=== PATIENT | female | born 1950 | race Caucasian/White ===

== ENCOUNTER 2016-10-30 12:01 | Emergency (ER) | payer MEDICARE ==
[2016-10-30 12:18] VITALS: O2SAT 96
[2016-10-30 12:52] LABS: Collection Type CLEAN CATCH; Ph 6.5 (5-6)
--- NOTE | 2016-10-30 12:52 | ERPHSYRPT ---
- History of Present Illness Time Seen by Provider: 10/30/16 12:30 Source: patient Exam Limitations: clinical condition Patient Subjective Stated Complaint: pt states she is having trouble urinating due to vaginal swelling. pt states her advised her to take diclofenac for a yeast infection. pt states she has dysuria. Triage Nursing Assessment: pt pink, warm, dry. abdomen soft non tender. pt afebrile. Physician History: PATIENT COMPLAINS OF VAGINAL SWELLING ASSOCIATED WITH FREQUENCY, URGENCY AND DYSURIA FOR 3 WEEKS. HAS A FULLNESS SENSATION UPON VOIDING . DENIES ABDOMINAL PAIN, VAGINAL DISCHARGE, HEMATURIA, FEVER, CHILLS OR FLANK PAIN. Timing/Duration: week(s) Activites at Onset: none Quality: burning Onset Location: vaginal Pain Radiation: none Severity of Pain-Max: moderate Severity of Pain-Current: moderate Prior abdominal problems: none Modifying Factors: Improves With: nothing, urinating Associated Symptoms: denies symptoms Allergies/Adverse Reactions: codeine Allergy (Verified 10/30/16 12:18) corn Allergy (Verified 10/30/16 12:18) Penicillins Allergy (Verified 10/30/16 12:18) Sulfa (Sulfonamide Antibiotics) Allergy (Verified 10/30/16 12:18) NOVAFED Adverse Reaction (Uncoded 10/30/16 12:18) Rapid Heart Beat Home Medications: No Reportable Medications [No Reported Medications] 10/30/16 [History] Hx Tetanus, Diphtheria Vaccination/Date Given: Yes (unknown) Hx Influenza Vaccination/Date Given: No Hx Pneumococcal Vaccination/Date Given: No - Review of Systems Constitutional: No Fever, No Chills Eyes: No Symptoms Ears, Nose, & Throat: No Symptoms Respiratory: No Cough, No Dyspnea Cardiac: No Chest Pain, No Edema, No Syncope Abdominal/Gastrointestinal: No Abdominal Pain, No Nausea, No Vomiting, No Diarrhea Genitourinary Symptoms: Dysuria, Frequency, Hesitancy, Urgency Musculoskeletal: No Symptoms, No Back Pain, No Neck Pain Skin: No Symptoms, No Rash Neurological: No Symptoms, No Dizziness, No Focal Weakness, No Sensory Changes Psychological: No Symptoms Endocrine: No Symptoms All Other Systems: Reviewed and Negative - Past Medical History Pertinent Past Medical History: Yes Neurological History: No Pertinent History ENT History: No Pertinent History Cardiac History: Other Respiratory History: No Pertinent History Endocrine Medical History: No Pertinent History Musculoskeletal History: No Pertinent History GI Medical History: No Pertinent History History: No Pertinent History Psycho-Social History: No Pertinent History Female Reproductive Disorders: No Pertinent History Other Medical History: PT HX OF BREAST CANCER HAD A HEART MONITOR A 1 TIME DUE TO ALLERGY TO CODEINE CURRENTLY TAKING CEPHALEXIN FOR SWOLLEN NECK LYMPHNODES FROM DENTAL CARIES - Past Surgical History Past Surgical History: Yes Neuro Surgical History: No Pertinent History Cardiac: No Pertinent History Respiratory: No Pertinent History Gastrointestinal: Cholecystectomy Musculoskeletal: No Pertinent History Female Surgical History: Hysterectomy, Mastectomy - Social History Smoking Status: Former smoker Exposure to second hand smoke: No Drug Use: none Patient Lives Alone: No - Nursing Vital Signs Nursing Vital Signs: Initial Vital Signs Temperature 98.7 F Temperature Source Oral Pulse Rate 68 Respiratory Rate 18 Blood Pressure [Left Arm] 176/79 Pain Intensity 0 - Physical Exam General Appearance: no apparent distress, alert Eye Exam: PERRL/EOMI, eyes nml inspection Ears, Nose, Throat Exam: normal ENT inspection, TMs normal, pharynx normal, moist mucous membranes Neck Exam: normal inspection, non-tender, supple, full range of motion Respiratory Exam: normal breath sounds, lungs clear, No respiratory distress Cardiovascular Exam: regular rate/rhythm, normal heart sounds, normal peripheral pulses Gastrointestinal/Abdomen Exam: soft, normal bowel sounds, other (NONTENDER), No tenderness, No mass Pelvic Exam: normal external exam, cervical motion tenderness, other (BLADDER PROLAPSE STAGE 2 TO THE OPENING OF THE VAGINAL ORIFICE) Back Exam: normal inspection, normal range of motion, No CVA tenderness, No vertebral tenderness Extremity Exam: normal inspection, normal range of motion, pelvis stable Neurologic Exam: alert, oriented x 3, cooperative, projection printer II-XII nml as tested, normal mood/affect, sensation nml, No motor deficits Skin Exam: normal color, warm, dry Lymphatic Exam: No adenopathy SpO2: 96 Oxygen Delivery: Room Air Ordered Tests: Active Orders 24 hr Category Date Time Status Pelvic Exam Assist STAT Care 10/30/16 12:46 Active UA W/ MICROSCOPIC Stat Lab 10/30/16 12:35 Completed UA W/RFX UR CULTURE Stat Lab 10/30/16 12:35 Completed Wet Prep Stat Lab 10/30/16 12:30 Completed Lab/Rad Data: Laboratory Results 10/30/16 10/30/16 Range/Units 12:35 12:30 Ur Collection Type CLEAN CATCH Urine Color YELLOW (YELLOW) Urine Appearance CLEAR (CLEAR) Urine pH 6.5 (5-6) Ur Specific [place] 1.010 (1.005-1.025) Urine Protein NEGATIVE (Negative) Urine Glucose (UA) NEGATIVE (NEGATIVE) mg/dL Urine Ketones NEGATIVE (NEGATIVE) Urine Nitrite NEGATIVE (NEGATIVE) Urine Bilirubin NEGATIVE (NEGATIVE) Urine Urobilinogen 0.2 (0-1) mg/dL Urine WBC (Auto) TRACE (NEGATIVE) Urine RBC (Auto) NEGATIVE (0-5) Lazaro/ul Urine Microscopic WBC 0-2 (0-5) /HPF Ur Epithelial Cells FEW (FEW) /HPF Urine Bacteria RARE (NEGATIVE) /HPF WBC (Wet Prep) Few RBC (Wet Prep) Rare Epi Cells (Wet Prep) Few Bacteria (Wet Prep) Few Clue Cells (Wet Prep) None Seen Trichomonas (Wet Prep) None Seen Budding Yeast (Wet Prp) None Seen Specimen Received 10/30/16 1243 - Progress Progress Note: 10/30/16 13:33 THE URINALYSIS AND WET PREP : NEGATIVE Counseled pt/family regarding: lab results, diagnosis - Departure Time of Disposition: 13:47 Departure Disposition: Home Clinical Impression: CYSTOCOELE Condition: Stable Critical Care Time: No Additional Instructions: CONSULT YOUR HOME SUPPORT WORKER FOR APPOINTMENT AT Nov AT 10:[address] NINA.
[2016-10-30 12:53] LABS: COMPLETE URINE MICROSCOPIC? YES
[2016-10-30 12:56] LABS: ADD URINE CULTURE? NO (NO); Bacteria RARE /HPF (NEGATIVE); Epithelial Cells FEW /HPF (FEW); WBC 0-2 /HPF (0-5)
[2016-10-30 13:03] LABS: Bacteria Few; Clue Cells None Seen; Trichomonas None Seen; Yeast None Seen
[2016-10-30 13:50] VITALS: BP 166/78; PULSE 72
[2016-10-30 15:06] LABS: CHLAMYDIA DNA NEGATIVE
== END 2016-10-30 13:51 | disposition home or self-care (01) ==
LOC: ED 12:01
DX: N81.10 Cystocele, unspecified (principal)
CPT/HCPCS: 81000; 87490; 87590; 99283

== ENCOUNTER 2017-03-08 14:45 | Emergency (ER) | payer MEDICARE ==
--- NOTE | 2017-03-08 15:34 | ERPHSYRPT ---
- History of Present Illness Time Seen by Provider: 03/08/17 15:00 Historian: patient Exam Limitations: no limitations Patient Subjective Stated Complaint: pt went to eat and now states she now has something stuck in throat, she states when she drinks something he vomits in back up Triage Nursing Assessment: pt alert, resp easy,skin w/d, no difficulty breathing , able to talk well Physician History: States ate [place] food and swallowed big chunk of rise, when she noticed she had epigastric pain and unable to swallow. Tried drinking some liquids but had difficulty keeping down liquids. States no SOB, dizziness, weakness. States have had similar episodes X 3 but usually food passes through after drinking water. No recent illness, fatigue, HUFF, syncope or any other systemic symptoms. Timing/Duration: today Activities at Onset: other (eating) Quality: cramping Abdominal Pain Onset Location: epigastric Pain Radiation: no radiation Severity of Pain-Max: moderate Severity of Pain-Current: none Modifying Factors: Improves With: eating (worsens) Associated Symptoms: nausea, vomiting, No chest pain, No diaphoresis Previous symptoms: same symptoms as today Allergies/Adverse Reactions: codeine Allergy (Verified 03/08/17 14:59) corn Allergy (Verified 03/08/17 14:59) Penicillins Allergy (Verified 03/08/17 14:59) Sulfa (Sulfonamide Antibiotics) Allergy (Verified 03/08/17 14:59) NOVAFED Adverse Reaction (Uncoded 03/08/17 14:59) Rapid Heart Beat Home Medications: No Reportable Medications [No Reported Medications] 10/30/16 [History] Hx Tetanus, Diphtheria Vaccination/Date Given: Yes (unknown) Hx Influenza Vaccination/Date Given: Yes Hx Pneumococcal Vaccination/Date Given: Yes - Review of Systems Constitutional: No Fever, No Chills Eyes: No Symptoms Ears, Nose, & Throat: No Symptoms Respiratory: No Cough, No Dyspnea Cardiac: No Chest Pain, No Edema, No Syncope Abdominal/Gastrointestinal: Abdominal Pain, Nausea, Vomiting, No Diarrhea, No Constipation Genitourinary Symptoms: No Dysuria Musculoskeletal: No Back Pain, No Neck Pain Skin: No Rash Neurological: No Dizziness, No Focal Weakness, No Sensory Changes Psychological: No Symptoms Endocrine: No Symptoms All Other Systems: Reviewed and Negative - Past Medical History Pertinent Past Medical History: Yes Neurological History: No Pertinent History ENT History: No Pertinent History Cardiac History: Other Respiratory History: No Pertinent History Endocrine Medical History: No Pertinent History Musculoskeletal History: No Pertinent History GI Medical History: No Pertinent History History: No Pertinent History Psycho-Social History: No Pertinent History Female Reproductive Disorders: No Pertinent History Other Medical History: PT HX OF BREAST CANCER HAD A HEART MONITOR A 1 TIME DUE TO ALLERGY TO CODEINE CURRENTLY TAKING CEPHALEXIN FOR SWOLLEN NECK LYMPHNODES FROM DENTAL CARIES - Past Surgical History Past Surgical History: Yes Neuro Surgical History: No Pertinent History Cardiac: No Pertinent History Respiratory: No Pertinent History Gastrointestinal: Cholecystectomy Musculoskeletal: No Pertinent History Female Surgical History: Hysterectomy, Mastectomy Other Surgical History: Tonsillectomy; Ganglion cyst removed from left wrist. - Social History Smoking Status: Former smoker Exposure to second hand smoke: Yes Drug Use: none Patient Lives Alone: No - Female History Hx Last Menstrual Period: post - Nursing Vital Signs Nursing Vital Signs: Initial Vital Signs Temperature 98.2 F Temperature Source Oral Pulse Rate 64 Respiratory Rate 16 Blood Pressure [Right Arm] 137/74 Pain Intensity 0 - Physical Exam General Appearance: no apparent distress, alert Eye Exam: PERRL/EOMI, eyes nml inspection Ears, Nose, Throat Exam: normal ENT inspection, pharynx normal, moist mucous membranes Neck Exam: normal inspection, non-tender, supple, full range of motion Respiratory Exam: normal breath sounds, lungs clear, No respiratory distress Cardiovascular Exam: regular rate/rhythm, normal heart sounds Gastrointestinal/Abdomen Exam: soft, No tenderness, No mass Back Exam: normal inspection, normal range of motion, No CVA tenderness, No vertebral tenderness Extremity Exam: normal inspection, normal range of motion, pelvis stable Neurologic Exam: alert, oriented x 3, cooperative, normal mood/affect, nml cerebellar function, sensation nml, No motor deficits Skin Exam: normal color, warm, dry SpO2: 98 Oxygen Delivery: Room Air - Course Nursing assessment & vital signs reviewed: Yes EKG Interpreted by Me: RATE (58), Sinus Rhythm, NORMAL AXIS, NORMAL INTERVALS, NORMAL QRS, NORMAL ST-T Ordered Tests: Active Orders 24 hr Category Date Time Status EKG-ER Only STAT Care 03/08/17 15:34 Active - Progress Progress: improved Progress Note: 03/08/17 15:31 Pt. able to swallow liquids without any difficulties. Pt in NAD Counseled pt/family regarding: diagnosis - Departure Time of Disposition: 16:49 Departure Disposition: Home Clinical Impression: Esophageal obstruction due to food impaction Condition: Stable Critical Care Time: No Referrals: FRANCES TOTH [Primary Care Provider] - Instructions: Abdominal Pain-Adult Additional Instructions: Drink liquids for next 1-2 days Return for worse abdominal pain, difficulty swallowing, short of breath or any problems.
[2017-03-08 16:56] VITALS: BP 137/67; PULSE 70; O2SAT 97
== END 2017-03-08 16:55 | disposition home or self-care (01) ==
LOC: ED 14:45
DX: T18.128A Food in esophagus causing other injury, initial encounter (principal); K22.2 Esophageal obstruction; R11.2 Nausea with vomiting, unspecified; R10.13 Epigastric pain
CPT/HCPCS: 93005; 99281

== ENCOUNTER 2021-03-31 14:12 | Observation (INO) | payer MEDICARE ==
--- NOTE | 2021-03-31 14:40 | XRAY ---
Indication: Stroke symptoms. Multiple contiguous images obtained through the head without contrast. Comparison: None Age-appropriate global atrophy and mild/moderate periventricular degenerative micro-ischemia bilateral. Small focus remote lacunar infarct left basal ganglia. No acute intracranial hemorrhage, abnormal extra axial fluid collection, or mass effect. Anatomic variant for cavum septum pellucidum vergae. Fourth ventricle is midline without hydrocephalus. Bony calvarium intact. Visualized paranasal sinuses and mastoid air cells are clear. Impression: 1. Atrophy and degenerative micro-ischemia within normal limits for patient's age. Left basal ganglia remote lacunar infarct. 2. No acute intracranial abnormalities. 3. Follow-up CT or MRI may yield further information if there remains clinical concern.
--- NOTE | 2021-03-31 14:50 | ERPHSYRPT ---
- History of Present Illness Time Seen by Provider: 03/31/21 14:13 Source: patient Exam Limitations: no limitations Patient Subjective Stated Complaint: Patient states she bent over to pick something up and when she got up "she couldnt think". Started to feel dizzy and couldnt get up. States she sat down and could not get up or talk and had R side weakness. States she could not feel her index finger or thumb. Triage Nursing Assessment: Patient arrived to ED via ems with R side weakness and confusion. Patient is alert and oriented at this time. VS WNL. Neuro checks WNL at this time. EKG sinus tachycardia. Color pink warm dry. Physician History: 70 years old female with history of paroxysmal atrial fibrillation, h ypertension, anxiety/depression presented in the ER via EMS with strokelike symptoms. 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 On EMS arrival her speech was slurry noncomprehendible, out of tremor/flickering sensation in the right index and thumb/forearm along with right-sided facial droop. On the way to the ER her symptoms are markedly improved and currently does not have any weakness, tingling, facial droop or difficulty speech and is back to her baseline. Denies any chest pain palpitations or shortness of breath before or after the episode. Blood sugar was 102. Time of Onset/Last Time Seen Normal: 1300 Timing/Duration: hour(s) (2), sudden, improved Severity: moderate Character of Deficits: new weakness, altered sensation, impaired speech, Right Facial Deficits: decrease ability to stand Baseline/Normal Cognition: alert oriented x 3 Current Cognition: alert oriented x 3 Baseline Gait: walks w/o assistance Associated Symptoms: nausea, slurred speech, No loss of consciousness, No vomiting, No weakness, No numbness/tingling in legs/feet Allergies/Adverse Reactions: codeine Allergy (Verified 03/08/17 14:59) corn Allergy (Verified 03/08/17 14:59) Penicillins Allergy (Verified 03/08/17 14:59) Sulfa (Sulfonamide Antibiotics) Allergy (Verified 03/08/17 14:59) NOVAFED Adverse Reaction (Uncoded 03/08/17 14:59) Rapid Heart Beat Home Medications: No Reportable Medications [No Reported Medications] 10/30/16 [History] Hx Tetanus, Diphtheria Vaccination/Date Given: Yes (unknown) Hx Influenza Vaccination/Date Given: Yes Hx Pneumococcal Vaccination/Date Given: Yes Travel Risk - International Travel Have you traveled outside of the country in past 3 weeks: No - Coronavirus Screening Are you exhibiting any of the following symptoms?: No Close contact with a COVID-19 positive Pt in past 14-21 Days: No - Vaccine Status Have you recieved a Covid-19 vaccination: No - Review of Systems Constitutional: Weakness Eyes: Vision Changes Ears, Nose, & Throat: No Symptoms Respiratory: No Symptoms Cardiac: No Symptoms Abdominal/Gastrointestinal: Nausea Genitourinary Symptoms: No Symptoms Musculoskeletal: No Symptoms Skin: No Symptoms Neurological: Dizziness, Focal Weakness, Sensory Changes, Speech Changes Psychological: No Symptoms Endocrine: No Symptoms Hematologic/Lymphatic: No Symptoms Immunological/Allergic: No Symptoms - Past Medical History Pertinent Past Medical History: Yes Neurological History: No Pertinent History ENT History: No Pertinent History Cardiac History: Other Respiratory History: No Pertinent History Endocrine Medical History: No Pertinent History Musculoskeletal History: No Pertinent History GI Medical History: No Pertinent History History: No Pertinent History Psycho-Social History: No Pertinent History Female Reproductive Disorders: No Pertinent History Other Medical History: PT HX OF BREAST CANCER HAD A HEART MONITOR A 1 TIME DUE TO ALLERGY TO CODEINE, Covid july 2020 , 4 in hiatal hernia - Past Surgical History Past Surgical History: Yes Neuro Surgical History: No Pertinent History Cardiac: No Pertinent History Respiratory: No Pertinent History Gastrointestinal: Cholecystectomy Musculoskeletal: No Pertinent History Female Surgical History: Hysterectomy, Mastectomy Other Surgical History: Tonsillectomy; Ganglion cyst removed from left wrist. Catarct surgery march - Social History Smoking Status: Former smoker Exposure to second hand smoke: Yes Drug Use: none Patient Lives Alone: No - Nursing Vital Signs Nursing Vital Signs: Initial Vital Signs O2 Sat by Pulse Oximetry 95 03/31/21 15:25 Pain Scale Pain Intensity 0 - Johnnie Coma Scale Best Eye Response ([place]): (4) open spontaneously Best Verbal Response ([place]): (5) oriented Best Motor Response ([place]): (6) obeys commands [place] Total: 15 - Physical Exam General Appearance: no apparent distress, alert Eye Exam: right eye: PERRL, left eye: abnormal pupil (chronic sluggish), bilateral eye: normal inspection Ears, Nose, Throat Exam: normal ENT inspection, TMs normal, pharynx normal, moist mucous membranes Neck Exam: normal inspection, non-tender, supple, full range of motion Respiratory: normal breath sounds, lungs clear Cardiovascular: regular rate/rhythm, normal heart sounds Gastrointestinal: soft, normal bowel sounds, No tenderness Back Exam: normal inspection, normal range of motion, No CVA tenderness, No vertebral tenderness Extremity Exam: normal inspection, normal range of motion, pelvis stable Mental Status: alert, oriented x 3, 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 Exam: normal hearing, normal speech, PERRL, No facial asymmetry, No facial droop, No facial paresthesias, No facial weakness Coordination/Gait: normal finger to nose, normal cerebellar function, negative Romberg's sign DTR: bicep (R): 2+, bicep (L): 2+, knee (R): 2+, knee (L): 2+, ankle (R): 2+, ankle (L): 2+ Skin Exam: normal color SpO2 Interpretation: normal SpO2: 95 O2 Delivery: Room Air - Course EKG Interpreted by Me: RATE, Sinus Rhythm, NORMAL AXIS, NORMAL INTERVALS, NORMAL QRS Ordered Tests: Active Orders 24 hr Category Date Time Status Cuffer STAT Care 03/31/21 14:43 Active EKG-ER Only STAT Care 03/31/21 14:43 Active IV Insertion STAT Care 03/31/21 14:43 Active IV Insertion-2nd Peripheral STAT Care 03/31/21 14:43 Active NPO (ED) STAT Care 03/31/21 14:43 Active NPO (ED) STAT Care 03/31/21 15:04 Active POCT Glucose Check STAT Care 03/31/21 14:43 Active CHEST 1 VIEW (PORTABLE) Stat Exams 03/31/21 15:04 Completed HEAD WITHOUT CONTRAST [CT] Stat Exams 03/31/21 14:25 Completed CBC W DIFF Stat Lab 03/31/21 14:30 Completed CMP Stat Lab 03/31/21 14:30 Completed Lactic Acid Stat Lab 03/31/21 15:04 Completed POCT GLUCOSE Stat Lab 03/31/21 14:44 Completed PROTIME WITH INR Stat Lab 03/31/21 14:30 Completed PTT Stat Lab 03/31/21 14:30 Completed UA W/RFX UR CULTURE Stat Lab 03/31/21 14:43 Ordered Transfer Order Routine Transfer 03/31/21 Ordered Medication Summary Discontinued Medications Generic Name Dose Route Start Last Admin Trade Name Vicky PRN Reason Stop Dose Admin Aspirin 324 mg 03/31/21 15:26 Baby Aspirin 81 Mg Chew PO 03/31/21 15:27 STAT ONE Lab/Rad Data: Laboratory Result Diagrams 03/31/21 14:30 03/31/21 14:30 Laboratory Results 03/31/21 03/31/21 03/31/21 Range/Units 15:04 14:44 14:30 WBC (4.0-10.5) K/mm3 RBC (4.1-5.4) M/mm3 Hgb (12.0-16.0) gm/dl Hct (35-47) % MCV (78-100) fl MCH (26-32) pg MCHC (32-36) g/dl RDW (11.5-14.0) % Plt Count (150-450) K/mm3 MPV (7.5-11.0) fl Gran % (36.0-66.0) % Eos # (Auto) (0-0.5) Absolute Lymphs (auto) (1.0-4.6) Absolute Monos (auto) (0.0-1.3) Lymphocytes % (24.0-44.0) % Monocytes % (0.0-12.0) % Eosinophils % (0.00-5.0) % Basophils % (0.0-0.4) % Absolute Granulocytes (1.4-6.9) Basophils # (0-0.4) PT 12.4 (9.4-12.5) SECONDS INR 1.05 (0.8-3.0) APTT 33.8 (25.1-36.5) SECONDS Sodium (137-145) mmol/L Potassium (3.5-5.1) mmol/L Chloride (98-107) mmol/L Carbon Dioxide (22-30) mmol/L Anion Gap (5-15) MEQ/L BUN (7-17) mg/dL Creatinine (0.52-1.04) mg/dL Estimated GFR ML/MIN Glucose (74-106) mg/dL POC Glucometer 96 (74 to 106) mg/dL Lactic Acid 0.9 (0.4-2.0) Calcium (8.4-10.2) mg/dL Total Bilirubin (0.2-1.3) mg/dL AST (14-36) U/L ALT (0-35) U/L Alkaline Phosphatase (38-126) U/L Serum Total Protein (6.3-8.2) g/dL Albumin (3.5-5.0) g/dL 03/31/21 03/31/21 Range/Units 14:30 14:30 WBC 8.4 (4.0-10.5) K/mm3 RBC 4.82 (4.1-5.4) M/mm3 Hgb 14.1 (12.0-16.0) gm/dl Hct 43.0 (35-47) % MCV 89.2 (78-100) fl MCH 29.3 (26-32) pg MCHC 32.8 (32-36) g/dl RDW 13.3 (11.5-14.0) % Plt Count 254 (150-450) K/mm3 MPV 11.2 H (7.5-11.0) fl Gran % 57.1 (36.0-66.0) % Eos # (Auto) 0.28 (0-0.5) Absolute Lymphs (auto) 2.82 (1.0-4.6) Absolute Monos (auto) 0.46 (0.0-1.3) Lymphocytes % 33.7 (24.0-44.0) % Monocytes % 5.5 (0.0-12.0) % Eosinophils % 3.3 (0.00-5.0) % Basophils % 0.4 (0.0-0.4) % Absolute Granulocytes 4.78 (1.4-6.9) Basophils # 0.03 (0-0.4) PT (9.4-12.5) SECONDS INR (0.8-3.0) APTT (25.1-36.5) SECONDS Sodium 139 (137-145) mmol/L Potassium 4.0 (3.5-5.1) mmol/L Chloride 103 (98-107) mmol/L Carbon Dioxide 26 (22-30) mmol/L Anion Gap 13.8 (5-15) MEQ/L BUN 15 (7-17) mg/dL Creatinine 0.68 (0.52-1.04) mg/dL Estimated GFR > 60.0 ML/MIN Glucose 104 (74-106) mg/dL POC Glucometer (74 to 106) mg/dL Lactic Acid (0.4-2.0) Calcium 9.3 (8.4-10.2) mg/dL Total Bilirubin 0.20 (0.2-1.3) mg/dL AST 26 (14-36) U/L ALT 17 (0-35) U/L Alkaline Phosphatase 75 (38-126) U/L Serum Total Protein 7.8 (6.3-8.2) g/dL Albumin 4.3 (3.5-5.0) g/dL - Progress Progress: improved, re-examined Progress Note: 03/31/21 15:20 She is made stroke activate, prompt CT head is obtained which is negative for intracranial bleed, midline shift or mass-effect. EKG normal sinus rhythm with no acute ischemic changes. [facility] neurology consult is obtained who thinks patient probably have TIA versus focal partial seizures and recommended telemetry ADMISSION with stroke work-up. Does not have any focal neuro symptoms currently, not a candidate for TPA. Discussed with , Reviewed history, work-up and current neurology recommendations and patient is accepted for admission. Discussed with : Other ([facility] neurology) Will see patient in: hospital (observation) Counseled pt/family regarding: lab results, diagnosis, rad results - Departure Departure Disposition: Observation Clinical Impression: TIA (transient ischemic attack) Condition: Stable Critical Care Time: Yes Critical Care Time(excluding separately billable procedures): Critical 30-74 mins Referrals: FRANCES TOTH [Primary Care Provider] -
[2021-03-31 14:53] LABS: Absolute Neutrophil Ct (ANC) 4.78 (1.4-6.9); BASOPHIL % 0.4 % (0.0-0.4); Basophil (Absolute #) 0.03 (0-0.4); Eosinophil % 3.3 % (0.00-5.0); Eosinophil (Absolute #) 0.28 (0-0.5); Hemoglobin 14.1 gm/dl (12.0-16.0); Lymphocyte (Absolute #) 2.82 (1.0-4.6); Lymphocytes % 33.7 % (24.0-44.0); Mean Cell Volume 89.2 fl (78-100); Mean Corpuscular Hemoglobin 29.3 pg (26-32); Mean Corpuscular Hgb Concent. 32.8 g/dl (32-36); Mean Platelet Volume 11.2 fl (7.5-11.0); Monocyte (Absolute #) 0.46 (0.0-1.3); Monocytes % 5.5 % (0.0-12.0); Neutrophil % 57.1 % (36.0-66.0); Platelet Count 254 K/mm3 (150-450); Red Blood Count 4.82 M/mm3 (4.1-5.4); Red Cell Distribution Width 13.3 % (11.5-14.0); White Blood Count 8.4 K/mm3 (4.0-10.5)
[2021-03-31 14:54] LABS: INR 1.05 (0.8-3.0); PROTIME 12.4 SECONDS (9.4-12.5)
[2021-03-31 14:56] LABS: PTT 33.8 SECONDS (25.1-36.5)
[2021-03-31 14:58] LABS: ALBUMIN 4.3 g/dL (3.5-5.0); ALKALINE PHOSPHATASE 75 U/L (38-126); ANION GAP 13.8 MEQ/L (5-15); BLOOD UREA NITROGEN 15 mg/dL (7-17); CHLORIDE 103 mmol/L (98-107); Calcium 9.3 mg/dL (8.4-10.2); Carbon Dioxide 26 mmol/L (22-30); Creatinine 1 0.68 mg/dL (0.52-1.04); EST GLOMERULAR FILTRATION RATE > 60.0 ML/MIN; Glucose 104 mg/dL (74-106); SGOT/AST 26 U/L (14-36); SGPT/ALT 17 U/L (0-35); SODIUM 139 mmol/L (137-145); Total Protein 7.8 g/dL (6.3-8.2)
[2021-03-31] MEDS ORDERED: BABY ASPIRIN 81 MG CHEW PO ONE (15:26)
--- NOTE | 2021-03-31 15:31 | XRAY ---
Indication: Stroke symptoms. Comparison: September 02, 2014. Portable chest again demonstrates normal heart and lungs with incidental right base calcified granuloma. Bony thorax intact again with mild osteopenia and minimal degenerative changes. Impression: Continued nonacute chest with chronic features.
[2021-03-31 16:50] LABS: Appearance CLEAR (CLEAR); Bilirubin NEGATIVE (NEGATIVE); Blood NEGATIVE Ery/ul (0-5); Glucose NEGATIVE (NEGATIVE); Ketones NEGATIVE (NEGATIVE); Leukocyte Esterase NEGATIVE (NEGATIVE); Nitrite NEGATIVE (NEGATIVE); Protein,Urine Dip NEGATIVE (Negative); Specific Gravity 1.006 (1.005-1.025); Urobilinogen NEGATIVE mg/dL (0-1); WBC 0-2 /HPF (0-5)
[2021-03-31] MEDS ORDERED: DUONEB 0.5-3 MG/3 ml Neb IH PRN (18:20)
--- NOTE | 2021-03-31 19:14 | PCM.HP ---
History of Present Illness - Chief Complaint Chief Complaint: weakness in right arm and hand for 4-6 hours History of Present Illness: is a 70 year old female.with history of paroxysmal atrial fibrillation, hypertension, anxiety/depression presented in the ER via EMS with strokelike symptoms. 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 On EMS arrival her speech was slurry noncomprehendible, out of tremor/flickering sensation in the right index and thumb/forearm along with right-sided facial droop. On the way to the ER her symptoms are markedly improved and currently does not have any weakness, tingling, facial droop or difficulty speech and is back to her baseline. Denies any chest pain palpitations or shortness of breath before or after the episode. Blood sugar was 102. Time of Onset/Last Time Seen Normal: 1300 Timing/Duration: hour(s) (2), sudden, improved Severity: moderate Character of Deficits: new weakness, altered sensation, impaired speech, Right Facial Deficits: decrease ability to stand Baseline/Normal Cognition: alert oriented x 3 Current Cognition: alert oriented x 3 Baseline Gait: walks w/o assistance Associated Symptoms: nausea, slurred speech, No loss of consciousness, No vomiting, No weakness, No numbness/tingling in legs/feet - Review of Systems Constitutional: No Fever, No Chills Eyes: No Symptoms Ears, Nose, & Throat: No Symptoms Respiratory: No Cough, No Short Of Breath Cardiac: No Chest Pain, No Edema, No Syncope Abdominal/Gastrointestinal: No Abdominal Pain, No Nausea, No Vomiting, No Diarrhea Genitourinary Symptoms: No Dysuria Musculoskeletal: No Back Pain, No Neck Pain Skin: No Rash Neurological: Focal Weakness, No Dizziness, No Sensory Changes Psychological: No Symptoms Endocrine: No Symptoms Hematologic/Lymphatic: No Symptoms Immunological/Allergic: No Symptoms Medications & Allergies Home Medications: Home Medication List Bimatoprost [Lumigan] 7.5 drops OP TID 03/31/21 [History Confirmed 03/31/21] Ketorolac Tromethamine 1 drop OP TID 03/31/21 [History Confirmed 03/31/21] Metoprolol Succinate 25 mg Xl* [Toprol-Xl 25MG Tablets] 25 mg PO DAILY 03/31/21 [History Confirmed 03/31/21] Ofloxacin Ophth 5 ml [Ocuflox OPHTHALMIC 5 ML] 1 drop OP TID 03/31/21 [History Confirmed 03/31/21] Omeprazole 40 mg PO DAILY 03/31/21 [History Confirmed 03/31/21] PARoxetine HCL [Paroxetine HCl] 10 mg PO DAILY 03/31/21 [History Confirmed 03/31/21] Prednisolone Acetate 1 drop OP QID 03/31/21 [History Confirmed 03/31/21] Allergies/Adverse Reactions: Allergies Allergy/AdvReac Type Severity Reaction Status Date / Time codeine Allergy Verified 03/08/17 14:59 corn Allergy Verified 03/08/17 14:59 Penicillins Allergy Verified 03/08/17 14:59 Sulfa (Sulfonamide Allergy Verified 03/08/17 14:59 Antibiotics) NOVAFED AdvReac Rapid Uncoded 03/08/17 14:59 Heart Beat - Past Medical History Past Medical History: Yes Neurological History: No Pertinent History ENT History: No Pertinent History Cardiac History: Arrhythmia, Other Respiratory History: No Pertinent History Endocrine Medical History: No Pertinent History Musculoskelatal History: No Pertinent History GI Medical History: Hernia History: No Pertinent History Pyscho-Social History: Anxiety, Panic Disorder Reproductive Disorders: Breast Cancer, Cervical Cancer, Fibroids Comment: PT HX OF BREAST CANCER, 4 in hiatal hernia - Female History Are you now?: No - Past Surgical History Past Surgical History: Yes Neuro Surgical History: No Pertinent History Cardiac History: No Pertinent History Respiratory Surgery: No Pertinent History GI Surgical History: Cholecystectomy, Other Genitourinary Surgical Hx: No Pertinent History Musculskeletal Surgical Hx: No Pertinent History Female Surgical History: Hysterectomy, Mastectomy Other Surgical History: Tonsillectomy; Ganglion cyst removed from left wrist. Catarct surgery march, COLONOSCOPY - Social History Smoking Status: Never smoker Exposure to second hand smoke: No Alcohol: None Drug Use: none - Physical Exam Vital Signs: Vital Signs - 24 hr Temp Pulse Resp BP Pulse Ox 03/31/21 18:31 97.7 F 57 L 17 150/68 96 03/31/21 17:30 62 18 153/72 95 03/31/21 16:22 57 L 20 178/75 96 03/31/21 15:51 95 General Appearance: no apparent distress, alert Neurologic Exam: alert, oriented x 3, cooperative, normal mood/affect, nml cerebellar function, nml station & gait, sensation nml, No motor deficits Eye Exam: PERRL/EOMI, eyes nml inspection Ears, Nose, Throat Exam: normal ENT inspection, TMs normal, pharynx normal, moist mucous membranes Neck Exam: normal inspection, non-tender, supple, full range of motion Respiratory Exam: normal breath sounds, lungs clear, No respiratory distress Cardiovascular Exam: regular rate/rhythm, normal heart sounds, normal peripheral pulses Gastrointestinal/Abdomen Exam: soft, normal bowel sounds, No tenderness, No mass Back Exam: normal inspection, normal range of motion, No CVA tenderness, No vertebral tenderness Extremity Exam: normal inspection, normal range of motion, pelvis stable Skin Exam: normal color, warm, dry, No rash Lymphatic Exam: No adenopathy Results - Labs Lab/Micro Results: Lab Results-Last 24 Hours 03/31/21 03/31/21 03/31/21 Range/Units 14:30 14:30 14:30 WBC 8.4 (4.0-10.5) K/mm3 RBC 4.82 (4.1-5.4) M/mm3 Hgb 14.1 (12.0-16.0) gm/dl Hct 43.0 (35-47) % MCV 89.2 (78-100) fl MCH 29.3 (26-32) pg MCHC 32.8 (32-36) g/dl RDW 13.3 (11.5-14.0) % Plt Count 254 (150-450) K/mm3 MPV 11.2 H (7.5-11.0) fl Gran % 57.1 (36.0-66.0) % Eos # (Auto) 0.28 (0-0.5) Absolute Lymphs (auto) 2.82 (1.0-4.6) Absolute Monos (auto) 0.46 (0.0-1.3) Lymphocytes % 33.7 (24.0-44.0) % Monocytes % 5.5 (0.0-12.0) % Eosinophils % 3.3 (0.00-5.0) % Basophils % 0.4 (0.0-0.4) % Absolute Granulocytes 4.78 (1.4-6.9) Basophils # 0.03 (0-0.4) PT 12.4 (9.4-12.5) SECONDS INR 1.05 (0.8-3.0) APTT 33.8 (25.1-36.5) SECONDS Sodium 139 (137-145) mmol/L Potassium 4.0 (3.5-5.1) mmol/L Chloride 103 (98-107) mmol/L Carbon Dioxide 26 (22-30) mmol/L Anion Gap 13.8 (5-15) MEQ/L BUN 15 (7-17) mg/dL Creatinine 0.68 (0.52-1.04) mg/dL Estimated GFR > 60.0 ML/MIN Glucose 104 (74-106) mg/dL POC Glucometer (74 to 106) mg/dL Lactic Acid (0.4-2.0) Calcium 9.3 (8.4-10.2) mg/dL Total Bilirubin 0.20 (0.2-1.3) mg/dL AST 26 (14-36) U/L ALT 17 (0-35) U/L Alkaline Phosphatase 75 (38-126) U/L Serum Total Protein 7.8 (6.3-8.2) g/dL Albumin 4.3 (3.5-5.0) g/dL Urine Color (YELLOW) Urine Appearance (CLEAR) Urine pH (5-6) Ur Specific [place] (1.005-1.025) Urine Protein (Negative) Urine Ketones (NEGATIVE) Urine Blood (0-5) Lazaro/ul Urine Nitrite (NEGATIVE) Urine Bilirubin (NEGATIVE) Urine Urobilinogen (0-1) mg/dL Ur Leukocyte Esterase (NEGATIVE) Urine WBC (Auto) (0-5) /HPF Urine Culture Reflexed (NO) Urine Glucose (NEGATIVE) mg/dL SARS-CoV-2 (PCR) (NEGATIVE) 03/31/21 03/31/21 03/31/21 Range/Units 14:44 15:04 16:00 WBC (4.0-10.5) K/mm3 RBC (4.1-5.4) M/mm3 Hgb (12.0-16.0) gm/dl Hct (35-47) % MCV (78-100) fl MCH (26-32) pg MCHC (32-36) g/dl RDW (11.5-14.0) % Plt Count (150-450) K/mm3 MPV (7.5-11.0) fl Gran % (36.0-66.0) % Eos # (Auto) (0-0.5) Absolute Lymphs (auto) (1.0-4.6) Absolute Monos (auto) (0.0-1.3) Lymphocytes % (24.0-44.0) % Monocytes % (0.0-12.0) % Eosinophils % (0.00-5.0) % Basophils % (0.0-0.4) % Absolute Granulocytes (1.4-6.9) Basophils # (0-0.4) PT (9.4-12.5) SECONDS INR (0.8-3.0) APTT (25.1-36.5) SECONDS Sodium (137-145) mmol/L Potassium (3.5-5.1) mmol/L Chloride (98-107) mmol/L Carbon Dioxide (22-30) mmol/L Anion Gap (5-15) MEQ/L BUN (7-17) mg/dL Creatinine (0.52-1.04) mg/dL Estimated GFR ML/MIN Glucose (74-106) mg/dL POC Glucometer 96 (74 to 106) mg/dL Lactic Acid 0.9 (0.4-2.0) Calcium (8.4-10.2) mg/dL Total Bilirubin (0.2-1.3) mg/dL AST (14-36) U/L ALT (0-35) U/L Alkaline Phosphatase (38-126) U/L Serum Total Protein (6.3-8.2) g/dL Albumin (3.5-5.0) g/dL Urine Color STRAW (YELLOW) Urine Appearance CLEAR (CLEAR) Urine pH 8.0 (5-6) Ur Specific [place] 1.006 (1.005-1.025) Urine Protein NEGATIVE (Negative) Urine Ketones NEGATIVE (NEGATIVE) Urine Blood NEGATIVE (0-5) Lazaro/ul Urine Nitrite NEGATIVE (NEGATIVE) Urine Bilirubin NEGATIVE (NEGATIVE) Urine Urobilinogen NEGATIVE (0-1) mg/dL Ur Leukocyte Esterase NEGATIVE (NEGATIVE) Urine WBC (Auto) 0-2 (0-5) /HPF Urine Culture Reflexed NO (NO) Urine Glucose NEGATIVE (NEGATIVE) mg/dL SARS-CoV-2 (PCR) (NEGATIVE) 03/31/21 Range/Units 16:19 WBC (4.0-10.5) K/mm3 RBC (4.1-5.4) M/mm3 Hgb (12.0-16.0) gm/dl Hct (35-47) % MCV (78-100) fl MCH (26-32) pg MCHC (32-36) g/dl RDW (11.5-14.0) % Plt Count (150-450) K/mm3 MPV (7.5-11.0) fl Gran % (36.0-66.0) % Eos # (Auto) (0-0.5) Absolute Lymphs (auto) (1.0-4.6) Absolute Monos (auto) (0.0-1.3) Lymphocytes % (24.0-44.0) % Monocytes % (0.0-12.0) % Eosinophils % (0.00-5.0) % Basophils % (0.0-0.4) % Absolute Granulocytes (1.4-6.9) Basophils # (0-0.4) PT (9.4-12.5) SECONDS INR (0.8-3.0) APTT (25.1-36.5) SECONDS Sodium (137-145) mmol/L Potassium (3.5-5.1) mmol/L Chloride (98-107) mmol/L Carbon Dioxide (22-30) mmol/L Anion Gap (5-15) MEQ/L BUN (7-17) mg/dL Creatinine (0.52-1.04) mg/dL Estimated GFR ML/MIN Glucose (74-106) mg/dL POC Glucometer (74 to 106) mg/dL Lactic Acid (0.4-2.0) Calcium (8.4-10.2) mg/dL Total Bilirubin (0.2-1.3) mg/dL AST (14-36) U/L ALT (0-35) U/L Alkaline Phosphatase (38-126) U/L Serum Total Protein (6.3-8.2) g/dL Albumin (3.5-5.0) g/dL Urine Color (YELLOW) Urine Appearance (CLEAR) Urine pH (5-6) Ur Specific [place] (1.005-1.025) Urine Protein (Negative) Urine Ketones (NEGATIVE) Urine Blood (0-5) Lazaro/ul Urine Nitrite (NEGATIVE) Urine Bilirubin (NEGATIVE) Urine Urobilinogen (0-1) mg/dL Ur Leukocyte Esterase (NEGATIVE) Urine WBC (Auto) (0-5) /HPF Urine Culture Reflexed (NO) Urine Glucose (NEGATIVE) mg/dL SARS-CoV-2 (PCR) NEGATIVE (NEGATIVE) Accuchecks Date 03/31/21 Time 14:45 - Radiology Impressions Radiology Exams & Impressions: Radiology Procedures Category Date Time Status CHEST 1 VIEW (PORTABLE) Stat Exams 03/31/21 15:04 Completed HEAD WITHOUT CONTRAST [CT] Stat Exams 03/31/21 14:25 Completed Assessment/Plan (1) TIA (transient ischemic attack) Current Visit: Yes Status: Acute Assessment & Plan: Chief Complaint Diagnosis TIA Allergies Allergy/AdvReac Type Severity Reaction Status Date / Time codeine Allergy Verified 03/08/17 14:59 corn Allergy Verified 03/08/17 14:59 Penicillins Allergy Verified 03/08/17 14:59 Sulfa (Sulfonamide Allergy Verified 03/08/17 14:59 Antibiotics) NOVAFED AdvReac Rapid Uncoded 03/08/17 14:59 Heart Beat Vital Signs (Last 24 hours) Temp Pulse Resp BP Pulse Ox 03/31/21 18:31 97.7 F 57 L 17 150/68 96 03/31/21 17:30 62 18 153/72 95 03/31/21 16:22 57 L 20 178/75 96 03/31/21 15:51 95 Home Medications Medication Instructions Recorded Confirmed Last Taken Type Bimatoprost [Lumigan] 7.5 drops OP TID 03/31/21 03/31/21 03/31/21 History Ketorolac Tromethamine 1 drop OP TID 03/31/21 03/31/21 03/31/21 History Metoprolol Succinate 25 mg Xl* 25 mg PO DAILY 03/31/21 03/31/21 03/31/21 History [Toprol-Xl 25MG Tablets] Ofloxacin Ophth 5 ml [Ocuflox 1 drop OP TID 03/31/21 03/31/21 03/31/21 History OPHTHALMIC 5 ML] Omeprazole 40 mg PO DAILY 03/31/21 03/31/21 03/31/21 History PARoxetine HCL [Paroxetine HCl] 10 mg PO DAILY 03/31/21 03/31/21 03/29/21 History Prednisolone Acetate 1 drop OP QID 03/31/21 03/31/21 03/31/21 History Current Medications Generic Name Dose Route Start Last Admin Trade Name Vicky PRN Reason Stop Dose Admin Acetaminophen 650 mg 03/31/21 18:20 Tylenol 325 Mg PO 04/30/21 18:19 Q4H PRN PRN PAIN AND/OR FEVER Albuterol/Ipratropium 3 ml 03/31/21 18:20 Duoneb 0.5-3 Mg/3 Ml Neb IH 04/30/21 18:19 Q4HPRN PRN SHORTNESS OF BREATH/WHEEZING Ondansetron HCl 4 mg 03/31/21 18:20 Zofran 4 Mg/2 Ml Vial IV 04/30/21 18:19 Q6H PRN PRN NAUSEA/VOMITING Pantoprazole Sodium 40 mg 04/01/21 10:00 Protonix 40 Mg Iv IV 05/01/21 09:59 Q24H10 NOHELIA Discontinued Medications Generic Name Dose Route Start Last Admin Trade Name Vicky PRN Reason Stop Dose Admin Aspirin 324 mg 03/31/21 15:26 03/31/21 15:55 Baby Aspirin 81 Mg Chew PO 03/31/21 15:27 324 mg STAT ONE Administration Intake & Output (Last 24 hours) 03/29/21 03/30/21 03/31/21 04/01/21 11:59 11:59 11:59 11:59 Weight 84.1 kg Laboratory Results (Last 24 hours) 03/31/21 03/31/21 03/31/21 16:19 16:00 15:04 WBC RBC Hgb Hct MCV MCH MCHC RDW Plt Count MPV Gran % Eos # (Auto) Absolute Lymphs (auto) Absolute Monos (auto) Lymphocytes % Monocytes % Eosinophils % Basophils % Absolute Granulocytes Basophils # PT INR APTT Sodium Potassium Chloride Carbon Dioxide Anion Gap BUN Creatinine Estimated GFR Glucose POC Glucometer Lactic Acid 0.9 Calcium Total Bilirubin AST ALT Alkaline Phosphatase Serum Total Protein Albumin Urine Color STRAW Urine Appearance CLEAR Urine pH 8.0 Ur Specific [place] 1.006 Urine Protein NEGATIVE Urine Ketones NEGATIVE Urine Blood NEGATIVE Urine Nitrite NEGATIVE Urine Bilirubin NEGATIVE Urine Urobilinogen NEGATIVE Ur Leukocyte Esterase NEGATIVE Urine WBC (Auto) 0-2 Urine Culture Reflexed NO Urine Glucose NEGATIVE SARS-CoV-2 (PCR) NEGATIVE 03/31/21 03/31/21 03/31/21 14:44 14:30 14:30 WBC RBC Hgb Hct MCV MCH MCHC RDW Plt Count MPV Gran % Eos # (Auto) Absolute Lymphs (auto) Absolute Monos (auto) Lymphocytes % Monocytes % Eosinophils % Basophils % Absolute Granulocytes Basophils # PT 12.4 INR 1.05 APTT 33.8 Sodium 139 Potassium 4.0 Chloride 103 Carbon Dioxide 26 Anion Gap 13.8 BUN 15 Creatinine 0.68 Estimated GFR > 60.0 Glucose 104 POC Glucometer 96 Lactic Acid Calcium 9.3 Total Bilirubin 0.20 AST 26 ALT 17 Alkaline Phosphatase 75 Serum Total Protein 7.8 Albumin 4.3 Urine Color Urine Appearance Urine pH Ur Specific [place] Urine Protein Urine Ketones Urine Blood Urine Nitrite Urine Bilirubin Urine Urobilinogen Ur Leukocyte Esterase Urine WBC (Auto) Urine Culture Reflexed Urine Glucose SARS-CoV-2 (PCR) 03/31/21 14:30 WBC 8.4 RBC 4.82 Hgb 14.1 Hct 43.0 MCV 89.2 MCH 29.3 MCHC 32.8 RDW 13.3 Plt Count 254 MPV 11.2 H Gran % 57.1 Eos # (Auto) 0.28 Absolute Lymphs (auto) 2.82 Absolute Monos (auto) 0.46 Lymphocytes % 33.7 Monocytes % 5.5 Eosinophils % 3.3 Basophils % 0.4 Absolute Granulocytes 4.78 Basophils # 0.03 PT INR APTT Sodium Potassium Chloride Carbon Dioxide Anion Gap BUN Creatinine Estimated GFR Glucose POC Glucometer Lactic Acid Calcium Total Bilirubin AST ALT Alkaline Phosphatase Serum Total Protein Albumin Urine Color Urine Appearance Urine pH Ur Specific [place] Urine Protein Urine Ketones Urine Blood Urine Nitrite Urine Bilirubin Urine Urobilinogen Ur Leukocyte Esterase Urine WBC (Auto) Urine Culture Reflexed Urine Glucose SARS-CoV-2 (PCR) Orders (Last 24 hours) Category Date Time Status Bedrest ROUTINE Activity 03/31/21 18:20 Active Up With Assistance ROUTINE Activity 03/31/21 18:20 Active Color Dipper STAT Care 03/31/21 14:43 Completed Code Status Order ROUTINE Care 03/31/21 18:20 Active EKG-ER Only STAT Care 03/31/21 14:43 Completed Fall Protocol Q1H Care 03/31/21 18:20 Active IV Care Q6H Care 03/31/21 18:20 Active IV Insertion STAT Care 03/31/21 14:43 Completed IV Insertion-2nd Peripheral STAT Care 03/31/21 14:43 Completed NPO (ED) STAT Care 03/31/21 14:43 Completed NPO (ED) STAT Care 03/31/21 15:04 Completed Neuro Checks Q1 Care 03/31/21 18:20 Active POCT Glucose Check STAT Care 03/31/21 14:[address] in Observation ROUTINE Care 03/31/21 18:20 Active Telemetry q6h Care 03/31/21 18:19 Active [employer]/Discharge Plan ROUTINE Cons 03/31/21 19:03 Active Heart-Healthy Diet Diet 03/31/21 Dinner Active CHEST 1 VIEW (PORTABLE) Stat Exams 03/31/21 15:04 Completed HEAD WITHOUT CONTRAST [CT] Stat Exams 03/31/21 14:25 Completed CBC W DIFF AM.LAB Lab 04/01/21 04:00 Ordered CBC W DIFF Stat Lab 03/31/21 14:30 Completed CMP AM.LAB Lab 04/01/21 04:00 Ordered CMP Stat Lab 03/31/21 14:30 Completed Lactic Acid Stat Lab 03/31/21 15:04 Completed POCT GLUCOSE Stat Lab 03/31/21 14:44 Completed PROTIME WITH INR Stat Lab 03/31/21 14:30 Completed PTT Stat Lab 03/31/21 14:30 Completed SARS-CoV-2 Xpert Express Routine Lab 03/31/21 16:19 Completed UA W/RFX UR CULTURE Stat Lab 03/31/21 16:00 Completed Acetaminophen 325 mg [Tylenol 325 mg] Med 03/31/21 18:20 Ordered 650 mg PO Q4H PRN PRN Albuterol/Ipratropium 3ml Neb* [DUONEB 0.5-3 MG/3 ml Med 03/31/21 18:20 Ordered Neb] 3 ml IH Q4HPRN PRN Aspirin 81 gm Chew [Baby Aspirin 81 mg Chew] Med 03/31/21 15:26 Discontinued 324 mg PO STAT ONE Ondansetron HCl 4 mg/2 ml [Zofran 4 MG/2 ML VIAL] Med 03/31/21 18:20 Ordered 4 mg IV Q6H PRN PRN Pantoprazole 40 mg [Protonix 40 mg IV] Med 04/01/21 10:00 Ordered 40 mg IV Q24H10 Transfer Order Routine Transfer 03/31/21 Completed Code(s): G45.9 - TRANSIENT CEREBRAL ISCHEMIC ATTACK, UNSPECIFIED
[2021-03-31] MEDS: TYLENOL 325 MG PO PRN (19:52)
[2021-03-31] MEDS: Zofran 4 MG/2 ML VIAL IV PRN (19:53)
[2021-03-31] MEDS: Ocuflox OPHTHALMIC 5 ML OP SCH (21:01)
[2021-03-31] MEDS: Acular OPTH SOL OP SCH (21:01)
[2021-03-31] MEDS: PRED-FORTE 1% OPHTHALMIC OP SCH (21:01)
[2021-03-31] MEDS: LUMIGAN 0.01% 2.5 ML OP SCH (21:01)
[2021-03-31] MEDS: Ativan 2 MG/1 ML VIAL IV PRN (21:02)
[2021-04-01 05:09] LABS: Absolute Neutrophil Ct (ANC) 6.75 (1.4-6.9); BASOPHIL % 0.3 % (0.0-0.4); Basophil (Absolute #) 0.03 (0-0.4); Eosinophil % 1.6 % (0.00-5.0); Eosinophil (Absolute #) 0.17 (0-0.5); Hematocrit 40.7 % (35-47); Lymphocyte (Absolute #) 3.03 (1.0-4.6); Lymphocytes % 28.4 % (24.0-44.0); Mean Cell Volume 90.4 fl (78-100); Mean Corpuscular Hemoglobin 28.9 pg (26-32); Mean Corpuscular Hgb Concent. 31.9 g/dl (32-36); Mean Platelet Volume 11.1 fl (7.5-11.0); Monocyte (Absolute #) 0.68 (0.0-1.3); Monocytes % 6.4 % (0.0-12.0); Neutrophil % 63.3 % (36.0-66.0); Platelet Count 243 K/mm3 (150-450); Red Cell Distribution Width 13.3 % (11.5-14.0); White Blood Count 10.7 K/mm3 (4.0-10.5)
[2021-04-01 05:21] LABS: ALBUMIN 3.9 g/dL (3.5-5.0); ALKALINE PHOSPHATASE 66 U/L (38-126); ANION GAP 12.5 MEQ/L (5-15); BLOOD UREA NITROGEN 18 mg/dL (7-17); CHLORIDE 103 mmol/L (98-107); Calcium 8.9 mg/dL (8.4-10.2); Carbon Dioxide 27 mmol/L (22-30); Creatinine 1 0.64 mg/dL (0.52-1.04); EST GLOMERULAR FILTRATION RATE > 60.0 ML/MIN; Glucose 103 mg/dL (74-106); Potassium 3.8 mmol/L (3.5-5.1); SGOT/AST 30 U/L (14-36); SGPT/ALT 15 U/L (0-35); SODIUM 138 mmol/L (137-145); Total Protein 7.1 g/dL (6.3-8.2)
[2021-04-01] MEDS: TYLENOL 325 MG PO PRN ×2 (09:35→15:33)
[2021-04-01] MEDS ORDERED: Toprol-Xl 25MG Tablets PO SCH ×2 (10:00→12:10)
[2021-04-01] MEDS ORDERED: NON-FORMULARY ITEM (Paroxetine Hcl [Paroxetine Hcl] 10 MG) PO SCH (10:00)
[2021-04-01] MEDS ORDERED: NON-FORMULARY ITEM (Omeprazole [Omeprazole] 40 MG) PO SCH (10:00)
[2021-04-01] MEDS ORDERED: PROTONIX 40 MG IV IV SCH (10:00)
[2021-04-01] MEDS: Zofran 4 MG/2 ML VIAL IV PRN (10:36)
--- NOTE | 2021-04-01 10:59 | XRAY ---
Indication: Stroke. Sagittal, coronal, and axial MRI brain performed using pre-and post T1, T2, FLAIR, diffusion, and ADC sequences. 15 cc Dotarem contrast used. Comparison: None There is age-appropriate global atrophy and moderate periventricular degenerative micro-ischemia signal bilaterally. Cassy demonstrates lesser minimal degenerative signal. Posterior left temporal lobe demonstrates minimal peripheral stranded restricted signal favoring ischemia measuring at least 2.7 x 2.7 cm in greatest axial dimension. Smaller 8 mm focus of restricted signal seen of the left anterior parietal lobe adjacent to the sylvian fissure. No acute intracranial hemorrhage, abnormal extra-axial fluid collection, or mass effect. Following gadolinium, there is no abnormal enhancing intra or extra-axial mass. Anatomic variant 4 cavum septum pellucidum vergae. Fourth ventricle is midline without hydrocephalus. 7/8 cranial nerve complex bilaterally symmetric. Normal flow-void signal within the major intracerebral circulation. Normal appearing craniocervical junction and sella turcica. Paranasal sinuses are clear. Impression: 1. Small focus acute ischemia posterior left temporal lobe and smaller focus left frontal lobe as detailed. No acute hemorrhage or mass effect. 2. Global atrophy and degenerative micro-ischemia within normal limits for patient's age. 3. Negative contrast exam.
[2021-04-01] MEDS: Paxil 20 MG PO SCH (11:20)
[2021-04-01] MEDS: Protonix 40MG Tablet PO SCH (11:20)
[2021-04-01] MEDS: Ocuflox OPHTHALMIC 5 ML OP SCH ×3 (11:21→20:26)
[2021-04-01] MEDS: Acular OPTH SOL OP SCH ×2 (11:42→20:06)
[2021-04-01] MEDS: ELIQUIS 2.5 MG TABLET PO SCH ×2 (12:41→19:54)
[2021-04-01] MEDS: PRED-FORTE 1% OPHTHALMIC OP SCH ×4 (12:42→20:51)
--- NOTE | 2021-04-01 15:00 | PCM.NOTE ---
Date and Time: 04/01/21 1455 Subjective Assessment: feeling weak, some weakness in right upper extremity - Review of Systems Constitutional: No Fever, No Chills Eyes: No Symptoms Ears, Nose, & Throat: No Symptoms Respiratory: No Cough, No Short Of Breath Cardiac: No Chest Pain, No Edema, No Syncope Abdominal/Gastrointestinal: No Abdominal Pain, No Nausea, No Vomiting, No Diarrhea Genitourinary Symptoms: No Dysuria Musculoskeletal: No Back Pain, No Neck Pain Skin: No Rash Neurological: Focal Weakness, No Dizziness, No Sensory Changes Psychological: No Symptoms Endocrine: No Symptoms Hematologic/Lymphatic: No Symptoms Immunological/Allergic: No Symptoms Objective Exam General Appearance: no apparent distress, alert Neurologic Exam: alert, oriented x 3, cooperative, normal mood/affect, nml cerebellar function, sensation nml, motor weakness (right upper extremity), No motor deficits Skin Exam: normal color, warm, dry Eye Exam: PERRL, EOMI, eyes nml inspection Ears, Nose, Throat Exam: normal ENT inspection, pharynx normal, moist mucous membranes Neck Exam: normal inspection, non-tender, supple, full range of motion Respiratory Exam: normal breath sounds, lungs clear, No respiratory distress Cardiovascular Exam: regular rate/rhythm, normal heart sounds Gastrointestinal/Abdomen Exam: soft, No tenderness, No mass Extremity Exam: normal inspection, normal range of motion Back Exam: normal inspection, normal range of motion, No CVA tenderness, No vertebral tenderness Pelvic Exam: deferred Rectal Exam: deferred OBJECTIVE DATA Vital Signs: Vital Signs - 24 hr Temp Pulse Resp BP Pulse Ox 04/01/21 11:42 97.6 F 54 L 19 113/54 96 04/01/21 07:29 97.6 F 52 L 20 119/56 98 04/01/21 07:27 98 04/01/21 04:00 97.9 F 53 L 18 119/56 95 03/31/21 23:42 97.9 F 61 18 114/57 95 03/31/21 19:42 97.7 F 57 L 17 150/68 96 03/31/21 19:10 59 L 16 96 03/31/21 18:31 97.7 F 57 L 17 150/68 96 03/31/21 17:30 62 18 153/72 95 03/31/21 16:22 57 L 20 178/75 96 03/31/21 15:51 95 Pain Assessment - Last Documented Pain Intensity 0 Pain Scale Used 0-10 Pain Scale Intake and Output: Intake & Output 03/30/21 03/31/21 04/01/21 04/02/21 11:59 11:59 11:59 11:59 Intake Total 240 240 Output Total 600 250 Balance -360 -10 Weight 84.1 kg Lab Results: Lab Results-Last 24 Hours 03/31/21 03/31/21 03/31/21 Range/Units 14:30 14:30 14:30 WBC 8.4 (4.0-10.5) K/mm3 RBC 4.82 (4.1-5.4) M/mm3 Hgb 14.1 (12.0-16.0) gm/dl Hct 43.0 (35-47) % MCV 89.2 (78-100) fl MCH 29.3 (26-32) pg MCHC 32.8 (32-36) g/dl RDW 13.3 (11.5-14.0) % Plt Count 254 (150-450) K/mm3 MPV 11.2 H (7.5-11.0) fl Gran % 57.1 (36.0-66.0) % Eos # (Auto) 0.28 (0-0.5) Absolute Lymphs (auto) 2.82 (1.0-4.6) Absolute Monos (auto) 0.46 (0.0-1.3) Lymphocytes % 33.7 (24.0-44.0) % Monocytes % 5.5 (0.0-12.0) % Eosinophils % 3.3 (0.00-5.0) % Basophils % 0.4 (0.0-0.4) % Absolute Granulocytes 4.78 (1.4-6.9) Basophils # 0.03 (0-0.4) PT 12.4 (9.4-12.5) SECONDS INR 1.05 (0.8-3.0) APTT 33.8 (25.1-36.5) SECONDS Sodium 139 (137-145) mmol/L Potassium 4.0 (3.5-5.1) mmol/L Chloride 103 (98-107) mmol/L Carbon Dioxide 26 (22-30) mmol/L Anion Gap 13.8 (5-15) MEQ/L BUN 15 (7-17) mg/dL Creatinine 0.68 (0.52-1.04) mg/dL Estimated GFR > 60.0 ML/MIN Glucose 104 (74-106) mg/dL Lactic Acid (0.4-2.0) Calcium 9.3 (8.4-10.2) mg/dL Total Bilirubin 0.20 (0.2-1.3) mg/dL AST 26 (14-36) U/L ALT 17 (0-35) U/L Alkaline Phosphatase 75 (38-126) U/L Serum Total Protein 7.8 (6.3-8.2) g/dL Albumin 4.3 (3.5-5.0) g/dL Urine Color (YELLOW) Urine Appearance (CLEAR) Urine pH (5-6) Ur Specific [place] (1.005-1.025) Urine Protein (Negative) Urine Ketones (NEGATIVE) Urine Blood (0-5) Lazaro/ul Urine Nitrite (NEGATIVE) Urine Bilirubin (NEGATIVE) Urine Urobilinogen (0-1) mg/dL Ur Leukocyte Esterase (NEGATIVE) Urine WBC (Auto) (0-5) /HPF Urine Culture Reflexed (NO) Urine Glucose (NEGATIVE) mg/dL SARS-CoV-2 (PCR) (NEGATIVE) 03/31/21 03/31/21 03/31/21 Range/Units 15:04 16:00 16:19 WBC (4.0-10.5) K/mm3 RBC (4.1-5.4) M/mm3 Hgb (12.0-16.0) gm/dl Hct (35-47) % MCV (78-100) fl MCH (26-32) pg MCHC (32-36) g/dl RDW (11.5-14.0) % Plt Count (150-450) K/mm3 MPV (7.5-11.0) fl Gran % (36.0-66.0) % Eos # (Auto) (0-0.5) Absolute Lymphs (auto) (1.0-4.6) Absolute Monos (auto) (0.0-1.3) Lymphocytes % (24.0-44.0) % Monocytes % (0.0-12.0) % Eosinophils % (0.00-5.0) % Basophils % (0.0-0.4) % Absolute Granulocytes (1.4-6.9) Basophils # (0-0.4) PT (9.4-12.5) SECONDS INR (0.8-3.0) APTT (25.1-36.5) SECONDS Sodium (137-145) mmol/L Potassium (3.5-5.1) mmol/L Chloride (98-107) mmol/L Carbon Dioxide (22-30) mmol/L Anion Gap (5-15) MEQ/L BUN (7-17) mg/dL Creatinine (0.52-1.04) mg/dL Estimated GFR ML/MIN Glucose (74-106) mg/dL Lactic Acid 0.9 (0.4-2.0) Calcium (8.4-10.2) mg/dL Total Bilirubin (0.2-1.3) mg/dL AST (14-36) U/L ALT (0-35) U/L Alkaline Phosphatase (38-126) U/L Serum Total Protein (6.3-8.2) g/dL Albumin (3.5-5.0) g/dL Urine Color STRAW (YELLOW) Urine Appearance CLEAR (CLEAR) Urine pH 8.0 (5-6) Ur Specific [place] 1.006 (1.005-1.025) Urine Protein NEGATIVE (Negative) Urine Ketones NEGATIVE (NEGATIVE) Urine Blood NEGATIVE (0-5) Lazaro/ul Urine Nitrite NEGATIVE (NEGATIVE) Urine Bilirubin NEGATIVE (NEGATIVE) Urine Urobilinogen NEGATIVE (0-1) mg/dL Ur Leukocyte Esterase NEGATIVE (NEGATIVE) Urine WBC (Auto) 0-2 (0-5) /HPF Urine Culture Reflexed NO (NO) Urine Glucose NEGATIVE (NEGATIVE) mg/dL SARS-CoV-2 (PCR) NEGATIVE (NEGATIVE) 04/01/21 04/01/21 Range/Units 04:20 04:20 WBC 10.7 H (4.0-10.5) K/mm3 RBC 4.50 (4.1-5.4) M/mm3 Hgb 13.0 (12.0-16.0) gm/dl Hct 40.7 (35-47) % MCV 90.4 (78-100) fl MCH 28.9 (26-32) pg MCHC 31.9 L (32-36) g/dl RDW 13.3 (11.5-14.0) % Plt Count 243 (150-450) K/mm3 MPV 11.1 H (7.5-11.0) fl Gran % 63.3 (36.0-66.0) % Eos # (Auto) 0.17 (0-0.5) Absolute Lymphs (auto) 3.03 (1.0-4.6) Absolute Monos (auto) 0.68 (0.0-1.3) Lymphocytes % 28.4 (24.0-44.0) % Monocytes % 6.4 (0.0-12.0) % Eosinophils % 1.6 (0.00-5.0) % Basophils % 0.3 (0.0-0.4) % Absolute Granulocytes 6.75 (1.4-6.9) Basophils # 0.03 (0-0.4) PT (9.4-12.5) SECONDS INR (0.8-3.0) APTT (25.1-36.5) SECONDS Sodium 138 (137-145) mmol/L Potassium 3.8 (3.5-5.1) mmol/L Chloride 103 (98-107) mmol/L Carbon Dioxide 27 (22-30) mmol/L Anion Gap 12.5 (5-15) MEQ/L BUN 18 H (7-17) mg/dL Creatinine 0.64 (0.52-1.04) mg/dL Estimated GFR > 60.0 ML/MIN Glucose 103 (74-106) mg/dL Lactic Acid (0.4-2.0) Calcium 8.9 (8.4-10.2) mg/dL Total Bilirubin 0.30 (0.2-1.3) mg/dL AST 30 (14-36) U/L ALT 15 (0-35) U/L Alkaline Phosphatase 66 (38-126) U/L Serum Total Protein 7.1 (6.3-8.2) g/dL Albumin 3.9 (3.5-5.0) g/dL Urine Color (YELLOW) Urine Appearance (CLEAR) Urine pH (5-6) Ur Specific [place] (1.005-1.025) Urine Protein (Negative) Urine Ketones (NEGATIVE) Urine Blood (0-5) Lazaro/ul Urine Nitrite (NEGATIVE) Urine Bilirubin (NEGATIVE) Urine Urobilinogen (0-1) mg/dL Ur Leukocyte Esterase (NEGATIVE) Urine WBC (Auto) (0-5) /HPF Urine Culture Reflexed (NO) Urine Glucose (NEGATIVE) mg/dL SARS-CoV-2 (PCR) (NEGATIVE) Radiology Exams: Radiology Procedures Category Date Time Status CHEST 1 VIEW (PORTABLE) Stat Exams 03/31/21 15:04 Completed HEAD WITHOUT CONTRAST [CT] Stat Exams 03/31/21 14:25 Completed MRI BRAIN W & W/O CONTRAST [MRI] Routine Exams 04/01/21 09:20 Completed MRI/MRI BRAIN W & W/O CONTRAST Indication: Stroke. Sagittal, coronal, and axial MRI brain performed using pre-and post T1, T2, FLAIR, diffusion, and ADC sequences. 15 cc Dotarem contrast used. Comparison: None There is age-appropriate global atrophy and moderate periventricular degenerative micro-ischemia signal bilaterally. Cassy demonstrates lesser minimal degenerative signal. Posterior left temporal lobe demonstrates minimal peripheral stranded restricted signal favoring ischemia measuring at least 2.7 x 2.7 cm in greatest axial dimension. Smaller 8 mm focus of restricted signal seen of the left anterior parietal lobe adjacent to the sylvian fissure. No acute intracranial hemorrhage, abnormal extra-axial fluid collection, or mass effect. Following gadolinium, there is no abnormal enhancing intra or extra-axial mass. Anatomic variant 4 cavum septum pellucidum vergae. Fourth ventricle is midline without hydrocephalus. 7/8 cranial nerve complex bilaterally symmetric. Normal flow-void signal within the major intracerebral circulation. Normal appearing craniocervical junction and sella turcica. Paranasal sinuses are clear. Impression: 1. Small focus acute ischemia posterior left temporal lobe and smaller focus left frontal lobe as detailed. No acute hemorrhage or mass effect. 2. Global atrophy and degenerative micro-ischemia within normal limits for patient's age. 3. Negative contrast exam. Multi-Disciplinary Progress Notes: Multi-Disciplinary Progress Notes 04/01/21 09:29 Case Management Note by Gloria Bal NOTE LEFT ON CHART FOR DR. CAT WITH THE OXYGEN SATURATION DROP NOTED WHILE PATIENT SLEEPING Initialized on 04/01/21 09:29 - END OF NOTE Assessment/Plan (1) Left temporal lobe infarction Current Visit: Yes Status: Acute Assessment & Plan: Chief Complaint Diagnosis weakness in right arm and hand for 4-6 hours Allergies Allergy/AdvReac Type Severity Reaction Status Date / Time codeine Allergy Verified 03/08/17 14:59 corn Allergy Verified 03/08/17 14:59 Penicillins Allergy Verified 03/08/17 14:59 Sulfa (Sulfonamide Allergy Verified 03/08/17 14:59 Antibiotics) NOVAFED AdvReac Rapid Uncoded 03/08/17 14:59 Heart Beat Vital Signs (Last 24 hours) Temp Pulse Resp BP Pulse Ox 04/01/21 11:42 97.6 F 54 L 19 113/54 96 04/01/21 07:29 97.6 F 52 L 20 119/56 98 04/01/21 07:27 98 04/01/21 04:00 97.9 F 53 L 18 119/56 95 03/31/21 23:42 97.9 F 61 18 114/57 95 03/31/21 19:42 97.7 F 57 L 17 150/68 96 03/31/21 19:10 59 L 16 96 03/31/21 18:31 97.7 F 57 L 17 150/68 96 03/31/21 17:30 62 18 153/72 95 03/31/21 16:22 57 L 20 178/75 96 03/31/21 15:51 95 Home Medications Medication Instructions Recorded Confirmed Last Taken Type Bimatoprost 0.01% [Lumigan 1 drop OP HS 03/31/21 03/31/21 03/31/21 History 0.01% 2.5 ml] Ketorolac Tromethamine 0.5% 1 drop OP BID 03/31/21 03/31/21 03/31/21 History [Acular OPTH TIERA] Metoprolol Succinate 25 mg Xl* 12.5 mg PO DAILY 03/31/21 04/01/21 03/31/21 History [Toprol-Xl 25MG Tablets] Ofloxacin Ophth 5 ml [Ocuflox 1 drop OP TID 03/31/21 03/31/21 03/31/21 History OPHTHALMIC 5 ML] Omeprazole 40 mg PO DAILY 03/31/21 03/31/21 03/31/21 History PARoxetine HCL [Paroxetine HCl] 10 mg PO DAILY 03/31/21 03/31/21 03/31/21 History Prednisolone Acetate 1 drop OP QID 03/31/21 03/31/21 03/31/21 History Current Medications Generic Name Dose Route Start Last Admin Trade Name Freq PRN Reason Stop Dose Admin Acetaminophen 650 mg 03/31/21 18:20 04/01/21 09:35 Tylenol 325 Mg PO 04/30/21 18:19 650 mg Q4H PRN PRN Administration PAIN AND/OR FEVER Apixaban 5 mg 04/01/21 12:07 04/01/21 12:41 Eliquis 2.5 Mg Tablet PO 05/01/21 12:06 5 mg BID NOHELIA Administration Bimatoprost 0.1 ml 03/31/21 22:00 03/31/21 21:01 Lumigan 0.01% 2.5 Ml OP 04/30/21 21:59 0.1 ml HS NOHELIA Administration Ketorolac Tromethamine 0.1 ml 03/31/21 22:00 04/01/21 11:42 Acular Opth Tiera OP 04/30/21 21:59 0.1 ml BID NOHELIA Administration Lorazepam 1 mg 03/31/21 20:49 03/31/21 21:02 Ativan 2 Mg/1 Ml Vial IV 04/30/21 20:48 1 mg Q6H PRN PRN Administration ANXIETY Metoprolol Succinate 12.5 mg 04/01/21 12:10 Toprol-Xl 25mg Tablets PO 05/01/21 09:59 DAILY NOHELIA Ofloxacin 0.1 ml 03/31/21 22:00 04/01/21 11:21 Ocuflox Ophthalmic 5 Ml OP 04/30/21 21:59 0.1 ml TID NOHELIA Administration Ondansetron HCl 4 mg 03/31/21 18:20 04/01/21 10:36 Zofran 4 Mg/2 Ml Vial IV 04/30/21 18:19 4 mg Q6H PRN PRN Administration NAUSEA/VOMITING Pantoprazole Sodium 40 mg 04/01/21 10:00 04/01/21 11:20 Protonix 40mg Tablet PO 05/01/21 09:59 40 mg DAILY NOHELIA Administration Paroxetine HCl 10 mg 04/01/21 10:00 04/01/21 11:20 Paxil 20 Mg PO 05/01/21 09:59 10 mg DAILY NOHELIA Administration Prednisolone Acetate 0.1 ml 03/31/21 22:00 04/01/21 13:30 Pred-Forte 1% Ophthalmic OP 04/30/21 21:59 Not Given QID NOHELIA Discontinued Medications Generic Name Dose Route Start Last Admin Trade Name Vicky PRN Reason Stop Dose Admin Albuterol/Ipratropium 3 ml 03/31/21 18:20 Duoneb 0.5-3 Mg/3 Ml Neb IH 04/30/21 18:19 Q4HPRN PRN SHORTNESS OF BREATH/WHEEZING Aspirin 324 mg 03/31/21 15:26 03/31/21 15:55 Baby Aspirin 81 Mg Chew PO 03/31/21 15:27 324 mg STAT ONE Administration Metoprolol Succinate 25 mg 04/01/21 10:00 04/01/21 12:51 Toprol-Xl 25mg Tablets PO 05/01/21 09:59 Not Given DAILY NOHELIA Pantoprazole Sodium 40 mg 04/01/21 10:00 Protonix 40 Mg Iv IV 05/01/21 09:59 Q24H10 NOHELIA Intake & Output (Last 24 hours) 03/30/21 03/31/21 04/01/21 04/02/21 11:59 11:59 11:59 11:59 Intake Total 240 240 Output Total 600 250 Balance -360 -10 Weight 84.1 kg Laboratory Results (Last 24 hours) 04/01/21 04/01/21 03/31/21 04:20 04:20 16:19 WBC 10.7 H RBC 4.50 Hgb 13.0 Hct 40.7 MCV 90.4 MCH 28.9 MCHC 31.9 L RDW 13.3 Plt Count 243 MPV 11.1 H Gran % 63.3 Eos # (Auto) 0.17 Absolute Lymphs (auto) 3.03 Absolute Monos (auto) 0.68 Lymphocytes % 28.4 Monocytes % 6.4 Eosinophils % 1.6 Basophils % 0.3 Absolute Granulocytes 6.75 Basophils # 0.03 Sodium 138 Potassium 3.8 Chloride 103 Carbon Dioxide 27 Anion Gap 12.5 BUN 18 H Creatinine 0.64 Estimated GFR > 60.0 Glucose 103 Lactic Acid Calcium 8.9 Total Bilirubin 0.30 AST 30 ALT 15 Alkaline Phosphatase 66 Serum Total Protein 7.1 Albumin 3.9 Urine Color Urine Appearance Urine pH Ur Specific [place] Urine Protein Urine Ketones Urine Blood Urine Nitrite Urine Bilirubin Urine Urobilinogen Ur Leukocyte Esterase Urine WBC (Auto) Urine Culture Reflexed Urine Glucose SARS-CoV-2 (PCR) NEGATIVE 03/31/21 03/31/21 03/31/21 16:00 15:04 14:30 WBC RBC Hgb Hct MCV MCH MCHC RDW Plt Count MPV Gran % Eos # (Auto) Absolute Lymphs (auto) Absolute Monos (auto) Lymphocytes % Monocytes % Eosinophils % Basophils % Absolute Granulocytes Basophils # Sodium 139 Potassium 4.0 Chloride 103 Carbon Dioxide 26 Anion Gap 13.8 BUN 15 Creatinine 0.68 Estimated GFR > 60.0 Glucose 104 Lactic Acid 0.9 Calcium 9.3 Total Bilirubin 0.20 AST 26 ALT 17 Alkaline Phosphatase 75 Serum Total Protein 7.8 Albumin 4.3 Urine Color STRAW Urine Appearance CLEAR Urine pH 8.0 Ur Specific [place] 1.006 Urine Protein NEGATIVE Urine Ketones NEGATIVE Urine Blood NEGATIVE Urine Nitrite NEGATIVE Urine Bilirubin NEGATIVE Urine Urobilinogen NEGATIVE Ur Leukocyte Esterase NEGATIVE Urine WBC (Auto) 0-2 Urine Culture Reflexed NO Urine Glucose NEGATIVE SARS-CoV-2 (PCR) Orders (Last 24 hours) Category Date Time Status Bedrest ROUTINE Activity 03/31/21 18:20 Active Up With Assistance ROUTINE Activity 03/31/21 18:20 Active Br[employer] Tube Bender STAT Care 03/31/21 14:43 Completed Code Status Order ROUTINE Care 03/31/21 18:20 Active EKG-ER Only STAT Care 03/31/21 14:43 Completed Fall Protocol Q1H Care 03/31/21 18:20 Active IV Care Q6H Care 03/31/21 18:20 Active IV Insertion STAT Care 03/31/21 14:43 Completed IV Insertion-2nd Peripheral STAT Care 03/31/21 14:43 Completed NPO (ED) STAT Care 03/31/21 14:43 Completed NPO (ED) STAT Care 03/31/21 15:04 Completed Neuro Checks Q4H Care 03/31/21 18:20 Completed POCT Glucose Check STAT Care 03/31/21 14:[address] in Observation ROUTINE Care 03/31/21 18:20 Active Telemetry q6h Care 03/31/21 18:19 Active Branch Associate Teller/Discharge Plan ROUTINE Cons 03/31/21 19:03 Active Heart-Healthy Diet Diet 03/31/21 Dinner Active CHEST 1 VIEW (PORTABLE) Stat Exams 03/31/21 15:04 Completed HEAD WITHOUT CONTRAST [CT] Stat Exams 03/31/21 14:25 Completed MRI BRAIN W & W/O CONTRAST [MRI] Routine Exams 04/01/21 09:20 Completed CBC W DIFF AM.LAB Lab 04/01/21 04:20 Completed CBC W DIFF Stat Lab 03/31/21 14:30 Completed CMP AM.LAB Lab 04/01/21 04:20 Completed CMP Stat Lab 03/31/21 14:30 Completed Lactic Acid Stat Lab 03/31/21 15:04 Completed POCT GLUCOSE Stat Lab 03/31/21 14:44 Completed PROTIME WITH INR Stat Lab 03/31/21 14:30 Completed PTT Stat Lab 03/31/21 14:30 Completed SARS-CoV-2 Xpert Express Routine Lab 03/31/21 16:19 Completed UA W/RFX UR CULTURE Stat Lab 03/31/21 16:00 Completed Acetaminophen 325 mg [Tylenol 325 mg] Med 03/31/21 18:20 Active 650 mg PO Q4H PRN PRN Albuterol/Ipratropium 3ml Neb* [DUONEB 0.5-3 MG/3 ml Med 03/31/21 18:20 Discontinued Neb] 3 ml IH Q4HPRN PRN Apixaban [Eliquis 2.5 mg Tablet] Med 04/01/21 12:07 Active 5 mg PO BID Aspirin 81 gm Chew [Baby Aspirin 81 mg Chew] Med 03/31/21 15:26 Discontinued 324 mg PO STAT ONE Bimatoprost 0.01% [Lumigan 0.01% 2.5 ml] Med 03/31/21 22:00 Active 0.1 ml OP HS Ketorolac Tromethamine 0.5% [Acular OPTH TIERA] Med 03/31/21 22:00 Active 0.1 ml OP BID Lorazepam 2 mg/1 ml [Ativan 2 MG/1 ML VIAL] Med 03/31/21 20:49 Active 1 mg IV Q6H PRN PRN Metoprolol Succinate 25 mg Xl* [Toprol-Xl 25MG Tablets* Med 04/01/21 12:10 Active ] 12.5 mg PO DAILY Metoprolol Succinate 25 mg Xl* [Toprol-Xl 25MG Tablets* Med 04/01/21 10:00 Discontinued ] 25 mg PO DAILY Ofloxacin Ophth 5 ml [Ocuflox OPHTHALMIC 5 ML] Med 03/31/21 22:00 Active 0.1 ml OP TID Ondansetron HCl 4 mg/2 ml [Zofran 4 MG/2 ML VIAL] Med 03/31/21 18:20 Active 4 mg IV Q6H PRN PRN PANTOPRAZOLE 40 mg Tablet [Protonix 40MG Tablet] Med 04/01/21 10:00 Active 40 mg PO DAILY Pantoprazole 40 mg [Protonix 40 mg IV] Med 04/01/21 10:00 Discontinued 40 mg IV Q24H10 Paroxetine HCl 20 mg [Paxil 20 MG] Med 04/01/21 10:00 Active 10 mg PO DAILY Prednisolone Acetate OPHTH [Pred-Forte 1% Ophthalmic Med 03/31/21 22:00 Active ] 0.1 ml OP QID PT Eval & Treat (MD Order) ONCE PT 04/01/21 09:01 Active Oxygen Nasal Cannula 2 lpm RT 04/01/21 03:40 Active Pulse Oximetry .continuos RT 04/01/21 03:40 Active Pulse Oximetry .spot check RT 03/31/21 21:06 Completed Respiratory Therapy Assessment DAILY RT 03/31/21 21:01 Completed Patient Care Notes (Last 24 hours) 04/01/21 12:46 Nursing Note by Vanda Vazquez Patient ambulated 200 ft. Patient felt nausea and dizzy. Brought patient back to bed. Patient resting now. Vitals WNL. will continue to monitor Initialized on 04/01/21 12:46 - END OF NOTE 04/01/21 12:11 Nursing Note by Vanda Vazquez Rounded with Dr. Cat. Gave orders to start Eliquis 5mg BID, first dose now, and lower dose of Metoprolol to 12.5mg BID Initialized on 04/01/21 12:11 - END OF NOTE 04/01/21 11:24 Nursing Note by Vanda Vazquez 1000 medications given late due to patient being in an MRI and feeling nausea. Eye drops given 10 mins apart between each drop Initialized on 04/01/21 11:24 - END OF NOTE 04/01/21 09:29 Case Management Note by Gloria Bal NOTE LEFT ON CHART FOR DR. CAT WITH THE OXYGEN SATURATION DROP NOTED WHILE PATIENT SLEEPING Initialized on 04/01/21 09:29 - END OF NOTE 04/01/21 09:22 Nursing Note by Vanda Vazquez Spoke with Wiliam from [facility], who stated Dr. Arzola had called and asked about patient's MRI but did not see an order. This nurse also did not see an order. Called Dr. Cat and asked if he wanted a MRI done and stated yes. MRI order put in. Initialized on 04/01/21 09:22 - END OF NOTE 04/01/21 04:40 Nursing Note by Tanya Carbone o2 sat decreased to 86% during sleep pt placed on 2L o2 sat increased above 90 quickly Initialized on 04/01/21 04:40 - END OF NOTE 03/31/21 20:59 Nursing Note by Tanya Carbone eye drops given 10 min apart as directed by pt. Initialized on 03/31/21 20:59 - END OF NOTE 03/31/21 20:39 Nursing Note by Tanya Carbone Home medication list filled out to the best of nurses [facility] and called to . pt states she had an eye surgery march 22 2021. Pt states eye drops were started at that time. Pt reports she thinks it is the eye drops that caused her to go into [facility] this week and go to the ER. Pt states the ER told her to increase her metoprolol from 1/2 tab of 25mg metoprolol to a whole. Dr. Cat notifed of all of this and said to continue all eye drops and the 25mg dose. Pt reports a high anxiety level and being given ativan in the past. PRN order given. Tylenol order and given dose reported for left eye pressure headache nothing other then already ordered Tylenol at this time. Initialized on 03/31/21 20:39 - END OF NOTE Code(s): I63.89 - OTHER CEREBRAL INFARCTION (2) TIA (transient ischemic attack) Current Visit: Yes Status: Acute Code(s): G45.9 - TRANSIENT CEREBRAL ISCHEMIC ATTACK, UNSPECIFIED (3) Punctate hemorrhage of left frontal lobe Current Visit: Yes Status: Acute Code(s): I61.1 - NONTRAUMATIC INTCRBL HEMORRHAGE IN HEMISPHERE, CORTICAL
[2021-04-01] MEDS: Alphagan P 0.15% OP SCH (19:24)
[2021-04-01] MEDS ORDERED: Colace 100 MG PO PRN (19:26)
[2021-04-01] MEDS: Ativan 2 MG/1 ML VIAL IV PRN (19:51)
[2021-04-01] MEDS: LUMIGAN 0.01% 2.5 ML OP SCH (20:38)
[2021-04-01] MEDS ORDERED: NON-FORMULARY ITEM PO SCH (22:00)
[2021-04-02] MEDS: Ativan 2 MG/1 ML VIAL IV PRN (03:41)
[2021-04-02 07:37] VITALS: BP 120/59; PULSE 60
[2021-04-02] MEDS: Protonix 40MG Tablet PO SCH (09:57)
[2021-04-02] MEDS: Paxil 20 MG PO SCH (09:58)
[2021-04-02] MEDS: ELIQUIS 2.5 MG TABLET PO SCH (09:59)
[2021-04-02 10:00] VITALS: O2SAT 98
[2021-04-02] MEDS: Acular OPTH SOL OP SCH (10:00)
[2021-04-02] MEDS ORDERED: PATIENT OWN MEDICATION OP SCH (10:00)
[2021-04-02] MEDS: Ocuflox OPHTHALMIC 5 ML OP SCH (10:01)
[2021-04-02] MEDS: PRED-FORTE 1% OPHTHALMIC OP SCH (10:03)
[2021-04-02] MEDS: Alphagan P 0.15% OP SCH (10:03)
[2021-04-02] MEDS ORDERED: Ativan 1 MG ONE (10:18)
--- NOTE | 2021-04-02 16:24 | PCM.DS ---
Discharge Summary Date of Admission: 03/31/21 18:19 Date of Discharge: 04/02/21 Admitting Physician: ALLISON CAT Consults: SOC tele neuro Primary Care Provider: FRANCES TOTH Allergies Allergies codeine Allergy (Verified 03/08/17 14:59) corn Allergy (Verified 03/08/17 14:59) Penicillins Allergy (Verified 03/08/17 14:59) Sulfa (Sulfonamide Antibiotics) Allergy (Verified 03/08/17 14:59) NOVAFED Adverse Reaction (Uncoded 03/08/17 14:59) [facility] Summary - Hospital Course Hospital Course: is a 70 year old female.with history of paroxysmal atrial fibrillation, hypertension, anxiety/depression that presented to ER with stroke like symptoms. She has a hx of paroxysmal afib and had recently been treated for an acute episode of what sounded like afib with RVR which resolved with IV cardizem and 4 aspirin as reported by daughter. 1-2 days after tx the patient had TIA symptoms. Patient was brought in by EMS and noted R sided weakness and slurred speech. In the ER, stroke protocol was initiated. STAT CT head was obtained which was negative for intracranial bleed, midline shift or mass- effect. EKG was noted as normal sinus rhythm with no acute ischemic changes. SOC neurology consult was obtained. It was determined that patient was probably having TIA versus focal partial seizures and recommended telemetry, admission and stroke work-up. Patient did not have any focal neuro symptoms and was not a candidate for TPA. , Reviewed history, work-up and current neurology recommendations and patient is accepted for admission. Patient had MRI that noted. Small focus acute ischemia posterior left temporal lobe and smaller focus left frontal lobe as detailed. Patient was started on eliquis BID. Patient had complete resolution of symptoms. She is supposed to have optho surgery and patient was contacted by opthomalogist to discuss this procedure. She will need to be cleared by cardiology and PCP prior to procedure. She will need to stay on eliquis at this time. - Vitals & Intake/Output Vital Signs: Vital Signs Temperature 97.7 F 04/02/21 07:36 Pulse Rate 60 04/02/21 07:36 Respiratory Rate 16 04/02/21 07:36 Blood Pressure 120/59 04/02/21 07:36 O2 Sat by Pulse Oximetry 98 04/02/21 08:30 Intake & Output: Intake & Output 03/31/21 04/01/21 04/02/21 04/03/21 11:59 11:59 11:59 11:59 Intake Total 240 2200 Output Total 600 1650 Balance -360 550 Weight 84.1 kg - Lab Result Diagrams: 04/01/21 04:20 04/01/21 04:20 - Radiology Exams Ordered Rad Exams-Entire Visit: Radiology Procedures Category Date Time Status MRI BRAIN W & W/O CONTRAST [MRI] Routine Exams 04/01/21 09:20 Completed - Procedures and Test Procedures and Tests throughout Hospitalization: Therapy Orders & Screens 03/31/21 21:01 Respiratory Therapy Assessment DAILY Comment: Diagnosis: weakness in right arm and hand for 4-6 hours 04/01/21 03:40 Oxygen Nasal Cannula 2 lpm Comment: Diagnosis: weakness in right arm and hand for 4-6 hours 04/01/21 09:01 PT Eval & Treat (MD Order) ONCE Reason for Eval:: WEAKNESS, TIA SYMPTOMS Diagnosis: weakness in right arm and hand for 4-6 hours Discharge Exam General Appearance: no apparent distress, obese, No anxiety Neurologic Exam: alert, oriented x 3, cooperative, normal mood/affect, No motor deficits, No confusion, No agitation, No motor weakness, No slurred speech Eye Exam: other (Exisiting L eye lens defect), No scleral icterus Ears, Nose, Throat Exam: moist mucous membranes Neck Exam: normal inspection, No carotid bruit, No JVD Respiratory Exam: normal breath sounds, lungs clear, No respiratory distress, No diminished breath sounds, No crackles/rales, No rhonchi, No wheezing Cardiovascular Exam: regular rate/rhythm, normal heart sounds, murmur, No friction rub, No gallop Gastrointestinal/Abdomen Exam: soft, normal bowel sounds, distention, No tenderness, No mass Pelvic Exam: deferred Rectal Exam: deferred Back Exam: normal inspection Extremity Exam: normal inspection, No pedal edema, No swelling Skin Exam: normal color, warm, dry Final Diagnosis/Problem List - Final Discharge Diagnosis/Problem (1) Left temporal lobe infarction Status: Acute Assessment & Plan: Patient did have left temporal lobe infarction that was noted on MRI. No focal deficits noted. She is on eliquis BID. She is on medication for paroxysmal afib as well. Code(s): I63.89 - OTHER CEREBRAL INFARCTION (2) Punctate hemorrhage of left frontal lobe Status: Acute Assessment & Plan: Noted on MRI. No focal deficits detected. Patient was started on Eliquis BID. She is on medication for afib as well. Code(s): I61.1 - NONTRAUMATIC INTCRBL HEMORRHAGE IN HEMISPHERE, CORTICAL (3) TIA (transient ischemic attack) Status: Acute Assessment & Plan: Patient's imaging shows two areas of infarct. Patient's symptoms have of slurred speech and R side deficit, which she was brought in to the ER for resolved in ER. Due to resolution, she was not considered candidate for TPA. She was started on eliquis and will be discharged on this medication. She will continue on her medication for afib as well. Code(s): G45.9 - TRANSIENT CEREBRAL ISCHEMIC ATTACK, UNSPECIFIED (4) Constipation Status: Acute Assessment & Plan: Patient is reporting constipation. She has issues with this chronically. She takes stool softeners. She feels that she needs to go but is afraid to strain due to issues she is dealing with in regards to her L eye. She is not supposed to do anything that will increase IOP. She will go home on glycerin suppositories and mag citrate as needed. She will contact the hospital if she continues to have issues. If symptoms persists, will call in enema. Code(s): K59.00 - CONSTIPATION, UNSPECIFIED (5) Anxiety Status: Acute Assessment & Plan: Patient will continue routine meds Paxil for anxiety Code(s): F41.9 - ANXIETY DISORDER, UNSPECIFIED (6) Epigastric abdominal pain Status: Acute Assessment & Plan: Patient is taking PRN zofran for this. Code(s): R10.13 - EPIGASTRIC PAIN (7) Paroxysmal A-fib Status: Acute Assessment & Plan: Will continue routine meds and patient has been started on eliquis Code(s): I48.0 - PAROXYSMAL ATRIAL FIBRILLATION (8) HTN (hypertension) Status: Acute Assessment & Plan: Will continue on routine meds Code(s): I10 - ESSENTIAL (PRIMARY) HYPERTENSION (9) Lens dislocation Status: Acute Assessment & Plan: As reported by patient, she has an issue with the eye lens of left eye. She is supposed to follow up with optho as outpatient. Code(s): H27.10 - UNSPECIFIED DISLOCATION OF LENS - Discharge Disposition: Home, Self-Care Condition: Stable Prescriptions: New Apixaban [Eliquis 2.5 mg Tablet] 5 mg PO BID #60 tablet Magnesium Citrate 296 ml [Citroma 296 ml] 296 ml PO DAILY PRN PRN #1 solution PRN Reason: Constipation Glycerin Supp. [Glycerin Adult Suppository] 1 supp.rect RC DAILY PRN PRN #1 supp.rect PRN Reason: Constipation Ondansetron ODT 4 MG [Zofran Odt 4 mg] 4 mg PO Q6H PRN PRN 3 Days #12 tab.rapdis PRN Reason: Nausea Continue Prednisolone Acetate 1 drop OP QID Ofloxacin Ophth 5 ml [Ocuflox OPHTHALMIC 5 ML] 1 drop OP TID Metoprolol Succinate 25 mg Xl* [Toprol-Xl 25MG Tablets] 12.5 mg PO DAILY Omeprazole 40 mg PO DAILY PARoxetine HCL [Paroxetine HCl] 10 mg PO DAILY Bimatoprost 0.01% [Lumigan 0.01% 2.5 ml] 1 drop OP HS Ketorolac Tromethamine 0.5% [Acular OPTH TIERA] 1 drop OP BID Dorzolamide HCl/Timolol Maleat [Dorzolamide-Timolol Eye Drops] 10 ml OP TID Brimonidine Tartrate [Alphagan P] 1 drop OP TID Docusate Sodium 100 mg [Colace 100 MG] 100 mg PO BID PRN PRN Reason: Constipation Instructions: Transient Ischemic Attack (DC) Follow up with: FRANCES TOTH [Primary Care Provider] - Forms: Discharge Instructions
[2021-04-02] MEDS ORDERED: Ativan 1 MG PO SCH (22:00)
== END 2021-04-02 11:28 | disposition home health service (06) ==
LOC: ED 14:12 → MED SURG 18:19
PROVIDERS: ADMIT General Practice; ATTEND General Practice
DX: I67.82 Cerebral ischemia (principal); G45.9 Transient cerebral ischemic attack, unspecified; R53.1 Weakness; I10 Essential (primary) hypertension; R47.81 Slurred speech; K59.00 Constipation, unspecified; F41.9 Anxiety disorder, unspecified; R10.13 Epigastric pain; I48.0 Paroxysmal atrial fibrillation; H27.10 Unspecified dislocation of lens; Z79.899 Other long term (current) drug therapy; Z20.828 Contact with and (suspected) exposure to other viral communicable diseases
CPT/HCPCS: 36000; 36415; 70450; 70553; 71045; 80053; 81001; 82947; 83605; 85025; 85610; 85730; 93005; 93041; 94760; 94762; 97161; 99284; 99291; U0003; 93268; J2060; J2405; Q3014; A9270-GY; G0378

== ENCOUNTER 2021-09-11 08:39 | Emergency (ER) | payer MEDICARE ==
[2021-09-11 08:55] VITALS: O2SAT 96
[2021-09-11] MEDS ORDERED: Sodium Chloride 0.9% 1000 ML 1,000 ML IV STA (08:59)
[2021-09-11] MEDS ORDERED: Sodium Chloride 0.9% 1000 ML 1,000 ML ONE (09:05)
--- NOTE | 2021-09-11 09:16 | ERPHSYRPT ---
- History of Present Illness Time Seen by Provider: 09/11/21 09:13 Historian: patient Exam Limitations: no limitations Patient Subjective Stated Complaint: pt her for abd and back pain for 4 days , was dx with UTI and is on cipro, Triage Nursing Assessment: pt alert, walked in, resp easy, skin w/d/p, face mask in place, moves all ext well, abd soft Physician History: Patient is 70-year-old female with significant past medical history of atrial fibrillation hypertension coronary artery disease started having some urinary trouble to 3 days ago was seen in the primary care office and was started on Cipro. At that time she was diagnosed with urinary tract infection according to the office urine analysis. Patient started taking antibiotic but her abdominal pain got worse. She denies any fever chills nausea or vomiting. As her pain got worse she came to the emergency room. c/o rash on lower back Timing/Duration: day(s) (3-4 days) Activities at Onset: none Quality: dullness Abdominal Pain Onset Location: generalized abdomen Pain Radiation: no radiation Severity of Pain-Max: mild Severity of Pain-Current: mild Modifying Factors: Improves With: nothing Associated Symptoms: denies symptoms Previous symptoms: no prior history Allergies/Adverse Reactions: codeine Allergy (Verified 09/11/21 08:46) corn Allergy (Verified 09/11/21 08:46) Penicillins Allergy (Verified 09/11/21 08:46) Sulfa (Sulfonamide Antibiotics) Allergy (Verified 09/11/21 08:46) NOVAFED Adverse Reaction (Uncoded 09/11/21 08:46) [facility] Medications: Bimatoprost 0.01% [Lumigan 0.01% 2.5 ml] 1 drop OP HS 03/31/21 [History] Metoprolol Succinate 25 mg Xl* [Toprol-Xl 25MG Tablets] 12.5 mg PO DAILY 10/21 [History] Omeprazole 40 mg PO DAILY 03/31/21 [History] PARoxetine HCL [Paroxetine HCl] 10 mg PO DAILY 03/31/21 [History] Brimonidine Tartrate [Alphagan P] 1 drop OP TID 04/01/21 [History] Docusate Sodium 100 mg [Colace 100 MG] 100 mg PO BID PRN 04/01/21 [History] Dorzolamide HCl/Timolol Maleat [Dorzolamide-Timolol Eye Drops] 10 ml OP TID 04/01/21 [History] Ciprofloxacin [Cipro 500 MG] 1 ea BID 09/11/21 [History] Zolpidem Tartrate 1 ea DAILY 09/11/21 [History] Hx Tetanus, Diphtheria Vaccination/Date Given: Yes (unknown) Hx Influenza Vaccination/Date Given: Yes Hx Pneumococcal Vaccination/Date Given: Yes Immunizations Up to Date: Yes Travel Risk - International Travel Have you traveled outside of the country in past 3 weeks: No - Coronavirus Screening Are you exhibiting any of the following symptoms?: No Close contact with a COVID-19 positive Pt in past 14-21 Days: No - Vaccine Status Have you recieved a Covid-19 vaccination: Yes Natural Developer: Moderna - Vaccination Dates Date of 2cond Vaccination (if applicable): march 2021 - Review of Systems Constitutional: No Fever, No Chills Eyes: No Symptoms Ears, Nose, & Throat: No Symptoms Respiratory: No Cough, No Dyspnea Cardiac: No Chest Pain, No Edema, No Syncope Abdominal/Gastrointestinal: Abdominal Pain, No Nausea, No Vomiting, No Diarrhea Genitourinary Symptoms: No Dysuria Musculoskeletal: No Back Pain, No Neck Pain Skin: No Rash Neurological: No Dizziness, No Focal Weakness, No Sensory Changes Psychological: No Symptoms Endocrine: No Symptoms All Other Systems: Reviewed and Negative - Past Medical History Pertinent Past Medical History: Yes Neurological History: Stroke, TIA ENT History: No Pertinent History Cardiac History: Arrhythmia, Hypertension Respiratory History: Asthma Endocrine Medical History: No Pertinent History Musculoskeletal History: Osteoarthritis GI Medical History: Hernia History: No Pertinent History Psycho-Social History: Anxiety, Panic Disorder Female Reproductive Disorders: Breast Cancer, Cervical Cancer, Fibroids Other Medical History: 03/29/21 WAS IN THE HOSPITAL FOR A-FIB, PREVIOUS CVA, PREVIOUS AFIB WAS IN Jul, ANXIETY, PTSD. - Past Surgical History Past Surgical History: Yes Neuro Surgical History: No Pertinent History Cardiac: No Pertinent History Respiratory: No Pertinent History Gastrointestinal: Cholecystectomy, Other Genitourinary: No Pertinent History Musculoskeletal: No Pertinent History Female Surgical History: Hysterectomy, Mastectomy Other Surgical History: Tonsillectomy; Ganglion cyst removed from left wrist. Catarct surgery march, COLONOSCOPY - Social History Smoking Status: Never smoker Exposure to second hand smoke: No Drug Use: none Patient Lives Alone: Yes - Female History Hx Last Menstrual Period: post Hx Now: No - Nursing Vital Signs Nursing Vital Signs: Initial Vital Signs Temperature 97.1 F 09/11/21 08:53 Pulse Rate 69 09/11/21 08:53 Respiratory Rate 16 09/11/21 08:53 Blood Pressure 143/77 09/11/21 08:53 O2 Sat by Pulse Oximetry 96 09/11/21 08:53 Pain Scale Pain Intensity 5 - Physical Exam General Appearance: no apparent distress, alert Eye Exam: PERRL/EOMI, eyes nml inspection Ears, Nose, Throat Exam: normal ENT inspection, pharynx normal, moist mucous membranes Neck Exam: normal inspection, non-tender, supple, full range of motion Respiratory Exam: normal breath sounds, lungs clear, No respiratory distress Cardiovascular Exam: regular rate/rhythm, normal heart sounds Gastrointestinal/Abdomen Exam: soft, No tenderness, No mass Back Exam: normal inspection, normal range of motion, No CVA tenderness, No vertebral tenderness Extremity Exam: normal inspection, normal range of motion, pelvis stable Neurologic Exam: alert, oriented x 3, cooperative, normal mood/affect, nml cerebellar function, sensation nml, No motor deficits Skin Exam: normal color, warm, dry, rash (right lower back dermatome) SpO2: 96 - Course Nursing assessment & vital signs reviewed: Yes Ordered Tests: Active Orders 24 hr Category Date Time Status AMYLASE Stat Lab 09/11/21 09:01 Completed CBC W DIFF Stat Lab 09/11/21 08:59 Completed CMP Stat Lab 09/11/21 09:01 Completed CULTURE,URINE Stat Lab 09/11/21 09:01 Received LIPASE Stat Lab 09/11/21 09:01 Completed UA W/RFX UR CULTURE Stat Lab 09/11/21 09:01 Completed Medication Summary Discontinued Medications Generic Name Dose Route Start Last Admin Trade Name Freq PRN Reason Stop Dose Admin Sodium Chloride 1,000 mls @ 999 mls/hr 09/11/21 08:59 09/11/21 09:07 Sodium Chloride 0.9% 1000 Ml IV 09/11/21 09:59 999 mls/hr .Q1H1M STA Administration Sodium Chloride Confirm 09/11/21 09:05 Sodium Chloride 0.9% 1000 Ml Administered 09/11/21 09:06 Dose 1,000 mls @ ud .ROUTE .STK-MED ONE Ceftriaxone Sodium/Dextrose 1 g in 50 mls @ 100 mls/hr 09/11/21 09:34 09/11/21 09:41 Rocephin 1 Gm-D5w 50 Ml Bag IV 09/11/21 10:03 100 ml/hr STAT STA 100 mls/hr Administration Ceftriaxone Sodium/Dextrose Confirm 09/11/21 09:39 Rocephin 1 Gm-D5w 50 Ml Bag Administered 09/11/21 09:40 Dose 1 g in 50 mls @ ud IV .STK-MED ONE Lab/Rad Data: Laboratory Result Diagrams 09/11/21 08:59 09/11/21 09:01 Laboratory Results 09/11/21 09/11/21 09/11/21 Range/Units 09:01 09:01 08:59 WBC 7.8 (4.0-10.5) K/mm3 RBC 4.80 (4.1-5.4) M/mm3 Hgb 14.2 (12.0-16.0) gm/dl Hct 43.1 (35-47) % MCV 89.8 (78-100) fl MCH 29.6 (26-32) pg MCHC 32.9 (32-36) g/dl RDW 13.0 (11.5-14.0) % Plt Count 265 (150-450) K/mm3 MPV 10.6 (7.5-11.0) fl Gran % 62.4 (36.0-66.0) % Eos # (Auto) 0.15 (0-0.5) Absolute Lymphs (auto) 2.12 (1.0-4.6) Absolute Monos (auto) 0.63 (0.0-1.3) Lymphocytes % 27.2 (24.0-44.0) % Monocytes % 8.1 (0.0-12.0) % Eosinophils % 1.9 (0.00-5.0) % Basophils % 0.4 (0.0-0.4) % Absolute Granulocytes 4.85 (1.4-6.9) Basophils # 0.03 (0-0.4) Sodium 135 L (137-145) mmol/L Potassium 3.5 (3.5-5.1) mmol/L Chloride 104 (98-107) mmol/L Carbon Dioxide 23 (22-30) mmol/L Anion Gap 11.5 (5-15) MEQ/L BUN 8 (7-17) mg/dL Creatinine 0.69 (0.52-1.04) mg/dL Estimated GFR > 60.0 ML/MIN Glucose 126 H (74-106) mg/dL Calcium 8.9 (8.4-10.2) mg/dL Total Bilirubin 0.70 (0.2-1.3) mg/dL AST 24 (14-36) U/L ALT 15 (0-35) U/L Alkaline Phosphatase 84 (38-126) U/L Serum Total Protein 8.0 (6.3-8.2) g/dL Albumin 4.3 (3.5-5.0) g/dL Amylase 62 (30-110) U/L Lipase 36 (23-300) U/L Urine Color PARUL (YELLOW) Urine Appearance SLIGHTLY CLOUDY (CLEAR) Urine pH 7.0 (5-6) Ur Specific [place] 1.018 (1.005-1.025) Urine Protein 100 (Negative) Urine Ketones TRACE (NEGATIVE) Urine Blood NEGATIVE (0-5) Lazaro/ul Urine Nitrite NEGATIVE (NEGATIVE) Urine Bilirubin NEGATIVE (NEGATIVE) Urine Urobilinogen NEGATIVE (0-1) mg/dL Ur Leukocyte Esterase TRACE (NEGATIVE) Urine WBC (Auto) 16-25 (0-5) /HPF Urine RBC (Auto) 3-5 (0-2) /HPF U Hyaline Cast (Auto) 11-25 (0-2) /LPF U Epithel Cells (Auto) FEW (FEW) /HPF Urine Bacteria (Auto) FEW (NEGATIVE) /HPF Urine Mucus (Auto) MANY (NEGATIVE) /HPF Urine Culture Reflexed YES (NO) Urine Glucose NEGATIVE (NEGATIVE) mg/dL - Progress Progress: improved, pain not gone completely Counseled pt/family regarding: lab results, diagnosis, need for follow-up - Departure Departure Disposition: Home Clinical Impression: UTI (urinary tract infection) due to Enterococcus, Abdominal pain in female, Shingles (herpes zoster) polyneuropathy Condition: Stable Critical Care Time: Yes Critical Care Time(excluding separately billable procedures): Critical 30-74 mins Referrals: ALLISON CAT MD [Primary Care Provider] - Follow up/PCP as directed Instructions: Acute Abdomen (Belly Pain), Adult (DC), Shingles (DC), Urinary Tract Infection, Adult (DC) Additional Instructions: Discharge/Care Plan MICHAEL STRICKLAND was seen on 09/11/21 in the Emergency Room. The patient was counseled regarding Diagnosis,Lab results, Imaging studies, need for follow up and when to return to the Emergency Room. Prescriptions given: Discharge Note I have spoken with the patient and/or caregivers. I have explained the patient's condition, diagnosis and treatment plan based on the information available to me at this time. I have answered the patient's and/or caregiver's questions and addressed any concerns. The patient and/or caregivers have as good understanding of the patient's diagnosis, condition and treatment plan as can be expected at this point. The vital signs have been stable. The patient's condition is stable and appropriate for discharge from the emergency department. The patient will pursue further outpatient evaluation with the primary care physician or other designated or consulting physician as outlined in the discharge instructions. The patient and/or caregivers are agreeable to this plan of care and follow-up instructions have been explained in detail. The patient and/or caregivers have received these instruction. The patient/and or caregivers are aware that any significant change in condition or worsening of symptoms should prompt an immediate return to this or the closest emergency department or call 911. MICHAEL STRICKLAND was seen on 09/11/21 n the Emergency Room. At that time you were treated for an emergent condition, during your visit Laboratory, Radiology and/or other procedures may have been ordered. It is very important that you follow-up with your Primary Care Physician ALLISON CAT within the next 24-48 hours to review your Emergency Room visit and the final results of testing that was ordered. Some test results such as Urine Cultures, Blood Cultures, and other cultures if ordered will not be finalized for 24-48 hours. If you do not have a Primary Care Provider please call the medical records department at [phone] ext [phone] to obtain a copy of your results or you may sign into our patient portal to obtain these results by visiting us @ [email or web address] and completing the following steps: 1. Click on the Patient Portal link 2. Click the Patient Self Enrollment Link to complete the enrollment form and entering your 3. Once the enrollment form is completed you will receive an email with a temporary ID and password at the email address you provided. 4. Next choose a user name and password. Your user name must be at least 4 characters long and your password must be at least 4 characters long. 5. Choose a security question from the list and provide your answer to the question. If you already have signed into the Health Portal you may access your Health Care Information 23/04 by the following steps: 1. Login to our website @ [email or web address] 2. Enter your original user name and password. FAQS The [facility] Health Portal is an online tool that contains your Lab Results, Radiology Reports, Visit History, Discharge Instructions and Health Summary Lab and Radiology Results will not be available for 72 hours on the portal. The Portal is a secure site, passwords are encryted and URLs are re-written so they cannot be copied and pasted. You and authorized family members are the only ones who can access your Portal. Also there is a timeout feature that protects your information if you leave the Portal page open. If you have technical difficulty please use the Contact Us link on the page this will allow you to submit any questions you have regarding the Portal or you may contact the Medical Record Department at [phone]. Continue all other home medications including ciprofloxacin Prescriptions: predniSONE [Prednisone] 5 mg PO BID #30 tablet Acyclovir 800 mg [Zovirax 800 mg] 800 mg PO TID #30 tablet
[2021-09-11 09:21] LABS: Absolute Neutrophil Ct (ANC) 4.85 (1.4-6.9); BASOPHIL % 0.4 % (0.0-0.4); Basophil (Absolute #) 0.03 (0-0.4); Eosinophil % 1.9 % (0.00-5.0); Eosinophil (Absolute #) 0.15 (0-0.5); Hematocrit 43.1 % (35-47); Hemoglobin 14.2 gm/dl (12.0-16.0); Lymphocyte (Absolute #) 2.12 (1.0-4.6); Lymphocytes % 27.2 % (24.0-44.0); Mean Cell Volume 89.8 fl (78-100); Mean Corpuscular Hemoglobin 29.6 pg (26-32); Mean Corpuscular Hgb Concent. 32.9 g/dl (32-36); Mean Platelet Volume 10.6 fl (7.5-11.0); Monocyte (Absolute #) 0.63 (0.0-1.3); Monocytes % 8.1 % (0.0-12.0); Neutrophil % 62.4 % (36.0-66.0); Platelet Count 265 K/mm3 (150-450); White Blood Count 7.8 K/mm3 (4.0-10.5)
[2021-09-11 09:31] LABS: Appearance SLIGHTLY CLOUDY (CLEAR); Bacteria FEW /HPF (NEGATIVE); Bilirubin NEGATIVE (NEGATIVE); Blood NEGATIVE Ery/ul (0-5); Epithelial Cells FEW /HPF (FEW); Glucose NEGATIVE (NEGATIVE); Ketones TRACE (NEGATIVE); Leukocyte Esterase TRACE (NEGATIVE); Mucus MANY /HPF (NEGATIVE); Nitrite NEGATIVE (NEGATIVE); Protein,Urine Dip 100 (Negative); Specific Gravity 1.018 (1.005-1.025); Urobilinogen NEGATIVE mg/dL (0-1)
[2021-09-11 09:33] LABS: ALBUMIN 4.3 g/dL (3.5-5.0); ALKALINE PHOSPHATASE 84 U/L (38-126); AMYLASE 62 U/L (30-110); ANION GAP 11.5 MEQ/L (5-15); BLOOD UREA NITROGEN 8 mg/dL (7-17); CHLORIDE 104 mmol/L (98-107); Calcium 8.9 mg/dL (8.4-10.2); Carbon Dioxide 23 mmol/L (22-30); Creatinine 1 0.69 mg/dL (0.52-1.04); EST GLOMERULAR FILTRATION RATE > 60.0 ML/MIN; Glucose 126 mg/dL (74-106); LIPASE 36 U/L (23-300); Potassium 3.5 mmol/L (3.5-5.1); SGOT/AST 24 U/L (14-36); SGPT/ALT 15 U/L (0-35); SODIUM 135 mmol/L (137-145)
[2021-09-11] MEDS ORDERED: ROCEPHIN 1 Gm-D5w 50 ml Bag** 1 G/50 ML IVPB IV STA (09:34)
[2021-09-11] MEDS ORDERED: ROCEPHIN 1 Gm-D5w 50 ml Bag** 1 G/50 ML IVPB IV ONE (09:39)
[2021-09-11 10:37] VITALS: BP 191/84; PULSE 68
== END 2021-09-11 10:36 | disposition home or self-care (01) ==
LOC: ED 08:39
DX: N39.0 Urinary tract infection, site not specified (principal); B95.2 Enterococcus as the cause of diseases classified elsewhere; R10.84 Generalized abdominal pain; B02.23 Postherpetic polyneuropathy; I10 Essential (primary) hypertension
CPT/HCPCS: 36415; 80053; 81001; 82150; 83690; 85025; 87086; 96365; 99284; 99291; J0696

== ENCOUNTER 2022-03-23 13:18 | Emergency (ER) | payer MEDICARE ==
[2022-03-23] MEDS ORDERED: XYLOCAINE 1% HCL 20 ML MDV IJ ONE (13:19)
[2022-03-23 14:53] LABS: Absolute Neutrophil Ct (ANC) 7.53 x10^3/uL (1.4-6.9); Basophil (Absolute #) 0.07 x10^3/uL (0-0.4); Eosinophil % 2.3 % (0.00-5.0); Eosinophil (Absolute #) 0.26 x10^3/uL (0-0.5); Hematocrit 41.9 % (35-47); Hemoglobin 13.7 g/dL (12.0-16.0); Lymphocyte (Absolute #) 2.43 x10^3/uL (1.0-4.6); Lymphocytes % 21.7 % (24.0-44.0); Mean Cell Volume 89.3 fL (78-100); Mean Corpuscular Hemoglobin 29.2 pg (26-32); Mean Corpuscular Hgb Concent. 32.7 g/dL (32-36); Mean Platelet Volume 10.4 fL (7.5-11.0); Monocyte (Absolute #) 0.87 x10^3/uL (0.0-1.3); Monocytes % 7.8 % (0.0-12.0); Neutrophil % 67.2 % (36.0-66.0); Platelet Count 261 x10^3/uL (150-450); Red Blood Count 4.69 x10^6/uL (4.1-5.4); White Blood Count 11.2 x10^3/uL (4.0-10.5)
--- NOTE | 2022-03-23 14:57 | XRAY ---
Indication: Bilateral flank pain and hematuria 3 days. Multiple contiguous axial images obtained through the abdomen and pelvis without contrast. Comparison: September 02, 2014. Lung bases again demonstrates minimal dependent atelectasis and small posterior right base calcified granuloma. Heart not enlarged. Stable small hiatal hernia. Noncontrasted stomach and bowel loops nonobstructed with normal appendix. Again mild sigmoid diverticulosis without diverticulitis and cholecystectomy. No free fluid/air. Remaining liver, pancreas, spleen, adrenal glands, kidneys, ureters, and bladder are unremarkable for noncontrast exam. Increasing moderate scattered aortoiliac calcifications without AAA. Osseous structures intact with again mild levoscoliosis. No ventral or inguinal hernias. Impression: 1. Again small hiatal hernia, sigmoid diverticulosis, arteriosclerotic disease, levoscoliosis, and old granulomatous disease. 2. Remaining CT abdomen/pelvis without contrast exam is again negative.
[2022-03-23 15:11] LABS: ALBUMIN 4.2 g/dL (3.5-5.0); ALKALINE PHOSPHATASE 84 U/L (38-126); ANION GAP 11.9 MEQ/L (5-15); BLOOD UREA NITROGEN 17 mg/dL (7-17); CHLORIDE 101 mmol/L (98-107); Calcium 9.4 mg/dL (8.4-10.2); Carbon Dioxide 31 mmol/L (22-30); Creatinine 1 0.71 mg/dL (0.52-1.04); EST GLOMERULAR FILTRATION RATE > 60.0 ML/MIN; Glucose 107 mg/dL (74-106); Potassium 4.3 mmol/L (3.5-5.1); SGOT/AST 35 U/L (14-36); SGPT/ALT 20 U/L (0-35); SODIUM 140 mmol/L (137-145); Total Protein 8.1 g/dL (6.3-8.2)
[2022-03-23 15:32] LABS: Bacteria RARE /HPF (NEGATIVE); Mucus SLIGHT /HPF (NEGATIVE); WBC 0-2 /HPF (0-5)
[2022-03-23 15:34] LABS: Appearance CLEAR (CLEAR); Bilirubin SMALL (NEGATIVE); Glucose NEGATIVE (NEGATIVE); Ketones NEGATIVE (NEGATIVE); Protein,Urine Dip TRACE (Negative); RBC NEGATIVE Ery/ul (0-5); Urobilinogen 1 mg/dL (0-1)
[2022-03-23 15:35] LABS: Nitrite POSITIVE (NEGATIVE)
[2022-03-23 15:36] LABS: Dipstick done @ ? MAIN LAB; Urine Cultured Indicated? YES
[2022-03-23] MEDS ORDERED: ROCEPHIN 2 Gm-D5w 50ML BAG** 2 G/50 ML IVPB IV STA (16:01)
[2022-03-23] MEDS ORDERED: Rocephin 1000 MG INJ IM ONE (16:22)
[2022-03-23] MEDS ORDERED: Rocephin 1000 MG INJ ONE (16:27)
--- NOTE | 2022-03-23 16:31 | ERPHSYRPT ---
- History of Present Illness Time Seen by Provider: 03/23/22 13:33 Historian: patient Exam Limitations: no limitations Patient Subjective Stated Complaint: PT HERE FOR BLOOD FROM RECTUM AND URINE TODAY, SHE STATES SHE HAS HAD LOOSE STOOLS 3 DAYS AGO, HAD BRIGHT RED BLOOD TOLIET TODAY, Triage Nursing Assessment: PT ALERT, ARRIVED PER AMBULANCE, ABLE TO WALKED TO BATHROOM AND UNDRESS SELF, SKIN W/D/P. RESP EASY, CO ABD CRAMPING AND BACK PAIN Physician History: 71-year-old female presented in the ER with chief complaint of lower abdominal discomfort and earlier she had a loose stool and noticed some bright red blood. Patient reports having history of hemorrhoids and occasional bleeding and it seems to be similar to back. No nausea or vomiting reported. Denies any dark stool. Does take Eliquis. Patient also noticed blood in urine earlier. Has some suprapubic discomfort. No fever or chills reported. Timing/Duration: today, intermittent, improved Quality: dullness Abdominal Pain Onset Location: RLQ, LLQ, suprapubic Pain Radiation: back Severity of Pain-Max: moderate Severity of Pain-Current: mild Modifying Factors: Improves With: nothing Associated Symptoms: denies symptoms Previous symptoms: no prior history Allergies/Adverse Reactions: codeine Allergy (Verified 03/23/22 13:31) corn Allergy (Verified 03/23/22 13:31) Penicillins Allergy (Verified 03/23/22 13:31) Sulfa (Sulfonamide Antibiotics) Allergy (Verified 03/23/22 13:31) NOVAFED Adverse Reaction (Uncoded 03/23/22 13:31) Rapid Heart Beat Home Medications: Bimatoprost 0.01% [Lumigan 0.01% 2.5 ml] 1 drop OP HS 03/31/21 [History] Metoprolol Succinate 25 mg Xl* [Toprol-Xl 25MG Tablets] 12.5 mg PO DAILY 03/31/21 [History] Omeprazole 40 mg PO DAILY 03/31/21 [History] PARoxetine HCL [Paroxetine HCl] 10 mg PO DAILY 03/31/21 [History] Brimonidine Tartrate [Alphagan P] 1 drop OP TID 04/01/21 [History] Docusate Sodium 100 mg [Docusate Sodium 100 MG] 100 mg PO BID PRN 04/01/21 [History] Dorzolamide HCl/Timolol Maleat [Dorzolamide-Timolol Eye Drops] 10 ml OP TID 04/01/21 [History] Zolpidem Tartrate 1 ea DAILY 09/11/21 [History] Hx Tetanus, Diphtheria Vaccination/Date Given: Yes (unknown) Hx Influenza Vaccination/Date Given: Yes Hx Pneumococcal Vaccination/Date Given: Yes Immunizations Up to Date: Yes Travel Risk - International Travel Have you traveled outside of the country in past 3 weeks: No - Coronavirus Screening Are you exhibiting any of the following symptoms?: No - Vaccine Status Have you recieved a Covid-19 vaccination: Yes Saw Feeder: Moderna - Vaccination Dates Date of 2cond Vaccination (if applicable): 2020 - Review of Systems Constitutional: No Symptoms Ears, Nose, & Throat: No Symptoms Respiratory: No Symptoms Cardiac: No Symptoms Abdominal/Gastrointestinal: Abdominal Pain, Constipation Genitourinary Symptoms: Hematuria Musculoskeletal: No Symptoms Skin: No Symptoms Neurological: No Symptoms Psychological: Anxiety Endocrine: No Symptoms Hematologic/Lymphatic: No Symptoms Immunological/Allergic: No Symptoms - Past Medical History Pertinent Past Medical History: Yes Neurological History: Stroke, TIA ENT History: No Pertinent History Cardiac History: Arrhythmia, Hypertension Respiratory History: Asthma Endocrine Medical History: No Pertinent History Musculoskeletal History: Osteoarthritis GI Medical History: Hernia History: No Pertinent History Psycho-Social History: Anxiety, Panic Disorder Female Reproductive Disorders: Breast Cancer, Cervical Cancer, Fibroids Other Medical History: 03/29/21 WAS IN THE HOSPITAL FOR A-FIB, PREVIOUS CVA, PREVIOUS AFIB WAS IN Jul, ANXIETY, PTSD. - Past Surgical History Past Surgical History: Yes Neuro Surgical History: No Pertinent History Cardiac: No Pertinent History Respiratory: No Pertinent History Gastrointestinal: Cholecystectomy, Other Genitourinary: No Pertinent History Musculoskeletal: No Pertinent History Female Surgical History: Hysterectomy, Mastectomy Other Surgical History: Tonsillectomy; Ganglion cyst removed from left wrist. Catarct surgery march, COLONOSCOPY - Social History Smoking Status: Former smoker Exposure to second hand smoke: No Drug Use: none Patient Lives Alone: Yes - Nursing Vital Signs Nursing Vital Signs: Initial Vital Signs Temperature 96.9 F 03/23/22 13:20 Pulse Rate 52 L 03/23/22 13:20 Respiratory Rate 18 03/23/22 13:20 Blood Pressure 170/77 03/23/22 13:20 O2 Sat by Pulse Oximetry 96 03/23/22 13:20 Pain Scale Pain Intensity 4 - Physical Exam General Appearance: no apparent distress, alert, anxiety Eye Exam: PERRL/EOMI Ears, Nose, Throat Exam: normal ENT inspection Neck Exam: normal inspection, full range of motion Respiratory Exam: normal breath sounds, lungs clear Cardiovascular Exam: regular rate/rhythm, normal heart sounds Gastrointestinal/Abdomen Exam: soft, normal bowel sounds, tenderness (Mild lower abdominal tenderness ) Back Exam: normal inspection, normal range of motion, No CVA tenderness Extremity Exam: normal inspection, normal range of motion Neurologic Exam: alert, oriented x 3, cooperative Skin Exam: normal color SpO2 Interpretation: normal SpO2: 94 O2 Delivery: Room Air Ordered Tests: Active Orders 24 hr Category Date Time Status ABDOMEN AND PELVIS W/0 CONTRAS [CT] Stat Exams 03/23/22 14:12 Completed CBC W DIFF Stat Lab 03/23/22 14:50 Completed CMP Stat Lab 03/23/22 14:50 Completed CULTURE,URINE Stat Lab 03/23/22 14:51 Received UA W/RFX CULTURE Stat Lab 03/23/22 14:51 Completed Medication Summary Generic Name Dose Route Start Last Admin Trade Name Freq PRN Reason Stop Dose Admin Ceftriaxone Sodium/Dextrose 2 g in 50 mls @ 100 mls/hr 03/23/22 16:01 Rocephin 2 Gm-D5w 50ml Bag IV 03/23/22 16:30 STAT STA Lab/Rad Data: Laboratory Result Diagrams 03/23/22 14:50 03/23/22 14:50 Laboratory Results 03/23/22 03/23/22 03/23/22 Range/Units 14:51 14:50 14:50 WBC 11.2 H (4.0-10.5) x10^3/uL RBC 4.69 (4.1-5.4) x10^6/uL Hgb 13.7 (12.0-16.0) g/dL Hct 41.9 (35-47) % MCV 89.3 (78-100) fL MCH 29.2 (26-32) pg MCHC 32.7 (32-36) g/dL RDW 13.0 (11.5-14.0) % Plt Count 261 (150-450) x10^3/uL MPV 10.4 (7.5-11.0) fL Gran % 67.2 H (36.0-66.0) % Immature Gran % (Auto) 0.4 (0.00-0.4) % Nucleat RBC Rel Count 0.3 H (0.00-0.1) % Eos # (Auto) 0.26 (0-0.5) x10^3/uL Immature Gran # (Auto) 0.05 H (0.00-0.03) x10^3u/L Absolute Lymphs (auto) 2.43 (1.0-4.6) x10^3/uL Absolute Monos (auto) 0.87 (0.0-1.3) x10^3/uL Absolute Nucleated RBC 0.03 H (0.00-0.01) x10^3u/L Lymphocytes % 21.7 L (24.0-44.0) % Monocytes % 7.8 (0.0-12.0) % Eosinophils % 2.3 (0.00-5.0) % Basophils % 0.6 (0.0-0.4) % Absolute Granulocytes 7.53 H (1.4-6.9) x10^3/uL Basophils # 0.07 (0-0.4) x10^3/uL Sodium 140 (137-145) mmol/L Potassium 4.3 (3.5-5.1) mmol/L Chloride 101 (98-107) mmol/L Carbon Dioxide 31 H (22-30) mmol/L Anion Gap 11.9 (5-15) MEQ/L BUN 17 (7-17) mg/dL Creatinine 0.71 (0.52-1.04) mg/dL Estimated GFR > 60.0 ML/MIN Glucose 107 H (74-106) mg/dL Calcium 9.4 (8.4-10.2) mg/dL Total Bilirubin 0.70 (0.2-1.3) mg/dL AST 35 (14-36) U/L ALT 20 (0-35) U/L Alkaline Phosphatase 84 (38-126) U/L Serum Total Protein 8.1 (6.3-8.2) g/dL Albumin 4.2 (3.5-5.0) g/dL Urinalys Dipstick Clnc MAIN LAB Urine Color YELLOW (YELLOW) Urine Appearance CLEAR (CLEAR) Urine pH 6.0 (5-6) Ur Specific [place] 1.020 (1.005-1.025) POC Urine Protein Conf TRACE (Negative) Urine Ketones NEGATIVE (NEGATIVE) Urine Nitrite POSITIVE (NEGATIVE) Urine Bilirubin SMALL (NEGATIVE) Urine Urobilinogen 1 (0-1) mg/dL Urine Leukocytes NEGATIVE (NEGATIVE) Urine WBC (Auto) 0-2 (0-5) /HPF Urine RBC (Auto) NONE (0-2) /HPF U Epithel Cells (Auto) NONE (FEW) /HPF Urine Bacteria (Auto) RARE (NEGATIVE) /HPF Urine RBC NEGATIVE (0-5) Lazaro/ul Urine Mucus (Auto) SLIGHT (NEGATIVE) /HPF Ur Culture Indicated? YES Urine Glucose NEGATIVE (NEGATIVE) mg/dL - Progress Progress: improved Progress Note: 03/23/22 16:31 She is offered pain medication which she refused. Has normal white count, stable H&H. No acute electrolyte abnormality, does have UTI and given Rocephin. CT abdomen pelvis negative for any acute finding . Her urine does not have any blood. I believe she was having some bleeding from hemorrhoids which she took as if having hematuria. We will continue with cefpodoxime to go home and outpatient follow-up recommended. 03/23/22 16:33 Counseled pt/family regarding: lab results, diagnosis, need for follow-up, rad results - Departure Departure Disposition: Home Clinical Impression: Lower abdominal pain, Acute UTI, Bright red rectal bleeding Condition: Stable Critical Care Time: No Referrals: ALLISON CAT MD [Primary Care Provider] - Follow up/PCP as directed (1-2 days for reevaluation) Instructions: Gastrointestinal Bleeding (DC), Urinary Tract Infection, Adult (DC) Additional Instructions: Drink plenty of fluids. Take Tylenol as needed. Follow-up with primary care for reevaluation. Return to ER for worsening abdominal pain, bleeding per rectum etc. Prescriptions: Cefpodoxime Proxetil 200 mg PO BID #14 tablet
[2022-03-23 17:06] VITALS: BP 158/79; PULSE 67; O2SAT 97
== END 2022-03-23 17:06 | disposition home or self-care (01) ==
LOC: ED 13:18
DX: N39.0 Urinary tract infection, site not specified (principal); K62.5 Hemorrhage of anus and rectum; R10.31 Right lower quadrant pain; R10.32 Left lower quadrant pain; R10.2 Pelvic and perineal pain; I10 Essential (primary) hypertension; Z79.01 Long term (current) use of anticoagulants; Z79.899 Other long term (current) drug therapy
CPT/HCPCS: 36415; 74176; 80053; 81015; 85025; 87086; 96372; 99284; J0696

== ENCOUNTER 2022-06-03 09:25 | Emergency (ER) | payer MEDICARE ==
[2022-06-03 09:38] VITALS: PULSE 58
--- NOTE | 2022-06-03 09:43 | ERPHSYRPT ---
- History of Present Illness Time Seen by Provider: 06/03/22 09:35 Source: patient Exam Limitations: physical impairment Patient Subjective Stated Complaint: Pt woke to her heart racing and she could feel her A-fib Triage Nursing Assessment: Pt brought to the ER by EMS, hypertensive, denies pain, is not in A-Fib at this time, had a lump in her throat but states it is going away, has a hiatal hernia, no difficulty breathing, skin n/w/d, pulses n ormal, doesn't appear to be in any distress Physician History: This is a 71-year-old white female patient of Dr. Cat and provider network mgr Dr. Rivera who woke up today feeling as though her heart was racing and pounding. She has a history of atrial fibrillation on metoprolol and Eliquis. She did not and does not have chest pain per se but she had intermittent episodes x2 of some chest pressure that has now resolved completely upon her arrival to the emergency department. Patient was brought in by ambulance service. Patient is not short of breath. Patient does have a history of anxiety and she felt that may be what has happened where she felt the palpitations and was concerned she was in atrial fibrillation again. However, the patient is in normal sinus rhyth m without hypotension upon entrance into the emergency department. She wanted to be evaluated. Timing/Duration: today Activities at Onset: none Quality: pressure Location: substernal, central Chest Pain Radiation: no radiation Severity of Pain-Max: none Severity of Pain-Current: none Nitro Today/Relief: no nitro taken today Aspirin Treatment Today: no aspirin today (Patient on Eliquis daily.) Allergies/Adverse Reactions: codeine Allergy (Verified 06/03/22 09:39) corn Allergy (Verified 06/03/22 09:39) Penicillins Allergy (Verified 06/03/22 09:39) Sulfa (Sulfonamide Antibiotics) Allergy (Verified 06/03/22 09:39) NOVAFED Adverse Reaction (Uncoded 06/03/22 09:39) Rapid Heart Beat Home Medications: Omeprazole 40 mg PO DAILY 03/31/21 [History] PARoxetine HCL [Paroxetine HCl] 10 mg PO DAILY 03/31/21 [History] Brimonidine Tartrate [Alphagan P] 1 drop OP TID 04/01/21 [History] Docusate Sodium 100 mg [Docusate Sodium 100 MG] 100 mg PO BID PRN 04/01/21 [History] Dorzolamide HCl/Timolol Maleat [Dorzolamide-Timolol Eye Drops] 10 ml OP TID 04/01/21 [History] Fluorometholone 1 drop OP UD 06/03/22 [History] Sotalol HCl 80 mg [Betapace 80 MG] 40 mg PO BID 06/03/22 [History] Hx Tetanus, Diphtheria Vaccination/Date Given: Yes (unknown) Hx Influenza Vaccination/Date Given: Yes Hx Pneumococcal Vaccination/Date Given: Yes Travel Risk - International Travel Have you traveled outside of the country in past 3 weeks: No - Coronavirus Screening Are you exhibiting any of the following symptoms?: No Close contact with a COVID-19 positive Pt in past 14-21 Days: No - Vaccine Status Have you recieved a Covid-19 vaccination: Yes Tax Accountant: Moderna - Vaccination Dates Date of 2cond Vaccination (if applicable): 2020 - Review of Systems Constitutional: No Symptoms Eyes: No Symptoms Ears, Nose, & Throat: No Symptoms Respiratory: No Symptoms Cardiac: Palpitations, Other (Intermittent, now resolved chest pressure) Abdominal/Gastrointestinal: No Symptoms Genitourinary Symptoms: No Symptoms Musculoskeletal: No Symptoms Skin: No Symptoms Neurological: No Symptoms Psychological: No Symptoms Endocrine: No Symptoms Hematologic/Lymphatic: No Symptoms Immunological/Allergic: No Symptoms All Other Systems: Reviewed and Negative - Past Medical History Pertinent Past Medical History: Yes Neurological History: Stroke, TIA ENT History: No Pertinent History Cardiac History: Arrhythmia, Hypertension Respiratory History: Asthma Endocrine Medical History: No Pertinent History Musculoskeletal History: Osteoarthritis GI Medical History: Hernia History: No Pertinent History Psycho-Social History: Anxiety, Panic Disorder Female Reproductive Disorders: Breast Cancer, Cervical Cancer, Fibroids Other Medical History: 03/29/21 WAS IN THE HOSPITAL FOR A-FIB, PREVIOUS CVA, PREVIOUS AFIB WAS IN Jul, ANXIETY, PTSD. - Past Surgical History Past Surgical History: Yes Neuro Surgical History: No Pertinent History Cardiac: No Pertinent History Respiratory: No Pertinent History Gastrointestinal: Cholecystectomy, Other Genitourinary: No Pertinent History Musculoskeletal: No Pertinent History Female Surgical History: Hysterectomy, Mastectomy Other Surgical History: Tonsillectomy; Ganglion cyst removed from left wrist. Catarct surgery march, COLONOSCOPY - Social History Smoking Status: Former smoker Exposure to second hand smoke: No Drug Use: none Patient Lives Alone: Yes - Nursing Vital Signs Nursing Vital Signs: Initial Vital Signs Pulse Rate 58 L 06/03/22 09:30 Respiratory Rate 19 06/03/22 09:30 Blood Pressure 153/77 06/03/22 09:30 O2 Sat by Pulse Oximetry 98 06/03/22 09:30 Pain Scale Pain Intensity 0 - Physical Exam General Appearance: no apparent distress, alert, anxiety Eye Exam: PERRL/EOMI, eyes nml inspection Ears, Nose, Throat Exam: normal ENT inspection, moist mucous membranes Neck Exam: normal inspection, non-tender, supple, full range of motion Respiratory Exam: normal breath sounds, lungs clear, airway intact, No chest tenderness, No respiratory distress Cardiovascular Exam: regular rate/rhythm, normal heart sounds, normal peripheral pulses Gastrointestinal/Abdomen Exam: soft, normal bowel sounds, No tenderness Pelvic Exam: not done Rectal Exam: not done Back Exam: normal inspection, normal range of motion, No CVA tenderness, No vertebral tenderness Extremity Exam: normal inspection, normal range of motion, pelvis stable Neurologic Exam: alert, oriented x 3, cooperative, wire spinner II-XII nml as tested, normal mood/affect, nml cerebellar function, nml station & gait, sensation nml Skin Exam: normal color, warm, dry Lymphatic Exam: No adenopathy SpO2 Interpretation: normal SpO2: 98 O2 Delivery: Room Air - Course Nursing assessment & vital signs reviewed: Yes EKG Interpreted by Me: RATE (60), Sinus Rhythm, NORMAL AXIS, NORMAL INTERVALS, NORMAL QRS, NORMAL ST-T, Other (No acute ischemic changes.) Ordered Tests: Active Orders 24 hr Category Date Time Status Vending Technician STAT Care 06/03/22 09:47 Active EKG-ER Only STAT Care 06/03/22 09:47 Active IV Insertion STAT Care 06/03/22 09:47 Active Pulse Oximetry (ED) STAT Care 06/03/22 09:47 Active CBC W DIFF Stat Lab 06/03/22 09:55 Completed CMP Stat Lab 06/03/22 09:55 Completed NT PRO BNP Stat Lab 06/03/22 09:55 Completed TROPONIN Q4H Lab 06/03/22 09:55 Completed TROPONIN Q4H Lab 06/03/22 14:00 Ordered TROPONIN Q4H Lab 06/03/22 18:00 Ordered Lab/Rad Data: Laboratory Result Diagrams 06/03/22 09:55 06/03/22 09:55 Laboratory Results 06/03/22 06/03/22 06/03/22 Range/Units 09:55 09:55 09:55 WBC 7.4 (4.0-10.5) x10^3/uL RBC 4.80 (4.1-5.4) x10^6/uL Hgb 14.1 (12.0-16.0) g/dL Hct 42.5 (35-47) % MCV 88.5 (78-100) fL MCH 29.4 (26-32) pg MCHC 33.2 (32-36) g/dL RDW 13.0 (11.5-14.0) % Plt Count 250 (150-450) x10^3/uL MPV 10.7 (7.5-11.0) fL Gran % 51.5 (36.0-66.0) % Immature Gran % (Auto) 0.1 (0.00-0.4) % Nucleat RBC Rel Count 0.0 (0.00-0.1) % Eos # (Auto) 0.27 (0-0.5) x10^3/uL Immature Gran # (Auto) 0.01 (0.00-0.03) x10^3u/L Absolute Lymphs (auto) 2.66 (1.0-4.6) x10^3/uL Absolute Monos (auto) 0.57 (0.0-1.3) x10^3/uL Absolute Nucleated RBC 0.00 (0.00-0.01) x10^3u/L Lymphocytes % 36.2 (24.0-44.0) % Monocytes % 7.8 (0.0-12.0) % Eosinophils % 3.7 (0.00-5.0) % Basophils % 0.7 (0.0-0.4) % Absolute Granulocytes 3.79 (1.4-6.9) x10^3/uL Basophils # 0.05 (0-0.4) x10^3/uL Sodium 141 (137-145) mmol/L Potassium 3.6 (3.5-5.1) mmol/L Chloride 106 (98-107) mmol/L Carbon Dioxide 26 (22-30) mmol/L Anion Gap 11.7 (5-15) MEQ/L BUN 16 (7-17) mg/dL Creatinine 0.59 (0.52-1.04) mg/dL Estimated GFR > 60.0 ML/MIN Glucose 125 H (74-106) mg/dL Calcium 9.1 (8.4-10.2) mg/dL Total Bilirubin 0.70 (0.2-1.3) mg/dL AST 26 (14-36) U/L ALT 19 (0-35) U/L Alkaline Phosphatase 79 (38-126) U/L Troponin I < 0.012 (0.000-0.034) ng/mL NT-Pro-B Natriuret Pep 175 (0-900) pg/mL Serum Total Protein 8.2 (6.3-8.2) g/dL Albumin 4.4 (3.5-5.0) g/dL - Progress Progress: improved Air Movement: good Blood Culture(s) Obtained: No Antibiotics given: No - Departure Departure Disposition: Home Clinical Impression: Palpitations Condition: Stable Critical Care Time: No Referrals: ALLISON CAT MD [Primary Care Provider] - Follow up/PCP as directed Additional Instructions: Take your medication as prescribed. Follow-up with your primary care physician and provider network mgr next week for further evaluation management.
[2022-06-03 10:26] LABS: Absolute Neutrophil Ct (ANC) 3.79 x10^3/uL (1.4-6.9); Basophil (Absolute #) 0.05 x10^3/uL (0-0.4); Eosinophil % 3.7 % (0.00-5.0); Eosinophil (Absolute #) 0.27 x10^3/uL (0-0.5); Hematocrit 42.5 % (35-47); Hemoglobin 14.1 g/dL (12.0-16.0); Lymphocyte (Absolute #) 2.66 x10^3/uL (1.0-4.6); Lymphocytes % 36.2 % (24.0-44.0); Mean Cell Volume 88.5 fL (78-100); Mean Corpuscular Hemoglobin 29.4 pg (26-32); Mean Corpuscular Hgb Concent. 33.2 g/dL (32-36); Mean Platelet Volume 10.7 fL (7.5-11.0); Monocyte (Absolute #) 0.57 x10^3/uL (0.0-1.3); Monocytes % 7.8 % (0.0-12.0); Neutrophil % 51.5 % (36.0-66.0); Platelet Count 250 x10^3/uL (150-450); White Blood Count 7.4 x10^3/uL (4.0-10.5)
[2022-06-03 10:38] LABS: ALBUMIN 4.4 g/dL (3.5-5.0); ALKALINE PHOSPHATASE 79 U/L (38-126); ANION GAP 11.7 MEQ/L (5-15); BLOOD UREA NITROGEN 16 mg/dL (7-17); CHLORIDE 106 mmol/L (98-107); Calcium 9.1 mg/dL (8.4-10.2); Carbon Dioxide 26 mmol/L (22-30); Creatinine 1 0.59 mg/dL (0.52-1.04); EST GLOMERULAR FILTRATION RATE > 60.0 ML/MIN; Glucose 125 mg/dL (74-106); NT PRO BNP 175 pg/mL (0-900); Potassium 3.6 mmol/L (3.5-5.1); SGOT/AST 26 U/L (14-36); SGPT/ALT 19 U/L (0-35); SODIUM 141 mmol/L (137-145); Total Protein 8.2 g/dL (6.3-8.2)
[2022-06-03 10:54] VITALS: BP 138/80; O2SAT 97
== END 2022-06-03 11:08 | disposition home or self-care (01) ==
LOC: ED 09:25
DX: R00.2 Palpitations (principal); I10 Essential (primary) hypertension; Z79.01 Long term (current) use of anticoagulants; Z79.899 Other long term (current) drug therapy
CPT/HCPCS: 36000; 36415; 80053; 83880; 84484; 85025; 93005; 93041; 94760; 99284

== ENCOUNTER 2023-11-22 18:32 | Emergency (ER) | payer MEDICARE ==
--- NOTE | 2023-11-22 18:43 | ERPHSYRPT ---
- History of Present Illness Time Seen by Provider: 11/22/23 18:42 Source: patient, EMS Exam Limitations: no limitations Physician History: This is an obese 72-year-old white female patient of Dr. Cat who presents to the emergency department via [facility] for back pain that began this morning. Patient woke up with significant low back pain. She thought that as the day went on she might be improving but she was not. Patient has a history of chronic low back pain and osteoarthritis. Patient called the research phlebotomist service who provided her with 100 mcg of fentanyl and 4 mg of intravenous Zofran on her way to the emergency department. Her pain level is a 2 out of 10 on arrival. Patient states she does not ordinarily use narcotics. She only uses Tylenol and ibuprofen. She prefers to avoid narcotics if possible. Patient denies chest pain. She denies shortness of breath. Patient has multiple medical problems including gastroesophageal reflux disease, hyperlipidemia, atrial fibrillation, anxiety and panic disorder as well as TIAs. Patient did not suffer any acute fall or traumatic injury to her back Timing/Duration: today Method of Injury: unknown Quality: sharp, stabbing Back Pain Location: lumbar spine Severity of Pain-Max: moderate (Prior to arrival.) Severity of Pain-Current: mild Modifying Factors: Improves With: movement Associated Symptoms: lower back pain, muscle spasms, No urinary incontinence, No loss of bowel control, No constipation, No numbness in legs/feet Previous symptoms: same symptoms as today, no recent treatment Allergies/Adverse Reactions: codeine Allergy (Verified 11/22/23 18:37) corn Allergy (Verified 11/22/23 18:37) Penicillins Allergy (Verified 11/22/23 18:37) Sulfa (Sulfonamide Antibiotics) Allergy (Verified 11/22/23 18:37) NOVAFED Adverse Reaction (Uncoded 11/22/23 18:37) Rapid Heart Beat Home Medications: Omeprazole 40 mg PO DAILY 03/31/21 [History] PARoxetine HCL [Paroxetine HCl] 10 mg PO DAILY 03/31/21 [History] Dorzolamide HCl/Timolol Maleat [Dorzolamide-Timolol Eye Drops] 10 ml OP TID 04/01/21 [History] Sotalol HCl 80 mg [Betapace 80 MG] 40 mg PO BID 06/03/22 [History] Atorvastatin Calcium 10 mg PO DAILY 11/22/23 [History] Latanoprost 1 drop OP HS 11/22/23 [History] Hx Tetanus, Diphtheria Vaccination/Date Given: Yes (unknown) Hx Influenza Vaccination/Date Given: Yes Hx Pneumococcal Vaccination/Date Given: Yes Travel Risk - International Travel Have you traveled outside of the country in past 3 weeks: No - Coronavirus Screening Are you exhibiting any of the following symptoms?: No Close contact with a COVID-19 positive Pt in past 14-21 Days: No - Vaccine Status Have you recieved a Covid-19 vaccination: Yes Battery Builder: Moderna - Vaccination Dates Date of 2cond Vaccination (if applicable): 2020 - Review of Systems Constitutional: No Symptoms Eyes: No Symptoms Ears, Nose, & Throat: No Symptoms Respiratory: No Symptoms Cardiac: No Symptoms Abdominal/Gastrointestinal: No Symptoms Genitourinary Symptoms: No Symptoms Musculoskeletal: Back Pain, No Fall, No Injury Skin: No Symptoms Neurological: No Symptoms Psychological: No Symptoms Endocrine: No Symptoms Hematologic/Lymphatic: No Symptoms Immunological/Allergic: No Symptoms All Other Systems: Reviewed and Negative - Past Medical History Pertinent Past Medical History: Yes Neurological History: Stroke, TIA ENT History: No Pertinent History Cardiac History: Arrhythmia, Hypertension Respiratory History: Asthma Endocrine Medical History: No Pertinent History Musculoskeletal History: Osteoarthritis GI Medical History: Hernia History: No Pertinent History Psycho-Social History: Anxiety, Panic Disorder Female Reproductive Disorders: Breast Cancer, Cervical Cancer, Fibroids Other Medical History: 03/29/21 WAS IN THE HOSPITAL FOR A-FIB, PREVIOUS CVA, PREVIOUS AFIB WAS IN Jul, ANXIETY, PTSD. - Past Surgical History Past Surgical History: Yes Neuro Surgical History: No Pertinent History Cardiac: No Pertinent History Respiratory: No Pertinent History Gastrointestinal: Cholecystectomy, Other Genitourinary: No Pertinent History Musculoskeletal: No Pertinent History Female Surgical History: Hysterectomy, Mastectomy Other Surgical History: Tonsillectomy; Ganglion cyst removed from left wrist. Catarct surgery march, COLONOSCOPY - Social History Smoking Status: Former smoker Exposure to second hand smoke: No Drug Use: none Patient Lives Alone: Yes - Nursing Vital Signs Nursing Vital Signs: Initial Vital Signs Temperature 98.7 F 11/22/23 18:33 Pulse Rate 56 L 11/22/23 18:33 Respiratory Rate 18 11/22/23 18:33 Blood Pressure 147/67 11/22/23 18:33 O2 Sat by Pulse Oximetry 95 11/22/23 18:33 Pain Scale Pain Intensity [Lower Back] 2 Pain Intensity 2 - Physical Exam General Appearance: no apparent distress, alert, anxiety, obese Eye Exam: PERRL/EOMI, eyes nml inspection Ears, Nose, Throat Exam: normal ENT inspection, moist mucous membranes Neck Exam: normal inspection, non-tender, supple, full range of motion Respiratory Exam: normal breath sounds, lungs clear, airway intact, No chest tenderness, No respiratory distress Cardiovascular Exam: regular rate/rhythm, normal heart sounds, normal peripheral pulses Gastrointestinal Exam: soft, normal bowel sounds, No tenderness Pelvic Exam: not done Rectal Exam: not done Back Exam: normal inspection, vertebral tenderness, decreased range of motion (Mild), No CVA tenderness Extremity Exam: normal inspection, normal range of motion, pelvis stable Neurologic Exam: alert, oriented x 3, cooperative, 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 as tested, normal mood/affect, sensation nml Skin Exam: normal color, warm, dry Lymphatic Exam: No adenopathy SpO2 Interpretation: normal O2 Delivery: Room Air - Course Nursing assessment & vital signs reviewed: Yes Ordered Tests: Active Orders 24 hr Category Date Time Status ABDOMEN AND PELVIS W/0 CONTRAS [CT] Stat Exams 11/22/23 19:37 Completed RECONSTRUCTION [CT] Stat Exams 11/22/23 19:38 Completed UA W/RFX UR CULTURE Stat Lab 11/22/23 21:11 Completed Lab/Rad Data: Laboratory Results 11/22/23 Range/Units 21:11 Urine Color Yellow (Yellow) Urine Appearance Clear (Clear) Urine pH 6.5 (4.6-8.0) Ur Specific [place] 1.010 (1.005-1.030) Urine Protein Negative (Negative) Urine Glucose (UA) Negative (Negative) mg/dL Urine Ketones Negative (Negative) Urine Blood Negative (Negative) Urine Nitrite Negative (Negative) Urine Bilirubin Negative (Negative) Urine Urobilinogen 0.2 (0.2) mg/dL Ur Leukocyte Esterase Trace A (Negative) U Hyaline Cast (Auto) NONE SEEN (0-2) /LPF Urine Microscopic RBC 0-2 (0-5) /HPF Urine Microscopic WBC 3-5 (0-5) /HPF Ur Epithelial Cells None Seen (None Seen) /HPF Urine Bacteria None Seen (None Seen) /HPF Urine Culture Reflexed NO (NO) - Progress Progress: improved, pain not gone completely, re-examined Progress Note: 11/22/23 19:47 This patient's medical issue is 1 of moderate complexity. Level complexity in the workup performed is based on review of the patient's past medical history, review of the patient's medication list, review the patient drug allergy list, history present illness and physical findings on examination. This patient's workup includes CT scan of the abdomen pelvis to evaluate the aorta. In addition, we will order lumbar reconstruction views in order to evaluate the lumbar spine. 11/22/23 21:20 The radiologist interpreted the CT scans and I reviewed the impression: CT scan lumbar reconstruction of lumbar spine shows early spondylodegenerative changes in the lumbar spine. Diffuse disc bulge L5-S1 level causing moderate n arrowing of bilateral recesses and neural foramina. CT scan of the abdomen pelvis shows uncomplicated sigmoid diverticulosis. Cecal, ascending colon and transverse colon shows fat attenuation in submucosa possibly chronic colitis. There is also age-indeterminate fracture of the right iliac bone. The abdominal aorta has atherosclerotic changes present with heavy calcified plaques without mention of aneurysm. 11/22/23 21:27 The urinalysis does not show any acute urinary tract infection at this time. I will treat this patient's back pain with both steroids and a muscle relaxant. We will add Flagyl orally to treat possible chronic colitis. Counseled pt/family regarding: diagnosis, need for follow-up, rad results Medical Desision Making - Independent Historian Additional History obtained from: Family - Diagnostic Testing Diagnostic test were ordered, analyzed, and reviewed by me: Yes Radiological Interpretation: Reviewed by me, Teleradiologist Report - Risk of complications The pt has a mod risk of morbidity or mortality based on: Need for prescription drug management - Departure Departure Disposition: Home Clinical Impression: Back pain, Colitis Condition: Stable Critical Care Time: No Referrals: ALLISON CAT MD [Primary Care Provider] - Follow up/PCP as directed Additional Instructions: Take your medication as prescribed. Call your primary care provider tomorrow, 11/23/2023 to make arrangements for follow-up appointment the next 3 to 5 days. Prescriptions: Prednisone 10 mg [Deltasone 10 mg] 10 mg PO TID #12 tablet Metronidazole 500 mg [Flagyl 500 MG] 500 mg PO TID #21 tablet Orphenadrine Citrate 100 mg [Norflex 100 MG Tablet] 100 mg PO BID #10 tab
[2023-11-22 18:53] VITALS: RESP 18; TEMP 98.7
--- NOTE | 2023-11-22 21:03 | XRAY ---
CLINICAL HISTORY: Back pain TECHNIQUE: CT scan of the abdomen and pelvis was performed without IV contrast.Coronal and sagittal reconstructive images were also obtained. COMPARISON: None. FINDINGS: Sections of lower thorax show a 7 mm calcified nodule in posterior basal segment of right lower lobe with subtle subpleural nodularity and overlying pleural thickening in posterior aspect of left lower lobe. Abdomen: The liver is of average size. No focal or diffuse parenchymal abnormality. The portal vein, intrahepatic biliary radicals and the bile ducts are normal. The gallbladder is surgically removed. The spleen, pancreas, adrenal glands are unremarkable. The kidneys are normal in size and shape. No calculi or hydronephrosis. The cecum, ascending colon, the transverse colon show fat attenuation in submucosa, possibly representing chronic colitis. The visualized small bowel loops are unremarkable. There is no evidence of significant enlargement of the mesenteric or retroperitoneal lymph nodes. The abdominal aorta shows atherosclerotic changes with heavily calcified plaques. Pelvis: The urinary bladder is partially distended. Uncomplicated sigmoid diverticulosis noted. The uterus is not visualized, operated. No evidence of pelvic lymphadenopathy. The lumbar spine shows early degenerative changes. Age indeterminate fracture of right iliac bone noted. IMPRESSION: 1. Uncomplicated sigmoid diverticulosis 2. The cecum, ascending colon, the transverse colon show fat attenuation in submucosa, possibly representing chronic colitis. 3. Age indeterminate fracture of right iliac bone 4. No other significant abnormality detected in CT abdomen and pelvis, within the limitations of plain study Electronically Signed by: Anju Francis MD. (11/22/2023 20:58:27 EST)
--- NOTE | 2023-11-22 21:05 | XRAY ---
CLINICAL HISTORY: Severe back pain TECHNIQUE: Reconstructed CT scan of lumbar spine done without contrast. Axial images obtained with reformatted coronal and sagittal images and submitted for interpretation. COMPARISON: None FINDINGS: Levoscoliosis of lumbar spine noted (Keane's angle 22.8 ) with preserved lumbar lordosis. Reduction in intervertebral disc spaces at L2-L3 and L3-L4 levels on right side, owing to levoscoliosis. Multilevel marginal osteophytes noted. Moderate bilateral facetal arthropathy seen at L5-S1 level. Normal vertebral bodies height and alignment. No definite fractures could be detected. Diffuse disc bulge at L5-S1 level causing mild spinal canal stenosis with moderate narrowing of bilateral lateral recesses and neural foramina, possibly impinging bilateral exiting nerve roots. No retro paraspinal soft tissue masses. No developmental canal stenosis. Age indeterminate fracture of right iliac bone noted. IMPRESSION: 1. Levoscoliosis of lumbar spine noted (Keane's angle 22.8 ) 2. Reduction in intervertebral disc spaces at L2-L3 and L3-L4 levels on right side, owing to levoscoliosis. 3. 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 Diffuse disc bulge at L5-S1 level causing moderate narrowing of bilateral lateral recesses and neural foramina. Recommended MRI evaluation if clinically warranted Electronically Signed by: Anju Francis MD. (11/22/2023 21:01:36 EST)
[2023-11-22 21:20] LABS: Appearance Clear (Clear); Bacteria None Seen /HPF (None Seen); Bilirubin Negative (Negative); Blood Negative (Negative); Epithelial Cells None Seen /HPF (None Seen); Glucose, Urine Negative (Negative); Hyaline Casts NONE SEEN /LPF (0-2); Ketones Negative (Negative); Leukocyte Esterase Trace (Negative); Nitrite Negative (Negative); Ph 6.5 (4.6-8.0); Protein,Urine Dip Negative (Negative); RBC 0-2 /HPF (0-5); Urobilinogen 0.2 mg/dL (0.2)
[2023-11-22 21:24] LABS: ADD URINE CULTURE? NO (NO)
[2023-11-22] MEDS ORDERED: Sterile H2O 10 ml IJ ONE (21:43)
[2023-11-22] MEDS ORDERED: Levofloxacin 500 MG Tablet ONE (21:43)
[2023-11-22] MEDS ORDERED: solu-MEDROL ONE (21:43)
[2023-11-22] MEDS ORDERED: Norflex 60 MG/2 ML ONE (21:43)
[2023-11-22] MEDS: Norflex 60 MG/2 ML IV ONE (21:45)
[2023-11-22] MEDS: Levofloxacin 500 MG Tablet PO ONE (21:45)
[2023-11-22] MEDS: solu-MEDROL 125 MG, Sterile H2O 10 ml 2 ML IV ONE (21:45)
[2023-11-22 22:35] VITALS: BP 122/71; PULSE 62; O2SAT 94
== END 2023-11-22 22:46 | disposition home or self-care (01) ==
LOC: ED 18:32
DX: M54.50 Low back pain, unspecified (principal); K52.9 Noninfective gastroenteritis and colitis, unspecified; E78.5 Hyperlipidemia, unspecified; Z79.52 Long term (current) use of systemic steroids; Z79.899 Other long term (current) drug therapy
CPT/HCPCS: 74176; 76376; 81001; 96374; 99284; J2360; J2930; A9270-GY

== ENCOUNTER 2024-11-18 15:24 | Observation (INO) | payer MEDICARE ==
--- NOTE | 2024-11-18 16:12 | ERPHSYRPT ---
- History of Present Illness Time Seen by Provider: 11/18/24 15:50 Source: patient Exam Limitations: no limitations Patient Subjective Stated Complaint: C/O intermittent black stools for the past few weeks to nurses, states to Dr. Hyde for the past 3 months. Denies pain or vomiting. Triage Nursing Assessment: Patient ambulated back to ER. She is alert and oriented. SOB noted with exertion. No cough. Pale. No pitting edema. ROSARIO WNElise. Physician History: 73-year-old female presents to emergency department for evaluation of intermittent dark stools for the past 3 months. Patient states she has been experiencing progressive fatigue. 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 Hemoglobin today 7.9. Hemoglobin a few weeks ago was 8.7. Hemoglobin in June 2022 was 14.1. Patient's last colonoscopy was in 2018. Patient states all was well at that time. No associated chest pain. No nausea vomiting or diaphoresis. Patient otherwise feels well. She voices no other complaints or concerns at this time. Portions of this note were created with voice recognition technology. There may be grammatical, spelling, punctuation or sound alike errors Timing/Duration: today Severity: moderate Allergies/Adverse Reactions: codeine Allergy (Verified 11/18/24 15:35) corn Allergy (Verified 11/18/24 15:35) Penicillins Allergy (Verified 11/18/24 15:35) Sulfa (Sulfonamide Antibiotics) Allergy (Verified 11/18/24 15:35) NOVAFED Adverse Reaction (Uncoded 11/18/24 15:35) Rapid Heart Beat Home Medications: Omeprazole 40 mg PO DAILY 03/31/21 [History] PARoxetine HCL [Paroxetine HCl] 10 mg PO DAILY 03/31/21 [History] Dorzolamide HCl/Timolol Maleat [Dorzolamide-Timolol Eye Drops] 10 ml DROPS BID 04/01/21 [History] Sotalol HCl 80 mg [Betapace 80 MG] 40 mg PO BID 06/03/22 [History] Atorvastatin Calcium 10 mg PO DAILY 11/22/23 [History] Latanoprost 1 drop OP HS 11/22/23 [History] Hx Tetanus, Diphtheria Vaccination/Date Given: Yes Hx Influenza Vaccination/Date Given: Yes Hx Pneumococcal Vaccination/Date Given: Yes Immunizations Up to Date: Yes Travel Risk - International Travel Have you traveled outside of the country in past 3 weeks: No - Emerging Infectious Disease Are you exhibiting symptoms associated with any current EIDs: No - Review of Systems Constitutional: No Symptoms, No Fever, No Chills Eyes: No Symptoms Ears, Nose, & Throat: No Symptoms Respiratory: No Symptoms, No Cough, No Dyspnea Cardiac: No Symptoms, No Chest Pain, No Edema, No Syncope Abdominal/Gastrointestinal: No Symptoms, No Abdominal Pain, No Nausea, No Vomiting, No Diarrhea Genitourinary Symptoms: No Symptoms, No Dysuria Musculoskeletal: No Symptoms, No Back Pain, No Neck Pain Skin: No Symptoms, No Rash Neurological: No Symptoms, No Dizziness, No Focal Weakness, No Sensory Changes Psychological: No Symptoms Endocrine: No Symptoms Hematologic/Lymphatic: No Symptoms Immunological/Allergic: No Symptoms All Other Systems: Reviewed and Negative - Past Medical History Pertinent Past Medical History: Yes Neurological History: TIA ENT History: No Pertinent History Cardiac History: Coronary Artery Disease, Hypertension Respiratory History: Asthma Endocrine Medical History: No Pertinent History Musculoskeletal History: Osteoarthritis GI Medical History: Hernia History: No Pertinent History Psycho-Social History: Anxiety, Panic Disorder Female Reproductive Disorders: Breast Cancer, Cervical Cancer, Fibroids Other Medical History: TIA IN 2019, Records Management Engineer: Dr. Rivera - Past Surgical History Past Surgical History: Yes Neuro Surgical History: No Pertinent History Cardiac: No Pertinent History Respiratory: No Pertinent History Gastrointestinal: Cholecystectomy, Other Genitourinary: No Pertinent History Musculoskeletal: No Pertinent History Female Surgical History: Hysterectomy, Mastectomy Other Surgical History: Ganglion cyst removed from left wrist. Catarct surgery march, COLONOSCOPY - Social History Smoking Status: Former smoker Exposure to second hand smoke: No Drug Use: none - Social Determinants of Health Will the patient participate in the screening: Yes Do you worry about a steady place to live?: No Do you have any problems with any of the following?: No known problems In the past 12 months,have you had to go without utilities?: No Transportation Issues: No Has anyone in your support network made you feel unsafe?: No Have you or anyone in your house had to go w/o enough food: No - Nursing Vital Signs Nursing Vital Signs: Initial Vital Signs Temperature 97.6 F 11/18/24 15:35 Pulse Rate 71 11/18/24 15:35 Respiratory Rate 24 11/18/24 15:35 Blood Pressure 119/86 11/18/24 15:35 O2 Sat by Pulse Oximetry 95 11/18/24 15:35 Pain Scale Pain Intensity 0 - Physical Exam General Appearance: no apparent distress, alert, other (Pale appearing) Eye Exam: PERRL/EOMI, eyes nml inspection Ears, Nose, Throat Exam: normal ENT inspection, TMs normal, pharynx normal, moist mucous membranes Neck Exam: normal inspection, non-tender, supple, full range of motion Respiratory Exam: normal breath sounds, lungs clear, airway intact, No respiratory distress Cardiovascular Exam: regular rate/rhythm, normal heart sounds, normal peripheral pulses Gastrointestinal/Abdomen Exam: soft, normal bowel sounds, No tenderness, No mass Back Exam: normal inspection, normal range of motion, No CVA tenderness, No vertebral tenderness Extremity Exam: normal inspection, normal range of motion, pelvis stable Neurologic Exam: alert, oriented x 3, cooperative, normal mood/affect, sensation nml, No motor deficits Skin Exam: normal color, warm, dry, No rash Lymphatic Exam: No adenopathy SpO2 Interpretation: normal SpO2: 96 O2 Delivery: Room Air - Course Nursing assessment & vital signs reviewed: Yes EKG Interpreted by Me: RATE ([id number]), Sinus Rhythm, NORMAL AXIS, NORMAL INTERVALS, NORMAL QRS Ordered Tests: Active Orders 24 hr Category Date Time Status IV Insertion STAT Care 11/18/24 15:57 Active CBC W DIFF Stat Lab 11/18/24 15:50 Completed CMP Stat Lab 11/18/24 15:50 Completed CULTURE,URINE Stat Lab 11/18/24 16:00 Received Lactic Acid Stat Lab 11/18/24 15:57 Completed TROPONIN Q4H Lab 11/18/24 15:50 Completed TROPONIN Q4H Lab 11/18/24 19:50 Completed TROPONIN Q4H Lab 11/19/24 00:00 Ordered UA W/RFX UR CULTURE Stat Lab 11/18/24 16:00 Completed Transfer Order Routine Transfer 11/18/24 Ordered Medication Summary Generic Name Dose Route Start Last Admin Trade Name Freq PRN Reason Stop Dose Admin Sodium Chloride 1,000 mls @ 100 mls/hr 11/18/24 16:00 11/18/24 16:37 Sodium Chloride 0.9% 1000 Ml IV 12/18/24 15:59 100 mls/hr .Q10H NOHELIA Administration Pantoprazole Sodium 80 mg/ 500 mls @ 50 mls/hr 11/18/24 16:00 11/18/24 16:41 Sodium Chloride IV 11/19/24 01:59 50 ml/hr .Q10H NOHELIA 50 mls/hr Administration Discontinued Medications Generic Name Dose Route Start Last Admin Trade Name Vicky PRN Reason Stop Dose Admin Sodium Chloride Confirm 11/18/24 16:25 Sodium Chloride 0.9% 1000 Ml Administered 11/18/24 16:26 Dose 1,000 mls @ ud .ROUTE .K-MED ONE Lab/Rad Data: Laboratory Result Diagrams 11/18/24 15:50 11/18/24 15:50 Laboratory Results 11/18/24 11/18/24 11/18/24 Range/Units 19:50 16:25 16:00 WBC (3.98-10.04) x10^3/uL RBC (3.93-5.22) x10^6/uL Hgb (11.2-15.7) g/dL Hct (34.1-44.9) % MCV (79.4-94.8) fL MCH (25.6-32.2) pg MCHC (32.2-35.5) g/dL RDW (11.7-14.4) % Plt Count (182-369) x10^3/uL MPV (9.4-12.3) fL Gran % (34.0-71.1) % Immature Gran % (Auto) (0.001-0.429) % Nucleat RBC Rel Count (0.00-0.2) % Eos # (Auto) (0.04-0.36) x10^3/uL Immature Gran # (Auto) (0.001-0.031) x10^3u/L Absolute Lymphs (auto) (1.18-3.74) x10^3/uL Absolute Monos (auto) (0.24-0.86) x10^3/uL Absolute Nucleated RBC (0.00-0.012) x10^3u/L Lymphocytes % (19.3-51.7) % Monocytes % (4.7-12.5) % Eosinophils % (0.7-5.8) % Basophils % (0.1-1.2) % Absolute Granulocytes (1.56-6.13) x10^3/uL Basophils # (0.01-0.08) x10^3/uL Sodium (135-145) mmol/L Potassium (3.5-5.1) mmol/L Chloride (98-107) mmol/L Carbon Dioxide (22-30) mmol/L Anion Gap (5-15) MEQ/L BUN (7-17) mg/dL Creatinine (0.52-1.04) mg/dL Estimated GFR ML/MIN Glucose (74-106) mg/dL Lactic Acid (0.4-2.0) Calcium (8.4-10.2) mg/dL Total Bilirubin (0.2-1.3) mg/dL AST (14-36) U/L ALT (0-35) U/L Alkaline Phosphatase (38-126) U/L Troponin I < 0.012 (0.000-0.033) ng/mL Serum Total Protein (6.3-8.2) g/dL Albumin (3.5-5.0) g/dL Urine Color Yellow (Yellow) Urine Appearance Clear (Clear) Urine pH 5.5 (4.6-8.0) Ur Specific Waterman 1.015 (1.005-1.030) Urine Protein Trace A (Negative) Urine Glucose (UA) Negative (Negative) mg/dL Urine Ketones Trace A (Negative) Urine Blood Negative (Negative) Urine Nitrite Negative (Negative) Urine Bilirubin Negative (Negative) Urine Urobilinogen 0.2 (0.2) mg/dL Ur Leukocyte Esterase Moderate A (Negative) Urine Microscopic RBC NONE SEEN (0-5) /HPF Urine Microscopic WBC 6-10 A (0-5) /HPF Ur Epithelial Cells Few (None Seen) /HPF Urine Bacteria Few A (None Seen) /HPF Urine Mucus Few A (NEGATIVE) /HPF Urine Culture Reflexed YES (NO) ABO Group A Rh Factor NEGATIVE Antibody Screen NEGATIVE (NEGATIVE) 11/18/24 11/18/24 11/18/24 Range/Units 15:57 15:50 15:50 WBC (3.98-10.04) x10^3/uL RBC (3.93-5.22) x10^6/uL Hgb (11.2-15.7) g/dL Hct (34.1-44.9) % MCV (79.4-94.8) fL MCH (25.6-32.2) pg MCHC (32.2-35.5) g/dL RDW (11.7-14.4) % Plt Count (182-369) x10^3/uL MPV (9.4-12.3) fL Gran % (34.0-71.1) % Immature Gran % (Auto) (0.001-0.429) % Nucleat RBC Rel Count (0.00-0.2) % Eos # (Auto) (0.04-0.36) x10^3/uL Immature Gran # (Auto) (0.001-0.031) x10^3u/L Absolute Lymphs (auto) (1.18-3.74) x10^3/uL Absolute Monos (auto) (0.24-0.86) x10^3/uL Absolute Nucleated RBC (0.00-0.012) x10^3u/L Lymphocytes % (19.3-51.7) % Monocytes % (4.7-12.5) % Eosinophils % (0.7-5.8) % Basophils % (0.1-1.2) % Absolute Granulocytes (1.56-6.13) x10^3/uL Basophils # (0.01-0.08) x10^3/uL Sodium 138 (135-145) mmol/L Potassium 4.5 (3.5-5.1) mmol/L Chloride 103 (98-107) mmol/L Carbon Dioxide 24 (22-30) mmol/L Anion Gap 15.8 H (5-15) MEQ/L BUN 18 H (7-17) mg/dL Creatinine 0.80 (0.52-1.04) mg/dL Estimated GFR 77.8 ML/MIN Glucose 126 H (74-106) mg/dL Lactic Acid 1.0 (0.4-2.0) Calcium 9.3 (8.4-10.2) mg/dL Total Bilirubin 0.50 (0.2-1.3) mg/dL AST 27 (14-36) U/L ALT 17 (0-35) U/L Alkaline Phosphatase 89 (38-126) U/L Troponin I < 0.012 (0.000-0.033) ng/mL Serum Total Protein 7.6 (6.3-8.2) g/dL Albumin 4.3 (3.5-5.0) g/dL Urine Color (Yellow) Urine Appearance (Clear) Urine pH (4.6-8.0) Ur Specific Waterman (1.005-1.030) Urine Protein (Negative) Urine Glucose (UA) (Negative) mg/dL Urine Ketones (Negative) Urine Blood (Negative) Urine Nitrite (Negative) Urine Bilirubin (Negative) Urine Urobilinogen (0.2) mg/dL Ur Leukocyte Esterase (Negative) Urine Microscopic RBC (0-5) /HPF Urine Microscopic WBC (0-5) /HPF Ur Epithelial Cells (None Seen) /HPF Urine Bacteria (None Seen) /HPF Urine Mucus (NEGATIVE) /HPF Urine Culture Reflexed (NO) ABO Group Rh Factor Antibody Screen (NEGATIVE) 11/18/24 Range/Units 15:50 WBC 9.3 (3.98-10.04) x10^3/uL RBC 3.72 L (3.93-5.22) x10^6/uL Hgb 8.0 L (11.2-15.7) g/dL Hct 26.9 L (34.1-44.9) % MCV 72.3 L (79.4-94.8) fL MCH 21.5 L (25.6-32.2) pg MCHC 29.7 L (32.2-35.5) g/dL RDW 16.4 H (11.7-14.4) % Plt Count 414 H (182-369) x10^3/uL MPV 10.2 (9.4-12.3) fL Gran % 62.3 (34.0-71.1) % Immature Gran % (Auto) 0.4 (0.001-0.429) % Nucleat RBC Rel Count 0.0 (0.00-0.2) % Eos # (Auto) 0.31 (0.04-0.36) x10^3/uL Immature Gran # (Auto) 0.04 H (0.001-0.031) x10^3u/L Absolute Lymphs (auto) 2.46 (1.18-3.74) x10^3/uL Absolute Monos (auto) 0.65 (0.24-0.86) x10^3/uL Absolute Nucleated RBC 0.00 (0.00-0.012) x10^3u/L Lymphocytes % 26.5 (19.3-51.7) % Monocytes % 7.0 (4.7-12.5) % Eosinophils % 3.3 (0.7-5.8) % Basophils % 0.5 (0.1-1.2) % Absolute Granulocytes 5.79 (1.56-6.13) x10^3/uL Basophils # 0.05 (0.01-0.08) x10^3/uL Sodium (135-145) mmol/L Potassium (3.5-5.1) mmol/L Chloride (98-107) mmol/L Carbon Dioxide (22-30) mmol/L Anion Gap (5-15) MEQ/L BUN (7-17) mg/dL Creatinine (0.52-1.04) mg/dL Estimated GFR ML/MIN Glucose (74-106) mg/dL Lactic Acid (0.4-2.0) Calcium (8.4-10.2) mg/dL Total Bilirubin (0.2-1.3) mg/dL AST (14-36) U/L ALT (0-35) U/L Alkaline Phosphatase (38-126) U/L Troponin I (0.000-0.033) ng/mL Serum Total Protein (6.3-8.2) g/dL Albumin (3.5-5.0) g/dL Urine Color (Yellow) Urine Appearance (Clear) Urine pH (4.6-8.0) Ur Specific Waterman (1.005-1.030) Urine Protein (Negative) Urine Glucose (UA) (Negative) mg/dL Urine Ketones (Negative) Urine Blood (Negative) Urine Nitrite (Negative) Urine Bilirubin (Negative) Urine Urobilinogen (0.2) mg/dL Ur Leukocyte Esterase (Negative) Urine Microscopic RBC (0-5) /HPF Urine Microscopic WBC (0-5) /HPF Ur Epithelial Cells (None Seen) /HPF Urine Bacteria (None Seen) /HPF Urine Mucus (NEGATIVE) /HPF Urine Culture Reflexed (NO) ABO Group Rh Factor Antibody Screen (NEGATIVE) - Progress Progress: improved Progress Note: Spoke to Dr. Jimenez roofing subcontractor from [facility] at 7:11 PM. He declined to transfer because he does not feel the patient has active bleeding. I explained that patient is very symptomatic with activity. He advised having her follow- up with her primary care doctor. 11/18/24 19:11 73-year-old female presents to our ED for evaluation of progressive fatigue. Patient's hemoglobin was last normal in 2021. Hemoglobin on October 29, 2024 was 8.7. Today it is 8.0. Patient will require hospitalization to address the symptomatic anemia and possibly to diagnose the source of the suspected GI bleed. Pantoprazole initiated. IV fluids running. Case discussed with hospitalist Dr. Fuentes who accepts admission to observation. I spoke to Dr. Herrera at 7:38 PM. We will consult with general surgery. Plan of care discussed with patient. She agrees to admission at [facility] for further evaluation and treatment. Portions of this note were created with voice recognition technology. There may be grammatical, spelling, punctuation or sound alike errors Complexity of problem addressed is moderate acute complicated. No critical care time. Complex of data reviewed and analyzed is extensive. Test ordered test reviewed results analyzed and correlated clinically with history and physical exam. Risk of complication and or risk of morbidity/mortality of patient management is high. Patient requires hospitalization for further evaluation and treatment. Vital stable. Time spent to admit patient is approximately 15 minutes. Plan of care established via shared decision making. No social determinants of health present to impede follow-up. Portions of this note were created with voice recognition technology. There may be grammatical, spelling, punctuation or sound alike errors 11/18/24 19:[address] Oconnor who accepts consultation. I spoke to Dr. Oconnor at proximately 8:50 PM 11/18/24 20:54 Counseled pt/family regarding: lab results, diagnosis - Departure Departure Disposition: Observation Clinical Impression: GI bleed Condition: Stable Critical Care Time: No Referrals: ALLISON CAT MD [Primary Care Provider] - Follow up/PCP as directed
[2024-11-18 16:15] LABS: Absolute Neutrophil Ct (ANC) 5.79 x10^3/uL (1.56-6.13); BASOPHIL % 0.5 % (0.1-1.2); Basophil (Absolute #) 0.05 x10^3/uL (0.01-0.08); Eosinophil % 3.3 % (0.7-5.8); Eosinophil (Absolute #) 0.31 x10^3/uL (0.04-0.36); Hematocrit 26.9 % (34.1-44.9); IMMATURE GRAN # 0.04 x10^3u/L (0.001-0.031); IMMATURE GRAN % 0.4 % (0.001-0.429); Lymphocyte (Absolute #) 2.46 x10^3/uL (1.18-3.74); Lymphocytes % 26.5 % (19.3-51.7); Mean Cell Volume 72.3 fL (79.4-94.8); Mean Corpuscular Hemoglobin 21.5 pg (25.6-32.2); Mean Corpuscular Hgb Concent. 29.7 g/dL (32.2-35.5); Mean Platelet Volume 10.2 fL (9.4-12.3); Monocyte (Absolute #) 0.65 x10^3/uL (0.24-0.86); Neutrophil % 62.3 % (34.0-71.1); Platelet Count 414 x10^3/uL (182-369); Red Blood Count 3.72 x10^6/uL (3.93-5.22); Red Cell Distribution Width 16.4 % (11.7-14.4); White Blood Count 9.3 x10^3/uL (3.98-10.04)
[2024-11-18 16:20] LABS: Appearance Clear (Clear); Bilirubin Negative (Negative); Blood Negative (Negative); Glucose, Urine Negative (Negative); Ketones Trace (Negative); Leukocyte Esterase Moderate (Negative); Nitrite Negative (Negative); Ph 5.5 (4.6-8.0); Protein,Urine Dip Trace (Negative); Specific Gravity 1.015 (1.005-1.030); Urobilinogen 0.2 mg/dL (0.2)
[2024-11-18] MEDS ORDERED: Sodium Chloride 0.9% 1000 ML 1,000 ML ONE (16:25)
[2024-11-18 16:27] LABS: ALBUMIN 4.3 g/dL (3.5-5.0); ANION GAP 15.8 MEQ/L (5-15); BILIRUBIN,TOTAL 0.5 mg/dL (0.2-1.3); Calcium 9.3 mg/dL (8.4-10.2); Creatinine 1 0.8 mg/dL (0.52-1.04); EST GLOMERULAR FILTRATION RATE 77.8 ML/MIN; Potassium 4.5 mmol/L (3.5-5.1); Total Protein 7.6 g/dL (6.3-8.2)
[2024-11-18 16:28] LABS: Bacteria Few /HPF (None Seen); Epithelial Cells Few /HPF (None Seen); Mucus Few /HPF (NEGATIVE); RBC NONE SEEN /HPF (0-5)
[2024-11-18] MEDS: Sodium Chloride 0.9% 1000 ML 1,000 ML IV SCH (16:37)
[2024-11-18] MEDS: PROTONIX 40 MG IV*** 80 MG in Sodium Chloride 0.9% 500 ML 500 ML IV SCH (16:41)
[2024-11-18 17:23] LABS: ABO TYPING A; Antibody Screen NEGATIVE (NEGATIVE); RH TYPING NEGATIVE
[2024-11-18] MEDS ORDERED: TYLENOL 325 MG PO PRN (22:18)
--- NOTE | 2024-11-18 22:27 | PCM.HP ---
History of Present Illness - Chief Complaint Chief Complaint: shortness of breath, fatigue, dark stools Date: 11/18/24 History of Present Illness: 73-year-old woman with history of A-fib on Eliquis, GERD, hiatal hernia, prior duodenal ulcer, TIA, and anxiety disorder, who presents with progressive dyspnea and melena. Patient notes that she has been having intermittent dark and tarry stools for a few months. She had initially thought it was due to her hemorrhoids, but as it always resolved spontaneously, she did not worry about it further. She did have 1 episode of constipation a few weeks ago, that was followed by bright red blood per rectum, but had not recurred. However, she still been having intermittent dark stools, although states his only had 2 true black and tarry stools. 3 weeks ago, she had lab work done at her PCP that noted a hemoglobin of 8.7. She had not yet been for follow-up, but she saw her area mechanic this week who noted the decreased labs and ordered a repeat CBC. That was done earlier today, and noted a hemoglobin of 8. Such, she came to the ED for evaluation. She notes that for the last week, she been having progressive dyspnea and weakness, initially not able to walk as far without having to stop. Today, she had difficulty finishing her shower, having to sit down because she was so short of breath. She denies any chest pain, dizziness, abdominal pain, or nausea, but she does note some dry mouth. She had a melanotic stool this morning, but none since then, and been having brown stools yesterday. She has a remote history of a duodenal ulcer in the 1980s, but no intervention required at that time. She was diagnosed with hiatal hernia in 2018 after her only prior upper endoscopy, that was done because of severe GERD. She has been on omeprazole daily since then, with complete resolution of her GERD symptoms. On arrival, her vital signs have remained stable. Initially attempted to get patient transferred for GI evaluation. However, ED physician discussed with GI at [facility]. The GI doctor noted that the patient's hemoglobin has been stable with less than 1 point drop in 3 weeks, and that her vital signs were stable. As such, recommended patient be discharged to home with an outpatient follow-up for upper endoscopy. However, patient's symptomatic anemia is currently limiting, so she is being admitted for transfusion, before being discharged for outpatient GI follow-up. - Review of Systems All Other Systems: Reviewed and Negative Medications & Allergies Home Medications: Home Medication List Omeprazole 40 mg PO DAILY 03/31/21 [History Confirmed 11/18/24] PARoxetine HCL [Paroxetine HCl] 10 mg PO DAILY 03/31/21 [History Confirmed 11/18/24] Dorzolamide HCl/Timolol Maleat [Dorzolamide-Timolol Eye Drops] 10 ml DROPS BID 04/01/21 [History Confirmed 11/18/24] Apixaban [Eliquis 2.5 mg Tablet] 5 mg PO BID #60 tablet 04/02/21 [Rx Confirmed 11/18/24] Sotalol HCl 80 mg [Betapace 80 MG] 40 mg PO BID 06/03/22 [History Confirmed 11/18/24] Latanoprost 1 drop OP HS 11/22/23 [History Confirmed 11/18/24] Allergies/Adverse Reactions: Allergies Allergy/AdvReac Type Severity Reaction Status Date / Time codeine Allergy Verified 11/18/24 15:35 corn Allergy Verified 11/18/24 15:35 erythromycin base Allergy Verified 11/18/24 21:16 Penicillins Allergy Verified 11/18/24 15:35 Sulfa (Sulfonamide Allergy Verified 11/18/24 15:35 Antibiotics) NOVAFED AdvReac Rapid Uncoded 11/18/24 15:35 Heart Beat - Past Medical History Past Medical History: Yes Neurological History: TIA ENT History: No Pertinent History Cardiac History: Arrhythmia, Coronary Artery Disease, High Cholesterol, Hypertension Respiratory History: Asthma Endocrine Medical History: No Pertinent History Musculoskelatal History: Osteoarthritis GI Medical History: Hernia (hiatal), Ulcer (duodenal ulcer in 1980s) History: No Pertinent History Pyscho-Social History: Anxiety, Panic Disorder Reproductive Disorders: Breast Cancer, Cervical Cancer, Fibroids Comment: TIA IN 2019, Slat Basket Top Maker: Dr. Rivera. afib - Past Surgical History Past Surgical History: Yes Neuro Surgical History: No Pertinent History Cardiac History: No Pertinent History Respiratory Surgery: No Pertinent History GI Surgical History: Cholecystectomy, Other Genitourinary Surgical Hx: No Pertinent History Musculskeletal Surgical Hx: No Pertinent History Female Surgical History: Hysterectomy, Mastectomy Other Surgical History: Ganglion cyst removed from left wrist. Catarct surgery march, COLONOSCOPY Significant Family History: no pertinent family hx - Social History Smoking Status: Former smoker Exposure to second hand smoke: No Alcohol: None Drug Use: none - Social Determinants of Health Will the patient participate in the screening: Yes Do you worry about a steady place to live?: No Do you have any problems with any of the following?: No known problems In the past 12 months,have you had to go without utilities?: No Have you or anyone in your house had to go without enough: No Transportation Issues: No Has anyone in your support network made you feel unsafe?: No Does the patient want assistance with any of the above?: No - Physical Exam Vital Signs: Vital Signs - 24 hr Temp Pulse Resp BP BP Pulse Ox 11/18/24 21:19 97.3 F 62 16 170/81 96 11/18/24 20:56 96 11/18/24 20:00 142/67 11/18/24 19:30 157/77 11/18/24 19:00 152/73 97 11/18/24 18:30 144/81 11/18/24 18:00 59 L 12 165/78 97 11/18/24 17:48 60 23 169/80 97 11/18/24 17:40 60 15 97 11/18/24 17:38 61 15 97 11/18/24 17:20 17 96 11/18/24 17:10 21 97 11/18/24 17:00 20 11/18/24 16:50 16 94 L 11/18/24 16:40 17 97 11/18/24 16:30 62 16 97 11/18/24 16:20 61 11 L 95 11/18/24 16:10 63 16 95 11/18/24 16:01 62 15 97 11/18/24 15:40 65 15 119/86 96 11/18/24 15:35 97.6 F 71 24 119/86 95 Physical Exam GEN: Sitting up in bed in no acute distress. HENT: Normocephalic, atraumatic. Moist mucous membranes. EYES: Normal inspection, anicteric sclera, extraocular movements intact. NECK: Supple, full range of motion CV: Regular rate and rhythm, no murmurs, no gallops. No JVD or edema. PULM: Clear to auscultation bilaterally, no work of breathing. On room air. ABD: Nondistended, nontender. MSK: No joint effusions, full range of motion SKIN: No rashes, somewhat pale. NEURO: Face symmetric, no focal motor or sensory deficits. PSYCH: Alert, oriented x 3 Results - Labs Lab/Micro Results: Lab Results-Last 24 Hours 11/18/24 11/18/24 11/18/24 Range/Units 15:50 15:50 15:50 WBC 9.3 (3.98-10.04) x10^3/uL RBC 3.72 L (3.93-5.22) x10^6/uL Hgb 8.0 L (11.2-15.7) g/dL Hct 26.9 L (34.1-44.9) % MCV 72.3 L (79.4-94.8) fL MCH 21.5 L (25.6-32.2) pg MCHC 29.7 L (32.2-35.5) g/dL RDW 16.4 H (11.7-14.4) % Plt Count 414 H (182-369) x10^3/uL MPV 10.2 (9.4-12.3) fL Gran % 62.3 (34.0-71.1) % Immature Gran % (Auto) 0.4 (0.001-0.429) % Nucleat RBC Rel Count 0.0 (0.00-0.2) % Eos # (Auto) 0.31 (0.04-0.36) x10^3/uL Immature Gran # (Auto) 0.04 H (0.001-0.031) x10^3u/L Absolute Lymphs (auto) 2.46 (1.18-3.74) x10^3/uL Absolute Monos (auto) 0.65 (0.24-0.86) x10^3/uL Absolute Nucleated RBC 0.00 (0.00-0.012) x10^3u/L Lymphocytes % 26.5 (19.3-51.7) % Monocytes % 7.0 (4.7-12.5) % Eosinophils % 3.3 (0.7-5.8) % Basophils % 0.5 (0.1-1.2) % Absolute Granulocytes 5.79 (1.56-6.13) x10^3/uL Basophils # 0.05 (0.01-0.08) x10^3/uL Sodium 138 (135-145) mmol/L Potassium 4.5 (3.5-5.1) mmol/L Chloride 103 (98-107) mmol/L Carbon Dioxide 24 (22-30) mmol/L Anion Gap 15.8 H (5-15) MEQ/L BUN 18 H (7-17) mg/dL Creatinine 0.80 (0.52-1.04) mg/dL Estimated GFR 77.8 ML/MIN Glucose 126 H (74-106) mg/dL Lactic Acid (0.4-2.0) Calcium 9.3 (8.4-10.2) mg/dL Total Bilirubin 0.50 (0.2-1.3) mg/dL AST 27 (14-36) U/L ALT 17 (0-35) U/L Alkaline Phosphatase 89 (38-126) U/L Troponin I < 0.012 (0.000-0.033) ng/mL Serum Total Protein 7.6 (6.3-8.2) g/dL Albumin 4.3 (3.5-5.0) g/dL Urine Color (Yellow) Urine Appearance (Clear) Urine pH (4.6-8.0) Ur Specific [place] (1.005-1.030) Urine Protein (Negative) Urine Glucose (UA) (Negative) mg/dL Urine Ketones (Negative) Urine Blood (Negative) Urine Nitrite (Negative) Urine Bilirubin (Negative) Urine Urobilinogen (0.2) mg/dL Ur Leukocyte Esterase (Negative) Urine Microscopic RBC (0-5) /HPF Urine Microscopic WBC (0-5) /HPF Ur Epithelial Cells (None Seen) /HPF Urine Bacteria (None Seen) /HPF Urine Mucus (NEGATIVE) /HPF Urine Culture Reflexed (NO) ABO Group Rh Factor Antibody Screen (NEGATIVE) 11/18/24 11/18/24 11/18/24 Range/Units 15:57 16:00 16:25 WBC (3.98-10.04) x10^3/uL RBC (3.93-5.22) x10^6/uL Hgb (11.2-15.7) g/dL Hct (34.1-44.9) % MCV (79.4-94.8) fL MCH (25.6-32.2) pg MCHC (32.2-35.5) g/dL RDW (11.7-14.4) % Plt Count (182-369) x10^3/uL MPV (9.4-12.3) fL Gran % (34.0-71.1) % Immature Gran % (Auto) (0.001-0.429) % Nucleat RBC Rel Count (0.00-0.2) % Eos # (Auto) (0.04-0.36) x10^3/uL Immature Gran # (Auto) (0.001-0.031) x10^3u/L Absolute Lymphs (auto) (1.18-3.74) x10^3/uL Absolute Monos (auto) (0.24-0.86) x10^3/uL Absolute Nucleated RBC (0.00-0.012) x10^3u/L Lymphocytes % (19.3-51.7) % Monocytes % (4.7-12.5) % Eosinophils % (0.7-5.8) % Basophils % (0.1-1.2) % Absolute Granulocytes (1.56-6.13) x10^3/uL Basophils # (0.01-0.08) x10^3/uL Sodium (135-145) mmol/L Potassium (3.5-5.1) mmol/L Chloride (98-107) mmol/L Carbon Dioxide (22-30) mmol/L Anion Gap (5-15) MEQ/L BUN (7-17) mg/dL Creatinine (0.52-1.04) mg/dL Estimated GFR ML/MIN Glucose (74-106) mg/dL Lactic Acid 1.0 (0.4-2.0) Calcium (8.4-10.2) mg/dL Total Bilirubin (0.2-1.3) mg/dL AST (14-36) U/L ALT (0-35) U/L Alkaline Phosphatase (38-126) U/L Troponin I (0.000-0.033) ng/mL Serum Total Protein (6.3-8.2) g/dL Albumin (3.5-5.0) g/dL Urine Color Yellow (Yellow) Urine Appearance Clear (Clear) Urine pH 5.5 (4.6-8.0) Ur Specific [place] 1.015 (1.005-1.030) Urine Protein Trace A (Negative) Urine Glucose (UA) Negative (Negative) mg/dL Urine Ketones Trace A (Negative) Urine Blood Negative (Negative) Urine Nitrite Negative (Negative) Urine Bilirubin Negative (Negative) Urine Urobilinogen 0.2 (0.2) mg/dL Ur Leukocyte Esterase Moderate A (Negative) Urine Microscopic RBC NONE SEEN (0-5) /HPF Urine Microscopic WBC 6-10 A (0-5) /HPF Ur Epithelial Cells Few (None Seen) /HPF Urine Bacteria Few A (None Seen) /HPF Urine Mucus Few A (NEGATIVE) /HPF Urine Culture Reflexed YES (NO) ABO Group A Rh Factor NEGATIVE Antibody Screen NEGATIVE (NEGATIVE) 11/18/24 Range/Units 19:50 WBC (3.98-10.04) x10^3/uL RBC (3.93-5.22) x10^6/uL Hgb (11.2-15.7) g/dL Hct (34.1-44.9) % MCV (79.4-94.8) fL MCH (25.6-32.2) pg MCHC (32.2-35.5) g/dL RDW (11.7-14.4) % Plt Count (182-369) x10^3/uL MPV (9.4-12.3) fL Gran % (34.0-71.1) % Immature Gran % (Auto) (0.001-0.429) % Nucleat RBC Rel Count (0.00-0.2) % Eos # (Auto) (0.04-0.36) x10^3/uL Immature Gran # (Auto) (0.001-0.031) x10^3u/L Absolute Lymphs (auto) (1.18-3.74) x10^3/uL Absolute Monos (auto) (0.24-0.86) x10^3/uL Absolute Nucleated RBC (0.00-0.012) x10^3u/L Lymphocytes % (19.3-51.7) % Monocytes % (4.7-12.5) % Eosinophils % (0.7-5.8) % Basophils % (0.1-1.2) % Absolute Granulocytes (1.56-6.13) x10^3/uL Basophils # (0.01-0.08) x10^3/uL Sodium (135-145) mmol/L Potassium (3.5-5.1) mmol/L Chloride (98-107) mmol/L Carbon Dioxide (22-30) mmol/L Anion Gap (5-15) MEQ/L BUN (7-17) mg/dL Creatinine (0.52-1.04) mg/dL Estimated GFR ML/MIN Glucose (74-106) mg/dL Lactic Acid (0.4-2.0) Calcium (8.4-10.2) mg/dL Total Bilirubin (0.2-1.3) mg/dL AST (14-36) U/L ALT (0-35) U/L Alkaline Phosphatase (38-126) U/L Troponin I < 0.012 (0.000-0.033) ng/mL Serum Total Protein (6.3-8.2) g/dL Albumin (3.5-5.0) g/dL Urine Color (Yellow) Urine Appearance (Clear) Urine pH (4.6-8.0) Ur Specific [place] (1.005-1.030) Urine Protein (Negative) Urine Glucose (UA) (Negative) mg/dL Urine Ketones (Negative) Urine Blood (Negative) Urine Nitrite (Negative) Urine Bilirubin (Negative) Urine Urobilinogen (0.2) mg/dL Ur Leukocyte Esterase (Negative) Urine Microscopic RBC (0-5) /HPF Urine Microscopic WBC (0-5) /HPF Ur Epithelial Cells (None Seen) /HPF Urine Bacteria (None Seen) /HPF Urine Mucus (NEGATIVE) /HPF Urine Culture Reflexed (NO) ABO Group Rh Factor Antibody Screen (NEGATIVE) Assessment/Plan (1) GI bleed Current Visit: Yes Status: Acute Assessment & Plan: 73-year-old woman with a history of A-fib on Eliquis, GERD, hiatal hernia, TIA, and anxiety with panic disorder, here with symptomatic anemia with apparent upper GI bleeding. ## Upper GI bleed apparently has been occurring for the past few months. ED physician discussed with GI provider at [facility], who recommended outpatient GI evaluation because of patient's relative stability of hemoglobin. Patient has risk factors including hiatal hernia with history of GERD. However, patient has no abdominal pain, making gastric ulcer less likely, but she has a history of a duodenal ulcer 40 years ago, which would explain a painless source of upper GI bleeding. Patient was started on Protonix drip in the ED. Per GI recommendations, will arrange for outpatient GI follow-up for upper endoscopy Can continue Protonix drip while inpatient, but plan to just increase her already scheduled omeprazole to BID upon discharge Hold Eliquis until GI follow-up Explained to patient and daughter that current admission will not address the underlying cause of the GI bleeding, but is simply to transfuse her sufficiently to alleviate her symptoms, while she is awaiting definitive management by outpatient GI ## Symptomatic microcytic anemia likely secondary to progressive bleeding from GI source, as above. Also likely has a secondary contribution from iron deficiency at this point. Although her hemoglobin is only 8 on labs today, I suspect this is somewhat masking her true level of anemia because of some hemoconcentration. She has dry mouth, and her albumin is elevated at 4.3, all showing signs of likely dehydration. Check iron, TIBC, and ferritin levels Transfuse 2 units PRBCs. Repeat H&H afterwards Patient will eventually likely need iron supplementation, but needs to have her source of GI bleeding addressed first, as above Placed on clear liquid diet for the moment; can consider surgery consult for diagnostic endoscopy, but this would not change patient's overall management and need for therapeutic endoscopy in the future ## Paroxysmal atrial fibrillation currently managed by Dr. Rivera, and currently in normal sinus rhythm. Hold Eliquis given GI bleeding as above (discussed with patient that this will increase her risk of stroke overall, but the stroke incidence rate with A-fib is measured in years, and given the ongoing bleeding, it is worth holding anticoagulation for up to a few weeks Continue sotalol 40 mg BID ## Panic disorder chronic for patient. Continue Paxil 10 mg daily CODE STATUS: Full code Diet: Clear liquid Prophylaxis: Holding Eliquis for active bleeding, encourage ambulation Dispo: Place in observation, expect discharge to home after transfusion Entirety of encounter took place via live audio/video telemedicine device, with remote physician and patient in hospital, with the assistance of bedside nurse. Code(s): K92.2 - GASTROINTESTINAL HEMORRHAGE, UNSPECIFIED Telemedicine Encounter - Telemedicine Encounter Telemedicine Encounter: "The entirety of this encounter was performed via Telemedicine" This visit was performed using real-time audio and video connection between my location and thepatients locationwith the assistance of a surrogateat the patients location. Written or verbal consent was obtained from the patient/guardian to perform this visit usingsynchronoustelemedicine technology. Any patient questions regarding the telemedicine interaction were answered.
[2024-11-18 22:54] LABS: Iron 39 ug/dL (37-170); Iron Saturation 9 % (20-39); TIBC 426 ug/dL (265-462)
[2024-11-18] MEDS: Betapace 80 MG PO SCH (23:03)
[2024-11-18 23:33] LABS: CROSS MATCH (PRBC) COMPATIBLE (COMPATIBLE)
[2024-11-18 23:35] LABS: CROSS MATCH (PRBC) COMPATIBLE (COMPATIBLE)
[2024-11-18] MEDS ORDERED: Sodium Chloride 0.9% 250 ML 250 ML IV ONE (23:52)
[2024-11-19] MEDS: MELATONIN PO PRN (01:07)
--- NOTE | 2024-11-19 05:15 | PCM.NOTE ---
Date and Time: 11/19/24 0510 Subjective Assessment: 73-year-old woman with history of A-fib on Eliquis, GERD, hiatal hernia, prior duodenal ulcer, TIA, and anxiety disorder, who presents with progressive dyspnea and melena. Patient notes that she has been having intermittent dark and tarry stools for a few months. She had initially thought it was due to her hemorrhoids, but as it always resolved spontaneously, she did not worry about it further. She did have 1 episode of constipation a few weeks ago, that was followed by bright red blood per rectum, but had not recurred. However, she still been having intermittent dark stools, although states his only had 2 true black and tarry stools. 3 weeks ago, she had lab work done at her PCP that noted a hemoglobin of 8.7. She had not yet been for follow-up, but she saw her hospital insurance representative this week who noted the decreased labs and ordered a repeat CBC. That was done earlier today, and noted a hemoglobin of 8. Such, she came to the ED for evaluation. She notes that for the last week, she been having progressive dyspnea and weakness, initially not able to walk as far without having to stop. Today, she had difficulty finishing her shower, having to sit down because she was so short of breath. She denies any chest pain, dizziness, abdominal pain, or nausea, but she does note some dry mouth. She had a melanotic stool this morning, but none since then, and been having brown stools yesterday. She has a remote history of a duodenal ulcer in the 1980s, but no intervention required at that time. She was diagnosed with hiatal hernia in 2018 after her only prior upper endoscopy, that was done because of severe GERD. She has been on omeprazole daily since then, with complete resolution of her GERD symptoms.On arrival, her vital signs have remained stable. Initially attempted to get patient transferred for GI evaluation. However, ED physician discussed with GI at [facility]. The GI doctor noted that the patient's hemoglobin has been stable with less than 1 point drop in 3 weeks, and that her vital signs were stable. As such, recommended patient be discharged to home with an outpatient follow-up for upper endoscopy. However, patient's symptomatic anemia is currently limiting, so she is being admitted for transfusion, before being discharged for outpatient GI follow-up. 11/19/24: Met with patient bedside. Endorses dyspnea and weakness improved s/p blood transfusion. No other complaints this morning. Plan for EGD/colonoscopy tomorrow. Will prep this evening. Continue protonix drip. Denies fever,cough, sob, cp, abdominal pain, FRANCO, dizziness, N/V/D. - Review of Systems Constitutional: Weakness Eyes: No Symptoms Ears, Nose, & Throat: No Symptoms Respiratory: No Symptoms Cardiac: No Symptoms Abdominal/Gastrointestinal: No Symptoms Genitourinary Symptoms: No Symptoms Musculoskeletal: No Symptoms Skin: No Symptoms Neurological: No Symptoms Psychological: No Symptoms Endocrine: No Symptoms Hematologic/Lymphatic: No Symptoms Immunological/Allergic: No Symptoms Objective Exam General Appearance: no apparent distress Neurologic Exam: alert, oriented x 3, cooperative Skin Exam: pale Eye Exam: PERRL Ears, Nose, Throat Exam: normal ENT inspection Neck Exam: normal inspection Respiratory Exam: normal breath sounds, lungs clear Cardiovascular Exam: regular rate/rhythm, normal heart sounds Gastrointestinal/Abdomen Exam: soft, normal bowel sounds Extremity Exam: normal inspection Back Exam: normal inspection Pelvic Exam: deferred Rectal Exam: deferred Objective Data Vital Signs: Vital Signs - 24 hr Temp Pulse Resp BP BP Pulse Ox 11/19/24 04:00 97.1 F 55 L 16 141/65 94 L 11/19/24 00:00 97.3 F 62 18 143/65 95 11/18/24 21:19 97.3 F 62 16 170/81 96 11/18/24 20:56 96 11/18/24 20:00 142/67 11/18/24 19:30 157/77 11/18/24 19:00 152/73 97 11/18/24 18:30 144/81 11/18/24 18:00 59 L 12 165/78 97 11/18/24 17:48 60 23 169/80 97 11/18/24 17:40 60 15 97 11/18/24 17:38 61 15 97 11/18/24 17:20 17 96 11/18/24 17:10 21 97 11/18/24 17:00 20 11/18/24 16:50 16 94 L 11/18/24 16:40 17 97 11/18/24 16:30 62 16 97 11/18/24 16:20 61 11 L 95 11/18/24 16:10 63 16 95 11/18/24 16:01 62 15 97 11/18/24 15:40 65 15 119/86 96 11/18/24 15:35 97.6 F 71 24 119/86 95 Pain Assessment - Last Documented Pain Intensity 0 Intake and Output: Intake & Output 11/16/24 11/17/24 11/18/24 11/19/24 11:59 11:59 11:59 11:59 Intake Total 1102 Balance 1102 Weight 85.4 kg Lab Results: Lab Results-Last 24 Hours 11/18/24 11/18/24 11/18/24 Range/Units 15:50 15:50 15:50 WBC 9.3 (3.98-10.04) x10^3/uL RBC 3.72 L (3.93-5.22) x10^6/uL Hgb 8.0 L (11.2-15.7) g/dL Hct 26.9 L (34.1-44.9) % MCV 72.3 L (79.4-94.8) fL MCH 21.5 L (25.6-32.2) pg MCHC 29.7 L (32.2-35.5) g/dL RDW 16.4 H (11.7-14.4) % Plt Count 414 H (182-369) x10^3/uL MPV 10.2 (9.4-12.3) fL Gran % 62.3 (34.0-71.1) % Immature Gran % (Auto) 0.4 (0.001-0.429) % Nucleat RBC Rel Count 0.0 (0.00-0.2) % Eos # (Auto) 0.31 (0.04-0.36) x10^3/uL Immature Gran # (Auto) 0.04 H (0.001-0.031) x10^3u/L Absolute Lymphs (auto) 2.46 (1.18-3.74) x10^3/uL Absolute Monos (auto) 0.65 (0.24-0.86) x10^3/uL Absolute Nucleated RBC 0.00 (0.00-0.012) x10^3u/L Lymphocytes % 26.5 (19.3-51.7) % Monocytes % 7.0 (4.7-12.5) % Eosinophils % 3.3 (0.7-5.8) % Basophils % 0.5 (0.1-1.2) % Absolute Granulocytes 5.79 (1.56-6.13) x10^3/uL Basophils # 0.05 (0.01-0.08) x10^3/uL Sodium 138 (135-145) mmol/L Potassium 4.5 (3.5-5.1) mmol/L Chloride 103 (98-107) mmol/L Carbon Dioxide 24 (22-30) mmol/L Anion Gap 15.8 H (5-15) MEQ/L BUN 18 H (7-17) mg/dL Creatinine 0.80 (0.52-1.04) mg/dL Estimated GFR 77.8 ML/MIN Glucose 126 H (74-106) mg/dL Lactic Acid (0.4-2.0) Calcium 9.3 (8.4-10.2) mg/dL Iron (37-170) ug/dL TIBC (265-462) ug/dL Iron Saturation (20-39) % Ferritin (11.1-264) ng/mL Total Bilirubin 0.50 (0.2-1.3) mg/dL AST 27 (14-36) U/L ALT 17 (0-35) U/L Alkaline Phosphatase 89 (38-126) U/L Troponin I < 0.012 (0.000-0.033) ng/mL Serum Total Protein 7.6 (6.3-8.2) g/dL Albumin 4.3 (3.5-5.0) g/dL Urine Color (Yellow) Urine Appearance (Clear) Urine pH (4.6-8.0) Ur Specific [place] (1.005-1.030) Urine Protein (Negative) Urine Glucose (UA) (Negative) mg/dL Urine Ketones (Negative) Urine Blood (Negative) Urine Nitrite (Negative) Urine Bilirubin (Negative) Urine Urobilinogen (0.2) mg/dL Ur Leukocyte Esterase (Negative) Urine Microscopic RBC (0-5) /HPF Urine Microscopic WBC (0-5) /HPF Ur Epithelial Cells (None Seen) /HPF Urine Bacteria (None Seen) /HPF Urine Mucus (NEGATIVE) /HPF Urine Culture Reflexed (NO) ABO Group Rh Factor Antibody Screen (NEGATIVE) Crossmatch (COMPATIBLE) 02/18/25 02/18/25 02/18/25 Range/Units 15:57 15:57 15:57 WBC (3.98-10.04) x10^3/uL RBC (3.93-5.22) x10^6/uL Hgb (11.2-15.7) g/dL Hct (34.1-44.9) % MCV (79.4-94.8) fL MCH (25.6-32.2) pg MCHC (32.2-35.5) g/dL RDW (11.7-14.4) % Plt Count (182-369) x10^3/uL MPV (9.4-12.3) fL Gran % (34.0-71.1) % Immature Gran % (Auto) (0.001-0.429) % Nucleat RBC Rel Count (0.00-0.2) % Eos # (Auto) (0.04-0.36) x10^3/uL Immature Gran # (Auto) (0.001-0.031) x10^3u/L Absolute Lymphs (auto) (1.18-3.74) x10^3/uL Absolute Monos (auto) (0.24-0.86) x10^3/uL Absolute Nucleated RBC (0.00-0.012) x10^3u/L Lymphocytes % (19.3-51.7) % Monocytes % (4.7-12.5) % Eosinophils % (0.7-5.8) % Basophils % (0.1-1.2) % Absolute Granulocytes (1.56-6.13) x10^3/uL Basophils # (0.01-0.08) x10^3/uL Sodium (135-145) mmol/L Potassium (3.5-5.1) mmol/L Chloride (98-107) mmol/L Carbon Dioxide (22-30) mmol/L Anion Gap (5-15) MEQ/L BUN (7-17) mg/dL Creatinine (0.52-1.04) mg/dL Estimated GFR ML/MIN Glucose (74-106) mg/dL Lactic Acid 1.0 (0.4-2.0) Calcium (8.4-10.2) mg/dL Iron 39 (37-170) ug/dL TIBC 426 (265-462) ug/dL Iron Saturation 9 L (20-39) % Ferritin 5.10 L (11.1-264) ng/mL Total Bilirubin (0.2-1.3) mg/dL AST (14-36) U/L ALT (0-35) U/L Alkaline Phosphatase (38-126) U/L Troponin I (0.000-0.033) ng/mL Serum Total Protein (6.3-8.2) g/dL Albumin (3.5-5.0) g/dL Urine Color (Yellow) Urine Appearance (Clear) Urine pH (4.6-8.0) Ur Specific [place] (1.005-1.030) Urine Protein (Negative) Urine Glucose (UA) (Negative) mg/dL Urine Ketones (Negative) Urine Blood (Negative) Urine Nitrite (Negative) Urine Bilirubin (Negative) Urine Urobilinogen (0.2) mg/dL Ur Leukocyte Esterase (Negative) Urine Microscopic RBC (0-5) /HPF Urine Microscopic WBC (0-5) /HPF Ur Epithelial Cells (None Seen) /HPF Urine Bacteria (None Seen) /HPF Urine Mucus (NEGATIVE) /HPF Urine Culture Reflexed (NO) ABO Group Rh Factor Antibody Screen (NEGATIVE) Crossmatch (COMPATIBLE) 11/18/24 11/18/24 11/18/24 Range/Units 16:00 16:25 19:50 WBC (3.98-10.04) x10^3/uL RBC (3.93-5.22) x10^6/uL Hgb (11.2-15.7) g/dL Hct (34.1-44.9) % MCV (79.4-94.8) fL MCH (25.6-32.2) pg MCHC (32.2-35.5) g/dL RDW (11.7-14.4) % Plt Count (182-369) x10^3/uL MPV (9.4-12.3) fL Gran % (34.0-71.1) % Immature Gran % (Auto) (0.001-0.429) % Nucleat RBC Rel Count (0.00-0.2) % Eos # (Auto) (0.04-0.36) x10^3/uL Immature Gran # (Auto) (0.001-0.031) x10^3u/L Absolute Lymphs (auto) (1.18-3.74) x10^3/uL Absolute Monos (auto) (0.24-0.86) x10^3/uL Absolute Nucleated RBC (0.00-0.012) x10^3u/L Lymphocytes % (19.3-51.7) % Monocytes % (4.7-12.5) % Eosinophils % (0.7-5.8) % Basophils % (0.1-1.2) % Absolute Granulocytes (1.56-6.13) x10^3/uL Basophils # (0.01-0.08) x10^3/uL Sodium (135-145) mmol/L Potassium (3.5-5.1) mmol/L Chloride (98-107) mmol/L Carbon Dioxide (22-30) mmol/L Anion Gap (5-15) MEQ/L BUN (7-17) mg/dL Creatinine (0.52-1.04) mg/dL Estimated GFR ML/MIN Glucose (74-106) mg/dL Lactic Acid (0.4-2.0) Calcium (8.4-10.2) mg/dL Iron (37-170) ug/dL TIBC (265-462) ug/dL Iron Saturation (20-39) % Ferritin (11.1-264) ng/mL Total Bilirubin (0.2-1.3) mg/dL AST (14-36) U/L ALT (0-35) U/L Alkaline Phosphatase (38-126) U/L Troponin I < 0.012 (0.000-0.033) ng/mL Serum Total Protein (6.3-8.2) g/dL Albumin (3.5-5.0) g/dL Urine Color Yellow (Yellow) Urine Appearance Clear (Clear) Urine pH 5.5 (4.6-8.0) Ur Specific [place] 1.015 (1.005-1.030) Urine Protein Trace A (Negative) Urine Glucose (UA) Negative (Negative) mg/dL Urine Ketones Trace A (Negative) Urine Blood Negative (Negative) Urine Nitrite Negative (Negative) Urine Bilirubin Negative (Negative) Urine Urobilinogen 0.2 (0.2) mg/dL Ur Leukocyte Esterase Moderate A (Negative) Urine Microscopic RBC NONE SEEN (0-5) /HPF Urine Microscopic WBC 6-10 A (0-5) /HPF Ur Epithelial Cells Few (None Seen) /HPF Urine Bacteria Few A (None Seen) /HPF Urine Mucus Few A (NEGATIVE) /HPF Urine Culture Reflexed YES (NO) ABO Group A Rh Factor NEGATIVE Antibody Screen NEGATIVE (NEGATIVE) Crossmatch COMPATIBLE (COMPATIBLE) 11/18/24 Range/Units 22:36 WBC (3.98-10.04) x10^3/uL RBC (3.93-5.22) x10^6/uL Hgb (11.2-15.7) g/dL Hct (34.1-44.9) % MCV (79.4-94.8) fL MCH (25.6-32.2) pg MCHC (32.2-35.5) g/dL RDW (11.7-14.4) % Plt Count (182-369) x10^3/uL MPV (9.4-12.3) fL Gran % (34.0-71.1) % Immature Gran % (Auto) (0.001-0.429) % Nucleat RBC Rel Count (0.00-0.2) % Eos # (Auto) (0.04-0.36) x10^3/uL Immature Gran # (Auto) (0.001-0.031) x10^3u/L Absolute Lymphs (auto) (1.18-3.74) x10^3/uL Absolute Monos (auto) (0.24-0.86) x10^3/uL Absolute Nucleated RBC (0.00-0.012) x10^3u/L Lymphocytes % (19.3-51.7) % Monocytes % (4.7-12.5) % Eosinophils % (0.7-5.8) % Basophils % (0.1-1.2) % Absolute Granulocytes (1.56-6.13) x10^3/uL Basophils # (0.01-0.08) x10^3/uL Sodium (135-145) mmol/L Potassium (3.5-5.1) mmol/L Chloride (98-107) mmol/L Carbon Dioxide (22-30) mmol/L Anion Gap (5-15) MEQ/L BUN (7-17) mg/dL Creatinine (0.52-1.04) mg/dL Estimated GFR ML/MIN Glucose (74-106) mg/dL Lactic Acid (0.4-2.0) Calcium (8.4-10.2) mg/dL Iron (37-170) ug/dL TIBC (265-462) ug/dL Iron Saturation (20-39) % Ferritin (11.1-264) ng/mL Total Bilirubin (0.2-1.3) mg/dL AST (14-36) U/L ALT (0-35) U/L Alkaline Phosphatase (38-126) U/L Troponin I (0.000-0.033) ng/mL Serum Total Protein (6.3-8.2) g/dL Albumin (3.5-5.0) g/dL Urine Color (Yellow) Urine Appearance (Clear) Urine pH (4.6-8.0) Ur Specific [place] (1.005-1.030) Urine Protein (Negative) Urine Glucose (UA) (Negative) mg/dL Urine Ketones (Negative) Urine Blood (Negative) Urine Nitrite (Negative) Urine Bilirubin (Negative) Urine Urobilinogen (0.2) mg/dL Ur Leukocyte Esterase (Negative) Urine Microscopic RBC (0-5) /HPF Urine Microscopic WBC (0-5) /HPF Ur Epithelial Cells (None Seen) /HPF Urine Bacteria (None Seen) /HPF Urine Mucus (NEGATIVE) /HPF Urine Culture Reflexed (NO) ABO Group Rh Factor Antibody Screen (NEGATIVE) Crossmatch COMPATIBLE (COMPATIBLE) Assessment/Plan (1) GI bleed Current Visit: Yes Status: Acute Assessment & Plan: Onset- past few months. - ED physician discussed with GI provider at [facility], who recommended outpatient GI evaluation because of patient's relative stability of hemoglobin. However, patient has no abdominal pain, making gastric ulcer less likely, but she has a ---Past history of a duodenal ulcer 40 years ago, which could explain a painless source of upper GI bleeding - Protonix drip in the ED and continued Surgery consulted - Dr. Oconnor - plan for EGD colonoscopy tomorrow - prep tonight Hold Eliquis Code(s): K92.2 - GASTROINTESTINAL HEMORRHAGE, UNSPECIFIED (2) Symptomatic anemia Current Visit: Yes Status: Acute Assessment & Plan: Iron saturation at 9%- Patient will eventually likely need iron supplementation, but needs to have her source of GI bleeding addressed first, as above Transfuse 2 units PRBCs. Placed on clear liquid diet for the moment - prep tonight for EGD/ colonscopy- NPO after midnight -CBC reviewed s/p transfusion at 9.7- continue to monitor closely if hgb < 7 - transfuse Code(s): D64.9 - ANEMIA, UNSPECIFIED (3) Paroxysmal A-fib Current Visit: Yes Status: Acute Assessment & Plan: Hold Eliquis given GI bleed Continue sotalol 40 mg BID -follows with Dr. Rivera Code(s): I48.0 - PAROXYSMAL ATRIAL FIBRILLATION (4) Panic disorder Current Visit: Yes Status: Acute Assessment & Plan: -Continue Paxil Code(s): F41.0 - PANIC DISORDER [EPISODIC PAROXYSMAL ANXIETY]
[2024-11-19] MEDS ORDERED: MEDICATION INTERVENTION MC SCH (07:30)
[2024-11-19 08:39] LABS: Absolute Neutrophil Ct (ANC) 4.51 x10^3/uL (1.56-6.13); BASOPHIL % 0.7 % (0.1-1.2); Basophil (Absolute #) 0.06 x10^3/uL (0.01-0.08); Eosinophil % 3.5 % (0.7-5.8); Hematocrit 31.6 % (34.1-44.9); Hemoglobin 9.7 g/dL (11.2-15.7); IMMATURE GRAN # 0.02 x10^3u/L (0.001-0.031); IMMATURE GRAN % 0.2 % (0.001-0.429); Lymphocyte (Absolute #) 3.09 x10^3/uL (1.18-3.74); Lymphocytes % 35.8 % (19.3-51.7); Mean Cell Volume 76.7 fL (79.4-94.8); Mean Corpuscular Hemoglobin 23.5 pg (25.6-32.2); Mean Corpuscular Hgb Concent. 30.7 g/dL (32.2-35.5); Mean Platelet Volume 9.7 fL (9.4-12.3); Monocyte (Absolute #) 0.65 x10^3/uL (0.24-0.86); Monocytes % 7.5 % (4.7-12.5); Neutrophil % 52.3 % (34.0-71.1); Platelet Count 344 x10^3/uL (182-369); Red Blood Count 4.12 x10^6/uL (3.93-5.22); White Blood Count 8.6 x10^3/uL (3.98-10.04)
[2024-11-19 08:53] LABS: ANION GAP 12.3 MEQ/L (5-15); BILIRUBIN,TOTAL 0.7 mg/dL (0.2-1.3); Calcium 8.3 mg/dL (8.4-10.2); Creatinine 1 0.71 mg/dL (0.52-1.04); EST GLOMERULAR FILTRATION RATE 89.7 ML/MIN; Potassium 3.6 mmol/L (3.5-5.1); Total Protein 7.2 g/dL (6.3-8.2)
[2024-11-19] MEDS: Paxil 20 MG PO SCH (09:39)
[2024-11-19] MEDS ORDERED: NON-FORMULARY ITEM (Paroxetine Hcl [Paroxetine Hcl] 10 MG Tablet) PO SCH (10:00)
[2024-11-19] MEDS ORDERED: COSOPT OPHTHALMIC 10 ML OP SCH (10:00)
[2024-11-19] MEDS: PATIENT OWN MEDICATION OP SCH (11:07)
[2024-11-19] MEDS: PROTONIX 40 MG IV*** 80 MG in Sodium Chloride 0.9% 500 ML 500 ML IV SCH (12:18)
--- NOTE | 2024-11-19 12:29 | CONS ---
HISTORY OF PRESENT ILLNESS: A 73-year-old female who came in with some symptomatic weakness. Her vitals were stable, but her hemoglobin 13 or 14 in the past was down to 8 according to the ER physician when I was called last night. She has symptomatic anemia and I was consulted to see the patient for that reason. PAST MEDICAL HISTORY: She has a history of glaucoma. She has had some reflux, had history of hiatal hernia in the past, some polyps in the past she said and some depression and anxiety, had some arthritis, breast cancer, cervical cancer in the past, had hysterectomy back in the . She had hypertension as well and coronary artery disease. She had some hyperlipidemia. HOME MEDICATIONS: Omeprazole, paroxetine, dorzolamide, timolol eye drops, Eliquis, Betapace, atorvastatin, latanoprost. PAST SURGICAL HISTORY: She had cataract surgery and tonsillectomy in the past, hysterectomy, and mastectomy. She had cholecystectomy in the past. She had a colonoscopy by Dr. Moore in 2019. She has had left wrist surgery, ganglion removed in the past. SOCIAL HISTORY: No alcohol abuse. FAMILY HISTORY: Negative in regard to this specific problem. REVIEW OF SYSTEMS: Twelve systems reviewed. Pertinent as noted above. She has had a little bit of asthma as well. She said she did have some dark stools recently. She has rare hemorrhoid flare-up. PHYSICAL EXAMINATION: GENERAL: No acute distress. HEENT: Sclerae anicteric. NECK: No JVD. RESPIRATORY: Equal excursion, nonlabored breathing. ABDOMEN: Soft, nontender. SKIN: Dry. EXTREMITIES: No significant edema. NEUROLOGIC: Alert. PSYCHIATRIC: Appropriate mood and affect. RECTAL: Deferred until time of endoscopy exam. IMPRESSION: History of symptomatic anemia. She did received 1 unit of blood. She has some repeat labs pending this morning. She would benefit from upper and lower endoscopy if she remains in the hospital. We will see if he has time. If he does not, then I could later in the day. EGD and colonoscopy risks of bleeding, infection, risk of bowel injury or perforation, risk of missed or nondiagnosis, incomplete exam possibly requiring barium enema or other studies or procedures, general risk of anesthesia or sedation, risks of bowel prep, possibility of inability to find etiology of her anemia possibly requiring other workup or studies. She understands and agrees with the plan. Will check with the office and see if Dr. Moore has time tomorrow. Otherwise, clear liquids right now. Continue holding her Eliquis. Otherwise, continue medical management for her eye issues, hyperlipidemia, hypertension, heart disease, anxiety, and reflux.
[2024-11-19] MEDS: Golytely Solution 4000 ML PO ONE (14:59)
[2024-11-19] MEDS: Xalatan OP SCH (22:12)
[2024-11-20 05:16] LABS: Absolute Neutrophil Ct (ANC) 5.58 x10^3/uL (1.56-6.13); BASOPHIL % 0.5 % (0.1-1.2); Basophil (Absolute #) 0.05 x10^3/uL (0.01-0.08); Eosinophil % 3.1 % (0.7-5.8); Eosinophil (Absolute #) 0.28 x10^3/uL (0.04-0.36); Hematocrit 31.4 % (34.1-44.9); Hemoglobin 9.5 g/dL (11.2-15.7); IMMATURE GRAN # 0.03 x10^3u/L (0.001-0.031); IMMATURE GRAN % 0.3 % (0.001-0.429); Lymphocytes % 28.5 % (19.3-51.7); Mean Cell Volume 77.5 fL (79.4-94.8); Mean Corpuscular Hemoglobin 23.5 pg (25.6-32.2); Mean Corpuscular Hgb Concent. 30.3 g/dL (32.2-35.5); Mean Platelet Volume 9.6 fL (9.4-12.3); Monocyte (Absolute #) 0.59 x10^3/uL (0.24-0.86); Monocytes % 6.5 % (4.7-12.5); Neutrophil % 61.1 % (34.0-71.1); Platelet Count 336 x10^3/uL (182-369); Red Blood Count 4.05 x10^6/uL (3.93-5.22); Red Cell Distribution Width 18.9 % (11.7-14.4); White Blood Count 9.1 x10^3/uL (3.98-10.04)
[2024-11-20 05:34] LABS: ALBUMIN 3.7 g/dL (3.5-5.0); ANION GAP 13.2 MEQ/L (5-15); BILIRUBIN,TOTAL 0.8 mg/dL (0.2-1.3); Calcium 8.4 mg/dL (8.4-10.2); Creatinine 1 0.66 mg/dL (0.52-1.04); EST GLOMERULAR FILTRATION RATE 92.6 ML/MIN; Potassium 3.6 mmol/L (3.5-5.1); Total Protein 6.8 g/dL (6.3-8.2)
--- NOTE | 2024-11-20 11:20 | PCM.DS ---
Discharge Summary Date of Admission: 11/18/24 20:58 Date of Discharge: 11/20/24 Admitting Physician: JEEVAN ADEN MD Consults: Consults on Case 11/19/24 07:44 Consult Surgery ROUTINE Primary Care Provider: EMORY,ALLISON Allergies Allergies codeine Allergy (Verified 11/18/24 15:35) corn Allergy (Verified 11/18/24 15:35) erythromycin base Allergy (Verified 11/18/24 21:16) Penicillins Allergy (Verified 11/18/24 15:35) Sulfa (Sulfonamide Antibiotics) Allergy (Verified 11/18/24 15:35) NOVAFED Adverse Reaction (Uncoded 11/18/24 15:35) [facility] Summary - Hospital Course Hospital Course: The patient is a 73-year-old woman with a history of atrial fibrillation (on Stacy bill), GERD, hiatal hernia, prior duodenal ulcer, TIA, and anxiety disorder, who presented to the ED with progressive dyspnea and melena. She reported intermittent dark and tarry stools for the past few months, initially thought to be due to hemorrhoids, and noted two episodes of true black and tarry stools. Her hemoglobin had dropped from 8.7 to 8 over the past three weeks, prompting her to seek evaluation. She had progressive dyspnea and weakness, particularly over the last week, but denied chest pain, dizziness, abdominal pain, or nausea. She also experienced dry mouth and had a melanotic stool this morning, but none since then, with brown stools yesterday. She has a remote history of duodenal ulcer in the 1980s and hiatal hernia diagnosed in 2018 after an upper endoscopy. Her GERD symptoms have been well controlled on omeprazole. Upon arrival, her vital signs were stable, and she was admitted for a transfusion to address her symptomatic anemia. GI consulted and recommended an outpatient follow-up for an upper endoscopy, as her hemoglobin had only dropped slightly, and her vital signs were stable. However, due to her symptoms, she was admitted for a blood transfusion. On 11/19/24, after the transfusion, the patient reported improved dyspnea and weakness. She had no other complaints and was scheduled for an upper endoscopy and colonoscopy today to evaluate the source of her anemia. Depending on the results of these procedures, the plan is to discharge her home. She will co ntinue her protonix drip and be prepped for the procedures this evening. She denied fever, cough, shortness of breath, chest pain, abdominal pain, headache, dizziness, nausea, vomiting, or diarrhea. - Vitals & Intake/Output Vital Signs: Vital Signs Temperature 97.5 F 11/20/24 08:00 Pulse Rate 54 L 11/20/24 08:00 Respiratory Rate 22 11/20/24 08:00 Blood Pressure 178/78 11/20/24 08:00 O2 Sat by Pulse Oximetry 96 11/20/24 08:00 Intake & Output: Intake & Output 11/17/24 11/18/24 11/19/24 11/20/24 11:59 11:59 11:59 11:59 Intake Total 1442 3142 Balance 1442 3142 Weight 85.4 kg - Lab Result Diagrams: 11/20/24 05:08 11/20/24 05:08 Lab Results-Last 24 Hrs: Lab Results-Last 24 Hours 11/20/24 11/20/24 Range/Units 05:08 05:08 WBC 9.1 (3.98-10.04) x10^3/uL RBC 4.05 (3.93-5.22) x10^6/uL Hgb 9.5 L (11.2-15.7) g/dL Hct 31.4 L (34.1-44.9) % MCV 77.5 L (79.4-94.8) fL MCH 23.5 L (25.6-32.2) pg MCHC 30.3 L (32.2-35.5) g/dL RDW 18.9 H (11.7-14.4) % Plt Count 336 (182-369) x10^3/uL MPV 9.6 (9.4-12.3) fL Gran % 61.1 (34.0-71.1) % Immature Gran % (Auto) 0.3 (0.001-0.429) % Nucleat RBC Rel Count 0.0 (0.00-0.2) % Eos # (Auto) 0.28 (0.04-0.36) x10^3/uL Immature Gran # (Auto) 0.03 (0.001-0.031) x10^3u/L Absolute Lymphs (auto) 2.60 (1.18-3.74) x10^3/uL Absolute Monos (auto) 0.59 (0.24-0.86) x10^3/uL Absolute Nucleated RBC 0.00 (0.00-0.012) x10^3u/L Lymphocytes % 28.5 (19.3-51.7) % Monocytes % 6.5 (4.7-12.5) % Eosinophils % 3.1 (0.7-5.8) % Basophils % 0.5 (0.1-1.2) % Absolute Granulocytes 5.58 (1.56-6.13) x10^3/uL Basophils # 0.05 (0.01-0.08) x10^3/uL Sodium 142 (135-145) mmol/L Potassium 3.6 (3.5-5.1) mmol/L Chloride 107 (98-107) mmol/L Carbon Dioxide 26 (22-30) mmol/L Anion Gap 13.2 (5-15) MEQ/L BUN 7 (7-17) mg/dL Creatinine 0.66 (0.52-1.04) mg/dL Estimated GFR 92.6 ML/MIN Glucose 90 (74-106) mg/dL Calcium 8.4 (8.4-10.2) mg/dL Total Bilirubin 0.80 (0.2-1.3) mg/dL AST 26 (14-36) U/L ALT 16 (0-35) U/L Alkaline Phosphatase 87 (38-126) U/L Serum Total Protein 6.8 (6.3-8.2) g/dL Albumin 3.7 (3.5-5.0) g/dL Micro Results-Entire Visit: Microbiology 11/18/24 16:00 Urine Culture - Preliminary Urine, Void GRAM NEGATIVE ID AND SENSITIVITY PENDING Discharge Exam General Appearance: no apparent distress, alert, obese Neurologic Exam: alert, oriented x 3, cooperative, normal mood/affect, nml cerebellar function, sensation nml, No motor deficits Eye Exam: PERRL, EOMI, eyes nml inspection Ears, Nose, Throat Exam: normal ENT inspection, pharynx normal, moist mucous membranes Neck Exam: normal inspection, non-tender, supple, full range of motion Respiratory Exam: normal breath sounds, lungs clear, No respiratory distress Cardiovascular Exam: regular rate/rhythm, normal heart sounds Gastrointestinal/Abdomen Exam: soft, No tenderness, No mass Pelvic Exam: deferred Rectal Exam: deferred Back Exam: normal inspection, normal range of motion, No CVA tenderness, No vertebral tenderness Extremity Exam: normal inspection, normal range of motion Skin Exam: normal color, warm, dry Final Diagnosis/Problem List - Final Discharge Diagnosis/Problem (1) GI bleed Current Visit: Yes Status: Acute Assessment & Plan: Onset- past few months. - ED physician discussed with GI provider at [facility], who recommended outpatient GI evaluation because of patient's relative stability of hemoglobin. However, patient has no abdominal pain, making gastric ulcer less likely, but she has a ---Past history of a duodenal ulcer 40 years ago, which could explain a painless source of upper GI bleeding - Protonix drip in the ED and continued Surgery consulted - Dr. Oconnor - plan for EGD/ colonoscopy today Hold Eliquis for now Code(s): K92.2 - GASTROINTESTINAL HEMORRHAGE, UNSPECIFIED (2) Symptomatic anemia Current Visit: Yes Status: Acute Assessment & Plan: Iron saturation at 9%- Patient will eventually likely need iron supplementation, but needs to have her source of GI bleeding addressed first, as above Transfused 2 units PRBCs. EGD/ colonscopy today - CBC reviewed s/p transfusion at 9.7- continue to monitor closely if hgb < 7 - transfuse - Hgb 9.5 today - CBC reviewed Code(s): D64.9 - ANEMIA, UNSPECIFIED (3) Panic disorder Current Visit: Yes Status: Chronic Assessment & Plan: -Continue Paxil Code(s): F41.0 - PANIC DISORDER [EPISODIC PAROXYSMAL ANXIETY] (4) Paroxysmal A-fib Current Visit: Yes Status: Chronic Assessment & Plan: Hold Eliquis given GI bleed Continue sotalol 40 mg BID - Follows with Dr. Rivera- cardiology Code(s): I48.0 - PAROXYSMAL ATRIAL FIBRILLATION (5) UTI (urinary tract infection) Current Visit: Yes Status: Acute Assessment & Plan: - UC gram negative- sensitivity pending - Nitrofurantoin BID Code(s): N39.0 - URINARY TRACT INFECTION, SITE NOT SPECIFIED (6) Obesity (BMI 30.0-34.9) Current Visit: Yes Status: Chronic Assessment & Plan: - advised diet and exercise control Code(s): E66.811 - OBESITY, CLASS 1 - Discharge Discharge Date: 11/20/24 Disposition: Home, Self-Care Condition: Stable Prescriptions: New Nitrofurantoin Macro 100 mg [Macrobid 100MG Capsule] 100 mg PO BIDWM 5 Days #10 cap Continue Omeprazole 40 mg PO DAILY PARoxetine HCL [Paroxetine HCl] 10 mg PO DAILY Dorzolamide HCl/Timolol Maleat [Dorzolamide-Timolol Eye Drops] 10 ml DROPS BID Apixaban [Eliquis 2.5 mg Tablet] 5 mg PO BID #60 tablet Sotalol HCl 80 mg [Betapace 80 MG] 40 mg PO BID Latanoprost 1 drop OP HS Follow up with: JUAN COMBS [ACTIVE STAFF] - 12/04/24 10:15 am (AT [facility]) ALLISON CAT MD [Primary Care Provider] - 11/27/24 1:30 pm
[2024-11-20] MEDS ORDERED: propofoL IV ONE ×2 (12:29→12:48)
[2024-11-20] MEDS ORDERED: GlucaGen 1 MG ONE (12:49)
[2024-11-20] MEDS: Macrobid 100MG Capsule PO SCH (14:54)
--- NOTE | 2024-11-20 15:54 | PCM.NOTE ---
Date and Time: 11/20/24 1552 Subjective Assessment: The patient is a 73-year-old woman with a history of atrial fibrillation (on Eliquis), GERD, hiatal hernia, prior duodenal ulcer, TIA, and anxiety disorder, who presented to the ED with progressive dyspnea and melena. She reported intermittent dark and tarry stools for the past few months, initially thought to be due to hemorrhoids, and noted two episodes of true black and tarry stools. Her hemoglobin had dropped from 8.7 to 8 over the past three weeks, prompting her to seek evaluation. She had progressive dyspnea and weakness, particularly over the last week, but denied chest pain, dizziness, abdominal pain, or nausea. She also experienced dry mouth and had a melanotic stool this morning, but none since then, with brown stools yesterday. She has a remote history of duodenal ulcer in the 1980s and hiatal hernia diagnosed in 2018 after an upper endoscopy. Her GERD symptoms have been well controlled on omeprazole. Upon arrival, her vital signs were stable, and she was admitted for a transfusion to address her symptomatic anemia. GI consulted and recommended an outpatient follow-up for an upper endoscopy, as her hemoglobin had only dropped slightly, and her vital signs were stable. However, due to her symptoms, she was admitted for a blood transfusion. On 11/19/24, after the transfusion, the patient reported improved dyspnea and weakness. She had no other complaints and was scheduled for an upper endoscopy and colonoscopy today to evaluate the source of her anemia. Depending on the r esults of these procedures, the plan is to discharge her home. She will continue her protonix drip and be prepped for the procedures this evening. She denied fever, cough, shortness of breath, chest pain, abdominal pain, headache, dizziness, nausea, vomiting, or diarrhea. * Surgery was unable to complete colonoscopy and would like pt to have barium enema in the AM. Pt to be NPO after midnight. - Review of Systems Constitutional: No Fever, No Chills Eyes: No Symptoms Ears, Nose, & Throat: No Symptoms Respiratory: No Cough, No Short Of Breath Cardiac: No Chest Pain, No Edema, No Syncope Abdominal/Gastrointestinal: No Abdominal Pain, No Nausea, No Vomiting, No Diarrhea Genitourinary Symptoms: No Dysuria Musculoskeletal: No Back Pain, No Neck Pain Skin: No Rash Neurological: No Dizziness, No Focal Weakness, No Sensory Changes Psychological: No Symptoms Endocrine: No Symptoms Hematologic/Lymphatic: No Symptoms Immunological/Allergic: No Symptoms Objective Exam General Appearance: no apparent distress, alert Neurologic Exam: alert, oriented x 3, cooperative, normal mood/affect, nml cerebellar function, sensation nml, No motor deficits Skin Exam: normal color, warm, dry Eye Exam: PERRL, EOMI, eyes nml inspection Ears, Nose, Throat Exam: normal ENT inspection, pharynx normal, moist mucous membranes Neck Exam: normal inspection, non-tender, supple, full range of motion Respiratory Exam: normal breath sounds, lungs clear, No respiratory distress Cardiovascular Exam: regular rate/rhythm, normal heart sounds Gastrointestinal/Abdomen Exam: soft, No tenderness, No mass Extremity Exam: normal inspection, normal range of motion Back Exam: normal inspection, normal range of motion, No CVA tenderness, No vertebral tenderness Pelvic Exam: deferred Rectal Exam: deferred Objective Data Vital Signs: Vital Signs - 24 hr Temp Pulse Resp BP Pulse Ox 11/20/24 12:00 97.4 F 96 H 22 126/77 94 L 11/20/24 11:53 97.4 F 96 H 22 126/77 94 L 11/20/24 08:00 97.5 F 54 L 22 178/78 96 11/20/24 03:42 98.1 F 60 16 155/64 98 11/20/24 00:00 98.1 F 52 L 16 164/72 98 11/19/24 20:00 97.9 F 55 L 16 179/84 98 11/19/24 16:00 97.9 F 55 L 16 158/74 98 Pain Assessment - Last Documented Pain Intensity 0 Intake and Output: Intake & Output 11/18/24 11/19/24 11/20/24 11/21/24 11:59 11:59 11:59 11:59 Intake Total 1442 3142 Balance 1442 3142 Weight 85.4 kg 85.4 kg Lab Results: Lab Results-Last 24 Hours 11/20/24 11/20/24 Range/Units 05:08 05:08 WBC 9.1 (3.98-10.04) x10^3/uL RBC 4.05 (3.93-5.22) x10^6/uL Hgb 9.5 L (11.2-15.7) g/dL Hct 31.4 L (34.1-44.9) % MCV 77.5 L (79.4-94.8) fL MCH 23.5 L (25.6-32.2) pg MCHC 30.3 L (32.2-35.5) g/dL RDW 18.9 H (11.7-14.4) % Plt Count 336 (182-369) x10^3/uL MPV 9.6 (9.4-12.3) fL Gran % 61.1 (34.0-71.1) % Immature Gran % (Auto) 0.3 (0.001-0.429) % Nucleat RBC Rel Count 0.0 (0.00-0.2) % Eos # (Auto) 0.28 (0.04-0.36) x10^3/uL Immature Gran # (Auto) 0.03 (0.001-0.031) x10^3u/L Absolute Lymphs (auto) 2.60 (1.18-3.74) x10^3/uL Absolute Monos (auto) 0.59 (0.24-0.86) x10^3/uL Absolute Nucleated RBC 0.00 (0.00-0.012) x10^3u/L Lymphocytes % 28.5 (19.3-51.7) % Monocytes % 6.5 (4.7-12.5) % Eosinophils % 3.1 (0.7-5.8) % Basophils % 0.5 (0.1-1.2) % Absolute Granulocytes 5.58 (1.56-6.13) x10^3/uL Basophils # 0.05 (0.01-0.08) x10^3/uL Sodium 142 (135-145) mmol/L Potassium 3.6 (3.5-5.1) mmol/L Chloride 107 (98-107) mmol/L Carbon Dioxide 26 (22-30) mmol/L Anion Gap 13.2 (5-15) MEQ/L BUN 7 (7-17) mg/dL Creatinine 0.66 (0.52-1.04) mg/dL Estimated GFR 92.6 ML/MIN Glucose 90 (74-106) mg/dL Calcium 8.4 (8.4-10.2) mg/dL Total Bilirubin 0.80 (0.2-1.3) mg/dL AST 26 (14-36) U/L ALT 16 (0-35) U/L Alkaline Phosphatase 87 (38-126) U/L Serum Total Protein 6.8 (6.3-8.2) g/dL Albumin 3.7 (3.5-5.0) g/dL Radiology Exams: Radiology Procedures Category Date Time Status BARIUM ENEMA Routine Exams 11/21/24 08:00 Ordered Multi-Disciplinary Progress Notes: Multi-Disciplinary Progress Notes 11/20/24 10:07 Case Management Note by Bridgette Rouse S/W PATIENT. PATIENT CONTINUES TO DENY ANY NEW NEEDS AT TIME OF DC. PLANS TO RETURN HOME TO [facility] AT TIME OF DC. Initialized on 11/20/24 10:07 - END OF NOTE Assessment/Plan (1) GI bleed Current Visit: Yes Status: Acute Code(s): K92.2 - GASTROINTESTINAL HEMORRHAGE, UNSPECIFIED (2) Symptomatic anemia Current Visit: Yes Status: Acute Code(s): D64.9 - ANEMIA, UNSPECIFIED (3) Panic disorder Current Visit: Yes Status: Chronic Code(s): F41.0 - PANIC DISORDER [EPISODIC PAROXYSMAL ANXIETY] (4) Paroxysmal A-fib Current Visit: Yes Status: Chronic Code(s): I48.0 - PAROXYSMAL ATRIAL FIBRILLATION (5) UTI (urinary tract infection) Current Visit: Yes Status: Acute Code(s): N39.0 - URINARY TRACT INFECTION, SITE NOT SPECIFIED (6) Obesity (BMI 30.0-34.9) Current Visit: Yes Status: Chronic Assessment & Plan: (1) GI bleed Current Visit: Yes Status: Acute Assessment & Plan: Onset- past few months. - ED physician discussed with GI provider at [facility], who recommended outpatient GI evaluation because of patient's relative stability of hemoglobin. However, patient has no abdominal pain, making gastric ulcer less likely, but she has a ---Past history of a duodenal ulcer 40 years ago, which could explain a painless source of upper GI bleeding - Protonix drip in the ED and continued Surgery consulted - Dr. Oconnor - plan for EGD/ colonoscopy today Hold Eliquis for now - Barium enema in the AM - NPO after midnight Code(s): K92.2 - GASTROINTESTINAL HEMORRHAGE, UNSPECIFIED (2) Symptomatic anemia Current Visit: Yes Status: Acute Assessment & Plan: Iron saturation at 9%- Patient will eventually likely need iron supplementation, but needs to have her source of GI bleeding addressed first, as above Transfused 2 units PRBCs. EGD/ colonscopy today - CBC reviewed s/p transfusion at 9.7- continue to monitor closely if hgb < 7 - transfuse - Hgb 9.5 today - CBC reviewed Code(s): D64.9 - ANEMIA, UNSPECIFIED (3) Panic disorder Current Visit: Yes Status: Chronic Assessment & Plan: -Continue Paxil Code(s): F41.0 - PANIC DISORDER [EPISODIC PAROXYSMAL ANXIETY] (4) Paroxysmal A-fib Current Visit: Yes Status: Chronic Assessment & Plan: Hold Eliquis given GI bleed Continue sotalol 40 mg BID - Follows with Dr. Rivera- cardiology Code(s): I48.0 - PAROXYSMAL ATRIAL FIBRILLATION (5) UTI (urinary tract infection) Current Visit: Yes Status: Acute Assessment & Plan: - UC gram negative- sensitivity pending - Nitrofurantoin BID Code(s): N39.0 - URINARY TRACT INFECTION, SITE NOT SPECIFIED (6) Obesity (BMI 30.0-34.9) Current Visit: Yes Status: Chronic Assessment & Plan: - advised diet and exercise control Code(s): E66.811 - OBESITY, CLASS 1 Code(s): E66.811 - OBESITY, CLASS 1
[2024-11-21 05:01] LABS: Hematocrit 32.3 % (34.1-44.9); Mean Cell Volume 76.2 fL (79.4-94.8); Mean Corpuscular Hemoglobin 23.6 pg (25.6-32.2); Mean Platelet Volume 9.8 fL (9.4-12.3); Platelet Count 346 x10^3/uL (182-369); Red Blood Count 4.24 x10^6/uL (3.93-5.22); Red Cell Distribution Width 19.9 % (11.7-14.4); White Blood Count 12.9 x10^3/uL (3.98-10.04)
[2024-11-21 05:39] LABS: ALBUMIN 4.2 g/dL (3.5-5.0); ANION GAP 16.1 MEQ/L (5-15); BILIRUBIN,TOTAL 0.9 mg/dL (0.2-1.3); Calcium 8.3 mg/dL (8.4-10.2); Creatinine 1 0.69 mg/dL (0.52-1.04); EST GLOMERULAR FILTRATION RATE 91.6 ML/MIN; Total Protein 7.5 g/dL (6.3-8.2)
[2024-11-21 05:48] LABS: Potassium 2.9 mmol/L (3.5-5.1)
[2024-11-21] MEDS: Klor Con PO ONE ×3 (06:27→17:34)
--- NOTE | 2024-11-21 10:12 | OP ---
SURGERY DATE/TIME: 11/20/2024 [id number] PREOPERATIVE DIAGNOSIS: Patient had major gastrointestinal bleed. She presents for esophagogastroduodenoscopy and colonoscopy. PROCEDURE: Esophagogastroduodenoscopy, colonoscopy. SURGEON: Laz Moore MD ANESTHESIA: General. COMPLICATIONS: None. CONDITION: Stable. FINDINGS: EGD: 2-inch hiatal hernia. Colonoscopic examinations were limited to 50 cm due to lack of forward advancement. DESCRIPTION OF PROCEDURE: Patient taken to endoscopy, left lateral decubitus position. Scope was introduced. A 2-inch hiatal hernia, no reflux, no gastritis. Fundus, body and antrum was satisfactory. Pylorus was satisfactory. Duodenal bulb satisfactory. Second portion was satisfactory. A 2-inch hiatal hernia, otherwise, satisfactory. Anal digital examination normal. Scope was introduced. Exam was advanced up to 40, it just could not be passed past 40 to 50 despite repositioning this about a dozen times. There was a little bit of manipulation that allowed for flattening of one of the neighboring. Patient tolerated the procedure satisfactorily.
--- NOTE | 2024-11-21 10:39 | PCM.DS ---
Discharge Summary Date of Admission: 11/18/24 20:58 Date of Discharge: 11/21/24 Admitting Physician: JEEVAN ADEN MD Consults: Consults on Case 11/19/24 07:44 Consult Surgery ROUTINE Primary Care Provider: EMORY,ALLISON Allergies Allergies codeine Allergy (Verified 11/18/24 15:35) corn Allergy (Verified 11/18/24 15:35) erythromycin base Allergy (Verified 11/18/24 21:16) Penicillins Allergy (Verified 11/18/24 15:35) Sulfa (Sulfonamide Antibiotics) Allergy (Verified 11/18/24 15:35) NOVAFED Adverse Reaction (Uncoded 11/18/24 15:35) [facility] Summary - Hospital Course Hospital Course: 11/20/24 The patient is a 73-year-old woman with a history of atrial fibrillation (on Eliquis), GERD, hiatal hernia, prior duodenal ulcer, TIA, and anxiety disorder, who presented to the ED with progressive dyspnea and melena. She reported intermittent dark and tarry stools for the past few months, initially thought to be due to hemorrhoids, and noted two episodes of true black and tarry stools. Her hemoglobin had dropped from 8.7 to 8 over the past three weeks, prompting her to seek evaluation. She had progressive dyspnea and weakness, particularly over the last week, but denied chest pain, dizziness, abdominal pain, or nausea. She also experienced dry mouth and had a melanotic stool this morning, but none since then, with brown stools yesterday. She has a remote history of duodenal ulcer in the 1980s and hiatal hernia diagnosed in 2018 after an upper endoscopy. Her GERD symptoms have been well controlled on omeprazole. Upon arrival, her vital signs were stable, and she was admitted for a transfusion to address her symptomatic anemia. GI consulted and recommended an outpatient follow-up for an upper endoscopy, as her hemoglobin had only dropped slightly, and her vital signs were stable. However, due to her symptoms, she was admitted for a blood transfusion. On 11/19/24, after the transfusion, the patient reported improved dyspnea and weakness. She had no other complaints and was scheduled for an upper endoscopy and colonoscopy today to evaluate the source of her anemia. Depending on the results of these procedures, the plan is to discharge her home. She will continue her protonix drip and be prepped for the procedures this evening. She denied fever, cough, shortness of breath, chest pain, abdominal pain, headache, dizziness, nausea, vomiting, or diarrhea. * Surgery was unable to complete colonoscopy and would like pt to have barium enema in the AM. Pt to be NPO after midnight. 11/21/24 Pt scheduled for barium enema today. Awaiting surgery recs. Hgb stable at 10. Per GS reports yesterday from EGD pt has a hital hernia, diverticulitis, Colonoscopy limited to 5CM. If ok with GS will d/c home today as pt is wanting to d/c. K+ 2.9 and will recheck at noon as replaced early this morning. She denies any further concerns at this time. Per surgery ok to d/c on protonix BID. F/U OP with surgery in 2 weeks. - Vitals & Intake/Output Vital Signs: Vital Signs Temperature 100.4 F 11/21/24 08:00 Pulse Rate 78 11/21/24 08:00 Respiratory Rate 20 11/21/24 08:00 Blood Pressure 128/60 11/21/24 08:00 O2 Sat by Pulse Oximetry 92 L 11/21/24 08:00 Intake & Output: Intake & Output 11/18/24 11/19/24 11/20/24 11/21/24 11:59 11:59 11:59 11:59 Intake Total 1442 3142 6401 Balance 1442 3142 6401 Weight 85.4 kg 85.4 kg - Lab Result Diagrams: 11/21/24 04:36 11/21/24 15:25 Lab Results-Last 24 Hrs: Lab Results-Last 24 Hours 11/21/24 11/21/24 11/21/24 Range/Units 04:36 04:36 05:49 WBC 12.9 H (3.98-10.04) x10^3/uL RBC 4.24 (3.93-5.22) x10^6/uL Hgb 10.0 L (11.2-15.7) g/dL Hct 32.3 L (34.1-44.9) % MCV 76.2 L (79.4-94.8) fL MCH 23.6 L (25.6-32.2) pg MCHC 31.0 L (32.2-35.5) g/dL RDW 19.9 H (11.7-14.4) % Plt Count 346 (182-369) x10^3/uL MPV 9.8 (9.4-12.3) fL Sodium 140 (135-145) mmol/L Potassium 2.9 L* (3.5-5.1) mmol/L Chloride 103 (98-107) mmol/L Carbon Dioxide 24 (22-30) mmol/L Anion Gap 16.1 H (5-15) MEQ/L BUN 6 L (7-17) mg/dL Creatinine 0.69 (0.52-1.04) mg/dL Estimated GFR 91.6 ML/MIN Glucose 114 H (74-106) mg/dL Calcium 8.3 L (8.4-10.2) mg/dL Magnesium 1.7 (1.6-2.3) mg/dL Total Bilirubin 0.90 (0.2-1.3) mg/dL AST 34 (14-36) U/L ALT 23 (0-35) U/L Alkaline Phosphatase 95 (38-126) U/L Serum Total Protein 7.5 (6.3-8.2) g/dL Albumin 4.2 (3.5-5.0) g/dL Micro Results-Entire Visit: Microbiology 11/18/24 16:00 Urine Culture - Preliminary Urine, Void ADDITIONAL TESTING IS REQUIRED TO OBTAIN ID AND SENSITIVITY. SPECIMEN HAS BEEN SENT TO REFERENCE LAB, WITH FINAL RESULT EXPECTED WITHIN 96 HOURS. - Radiology Exams Ordered Rad Exams-Entire Visit: Radiology Procedures Category Date Time Status BARIUM ENEMA Routine Exams 11/21/24 09:54 Ordered Discharge Exam General Appearance: no apparent distress, alert Neurologic Exam: alert, oriented x 3, cooperative, normal mood/affect, nml cerebellar function, sensation nml, No motor deficits Eye Exam: PERRL, EOMI, eyes nml inspection Ears, Nose, Throat Exam: normal ENT inspection, pharynx normal, moist mucous membranes Neck Exam: normal inspection, non-tender, supple, full range of motion Respiratory Exam: normal breath sounds, lungs clear, No respiratory distress Cardiovascular Exam: regular rate/rhythm, normal heart sounds Gastrointestinal/Abdomen Exam: soft, No tenderness, No mass Pelvic Exam: deferred Rectal Exam: deferred Back Exam: normal inspection, normal range of motion, No CVA tenderness, No vertebral tenderness Extremity Exam: normal inspection, normal range of motion Skin Exam: normal color, warm, dry Final Diagnosis/Problem List - Final Discharge Diagnosis/Problem (1) GI bleed Current Visit: Yes Status: Acute Code(s): K92.2 - GASTROINTESTINAL HEMORRHAGE, UNSPECIFIED (2) Symptomatic anemia Current Visit: Yes Status: Acute Code(s): D64.9 - ANEMIA, UNSPECIFIED (3) Panic disorder Current Visit: Yes Status: Chronic Code(s): F41.0 - PANIC DISORDER [EPISODIC PAROXYSMAL ANXIETY] (4) Paroxysmal A-fib Current Visit: Yes Status: Chronic Code(s): I48.0 - PAROXYSMAL ATRIAL FIBRILLATION (5) UTI (urinary tract infection) Current Visit: Yes Status: Acute Code(s): N39.0 - URINARY TRACT INFECTION, SITE NOT SPECIFIED (6) Obesity (BMI 30.0-34.9) Current Visit: Yes Status: Chronic Assessment & Plan: (1) GI bleed Current Visit: Yes Status: Acute Assessment & Plan: Onset- past few months. - ED physician discussed with GI provider at [facility], who recommended outpatient GI evaluation because of patient's relative stability of hemoglobin. However, patient has no abdominal pain, making gastric ulcer less likely, but she has a ---Past history of a duodenal ulcer 40 years ago, which could explain a painless source of upper GI bleeding - Protonix drip in the ED and continued Surgery consulted - Dr. Oconnor - plan for EGD/ colonoscopy today Hold Eliquis for now - Barium enema in the AM - NPO after midnight 11/21 - pending surgery recs- ok to d/c on protonix BID and f//u in office in 2 weeks. - barium enema today- resulted reviewed - Hgb stable 10 Code(s): K92.2 - GASTROINTESTINAL HEMORRHAGE, UNSPECIFIED (2) Symptomatic anemia Current Visit: Yes Status: Acute Assessment & Plan: Iron saturation at 9%- Patient will eventually likely need iron supplementation, but needs to have her source of GI bleeding addressed first, as above Transfused 2 units PRBCs. EGD/ colonscopy today - CBC reviewed s/p transfusion at 9.7- continue to monitor closely if hgb < 7 - transfuse - Hgb 9.5 today - CBC reviewed 11/21 - CBC, CMP reviewed - Hgb 10 Code(s): D64.9 - ANEMIA, UNSPECIFIED (3) Panic disorder Current Visit: Yes Status: Chronic Assessment & Plan: -Continue Paxil Code(s): F41.0 - PANIC DISORDER [EPISODIC PAROXYSMAL ANXIETY] (4) Paroxysmal A-fib Current Visit: Yes Status: Chronic Assessment & Plan: Hold Eliquis given GI bleed Continue sotalol 40 mg BID - Follows with Dr. Rivera- cardiology Code(s): I48.0 - PAROXYSMAL ATRIAL FIBRILLATION (5) UTI (urinary tract infection) Current Visit: Yes Status: Acute Assessment & Plan: - UC gram negative- sensitivity pending- will continue to follow OP - Nitrofurantoin BID Code(s): N39.0 - URINARY TRACT INFECTION, SITE NOT SPECIFIED (6) Obesity (BMI 30.0-34.9) Current Visit: Yes Status: Chronic Assessment & Plan: - advised diet and exercise control Code(s): E66.811 - OBESITY, CLASS 1 (7) Hypokalemia Current Visit: Yes Status: Acute Assessment & Plan: - K+ 2.9 and replaced this AM- will recheck at noon. - repeat K+ 3.4- replaced with 40 KCL- will need OP lab f/u with PCP Code(s): E87.6 - HYPOKALEMIA - Discharge Discharge Date: 11/21/24 Disposition: Home, Self-Care Condition: Stable Prescriptions: New Nitrofurantoin Macro 100 mg [Macrobid 100MG Capsule] 100 mg PO BIDWM 5 Days #10 cap Continue PARoxetine HCL [Paroxetine HCl] 10 mg PO DAILY Dorzolamide HCl/Timolol Maleat [Dorzolamide-Timolol Eye Drops] 10 ml DROPS BID Apixaban [Eliquis 2.5 mg Tablet] 5 mg PO BID #60 tablet Sotalol HCl 80 mg [Betapace 80 MG] 40 mg PO BID Latanoprost 1 drop OP HS Changed Omeprazole 20 mg PO BID 30 Days #60 cap Instructions: GI bleed - Discharge instructions Follow up with: JUAN COMBS [ACTIVE STAFF] - 12/04/24 10:15 am (AT [facility]) ALLISON CAT MD [Primary Care Provider] - 11/27/24 1:30 pm
--- NOTE | 2024-11-21 12:36 | XRAY ---
Indication: Incomplete colonoscopy. No biopsy. Dark stools. History hemorrhoids. Preliminary sample weaver abdomen appears nonacute and nonobstructed with incidental right lung base calcified granuloma, mild aortic calcifications, and cholecystectomy clips. Osseous structures intact with osteopenia and mild lumbar levoscoliosis. Following insertion barium enema catheter, balloon tip was insufflated. Barium infusion and air insufflation was performed under fluoroscopic and gravity control. Multiple digital spot and overhead radiograph obtained. There is good opacification and distention of the entire colon. Incidental redundant transverse colon and minute fecal debris in ascending/proximal transverse colon. No presacral soft tissue mass. There is mild scattered sigmoid and single distal transverse colonic diverticulosis. No focal stricture, annular constricting lesions, or abnormal filling defect. Cecum unremarkable. No reflux into terminal ileum. Overhead postevacuation radiograph demonstrates colonic decompression. No abnormal contrast extravasation/leak. Impression: 1. Minute fecal debris in right hemicolon. 2. Mild colonic diverticulosis, greater in sigmoid. 3. Remaining double contrast barium enema exam is negative. 4. Approximately 2.5 minute fluoroscopy used. Comment: During exam, tiny amount of bright red blood seen around rectal catheter. Finding presumed from ruptured hemorrhoid. Finding was reported to patient's nurse.
[2024-11-21] MEDS: TUCKS TP PRN (12:49)
[2024-11-21 17:27] VITALS: BP 119/59; PULSE 65; RESP 18; TEMP 98.4; O2SAT 96
--- NOTE | 2024-11-24 09:15 | PROG NOTE ---
Patient was seen on rounds. She had EGD and colonoscopy by Dr. Moore yesterday. He ordered a barium enema today. Barium enema showed some fat or fecal debris and some diverticulosis more prominent on the sigmoid side. No obvious masses. Otherwise, negative per the radiologist. The films were reviewed by myself. Discussed with the patient. Her abdomen is soft. She is hemodynamically stable. No signs of any ongoing major bleeding issues. She could be discharged home. She could follow up with Dr. Moore at her endoscopy followup in the office. We will sign off at this time.
== END 2024-11-21 18:45 | disposition home or self-care (01) ==
LOC: ED 15:24 → MED SURG 20:58
PROVIDERS: ADMIT Internal Medicine; ATTEND Internal Medicine
DX: K92.2 Gastrointestinal hemorrhage, unspecified (principal); D64.9 Anemia, unspecified; I48.0 Paroxysmal atrial fibrillation; N39.0 Urinary tract infection, site not specified; E66.811 Obesity, class 1; E87.6 Hypokalemia; K21.9 Gastro-esophageal reflux disease without esophagitis; K44.9 Diaphragmatic hernia without obstruction or gangrene; F41.9 Anxiety disorder, unspecified; I10 Essential (primary) hypertension; E78.5 Hyperlipidemia, unspecified; I25.10 Atherosclerotic heart disease of native coronary artery without angina pectoris; Z79.899 Other long term (current) drug therapy; Z86.73 Personal history of transient ischemic attack (TIA), and cerebral infarction without residual deficits; Z79.01 Long term (current) use of anticoagulants; Z85.3 Personal history of malignant neoplasm of breast; Z85.41 Personal history of malignant neoplasm of cervix uteri
CPT/HCPCS: 36415; 36430; 43235; 45378; 74270; 80053; 81001; 82728; 83540; 83550; 83605; 83735; 83880; 84132; 84484; 85025; 85027; 86850; 86900; 86901; 86922; 87086; 93268; 96365; 96366; 99285; G0378; P9016; Q3014; 99100; J1610; J2704; A9270-GY

== ENCOUNTER 2024-11-24 15:16 | Observation (INO) | payer MEDICARE ==
[2024-11-24 15:57] LABS: Absolute Neutrophil Ct (ANC) 4.46 x10^3/uL (1.56-6.13); BASOPHIL % 0.4 % (0.1-1.2); Basophil (Absolute #) 0.02 x10^3/uL (0.01-0.08); Eosinophil % 4.5 % (0.7-5.8); Eosinophil (Absolute #) 0.24 x10^3/uL (0.04-0.36); Hematocrit 38.3 % (34.1-44.9); Hemoglobin 11.6 g/dL (11.2-15.7); IMMATURE GRAN # 0.03 x10^3u/L (0.001-0.031); IMMATURE GRAN % 0.6 % (0.001-0.429); Lymphocyte (Absolute #) 0.38 x10^3/uL (1.18-3.74); Lymphocytes % 7.2 % (19.3-51.7); Mean Corpuscular Hemoglobin 23.6 pg (25.6-32.2); Mean Corpuscular Hgb Concent. 30.3 g/dL (32.2-35.5); Mean Platelet Volume 10.3 fL (9.4-12.3); Monocyte (Absolute #) 0.18 x10^3/uL (0.24-0.86); Monocytes % 3.4 % (4.7-12.5); Neutrophil % 83.9 % (34.0-71.1); Platelet Count 195 x10^3/uL (182-369); Red Blood Count 4.91 x10^6/uL (3.93-5.22); Red Cell Distribution Width 20.8 % (11.7-14.4); White Blood Count 5.3 x10^3/uL (3.98-10.04)
--- NOTE | 2024-11-24 16:01 | ERPHSYRPT ---
- History of Present Illness Time Seen by Provider: 11/24/24 15:56 Source: patient Exam Limitations: clinical condition Patient Subjective Stated Complaint: C/O weakness that began today. 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 Denies actual fall or injury from incident. Here for increased weakness since discharge from [facility] on 11/21/24. Denies vomiting, pain, or dark stools. Triage Nursing Assessment: Patient arrived by ambulance. She is alert and oriented. No SOB. Patient is pale. Timing/Duration: today Severity: mild Modifying Factors: Improves With: movement Allergies/Adverse Reactions: codeine Allergy (Verified 11/24/24 15:18) corn Allergy (Verified 11/24/24 15:18) erythromycin base Allergy (Verified 11/24/24 15:18) Penicillins Allergy (Verified 11/24/24 15:18) Sulfa (Sulfonamide Antibiotics) Allergy (Verified 11/24/24 15:18) NOVAFED Adverse Reaction (Uncoded 11/24/24 15:18) [facility] Medications: PARoxetine HCL [Paroxetine HCl] 10 mg PO DAILY 03/31/21 [History] Dorzolamide HCl/Timolol Maleat [Dorzolamide-Timolol Eye Drops] 10 ml DROPS BID 04/01/21 [History] Sotalol HCl 80 mg [Betapace 80 MG] 40 mg PO BID 06/03/22 [History] Latanoprost 1 drop OP HS 11/22/23 [History] Hx Tetanus, Diphtheria Vaccination/Date Given: Yes Hx Influenza Vaccination/Date Given: Yes Hx Pneumococcal Vaccination/Date Given: Yes Immunizations Up to Date: Yes Travel Risk - International Travel Have you traveled outside of the country in past 3 weeks: No - Emerging Infectious Disease Are you exhibiting symptoms associated with any current EIDs: No - Review of Systems Constitutional: No Symptoms Eyes: No Symptoms Ears, Nose, & Throat: No Symptoms Respiratory: No Symptoms Cardiac: No Symptoms Abdominal/Gastrointestinal: No Symptoms Musculoskeletal: No Symptoms Skin: No Symptoms - Past Medical History Pertinent Past Medical History: Yes Neurological History: TIA ENT History: No Pertinent History Cardiac History: Arrhythmia, Coronary Artery Disease, High Cholesterol, Hypertension Respiratory History: Asthma Endocrine Medical History: No Pertinent History Musculoskeletal History: Osteoarthritis GI Medical History: Hernia, Ulcer History: No Pertinent History Psycho-Social History: Anxiety, Panic Disorder Female Reproductive Disorders: Breast Cancer, Cervical Cancer, Fibroids Other Medical History: TIA IN 2019, Sugar Coating Hand: Dr. Rivera. afib - Past Surgical History Past Surgical History: Yes Neuro Surgical History: No Pertinent History Cardiac: No Pertinent History Respiratory: No Pertinent History Gastrointestinal: Cholecystectomy, Other Genitourinary: No Pertinent History Musculoskeletal: No Pertinent History Female Surgical History: Hysterectomy, Mastectomy Other Surgical History: Ganglion cyst removed from left wrist. Catarct surgery march, COLONOSCOPY Significant Family History: no pertinent family hx - Social History Smoking Status: Former smoker Exposure to second hand smoke: No Drug Use: none - Social Determinants of Health Will the patient participate in the screening: Yes Do you worry about a steady place to live?: No Do you have any problems with any of the following?: No known problems In the past 12 months,have you had to go without utilities?: No Transportation Issues: No Has anyone in your support network made you feel unsafe?: No Have you or anyone in your house had to go w/o enough food: No - Nursing Vital Signs Nursing Vital Signs: Initial Vital Signs Temperature 97 F 11/24/24 15:17 Respiratory Rate 20 11/24/24 15:17 O2 Sat by Pulse Oximetry 94 L 11/24/24 15:17 Pain Scale Pain Intensity 0 - Physical Exam General Appearance: no apparent distress Eye Exam: PERRL/EOMI Ears, Nose, Throat Exam: normal ENT inspection Neck Exam: normal inspection Respiratory Exam: normal breath sounds Cardiovascular Exam: regular rate/rhythm Gastrointestinal/Abdomen Exam: soft, normal bowel sounds SpO2: 95 Ordered Tests: Active Orders 24 hr Category Date Time Status Desk Maker STAT Care 11/24/24 15:25 Active Code Status Order ROUTINE Care 11/24/24 19:17 Ordered IV Insertion STAT Care 11/24/24 15:[address] in Observation ROUTINE Care 11/24/24 19:17 Ordered ABDOMEN AND PELVIS W CONTRAST [CT] Stat Exams 11/24/24 17:04 Taken CHEST WITH CONTRAST [CT] Stat Exams 11/24/24 17:04 Taken HEAD WITHOUT CONTRAST [CT] Stat Exams 11/24/24 17:04 Taken CBC W DIFF Stat Lab 11/24/24 15:46 Completed CMP Stat Lab 11/24/24 15:46 Completed Hepatic Function Panel Stat Lab 11/24/24 15:46 Completed Lactic Acid Stat Lab 11/24/24 15:23 Completed Lactic Acid Stat Lab 11/24/24 18:12 Received MONO SCREEN Stat Lab 11/24/24 15:56 Completed PROTIME WITH INR Stat Lab 11/24/24 15:46 Completed PTT Stat Lab 11/24/24 15:46 Completed Transfer Order Routine Transfer 11/24/24 Ordered Medication Summary Generic Name Dose Route Start Last Admin Trade Name Freq PRN Reason Stop Dose Admin Sodium Chloride 1,000 mls @ 200 mls/hr 11/24/24 15:45 11/24/24 18:13 Sodium Chloride 0.9% 1000 Ml IV 12/24/24 15:44 200 mls/hr .Q5H NOHELIA Administration Clindamycin HCl/Dextrose 900 mg in 50 mls @ 100 mls/hr 11/24/24 19:14 Clindamycin-D5w 900 Mg/50 Ml IV 11/24/24 19:43 STAT STA Discontinued Medications Generic Name Dose Route Start Last Admin Trade Name Vicky PRN Reason Stop Dose Admin Acetaminophen 1,000 mg 11/24/24 19:13 11/24/24 19:17 Acetaminophen 500 Mg Tablet PO 11/24/24 19:14 1,000 mg STAT STA Administration Lab/Rad Data: Laboratory Result Diagrams 11/24/24 15:46 11/24/24 15:46 Laboratory Results 11/24/24 11/24/24 11/24/24 Range/Units 15:56 15:50 15:46 WBC (3.98-10.04) x10^3/uL RBC (3.93-5.22) x10^6/uL Hgb (11.2-15.7) g/dL Hct (34.1-44.9) % MCV (79.4-94.8) fL MCH (25.6-32.2) pg MCHC (32.2-35.5) g/dL RDW (11.7-14.4) % Plt Count (182-369) x10^3/uL MPV (9.4-12.3) fL Gran % (34.0-71.1) % Immature Gran % (Auto) (0.001-0.429) % Nucleat RBC Rel Count (0.00-0.2) % Eos # (Auto) (0.04-0.36) x10^3/uL Immature Gran # (Auto) (0.001-0.031) x10^3u/L Absolute Lymphs (auto) (1.18-3.74) x10^3/uL Absolute Monos (auto) (0.24-0.86) x10^3/uL Absolute Nucleated RBC (0.00-0.012) x10^3u/L Lymphocytes % (19.3-51.7) % Monocytes % (4.7-12.5) % Eosinophils % (0.7-5.8) % Basophils % (0.1-1.2) % Absolute Granulocytes (1.56-6.13) x10^3/uL Basophils # (0.01-0.08) x10^3/uL PT (9.4-12.5) SECONDS INR (0.8-3.0) APTT (25.1-36.5) SECONDS Sodium (135-145) mmol/L Potassium (3.5-5.1) mmol/L Chloride (98-107) mmol/L Carbon Dioxide (22-30) mmol/L Anion Gap (5-15) MEQ/L BUN (7-17) mg/dL Creatinine (0.52-1.04) mg/dL Estimated GFR ML/MIN Glucose (74-106) mg/dL Lactic Acid (0.4-2.0) Calcium (8.4-10.2) mg/dL Total Bilirubin (0.2-1.3) mg/dL Direct Bilirubin (0.0-0.4) mg/dL AST (14-36) U/L ALT (0-35) U/L Alkaline Phosphatase (38-126) U/L Serum Total Protein (6.3-8.2) g/dL Albumin (3.5-5.0) g/dL Monoscreen NEGATIVE (NEGATIVE) Influenza Type A Ag NEGATIVE (NEGATIVE) Influenza Type B Ag NEGATIVE (NEGATIVE) RSV (PCR) POSITIVE A (NEGATIVE) SARS-CoV-2 (PCR) NEGATIVE (NEGATIVE) Slides for Path Review ABO Group A Rh Factor NEGATIVE Antibody Screen POSITIVE (NEGATIVE) 02/24/25 02/24/25 02/24/25 Range/Units 15:46 15:46 15:46 WBC 5.3 (3.98-10.04) x10^3/uL RBC 4.91 (3.93-5.22) x10^6/uL Hgb 11.6 (11.2-15.7) g/dL Hct 38.3 (34.1-44.9) % MCV 78.0 L (79.4-94.8) fL MCH 23.6 L (25.6-32.2) pg MCHC 30.3 L (32.2-35.5) g/dL RDW 20.8 H (11.7-14.4) % Plt Count 195 (182-369) x10^3/uL MPV 10.3 (9.4-12.3) fL Gran % 83.9 H (34.0-71.1) % Immature Gran % (Auto) 0.6 H (0.001-0.429) % Nucleat RBC Rel Count 0.0 (0.00-0.2) % Eos # (Auto) 0.24 (0.04-0.36) x10^3/uL Immature Gran # (Auto) 0.03 (0.001-0.031) x10^3u/L Absolute Lymphs (auto) 0.38 L (1.18-3.74) x10^3/uL Absolute Monos (auto) 0.18 L (0.24-0.86) x10^3/uL Absolute Nucleated RBC 0.00 (0.00-0.012) x10^3u/L Lymphocytes % 7.2 L (19.3-51.7) % Monocytes % 3.4 L (4.7-12.5) % Eosinophils % 4.5 (0.7-5.8) % Basophils % 0.4 (0.1-1.2) % Absolute Granulocytes 4.46 (1.56-6.13) x10^3/uL Basophils # 0.02 (0.01-0.08) x10^3/uL PT 12.0 (9.4-12.5) SECONDS INR 1.11 (0.8-3.0) APTT 29.7 (25.1-36.5) SECONDS Sodium 138 (135-145) mmol/L Potassium 3.1 L (3.5-5.1) mmol/L Chloride 101 (98-107) mmol/L Carbon Dioxide 23 (22-30) mmol/L Anion Gap 16.9 H (5-15) MEQ/L BUN 14 (7-17) mg/dL Creatinine 0.72 (0.52-1.04) mg/dL Estimated GFR 88.2 ML/MIN Glucose 127 H (74-106) mg/dL Lactic Acid (0.4-2.0) Calcium 8.8 (8.4-10.2) mg/dL Total Bilirubin 4.60 H (0.2-1.3) mg/dL Direct Bilirubin 3.8 H (0.0-0.4) mg/dL AST 111 H (14-36) U/L ALT 88 H (0-35) U/L Alkaline Phosphatase 254 H (38-126) U/L Serum Total Protein 7.6 (6.3-8.2) g/dL Albumin 3.9 (3.5-5.0) g/dL Monoscreen (NEGATIVE) Influenza Type A Ag (NEGATIVE) Influenza Type B Ag (NEGATIVE) RSV (PCR) (NEGATIVE) SARS-CoV-2 (PCR) (NEGATIVE) Slides for Path Review YES ABO Group Rh Factor Antibody Screen (NEGATIVE) 11/24/24 Range/Units 15:23 WBC (3.98-10.04) x10^3/uL RBC (3.93-5.22) x10^6/uL Hgb (11.2-15.7) g/dL Hct (34.1-44.9) % MCV (79.4-94.8) fL MCH (25.6-32.2) pg MCHC (32.2-35.5) g/dL RDW (11.7-14.4) % Plt Count (182-369) x10^3/uL MPV (9.4-12.3) fL Gran % (34.0-71.1) % Immature Gran % (Auto) (0.001-0.429) % Nucleat RBC Rel Count (0.00-0.2) % Eos # (Auto) (0.04-0.36) x10^3/uL Immature Gran # (Auto) (0.001-0.031) x10^3u/L Absolute Lymphs (auto) (1.18-3.74) x10^3/uL Absolute Monos (auto) (0.24-0.86) x10^3/uL Absolute Nucleated RBC (0.00-0.012) x10^3u/L Lymphocytes % (19.3-51.7) % Monocytes % (4.7-12.5) % Eosinophils % (0.7-5.8) % Basophils % (0.1-1.2) % Absolute Granulocytes (1.56-6.13) x10^3/uL Basophils # (0.01-0.08) x10^3/uL PT (9.4-12.5) SECONDS INR (0.8-3.0) APTT (25.1-36.5) SECONDS Sodium (135-145) mmol/L Potassium (3.5-5.1) mmol/L Chloride (98-107) mmol/L Carbon Dioxide (22-30) mmol/L Anion Gap (5-15) MEQ/L BUN (7-17) mg/dL Creatinine (0.52-1.04) mg/dL Estimated GFR ML/MIN Glucose (74-106) mg/dL Lactic Acid 2.6 H (0.4-2.0) Calcium (8.4-10.2) mg/dL Total Bilirubin (0.2-1.3) mg/dL Direct Bilirubin (0.0-0.4) mg/dL AST (14-36) U/L ALT (0-35) U/L Alkaline Phosphatase (38-126) U/L Serum Total Protein (6.3-8.2) g/dL Albumin (3.5-5.0) g/dL Monoscreen (NEGATIVE) Influenza Type A Ag (NEGATIVE) Influenza Type B Ag (NEGATIVE) RSV (PCR) (NEGATIVE) SARS-CoV-2 (PCR) (NEGATIVE) Slides for Path Review ABO Group Rh Factor Antibody Screen (NEGATIVE) - Progress Progress Note: Patient was seen and evaluated for generalized weakness she states she was in the bathtub and slipped into it as she was weak and could not get up at this time she has no active complaints besides weakness. Labs were obtained she was given IV fluids CT of the head was ordered. CT of the chest abdomen pelvis was ordered I updated the patient's with the results of the lab work and the CT of the head chest abdomen pelvis, these were also reviewed with the hospitalist Dr rogers , he was updated with the patient's lab results, and CT results. He will accept the patient to the floor. Patient and family were updated with the plan and have no further questions at this time 11/24/24 16:00 11/24/24 19:18 Medical Desision Making - Discussion of managment Care discussed with:: hospitalist Agreed on:: decision to admit, place in obs Will see patient: in hospital - Departure Departure Disposition: Observation Clinical Impression: Hypokalemia, Weakness, SIRS (systemic inflammatory response syndrome), Duodenitis Condition: Stable Critical Care Time: No Referrals: ALLISON CAT MD [Primary Care Provider] - Follow up/PCP as directed
[2024-11-24 16:11] LABS: ALBUMIN 3.9 g/dL (3.5-5.0); ANION GAP 16.9 MEQ/L (5-15); BILIRUBIN,TOTAL 4.6 mg/dL (0.2-1.3); Calcium 8.8 mg/dL (8.4-10.2); Creatinine 1 0.72 mg/dL (0.52-1.04); Direct Bilirubin 3.8 mg/dL (0.0-0.4); EST GLOMERULAR FILTRATION RATE 88.2 ML/MIN; Potassium 3.1 mmol/L (3.5-5.1); Total Protein 7.6 g/dL (6.3-8.2)
[2024-11-24 16:13] LABS: INR 1.11 (0.8-3.0); PTT 29.7 SECONDS (25.1-36.5)
[2024-11-24 16:21] LABS: Slide Review 1 YES
[2024-11-24 16:32] LABS: INFLUENZA A NEGATIVE (NEGATIVE); INFLUENZA B NEGATIVE (NEGATIVE); SARS-CoV-2 Xpert Express NEGATIVE (NEGATIVE)
[2024-11-24 16:38] LABS: RESPIRATORY SYNCTIAL VIRUS POSITIVE (NEGATIVE)
[2024-11-24 17:26] LABS: ABO TYPING A; RH TYPING NEGATIVE
[2024-11-24 17:27] LABS: Antibody Screen POSITIVE (NEGATIVE)
[2024-11-24] MEDS ORDERED: Sodium Chloride 0.9% 1000 ML 1,000 ML ONE (18:12)
[2024-11-24] MEDS: Sodium Chloride 0.9% 1000 ML 1,000 ML IV SCH (18:13)
[2024-11-24] MEDS ORDERED: TYLENOL EXTRA STRENGTH 500 MG ONE (19:17)
[2024-11-24] MEDS: TYLENOL EXTRA STRENGTH 500 MG PO STA (19:17)
[2024-11-24] MEDS ORDERED: CLINDAMYCIN-D5W 900 MG/50 ML*** 900 MG/50 ML BAG IV ONE (19:19)
[2024-11-24] MEDS: CLINDAMYCIN-D5W 900 MG/50 ML*** 900 MG/50 ML BAG IV STA (19:20)
[2024-11-24] MEDS ORDERED: MILK OF MAGNESIA 30 ML PO PRN (20:51)
--- NOTE | 2024-11-24 21:01 | PCM.HP ---
History of Present Illness - Chief Complaint Chief Complaint: weakness Date: 11/24/24 History of Present Illness: is a 73 year old female who was recently hospitalized and treated for a UTI (nearly completed antibiotics course) who presented to the ED with a complaint of weakness that began today. The patient states she became too weak to frame carver spindle the shower and slid down her shower wall to sit in the tub until someone could help her out of it today. Denies actual fall or injury from incident. She denies syncope or LOC. She also denies trauma to her back or any other part of the body. She reported nausea and abdominal pain (midepigastric) but she denies chest pain, dyspnea, vomiting, rectal bleeding, hematemesis, or dark stools. She also reported chills but no fevers or cough. In the ED, the patient was noted to have duodenitis, a T11 end plate compression fracture, hyperbilirubinemia, RSV positivity, hypokalemia, and generalized weakness. - Review of Systems Constitutional: Chills, Malaise Eyes: No Symptoms Ears, Nose, & Throat: No Symptoms Respiratory: No Symptoms Cardiac: No Symptoms Abdominal/Gastrointestinal: Abdominal Pain, Nausea Genitourinary Symptoms: No Symptoms Musculoskeletal: No Symptoms Skin: No Symptoms Neurological: No Symptoms Psychological: No Symptoms Endocrine: No Symptoms Hematologic/Lymphatic: No Symptoms Immunological/Allergic: No Symptoms All Other Systems: Reviewed and Negative Medications & Allergies Home Medications: Home Medication List PARoxetine HCL [Paroxetine HCl] 10 mg PO DAILY 03/31/21 [History Confirmed 11/24/24] Dorzolamide HCl/Timolol Maleat [Dorzolamide-Timolol Eye Drops] 10 ml DROPS BID 04/01/21 [History Confirmed 11/24/24] Apixaban [Eliquis 2.5 mg Tablet] 5 mg PO BID #60 tablet 04/02/21 [Rx Confirmed 11/24/24] Sotalol HCl 80 mg [Betapace 80 MG] 40 mg PO BID 06/03/22 [History Confirmed 11/24/24] Latanoprost 1 drop OP HS 11/22/23 [History Confirmed 11/24/24] Nitrofurantoin Macro 100 mg [Macrobid 100MG Capsule] 100 mg PO BIDWM 5 Days #10 cap 02/20/25 [Rx Confirmed 11/24/24] Omeprazole 20 mg PO BID 30 Days #60 cap 11/21/24 [Rx Confirmed 11/24/24] Allergies/Adverse Reactions: Allergies Allergy/AdvReac Type Severity Reaction Status Date / Time codeine Allergy Verified 11/24/24 15:18 corn Allergy Verified 11/24/24 15:18 erythromycin base Allergy Verified 11/24/24 15:18 Penicillins Allergy Verified 11/24/24 15:18 Sulfa (Sulfonamide Allergy Verified 11/24/24 15:18 Antibiotics) NOVAFED AdvReac Rapid Uncoded 11/24/24 15:18 Heart Beat - Past Medical History Past Medical History: Yes Neurological History: TIA ENT History: No Pertinent History Cardiac History: Arrhythmia, Coronary Artery Disease, High Cholesterol, Hypertension Respiratory History: Asthma Endocrine Medical History: No Pertinent History Musculoskelatal History: Osteoarthritis GI Medical History: Hernia, Ulcer History: No Pertinent History Pyscho-Social History: Anxiety, Panic Disorder Reproductive Disorders: Breast Cancer, Cervical Cancer, Fibroids Comment: TIA IN 2019, Health Promotion Coordinator: Dr. Rivera. afib - Past Surgical History Past Surgical History: Yes Neuro Surgical History: No Pertinent History Cardiac History: No Pertinent History Respiratory Surgery: No Pertinent History GI Surgical History: Cholecystectomy, Other Genitourinary Surgical Hx: No Pertinent History Musculskeletal Surgical Hx: No Pertinent History Female Surgical History: Hysterectomy, Mastectomy Other Surgical History: Ganglion cyst removed from left wrist. Catarct surgery march, COLONOSCOPY Significant Family History: no pertinent family hx - Social History Smoking Status: Former smoker Exposure to second hand smoke: No Alcohol: None Drug Use: none - Social Determinants of Health Will the patient participate in the screening: Yes Do you worry about a steady place to live?: No Do you have any problems with any of the following?: No known problems In the past 12 months,have you had to go without utilities?: No Have you or anyone in your house had to go without enough: No Transportation Issues: No Has anyone in your support network made you feel unsafe?: No Does the patient want assistance with any of the above?: No - Physical Exam Vital Signs: Vital Signs - 24 hr Temp Pulse Resp BP Pulse Ox 11/24/24 19:30 75 18 135/66 95 11/24/24 19:21 95 11/24/24 19:00 134/63 95 11/24/24 18:30 70 17 117/49 95 11/24/24 18:07 75 17 118/75 92 L 11/24/24 17:00 71 19 130/58 95 11/24/24 16:30 73 21 126/59 96 11/24/24 16:00 100.6 F 79 15 130/56 94 L 11/24/24 15:31 74 22 107/55 95 11/24/24 15:17 97 F 20 94 L General Appearance: no apparent distress, alert Neurologic Exam: alert, oriented x 3, cooperative, inspector and mender II-XII nml as tested, normal mood/affect, nml cerebellar function Eye Exam: PERRL/EOMI, eyes nml inspection Ears, Nose, Throat Exam: normal ENT inspection, pharyngeal erythema Neck Exam: normal inspection, non-tender, supple Respiratory Exam: normal breath sounds, lungs clear, airway intact Cardiovascular Exam: regular rate/rhythm, normal heart sounds Gastrointestinal/Abdomen Exam: soft, tenderness (midepigastric pain without peritoneal signs or rigidity.) Back Exam: normal range of motion Extremity Exam: normal inspection, normal range of motion Skin Exam: normal color Results - Labs Lab/Micro Results: Lab Results-Last 24 Hours 11/24/24 11/24/24 11/24/24 Range/Units 15:23 15:46 15:46 WBC 5.3 (3.98-10.04) x10^3/uL RBC 4.91 (3.93-5.22) x10^6/uL Hgb 11.6 (11.2-15.7) g/dL Hct 38.3 (34.1-44.9) % MCV 78.0 L (79.4-94.8) fL MCH 23.6 L (25.6-32.2) pg MCHC 30.3 L (32.2-35.5) g/dL RDW 20.8 H (11.7-14.4) % Plt Count 195 (182-369) x10^3/uL MPV 10.3 (9.4-12.3) fL Gran % 83.9 H (34.0-71.1) % Immature Gran % (Auto) 0.6 H (0.001-0.429) % Nucleat RBC Rel Count 0.0 (0.00-0.2) % Eos # (Auto) 0.24 (0.04-0.36) x10^3/uL Immature Gran # (Auto) 0.03 (0.001-0.031) x10^3u/L Absolute Lymphs (auto) 0.38 L (1.18-3.74) x10^3/uL Absolute Monos (auto) 0.18 L (0.24-0.86) x10^3/uL Absolute Nucleated RBC 0.00 (0.00-0.012) x10^3u/L Lymphocytes % 7.2 L (19.3-51.7) % Monocytes % 3.4 L (4.7-12.5) % Eosinophils % 4.5 (0.7-5.8) % Basophils % 0.4 (0.1-1.2) % Absolute Granulocytes 4.46 (1.56-6.13) x10^3/uL Basophils # 0.02 (0.01-0.08) x10^3/uL PT (9.4-12.5) SECONDS INR (0.8-3.0) APTT (25.1-36.5) SECONDS Sodium 138 (135-145) mmol/L Potassium 3.1 L (3.5-5.1) mmol/L Chloride 101 (98-107) mmol/L Carbon Dioxide 23 (22-30) mmol/L Anion Gap 16.9 H (5-15) MEQ/L BUN 14 (7-17) mg/dL Creatinine 0.72 (0.52-1.04) mg/dL Estimated GFR 88.2 ML/MIN Glucose 127 H (74-106) mg/dL Lactic Acid 2.6 H (0.4-2.0) Calcium 8.8 (8.4-10.2) mg/dL Total Bilirubin 4.60 H (0.2-1.3) mg/dL Direct Bilirubin 3.8 H (0.0-0.4) mg/dL AST 111 H (14-36) U/L ALT 88 H (0-35) U/L Alkaline Phosphatase 254 H (38-126) U/L Serum Total Protein 7.6 (6.3-8.2) g/dL Albumin 3.9 (3.5-5.0) g/dL Monoscreen (NEGATIVE) Influenza Type A Ag (NEGATIVE) Influenza Type B Ag (NEGATIVE) RSV (PCR) (NEGATIVE) SARS-CoV-2 (PCR) (NEGATIVE) Slides for Path Review YES ABO Group Rh Factor Antibody Screen (NEGATIVE) 11/24/24 11/24/24 11/24/24 Range/Units 15:46 15:46 15:50 WBC (3.98-10.04) x10^3/uL RBC (3.93-5.22) x10^6/uL Hgb (11.2-15.7) g/dL Hct (34.1-44.9) % MCV (79.4-94.8) fL MCH (25.6-32.2) pg MCHC (32.2-35.5) g/dL RDW (11.7-14.4) % Plt Count (182-369) x10^3/uL MPV (9.4-12.3) fL Gran % (34.0-71.1) % Immature Gran % (Auto) (0.001-0.429) % Nucleat RBC Rel Count (0.00-0.2) % Eos # (Auto) (0.04-0.36) x10^3/uL Immature Gran # (Auto) (0.001-0.031) x10^3u/L Absolute Lymphs (auto) (1.18-3.74) x10^3/uL Absolute Monos (auto) (0.24-0.86) x10^3/uL Absolute Nucleated RBC (0.00-0.012) x10^3u/L Lymphocytes % (19.3-51.7) % Monocytes % (4.7-12.5) % Eosinophils % (0.7-5.8) % Basophils % (0.1-1.2) % Absolute Granulocytes (1.56-6.13) x10^3/uL Basophils # (0.01-0.08) x10^3/uL PT 12.0 (9.4-12.5) SECONDS INR 1.11 (0.8-3.0) APTT 29.7 (25.1-36.5) SECONDS Sodium (135-145) mmol/L Potassium (3.5-5.1) mmol/L Chloride (98-107) mmol/L Carbon Dioxide (22-30) mmol/L Anion Gap (5-15) MEQ/L BUN (7-17) mg/dL Creatinine (0.52-1.04) mg/dL Estimated GFR ML/MIN Glucose (74-106) mg/dL Lactic Acid (0.4-2.0) Calcium (8.4-10.2) mg/dL Total Bilirubin (0.2-1.3) mg/dL Direct Bilirubin (0.0-0.4) mg/dL AST (14-36) U/L ALT (0-35) U/L Alkaline Phosphatase (38-126) U/L Serum Total Protein (6.3-8.2) g/dL Albumin (3.5-5.0) g/dL Monoscreen (NEGATIVE) Influenza Type A Ag NEGATIVE (NEGATIVE) Influenza Type B Ag NEGATIVE (NEGATIVE) RSV (PCR) POSITIVE A (NEGATIVE) SARS-CoV-2 (PCR) NEGATIVE (NEGATIVE) Slides for Path Review ABO Group A Rh Factor NEGATIVE Antibody Screen POSITIVE (NEGATIVE) 11/24/24 Range/Units 15:56 WBC (3.98-10.04) x10^3/uL RBC (3.93-5.22) x10^6/uL Hgb (11.2-15.7) g/dL Hct (34.1-44.9) % MCV (79.4-94.8) fL MCH (25.6-32.2) pg MCHC (32.2-35.5) g/dL RDW (11.7-14.4) % Plt Count (182-369) x10^3/uL MPV (9.4-12.3) fL Gran % (34.0-71.1) % Immature Gran % (Auto) (0.001-0.429) % Nucleat RBC Rel Count (0.00-0.2) % Eos # (Auto) (0.04-0.36) x10^3/uL Immature Gran # (Auto) (0.001-0.031) x10^3u/L Absolute Lymphs (auto) (1.18-3.74) x10^3/uL Absolute Monos (auto) (0.24-0.86) x10^3/uL Absolute Nucleated RBC (0.00-0.012) x10^3u/L Lymphocytes % (19.3-51.7) % Monocytes % (4.7-12.5) % Eosinophils % (0.7-5.8) % Basophils % (0.1-1.2) % Absolute Granulocytes (1.56-6.13) x10^3/uL Basophils # (0.01-0.08) x10^3/uL PT (9.4-12.5) SECONDS INR (0.8-3.0) APTT (25.1-36.5) SECONDS Sodium (135-145) mmol/L Potassium (3.5-5.1) mmol/L Chloride (98-107) mmol/L Carbon Dioxide (22-30) mmol/L Anion Gap (5-15) MEQ/L BUN (7-17) mg/dL Creatinine (0.52-1.04) mg/dL Estimated GFR ML/MIN Glucose (74-106) mg/dL Lactic Acid (0.4-2.0) Calcium (8.4-10.2) mg/dL Total Bilirubin (0.2-1.3) mg/dL Direct Bilirubin (0.0-0.4) mg/dL AST (14-36) U/L ALT (0-35) U/L Alkaline Phosphatase (38-126) U/L Serum Total Protein (6.3-8.2) g/dL Albumin (3.5-5.0) g/dL Monoscreen NEGATIVE (NEGATIVE) Influenza Type A Ag (NEGATIVE) Influenza Type B Ag (NEGATIVE) RSV (PCR) (NEGATIVE) SARS-CoV-2 (PCR) (NEGATIVE) Slides for Path Review ABO Group Rh Factor Antibody Screen (NEGATIVE) - Radiology Impressions Radiology Exams & Impressions: Radiology Procedures Category Date Time Status ABDOMEN AND PELVIS W CONTRAST [CT] Stat Exams 11/24/24 17:04 Taken CHEST WITH CONTRAST [CT] Stat Exams 11/24/24 17:04 Taken HEAD WITHOUT CONTRAST [CT] Stat Exams 11/24/24 17:04 Taken US ABDOMEN LIMITED [ABDOMINAL-LIMITED] [US] Routine Exams 11/24/24 20:45 Ordered Assessment/Plan (1) Duodenitis Current Visit: Yes Status: Acute Assessment & Plan: IV PPI for now. Will need outpatient GI referral. Received clindamycin in ED but might need formal H pylori screening with GI. Does not report any GI bleeding. On anticoagulation. No anemia but microcytosis noted. Will check ferritin. Code(s): K29.80 - DUODENITIS WITHOUT BLEEDING (2) Hyperbilirubinemia Current Visit: Yes Status: Acute Assessment & Plan: CT scan unremarkable other than duodenitis. Repeat LFTs in AM and also will obtain abdominal US to evaluate biliary tree. Reports MXAIMUS abdominal pain and nausea. Code(s): E80.6 - OTHER DISORDERS OF BILIRUBIN METABOLISM (3) RSV infection Current Visit: Yes Status: Acute Assessment & Plan: Isolation. Experienced chills. Supportive care. Lactate elevated. Will repeat. Code(s): B33.8 - OTHER SPECIFIED VIRAL DISEASES (4) Generalized weakness Current Visit: Yes Status: Acute Assessment & Plan: PT/OT assessment. May require rehab placement or swing bed service consideration. CM eval. Code(s): R53.1 - WEAKNESS (5) Compression fracture of T11 vertebra Current Visit: Yes Status: Acute Assessment & Plan: New finding based on prior film comparison but no back pain. Will need outpatient spine referral for consideration of vertebroplasty, if indicated. Code(s): S22.080A - WEDGE COMPRESSION FRACTURE OF T11-T12 VERTEBRA, INIT (6) Hypokalemia Current Visit: Yes Status: Acute Assessment & Plan: Replete K. Check Mag. Code(s): E87.6 - HYPOKALEMIA Telemedicine Encounter - Telemedicine Encounter Telemedicine Encounter: "The entirety of this encounter was performed via Telemedicine" This visit was performed using real-time audio and video connection between my location and thepatients locationwith the assistance of a surrogateat the patients location. Written or verbal consent was obtained from the patient/guardian to perform this visit [facility]. Any patient questions regarding the telemedicine interaction were answered.
[2024-11-24] MEDS ORDERED: ELIQUIS 2.5 MG TABLET PO SCH (22:00)
[2024-11-24] MEDS: POTASSIUM CHLORIDE 20 mEq IN WATER 100ML 20 MEQ/100 ML BAG IV ONE (22:06)
[2024-11-24] MEDS: PROTONIX 40 MG IV IV SCH (22:06)
[2024-11-24] MEDS: COSOPT OPHTHALMIC 10 ML OP SCH (22:07)
[2024-11-24] MEDS: Zofran 4 MG/2 ML VIAL IV PRN (22:07)
[2024-11-24] MEDS: Betapace 80 MG PO SCH (22:07)
[2024-11-25 05:12] LABS: Absolute Neutrophil Ct (ANC) 2.77 x10^3/uL (1.56-6.13); BASOPHIL % 0.6 % (0.1-1.2); Basophil (Absolute #) 0.03 x10^3/uL (0.01-0.08); Eosinophil % 3.7 % (0.7-5.8); Eosinophil (Absolute #) 0.17 x10^3/uL (0.04-0.36); Hematocrit 30.6 % (34.1-44.9); Hemoglobin 9.4 g/dL (11.2-15.7); IMMATURE GRAN # 0.02 x10^3u/L (0.001-0.031); IMMATURE GRAN % 0.4 % (0.001-0.429); Lymphocyte (Absolute #) 1.39 x10^3/uL (1.18-3.74); Lymphocytes % 30.1 % (19.3-51.7); Mean Cell Volume 75.9 fL (79.4-94.8); Mean Corpuscular Hemoglobin 23.3 pg (25.6-32.2); Mean Corpuscular Hgb Concent. 30.7 g/dL (32.2-35.5); Mean Platelet Volume 10.5 fL (9.4-12.3); Monocyte (Absolute #) 0.24 x10^3/uL (0.24-0.86); Monocytes % 5.2 % (4.7-12.5); Platelet Count 225 x10^3/uL (182-369); Red Blood Count 4.03 x10^6/uL (3.93-5.22); Red Cell Distribution Width 20.6 % (11.7-14.4); White Blood Count 4.6 x10^3/uL (3.98-10.04)
[2024-11-25 05:32] LABS: ANION GAP 12.1 MEQ/L (5-15); BILIRUBIN,TOTAL 3.8 mg/dL (0.2-1.3); Calcium 8.2 mg/dL (8.4-10.2); Creatinine 1 0.7 mg/dL (0.52-1.04); EST GLOMERULAR FILTRATION RATE 91.3 ML/MIN; Potassium 3.2 mmol/L (3.5-5.1)
[2024-11-25] MEDS: TYLENOL 325 MG PO PRN (05:56)
[2024-11-25] MEDS: Xalatan OP SCH (07:32)
--- NOTE | 2024-11-25 08:31 | XRAY ---
Indication: Status post fall. Pain. Multiple contiguous axial images obtained through the head without contrast. Comparison: March 31, 2021 Again age-appropriate global atrophy and moderate periventricular degenerative micro-ischemia bilaterally. Basal ganglia again demonstrate remote lacunar infarcts bilaterally. No acute intracranial hemorrhage, abnormal extra-axial fluid collection, or mass effect. Fourth ventricle is midline without hydrocephalus. Again anatomic variant for cavum septum pellucidum vergae. Bony calvarium intact. Visualized paranasal sinuses and mastoid air cells are clear. Impression: Continued nonacute senile brain with remote basal ganglia lacunar infarcts.
--- NOTE | 2024-11-25 08:59 | XRAY ---
Indication: Status post fall. Pain. Multiple contiguous axial images obtained through the abdomen and pelvis using 80 cc Isovue 370 contrast. Comparison: November 22, 2023 Lung bases again demonstrates scattered bilateral fibrosis/scarring and small right base calcified granuloma. No infiltrate or effusion. Heart borderline enlarged. Stable small hiatal hernia. Noncontrasted stomach and bowel loops appear nonobstructed again with normal appendix. Descending duodenum nonedematous mild circumferential wall thickening with minimal stranding favoring duodenitis. New dense barium in sigmoid diverticulosis producing beam artifact. Again cholecystectomy. No free fluid/air. Remaining liver, pancreas, spleen, adrenal glands, kidneys, ureters, and bladder are unremarkable. Again moderate scattered aortoiliac calcifications. No AAA or pathologic retroperitoneal lymphadenopathy. Osseous structures again demonstrates osteopenia, mild multilevel degenerative spondylosis, and mild levoscoliosis centered at L3. Superior endplate T11 demonstrates new remote endplate fracture with less than 25% height loss. Impression: 1. New CT features favoring duodenitis. 2. New remote-appearing T11 endplate fracture. 3. Again chronic findings including pulmonary fibrosis/scarring, hiatal hernia, sigmoid diverticulosis, arteriosclerotic disease, chronic bony findings, and old granulomatous disease.
--- NOTE | 2024-11-25 09:07 | XRAY ---
Indication: Status post fall. Pain. Multiple contiguous axial images obtained through the chest using 80 cc Isovue 370 contrast contrast. Comparison: None Lungs hyperinflated with mild scattered peripheral fibrosis/scarring bilaterally and mild dependent atelectasis. Small posterior right base calcified granuloma. No suspicious pulmonary mass/nodule, infiltrate, effusion, or pneumothorax. Heart borderline enlarged with scattered coronary calcifications. Aorta is mildly arteriosclerotic without aneurysm/dissection. No pathologic mediastinal/hilar lymphadenopathy. Small hiatal hernia. Bony thorax intact with osteopenia and minimal/mild degenerative changes throughout spine. Incidental superior T11 Schmorl node and right mastectomy. CT abdomen/pelvis reported separately. Impression: 1. Chronic findings including pulmonate fibrosis/scarring, arteriosclerotic disease, chronic bony findings, hiatal hernia, and old granulomatous disease. 2. Remaining CT chest with contrast exam negative.
[2024-11-25] MEDS: Macrobid 100MG Capsule PO SCH (09:28)
[2024-11-25] MEDS: Acidophilus TABLET PO SCH (09:28)
[2024-11-25] MEDS: Klor Con PO SCH (09:28)
[2024-11-25] MEDS: COSOPT OPHTHALMIC 10 ML OP SCH (09:29)
[2024-11-25] MEDS ORDERED: Sodium Chloride 0.9% 500 ML 500 ML IV SCH (10:00)
[2024-11-25] MEDS ORDERED: NON-FORMULARY ITEM (Paroxetine Hcl [Paroxetine Hcl] 10 MG Tablet) PO SCH (10:00)
[2024-11-25] MEDS: Bactroban OINTMENT TP SCH (11:04)
--- NOTE | 2024-11-25 11:49 | PCM.NOTE ---
Date and Time: 11/25/24 1144 Subjective Assessment: is a 73-year-old female who was recently hospitalized and treated for a urinary tract infection (UTI), for which she is nearly completing her antibiotic course. She presented to the ED on 11/24/24 with a complaint of weakness that began earlier that day. 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 She denies any actual fall or injury from the incident, as well as syncope or loss of consciousness (LOC). She also denied trauma to her back or any other part of her body. In addition to weakness, she reported nausea and midepigastric abdominal pain but denies chest pain, dyspnea, vomiting, rectal bleeding, hematemesis, or dark stools. She experienced chills but reports no fever or cough. Upon evaluation in the ED, the patient was found to have duodenitis, a T11 endplate compression fracture, hyperbilirubinemia, RSV positivity, hypokalemia, and generalized weakness. Today, her bilirubin and liver enzymes are improving, and her potassium level was 3.2, which has been replaced. Protonix therapy for duodenitis will continue. An abdominal ultrasound is pending, but all other radiology results were negative for acute concerns. A physical therapy (PT) and occupational therapy (OT) evaluation will be conducted for weakness, and the patient expresses a desire for rehab placement. She will need follow-up with both GI and neurosurgery in the outpatient setting. Currently, she denies chest pain, shortness of breath, abdominal pain, nausea, or vomiting. She has continued nausea today, but antiemetics have been helping. - Review of Systems Constitutional: No Fever, No Chills Eyes: No Symptoms Ears, Nose, & Throat: No Symptoms Respiratory: No Cough, No Short Of Breath Cardiac: No Chest Pain, No Edema, No Syncope Abdominal/Gastrointestinal: Nausea, No Abdominal Pain, No Vomiting, No Diarrhea Genitourinary Symptoms: No Dysuria Musculoskeletal: No Back Pain, No Neck Pain Skin: No Rash Neurological: No Dizziness, No Focal Weakness, No Sensory Changes Psychological: No Symptoms Endocrine: No Symptoms Hematologic/Lymphatic: No Symptoms Immunological/Allergic: No Symptoms Objective Exam General Appearance: no apparent distress, alert Neurologic Exam: alert, oriented x 3, cooperative, normal mood/affect, nml cerebellar function, sensation nml, No motor deficits Skin Exam: normal color, warm, dry Eye Exam: PERRL, EOMI, eyes nml inspection Ears, Nose, Throat Exam: normal ENT inspection, pharynx normal, moist mucous membranes Neck Exam: normal inspection, non-tender, supple, full range of motion Respiratory Exam: normal breath sounds, lungs clear, No respiratory distress Cardiovascular Exam: regular rate/rhythm, normal heart sounds Gastrointestinal/Abdomen Exam: soft, No tenderness, No mass Extremity Exam: normal inspection, normal range of motion Back Exam: normal inspection, normal range of motion, No CVA tenderness, No vertebral tenderness Pelvic Exam: deferred Rectal Exam: deferred Objective Data Vital Signs: Vital Signs - 24 hr Temp Pulse Resp BP BP Pulse Ox 11/25/24 08:00 97.1 F 71 16 125/58 95 11/25/24 04:00 98.1 F 70 16 132/60 99 11/25/24 00:00 97.5 F 74 18 123/57 95 11/24/24 20:33 97.5 F 74 18 123/57 95 11/24/24 19:30 75 18 135/66 95 11/24/24 19:21 95 11/24/24 19:00 134/63 95 11/24/24 18:30 70 17 117/49 95 11/24/24 18:07 75 17 118/75 92 L 11/24/24 17:00 71 19 130/58 95 11/24/24 16:30 73 21 126/59 96 11/24/24 16:00 100.6 F 79 15 130/56 94 L 11/24/24 15:31 74 22 107/55 95 11/24/24 15:17 97 F 20 94 L Pain Assessment - Last Documented Pain Intensity 0 Intake and Output: Intake & Output 11/22/24 11/23/24 11/24/24 11/25/24 11:59 11:59 11:59 11:59 Intake Total 960 Output Total 1150 Balance -190 Weight 85.1 kg Lab Results: Lab Results-Last 24 Hours 11/24/24 11/24/24 11/24/24 Range/Units 15:23 15:46 15:46 WBC 5.3 (3.98-10.04) x10^3/uL RBC 4.91 (3.93-5.22) x10^6/uL Hgb 11.6 (11.2-15.7) g/dL Hct 38.3 (34.1-44.9) % MCV 78.0 L (79.4-94.8) fL MCH 23.6 L (25.6-32.2) pg MCHC 30.3 L (32.2-35.5) g/dL RDW 20.8 H (11.7-14.4) % Plt Count 195 (182-369) x10^3/uL MPV 10.3 (9.4-12.3) fL Gran % 83.9 H (34.0-71.1) % Immature Gran % (Auto) 0.6 H (0.001-0.429) % Nucleat RBC Rel Count 0.0 (0.00-0.2) % Eos # (Auto) 0.24 (0.04-0.36) x10^3/uL Immature Gran # (Auto) 0.03 (0.001-0.031) x10^3u/L Absolute Lymphs (auto) 0.38 L (1.18-3.74) x10^3/uL Absolute Monos (auto) 0.18 L (0.24-0.86) x10^3/uL Absolute Nucleated RBC 0.00 (0.00-0.012) x10^3u/L Lymphocytes % 7.2 L (19.3-51.7) % Monocytes % 3.4 L (4.7-12.5) % Eosinophils % 4.5 (0.7-5.8) % Basophils % 0.4 (0.1-1.2) % Absolute Granulocytes 4.46 (1.56-6.13) x10^3/uL Basophils # 0.02 (0.01-0.08) x10^3/uL PT (9.4-12.5) SECONDS INR (0.8-3.0) APTT (25.1-36.5) SECONDS Sodium 138 (135-145) mmol/L Potassium 3.1 L (3.5-5.1) mmol/L Chloride 101 (98-107) mmol/L Carbon Dioxide 23 (22-30) mmol/L Anion Gap 16.9 H (5-15) MEQ/L BUN 14 (7-17) mg/dL Creatinine 0.72 (0.52-1.04) mg/dL Estimated GFR 88.2 ML/MIN Glucose 127 H (74-106) mg/dL Lactic Acid 2.6 H (0.4-2.0) Calcium 8.8 (8.4-10.2) mg/dL Magnesium (1.6-2.3) mg/dL Ferritin (11.1-264) ng/mL Total Bilirubin 4.60 H (0.2-1.3) mg/dL Direct Bilirubin 3.8 H (0.0-0.4) mg/dL AST 111 H (14-36) U/L ALT 88 H (0-35) U/L Alkaline Phosphatase 254 H (38-126) U/L Serum Total Protein 7.6 (6.3-8.2) g/dL Albumin 3.9 (3.5-5.0) g/dL Monoscreen (NEGATIVE) Influenza Type A Ag (NEGATIVE) Influenza Type B Ag (NEGATIVE) RSV (PCR) (NEGATIVE) SARS-CoV-2 (PCR) (NEGATIVE) Slides for Path Review YES ABO Group Rh Factor Antibody Screen (NEGATIVE) 11/24/24 11/24/24 11/24/24 Range/Units 15:46 15:46 15:46 WBC (3.98-10.04) x10^3/uL RBC (3.93-5.22) x10^6/uL Hgb (11.2-15.7) g/dL Hct (34.1-44.9) % MCV (79.4-94.8) fL MCH (25.6-32.2) pg MCHC (32.2-35.5) g/dL RDW (11.7-14.4) % Plt Count (182-369) x10^3/uL MPV (9.4-12.3) fL Gran % (34.0-71.1) % Immature Gran % (Auto) (0.001-0.429) % Nucleat RBC Rel Count (0.00-0.2) % Eos # (Auto) (0.04-0.36) x10^3/uL Immature Gran # (Auto) (0.001-0.031) x10^3u/L Absolute Lymphs (auto) (1.18-3.74) x10^3/uL Absolute Monos (auto) (0.24-0.86) x10^3/uL Absolute Nucleated RBC (0.00-0.012) x10^3u/L Lymphocytes % (19.3-51.7) % Monocytes % (4.7-12.5) % Eosinophils % (0.7-5.8) % Basophils % (0.1-1.2) % Absolute Granulocytes (1.56-6.13) x10^3/uL Basophils # (0.01-0.08) x10^3/uL PT 12.0 (9.4-12.5) SECONDS INR 1.11 (0.8-3.0) APTT 29.7 (25.1-36.5) SECONDS Sodium (135-145) mmol/L Potassium (3.5-5.1) mmol/L Chloride (98-107) mmol/L Carbon Dioxide (22-30) mmol/L Anion Gap (5-15) MEQ/L BUN (7-17) mg/dL Creatinine (0.52-1.04) mg/dL Estimated GFR ML/MIN Glucose (74-106) mg/dL Lactic Acid (0.4-2.0) Calcium (8.4-10.2) mg/dL Magnesium 1.9 (1.6-2.3) mg/dL Ferritin (11.1-264) ng/mL Total Bilirubin (0.2-1.3) mg/dL Direct Bilirubin (0.0-0.4) mg/dL AST (14-36) U/L ALT (0-35) U/L Alkaline Phosphatase (38-126) U/L Serum Total Protein (6.3-8.2) g/dL Albumin (3.5-5.0) g/dL Monoscreen (NEGATIVE) Influenza Type A Ag (NEGATIVE) Influenza Type B Ag (NEGATIVE) RSV (PCR) (NEGATIVE) SARS-CoV-2 (PCR) (NEGATIVE) Slides for Path Review ABO Group A Rh Factor NEGATIVE Antibody Screen POSITIVE (NEGATIVE) 11/24/24 11/24/24 11/24/24 Range/Units 15:46 15:50 15:56 WBC (3.98-10.04) x10^3/uL RBC (3.93-5.22) x10^6/uL Hgb (11.2-15.7) g/dL Hct (34.1-44.9) % MCV (79.4-94.8) fL MCH (25.6-32.2) pg MCHC (32.2-35.5) g/dL RDW (11.7-14.4) % Plt Count (182-369) x10^3/uL MPV (9.4-12.3) fL Gran % (34.0-71.1) % Immature Gran % (Auto) (0.001-0.429) % Nucleat RBC Rel Count (0.00-0.2) % Eos # (Auto) (0.04-0.36) x10^3/uL Immature Gran # (Auto) (0.001-0.031) x10^3u/L Absolute Lymphs (auto) (1.18-3.74) x10^3/uL Absolute Monos (auto) (0.24-0.86) x10^3/uL Absolute Nucleated RBC (0.00-0.012) x10^3u/L Lymphocytes % (19.3-51.7) % Monocytes % (4.7-12.5) % Eosinophils % (0.7-5.8) % Basophils % (0.1-1.2) % Absolute Granulocytes (1.56-6.13) x10^3/uL Basophils # (0.01-0.08) x10^3/uL PT (9.4-12.5) SECONDS INR (0.8-3.0) APTT (25.1-36.5) SECONDS Sodium (135-145) mmol/L Potassium (3.5-5.1) mmol/L Chloride (98-107) mmol/L Carbon Dioxide (22-30) mmol/L Anion Gap (5-15) MEQ/L BUN (7-17) mg/dL Creatinine (0.52-1.04) mg/dL Estimated GFR ML/MIN Glucose (74-106) mg/dL Lactic Acid (0.4-2.0) Calcium (8.4-10.2) mg/dL Magnesium (1.6-2.3) mg/dL Ferritin 136 (11.1-264) ng/mL Total Bilirubin (0.2-1.3) mg/dL Direct Bilirubin (0.0-0.4) mg/dL AST (14-36) U/L ALT (0-35) U/L Alkaline Phosphatase (38-126) U/L Serum Total Protein (6.3-8.2) g/dL Albumin (3.5-5.0) g/dL Monoscreen NEGATIVE (NEGATIVE) Influenza Type A Ag NEGATIVE (NEGATIVE) Influenza Type B Ag NEGATIVE (NEGATIVE) RSV (PCR) POSITIVE A (NEGATIVE) SARS-CoV-2 (PCR) NEGATIVE (NEGATIVE) Slides for Path Review ABO Group Rh Factor Antibody Screen (NEGATIVE) 11/24/24 11/25/24 11/25/24 Range/Units 21:37 05:06 05:06 WBC 4.6 (3.98-10.04) x10^3/uL RBC 4.03 (3.93-5.22) x10^6/uL Hgb 9.4 L (11.2-15.7) g/dL Hct 30.6 L (34.1-44.9) % MCV 75.9 L (79.4-94.8) fL MCH 23.3 L (25.6-32.2) pg MCHC 30.7 L (32.2-35.5) g/dL RDW 20.6 H (11.7-14.4) % Plt Count 225 (182-369) x10^3/uL MPV 10.5 (9.4-12.3) fL Gran % 60.0 (34.0-71.1) % Immature Gran % (Auto) 0.4 (0.001-0.429) % Nucleat RBC Rel Count 0.0 (0.00-0.2) % Eos # (Auto) 0.17 (0.04-0.36) x10^3/uL Immature Gran # (Auto) 0.02 (0.001-0.031) x10^3u/L Absolute Lymphs (auto) 1.39 (1.18-3.74) x10^3/uL Absolute Monos (auto) 0.24 (0.24-0.86) x10^3/uL Absolute Nucleated RBC 0.00 (0.00-0.012) x10^3u/L Lymphocytes % 30.1 (19.3-51.7) % Monocytes % 5.2 (4.7-12.5) % Eosinophils % 3.7 (0.7-5.8) % Basophils % 0.6 (0.1-1.2) % Absolute Granulocytes 2.77 (1.56-6.13) x10^3/uL Basophils # 0.03 (0.01-0.08) x10^3/uL PT (9.4-12.5) SECONDS INR (0.8-3.0) APTT (25.1-36.5) SECONDS Sodium 137 (135-145) mmol/L Potassium 3.2 L (3.5-5.1) mmol/L Chloride 105 (98-107) mmol/L Carbon Dioxide 23 (22-30) mmol/L Anion Gap 12.1 (5-15) MEQ/L BUN 16 (7-17) mg/dL Creatinine 0.70 (0.52-1.04) mg/dL Estimated GFR 91.3 ML/MIN Glucose 104 (74-106) mg/dL Lactic Acid 0.9 (0.4-2.0) Calcium 8.2 L (8.4-10.2) mg/dL Magnesium (1.6-2.3) mg/dL Ferritin (11.1-264) ng/mL Total Bilirubin 3.80 H (0.2-1.3) mg/dL Direct Bilirubin (0.0-0.4) mg/dL AST 91 H (14-36) U/L ALT 67 H (0-35) U/L Alkaline Phosphatase 215 H (38-126) U/L Serum Total Protein 6.0 L (6.3-8.2) g/dL Albumin 3.0 L (3.5-5.0) g/dL Monoscreen (NEGATIVE) Influenza Type A Ag (NEGATIVE) Influenza Type B Ag (NEGATIVE) RSV (PCR) (NEGATIVE) SARS-CoV-2 (PCR) (NEGATIVE) Slides for Path Review ABO Group Rh Factor Antibody Screen (NEGATIVE) Radiology Exams: Radiology Procedures Category Date Time Status ABDOMEN AND PELVIS W CONTRAST [CT] Stat Exams 11/24/24 17:04 Completed CHEST WITH CONTRAST [CT] Stat Exams 11/24/24 17:04 Completed HEAD WITHOUT CONTRAST [CT] Stat Exams 11/24/24 17:04 Completed US ABDOMEN LIMITED [ABDOMINAL-LIMITED] [US] Routine Exams 11/24/24 20:45 Ordered Assessment/Plan (1) Duodenitis Current Visit: Yes Status: Acute Assessment & Plan: - Protonix BID - Antiemetic for related nausea PRN - CT abd pelvis: Impression: 1. New CT features favoring duodenitis. 2. New remote-appearing T11 endplate fracture. 3. Again chronic findings including pulmonary fibrosis/scarring, hiatal hernia, sigmoid diverticulosis, arteriosclerotic disease, chronic bony findings, and old granulomatous disease. - Will need OP GI f/u at D/C Code(s): K29.80 - DUODENITIS WITHOUT BLEEDING (2) Compression fracture of T11 vertebra Current Visit: Yes Status: Acute Assessment & Plan: - Will need OP f/u with neurosurgery - New finding seen on CT chest - Tylenol for pain PRN Code(s): S22.080A - WEDGE COMPRESSION FRACTURE OF T11-T12 VERTEBRA, INIT (3) Anemia Current Visit: Yes Status: Acute Assessment & Plan: - Hgb dropped to 9.4 from 11.6 yesterday - Trend HGB - Occult stool pending - Eliquis held for now - SCD's Code(s): D64.9 - ANEMIA, UNSPECIFIED (4) Generalized weakness Current Visit: Yes Status: Acute Assessment & Plan: - PT/OT eval - CT head negative for acute concern - CT chest reviewed - CT abd pelvis reviewed - CBC, CMP reviewed Code(s): R53.1 - WEAKNESS (5) Hyperbilirubinemia Current Visit: Yes Status: Acute Assessment & Plan: - Bili 3.80- improved - US abd. pending Code(s): E80.6 - OTHER DISORDERS OF BILIRUBIN METABOLISM (6) Impetigo Current Visit: Yes Status: Acute Assessment & Plan: - Of chin - Discussed good hand washing as not to spread - Mupirocin cream TID Code(s): L01.00 - IMPETIGO, UNSPECIFIED (7) HTN (hypertension) Current Visit: No Status: Chronic Qualifiers: Hypertension type: primary hypertension Qualified Code(s): I10 - Essential (primary) hypertension Assessment & Plan: - BP controlled- continue home meds- trend Code(s): I10 - ESSENTIAL (PRIMARY) HYPERTENSION (8) UTI (urinary tract infection) Current Visit: No Status: Acute Assessment & Plan: - Continue oral antibiotic Code(s): N39.0 - URINARY TRACT INFECTION, SITE NOT SPECIFIED (9) Obesity (BMI 30.0-34.9) Current Visit: Yes Status: Chronic Assessment & Plan: - Advised diet and exercise control Code(s): E66.811 - OBESITY, CLASS 1 (10) Hypokalemia Current Visit: Yes Status: Acute Assessment & Plan: - K+ 3.2- replaced- trend - Tele Code(s): E87.6 - HYPOKALEMIA (11) RSV infection Current Visit: Yes Status: Acute Assessment & Plan: - supportive care - + test in ER - RA 95% - Supportive care VTE: SCD's, Eliquis- held for now PPI: Protonix Next of KIN: child- Taylor Oliveira [phone] D/C plan: pending placement Code status: Full Code(s): B33.8 - OTHER SPECIFIED VIRAL DISEASES
--- NOTE | 2024-11-25 14:00 | XRAY ---
Indication: Hyperbilirubinemia. Duodenitis. Cholecystectomy. Two-dimensional right upper quadrant abdominal sonogram performed. Comparison: None Pancreas not well-seen due to overlying bowel gas. Visualized liver homogeneous in echogenicity without hepatomegaly or free fluid. Gallbladder surgically absent. Common bile duct measures 6.1 mm. No intrahepatic biliary distention. Right kidney measures 10.0 x 4.5 x 5.2 cm and sonographically unremarkable. Impression: Nonvisualization pancreas. Cholecystectomy. Remaining right upper quadrant sonogram negative.
[2024-11-25] MEDS: TUCKS TP PRN (14:42)
[2024-11-25] MEDS: Paxil 20 MG PO SCH (17:04)
[2024-11-25] MEDS: POTASSIUM CHLORIDE 20 mEq IN WATER 100ML 20 MEQ/100 ML BAG IV SCH (17:05)
[2024-11-25] MEDS: Sodium Chloride 0.9% 1000 ML 1,000 ML IV SCH (20:13)
[2024-11-25] MEDS: PROTONIX 40 MG IV IV SCH (21:55)
[2024-11-26 01:50] LABS: IFOB TEST RESULTS POSITIVE (NEGATIVE)
[2024-11-26 05:57] LABS: Hematocrit 29.4 % (34.1-44.9); Mean Cell Volume 76.2 fL (79.4-94.8); Mean Corpuscular Hemoglobin 23.3 pg (25.6-32.2); Mean Corpuscular Hgb Concent. 30.6 g/dL (32.2-35.5); Mean Platelet Volume 11.2 fL (9.4-12.3); Platelet Count 185 x10^3/uL (182-369); Red Blood Count 3.86 x10^6/uL (3.93-5.22); Red Cell Distribution Width 21.3 % (11.7-14.4); White Blood Count 9.4 x10^3/uL (3.98-10.04)
[2024-11-26 07:27] LABS: ALBUMIN 2.9 g/dL (3.5-5.0); ANION GAP 13.5 MEQ/L (5-15); BILIRUBIN,TOTAL 4.4 mg/dL (0.2-1.3); Calcium 8.2 mg/dL (8.4-10.2); Creatinine 1 0.62 mg/dL (0.52-1.04); MAGNESIUM 1.7 mg/dL (1.6-2.3); Potassium 3.9 mmol/L (3.5-5.1); Total Protein 5.8 g/dL (6.3-8.2)
[2024-11-26] MEDS ORDERED: PROVENTIL 2.5 MG/3 ML NEB IH PRN (09:44)
--- NOTE | 2024-11-26 13:20 | PCM.NOTE ---
Date and Time: 11/26/24 1313 Subjective Assessment: 11/25/24 is a 73-year-old female who was recently hospitalized and treated for a urinary tract infection (UTI), for which she is nearly completing her antibiotic course. She presented to the ED on 11/24/24 with a complaint of weakness that began earlier that day. The patient reported becoming too weak to cloth measurer machine the shower and had to slide down the shower wall to sit in the tub until assistance arrived. She denies any actual fall or injury from the incident, as well as syncope or loss of consciousness (LOC). She also denied trauma to her back or any other part of her body. In addition to weakness, she reported nausea and midepigastric abdominal pain but denies chest pain, dyspnea, vomiting, rectal bleeding, hematemesis, or dark stools. She experienced chills but reports no fever or cough. Upon evaluation in the ED, the patient was found to have duodenitis, a T11 endplate compression fracture, hyperbilirubinemia, RSV positivity, hypokalemia, and generalized weakness. Today, her bilirubin and liver enzymes are improving, and her potassium level was 3.2, which has been replaced. Protonix therapy for duodenitis will continue. An abdominal ultrasound is pending, but all other radiology results were negative for acute concerns. A physical therapy (PT) and occupational therapy (OT) evaluation will be conducted for weakness, and the patient expresses a desire for rehab placement. She will need follow-up with both GI and neurosurgery in the outpatient setting. Currently, she denies chest pain, shortness of breath, abdominal pain, nausea, or vomiting. She has continued nausea today, but antiemetics have been helping. 11/26/24 Pt resting in bed. She had a temp of 99 this AM. She was made NPO for surgical consult as occult stool positive and HGB dropped from 11.6 to 9.0. Eliquis held. Bili, liver enzymes, and alk phos all elevated, MRCP ordered. Abd distended with epigastric pain. Continue protonix and IVF. Repeat UA with reflex culture ordered. Continue macrobid BID from last visit for now. Pt has some wheezing throughout lung sounds today. incentive spirometer and breathing treatments ordered. Back pain currenlty controlled. She is wanting rehab placement at d/c. They are requiring a peer to peer discussion today. Pt is not ready to d/c today and consider transferring to higher level of care for GI eval and possible ERCP. Pt denies CP, V/D. - Review of Systems Constitutional: Weakness, No Fever, No Chills Eyes: No Symptoms Ears, Nose, & Throat: No Symptoms Respiratory: Short Of Breath, Wheezing, No Cough Cardiac: No Chest Pain, No Edema, No Syncope Abdominal/Gastrointestinal: Abdominal Pain, Nausea, Appetite Changes, No Vomiting, No Diarrhea Genitourinary Symptoms: No Dysuria Musculoskeletal: Back Pain, No Neck Pain Skin: No Rash Neurological: No Dizziness, No Focal Weakness, No Sensory Changes Psychological: No Symptoms Endocrine: No Symptoms Hematologic/Lymphatic: No Symptoms Immunological/Allergic: No Symptoms Objective Exam General Appearance: no apparent distress, alert, obese Neurologic Exam: alert, oriented x 3, cooperative, normal mood/affect, nml cerebellar function, sensation nml, No motor deficits Skin Exam: normal color, warm, dry Eye Exam: PERRL, EOMI, eyes nml inspection Ears, Nose, Throat Exam: normal ENT inspection, pharynx normal, moist mucous membranes Neck Exam: normal inspection, non-tender, supple, full range of motion Respiratory Exam: normal breath sounds, lungs clear, No respiratory distress Cardiovascular Exam: regular rate/rhythm, normal heart sounds Gastrointestinal/Abdomen Exam: soft, tenderness, distention, No mass Extremity Exam: normal inspection, normal range of motion Back Exam: normal inspection, decreased range of motion, No CVA tenderness, No vertebral tenderness Pelvic Exam: deferred Rectal Exam: deferred Objective Data Vital Signs: Vital Signs - 24 hr Temp Pulse Resp BP Pulse Ox 11/26/24 11:41 80 14 93 L 11/26/24 11:38 98.8 F 69 16 116/61 94 L 11/26/24 07:32 99.0 F 70 16 125/65 95 11/26/24 04:00 97.5 F 82 17 123/66 94 L 11/26/24 00:00 97.8 F 70 20 123/64 93 L 11/25/24 20:00 98.1 F 86 20 118/67 92 L 11/25/24 16:00 97.6 F 90 17 124/57 92 L Pain Assessment - Last Documented Pain Intensity 2 Intake and Output: Intake & Output 11/24/24 11/25/24 11/26/24 11/27/24 11:59 11:59 11:59 11:59 Intake Total 960 2982 Output Total 1150 1650 Balance -190 1332 Weight 85.1 kg Lab Results: Lab Results-Last 24 Hours 11/26/24 11/26/24 11/26/24 Range/Units 01:46 04:50 04:50 WBC 9.4 (3.98-10.04) x10^3/uL RBC 3.86 L (3.93-5.22) x10^6/uL Hgb 9.0 L (11.2-15.7) g/dL Hct 29.4 L (34.1-44.9) % MCV 76.2 L (79.4-94.8) fL MCH 23.3 L (25.6-32.2) pg MCHC 30.6 L (32.2-35.5) g/dL RDW 21.3 H (11.7-14.4) % Plt Count 185 (182-369) x10^3/uL MPV 11.2 (9.4-12.3) fL Sodium 136 (135-145) mmol/L Potassium 3.9 D (3.5-5.1) mmol/L Chloride 105 (98-107) mmol/L Carbon Dioxide 22 (22-30) mmol/L Anion Gap 13.5 (5-15) MEQ/L BUN 15 (7-17) mg/dL Creatinine 0.62 (0.52-1.04) mg/dL Estimated GFR 94.0 ML/MIN Glucose 98 (74-106) mg/dL Calcium 8.2 L (8.4-10.2) mg/dL Magnesium 1.7 (1.6-2.3) mg/dL Total Bilirubin 4.40 H (0.2-1.3) mg/dL AST 118 H (14-36) U/L ALT 80 H (0-35) U/L Alkaline Phosphatase 272 H (38-126) U/L Serum Total Protein 5.8 L (6.3-8.2) g/dL Albumin 2.9 L (3.5-5.0) g/dL Stl Occult Blood (IFOB) POSITIVE A (NEGATIVE) Radiology Exams: Radiology Procedures Category Date Time Status ABDOMEN AND PELVIS W CONTRAST [CT] Stat Exams 11/24/24 17:04 Completed ABDOMINAL-LIMITED [US] Routine Exams 11/25/24 13:11 Completed CHEST WITH CONTRAST [CT] Stat Exams 11/24/24 17:04 Completed HEAD WITHOUT CONTRAST [CT] Stat Exams 11/24/24 17:04 Completed MRI ABD W/O CONTRAST [MRI] Routine Exams 11/26/24 11:02 Ordered Multi-Disciplinary Progress Notes: Multi-Disciplinary Progress Notes 11/26/24 13:04 Case Management Note by Gloria Bal Addendum entered by Gloria Bal 11/26/24 13:06: ADDITIONAL CLINICAL FAXED TO [facility] TO SEND IN PRIOR TO PEER TO PEER- S/W GAVINO- SHE STATED SHE WOULD UPLOAD IT IMMEDIATELY UPON RECEIPT Original Note: PATIENT CONTINUES TO PLAN TO GO TO [facility] FOR SHORT TERM REHAB STAY INSURANCE CALLED- REQUESTING A PEER TO PEER CALL WITH SUPERVISOR SHAVING AND SPLITTING. PRIYA GIVEN INFORMATION AND TIME FRAME FOR CALL Initialized on 11/26/24 13:04 - END OF NOTE 11/26/24 11:43 Occupational Therapy Note by Addy (L#[id number])Adele OCCUPATIONAL THERAPY TREATMENT: 10:30-10:55 PATIENT RECENTLY MOBILIZED BACK TO RECLINER FOLLOWING A SHOWER (GROUNDSKEEPING MAINTENANCE ASSISTED WITH ADL TASK). PATIENT IS AGREEABLE TO OT TXM SESSION. SHE REQUIRED ASSISTANCE TO BRUSH HAIR DUE TO THE JOEL IN THE BACK, AND SHE REPORTS FEELING BETTER AFTER GETTING A SHOWER. SHE THEN ENGAGED IN BUE AROM AND PULMONARY EXERCISES IN STANDING FOLLOWED BY FUNCTIONAL MOBILITY WITH USE OF FWW (CGA FOR STABILITY). VERBAL CUES REQUIRED ON TRANSFER OUT OF CHAIR TO FACILITATE SAFETY INSIGHT. SHE THEN COMPLETED 1 SET X 5 REPS OF CHAIR PUSH UPS TO FACILITATE UE STRENGTH. SHE IS NOTED WITH O2 DESAT TO 88%, HR 75 ON ROOM AIR DURING FUNCTIONAL MOBILITY, BUT RETURNS TO 92% HR 68 AFTER APPROXIMATELY 30 SECONDS OF SITTING. SHE CONTINUES WITH PRODUCTIVE COUGH. PATIENT SITTING UP IN CHAIR AT END OF SESSION. OT CONTINUES TO RECOMMEND FURTHER SKILLED THERAPY AT D/C AT SNF TO REDUCE FALL RISK AND FACILITATE RETURN TO BASELINE WITH ADLS AND FUNCTIONAL TRANSFERS. Initialized on 11/26/24 11:43 - END OF NOTE 11/26/24 09:03 Case Management Note by Gloria Bal S/W [facility] AT [facility]- AUTH STILL PENDING AT THIS TIME Initialized on 11/26/24 09:03 - END OF NOTE 11/25/24 21:13 OT Plan of Care Note by Addy (Elise#[id number])Adele *UPDATED PRECAUTIONS FOR DROPLET PRECAUTIONS OT Eval OT Inpatient Eval and POC Start: 11/24/24 20:51 Freq: ONCE Status: Complete Protocol: Created 11/24/24 20:52 PS (Rec: 11/24/24 20:52 PS [id number]) Document 11/25/24 12:12 KA (Rec: 11/25/24 12:32 KA [id number]) OT Evaluation Subjective MICHAEL IS AGREEABLE TO OT EVALUATION AND HER DAUGHTER IS PRESENT TO PROVIDED UPDATED HISTORY. *PATIEND ADMITTED WITH WEAKNESS, CONTROLLED FALL IN SHOWER, RSV POSITIVE, T11 COMPRESSION FRACTURE, AND GENERALIZED WEAKNESS. Pertinent Past Medical History SEE PMH BELOW Prior Level of Function MICHAEL WAS HOSPITALIZED FOR [facility] 1 WEEK WITH TREATMENT FOR A UTI PRIOR TO D /C HOME ON 11/21/24. SHE REPORTS NOT FEELING WELL OVER THE WEEKEND, AND DID NOT LEAVE HER BED OR COUCH VERY MUCH OVER THE WEEKEND. MICHAEL REPORTS A CONTROLLED FALL IN SHOWER AND CONTINUED WEAKNESS LEADING TO HER CURRENT ADMISSION. HER DAUGHTER REPORTS THAT SHE WAS REQUIRING ASSIST FROM FAMILY OVER THE WEEKEND. Equipment at Home Prior to Admission Walker,Cane,Shower Chair Home Setup Tub/Shower Combination, Standard Height Toilet Date 11/25/24 Feeding WFL Comment SET UP ASSIST (SHE REPORTS INCREASED NAUSEA WHICH LIMITS HER APPETITE). Grooming Impaired Comment SBA SEATED IN CHAIR; MIN ASSIST DURING STANDING Bathing Impaired Comment MOD ASSIST Dressing Impaired Comment UB: SET UP ASSIST LB: MIN ASSIST Toileting Impaired Comment MIN ASSIST Bed Mobility Impaired Comment HOB ELEVATED, MIN ASSIST FOR BLANKET MANAGEMENT, AND SHE USED THE HAND RAIL Toilet Transfers Impaired Comment MIN ASSIST Functional Transfers Impaired Comment CGA WITH RW Range of Motion WFL Coordination WFL Functional Strength MMT: BILATERAL SHOULDER STRENGTH: 4 -/5 BILATERAL ELBOW STRENGTH: 4/5 BILATERAL DROP PIT WORKER STRENGTH: 4-/5 Functional Endurance POOR (+); PATIENT TOLERATES MINIMAL WALKING IN ROOM (SEE PT NOTE). Cognition ALERT AND ORIENTED X 4 Pain 3/10 (OBSERVED PAIN) IN LEFT LOWER BACK Objective Data/Standardized Assessment(s OVIEDO: 2/6 (INDICATING HIGHER ) LEVEL OF DEPENDENCE FOR ADLS) Comment MICHAEL PRESENTS WITH INCREASED FEAR OF FALLING DURING FUNCTIONAL TRANSFERS BEGINNING OF SESSION: HR 66 AND 02 SAT 95% MIDDLE OF MOBILITY: O2 SAT 93% *PRODUCTIVE COUGH OBSEVED AND OT CALLED RT ABOUT A SPIROMETER PATIENT REQUESTED ONE. *PATIENT OBSERVED WITHH RASH ON CHIN (NEAR MIDLINE AND ON RIGHT SIDE OF LOWER LIP)- NURSING STAFF AWARE. *PATIENTS RED AND PINK BRACELET ON RIGHT WRIST VERY TIGHT AND OT RELAYED TO MAXIMO GARZON ABOUT CUTTING THEM OFF AND REPLACING THEM. OT Plan Of Care Date of Evaluation 11/25/24 Treatment Diagnosis WEAKNESS Precaution/Orders as written DROPLET PRECAUTIONS Teaching Recipient Patient,Family Patient is Aware of Diagnosis and Yes Prognosis Patient is receptive to Plan of Care and Yes contributory towards OT goals Functional Problem List MICHAEL PRESENTS WITH GENERALIZED WEAKNESS, DECREASED ACTIVITY TOLERANCE, POOR SAFETY AWARENESS, AND INCREASED FALL RISK LIMITING INDEPENDENCE WITH I/ADLS AND QUALITY OF LIFE. Therapuetic Interventions THERAPEUTIC EXERCISE, THERAPEUTIC ACTIVITY, SELF CARE Functional Goals of Treatment 1) WITHIN 1 WEEK, MICHAEL WILL DEMONSTRATE INDEPENDENCE WITH FUNCTIONAL TRANSFERS INCLUDING TUB/SHOWER AND TOILET T/FS. 2) WITHIN 1 WEEK, MICHAEL WILL PERFORM GROOMING TASKS WHILE STANDING AT SINK WITH SBA TO FACILITATE SAFE D/C. 3) WITHIN 1 WEEK, MICHAEL WILL INCREASE INDEPENDENCE WITH DRESSING AND BATHING TO MIN ASSIST TO FACILITATE SAFE D/C HOME. Frequency/Duration 5X/WEEK Rehabilitation Potential for Goals/ Good Barriers to Progress Discharge Recommendations/Plan OT RECOMMENDS FURTHER SKILLED THERAPY AT SUB-ACUTE FACILITY SUCH SNF TO FACILITATE INDEPENDENCE WITH ADLS, FUNCTIONAL TRANSFERS, AND REDUCE FALL RISK. Medical & Surgical History Past Medical History Yes Neurological History TIA ENT History No Pertinent History Endocrine History No Pertinent History Respiratory History Asthma Cardiac History Arrhythmia,Coronary Artery Disease,High Cholesterol, Hypertension GI History Hernia,Ulcer History No Pertinent History Female Reproductive Disorders Breast Cancer,Cervical Cancer, Fibroids Musculoskeletal History Osteoarthritis Psycho-Social History Anxiety,Panic Disorder Other Medical History TIA IN 2019, Hims Coder: Dr. Miguel arriaza Past Surgical History Yes Hx Anesthesia Reactions Yes: WOKE UP DURING SURGERY Hx Malignant Hyperthermia No Neurological Surgical History No Pertinent History ENT Surgical History Eye Surgery,Cataract Surgery, Tonsillectomy Respiratory Surgical History No Pertinent History Cardiac Surgical History No Pertinent History Gastrointestinal Surgical History Cholecystectomy,Other Genitourinary Surgical History No Pertinent History Female Surgical History Hysterectomy,Mastectomy Musculoskeletal Surgical History No Pertinent History Other Surgical History Ganglion cyst removed from left wrist. Catarct surgery march, COLONOSCOPY Alcohol None Drug Use none Hx Substance Use Treatment No OT Notes 11/25/24 12:32 OT Plan of Care Note by Addy (Elise#[id number])Adele OT Eval OT Inpatient Eval and POC Start: 11/24/24 20:51 Freq: ONCE Status: Complete Protocol: Created 11/24/24 20:52 PS (Rec: 11/24/24 20:52 PS [id number]) Document 11/25/24 12:12 KA (Rec: 11/25/24 12:32 KA [id number]) OT Evaluation Subjective MICHAEL IS AGREEABLE TO OT EVALUATION AND HER DAUGHTER IS PRESENT TO PROVIDED UPDATED HISTORY. *PATIEND ADMITTED WITH WEAKNESS, CONTROLLED FALL IN SHOWER, RSV POSITIVE, T11 COMPRESSION FRACTURE, AND GENERALIZED WEAKNESS. Pertinent Past Medical History SEE PMH BELOW Prior Level of Function MICHAEL WAS HOSPITALIZED FOR [facility] 1 WEEK WITH TREATMENT FOR A UTI PRIOR TO D /C HOME ON 11/21/24. SHE REPORTS NOT FEELING WELL OVER THE WEEKEND, AND DID NOT LEAVE HER BED OR COUCH VERY MUCH OVER THE WEEKEND. MICHAEL REPORTS A CONTROLLED FALL IN SHOWER AND CONTINUED WEAKNESS LEADING TO HER CURRENT ADMISSION. HER DAUGHTER REPORTS THAT SHE WAS REQUIRING ASSIST FROM FAMILY OVER THE WEEKEND. Equipment at Home Prior to Admission Walker,Cane,Shower Chair Home Setup Tub/Shower Combination, Standard Height Toilet Date 11/25/24 Feeding WFL Comment SET UP ASSIST (SHE REPORTS INCREASED NAUSEA WHICH LIMITS HER APPETITE). Grooming Impaired Comment SBA SEATED IN CHAIR; MIN ASSIST DURING STANDING Bathing Impaired Comment MOD ASSIST Dressing Impaired Comment UB: SET UP ASSIST LB: MIN ASSIST Toileting Impaired Comment MIN ASSIST Bed Mobility Impaired Comment HOB ELEVATED, MIN ASSIST FOR BLANKET MANAGEMENT, AND SHE USED THE HAND RAIL Toilet Transfers Impaired Comment MIN ASSIST Functional Transfers Impaired Comment CGA WITH RW Range of Motion WFL Coordination WFL Functional Strength MMT: BILATERAL SHOULDER STRENGTH: 4 -/5 BILATERAL ELBOW STRENGTH: 4/5 BILATERAL DROP PIT WORKER STRENGTH: 4-/5 Functional Endurance POOR (+); PATIENT TOLERATES MINIMAL WALKING IN ROOM (SEE PT NOTE). Cognition ALERT AND ORIENTED X 4 Pain 3/10 (OBSERVED PAIN) IN LEFT LOWER BACK Objective Data/Standardized Assessment(s OVIEDO: 2/6 (INDICATING HIGHER ) LEVEL OF DEPENDENCE FOR ADLS) Comment MICHAEL PRESENTS WITH INCREASED FEAR OF FALLING DURING FUNCTIONAL TRANSFERS BEGINNING OF SESSION: HR 66 AND 02 SAT 95% MIDDLE OF MOBILITY: O2 SAT 93% *PRODUCTIVE COUGH OBSEVED AND OT CALLED RT ABOUT A SPIROMETER PATIENT REQUESTED ONE. *PATIENT OBSERVED WITHH RASH ON CHIN (NEAR MIDLINE AND ON RIGHT SIDE OF LOWER LIP)- NURSING STAFF AWARE. *PATIENTS RED AND PINK BRACELET ON RIGHT WRIST VERY TIGHT AND OT RELAYED TO MAXIMO GARZON ABOUT CUTTING THEM OFF AND REPLACING THEM. OT Plan Of Care Date of Evaluation 11/25/24 Treatment Diagnosis WEAKNESS Precaution/Orders as written CONTACT PRECAUTIONS Teaching Recipient Patient,Family Patient is Aware of Diagnosis and Yes Prognosis Patient is receptive to Plan of Care and Yes contributory towards OT goals Functional Problem List MICHAEL PRESENTS WITH GENERALIZED WEAKNESS, DECREASED ACTIVITY TOLERANCE, POOR SAFETY AWARENESS, AND INCREASED FALL RISK LIMITING INDEPENDENCE WITH I/ADLS AND QUALITY OF LIFE. Therapuetic Interventions THERAPEUTIC EXERCISE, THERAPEUTIC ACTIVITY, SELF CARE Functional Goals of Treatment 1) WITHIN 1 WEEK, MICHAEL WILL DEMONSTRATE INDEPENDENCE WITH FUNCTIONAL TRANSFERS INCLUDING TUB/SHOWER AND TOILET T/FS. 2) WITHIN 1 WEEK, MICHAEL WILL PERFORM GROOMING TASKS WHILE STANDING AT SINK WITH SBA TO FACILITATE SAFE D/C. 3) WITHIN 1 WEEK, MICHAEL WILL INCREASE INDEPENDENCE WITH DRESSING AND BATHING TO MIN ASSIST TO FACILITATE SAFE D/C HOME. Frequency/Duration 5X/WEEK Rehabilitation Potential for Goals/ Good Barriers to Progress Discharge Recommendations/Plan OT RECOMMENDS FURTHER SKILLED THERAPY AT SUB-ACUTE FACILITY SUCH SNF TO FACILITATE INDEPENDENCE WITH ADLS, FUNCTIONAL TRANSFERS, AND REDUCE FALL RISK. Medical & Surgical History Past Medical History Yes Neurological History TIA ENT History No Pertinent History Endocrine History No Pertinent History Respiratory History Asthma Cardiac History Arrhythmia,Coronary Artery Disease,High Cholesterol, Hypertension GI History Hernia,Ulcer History No Pertinent History Female Reproductive Disorders Breast Cancer,Cervical Cancer, Fibroids Musculoskeletal History Osteoarthritis Psycho-Social History Anxiety,Panic Disorder Other Medical History TIA IN 2019, Hims Coder: Dr. Mgiuel arriaza Past Surgical History Yes Hx Anesthesia Reactions Yes: WOKE UP DURING SURGERY Hx Malignant Hyperthermia No Neurological Surgical History No Pertinent History ENT Surgical History Eye Surgery,Cataract Surgery, Tonsillectomy Respiratory Surgical History No Pertinent History Cardiac Surgical History No Pertinent History Gastrointestinal Surgical History Cholecystectomy,Other Genitourinary Surgical History No Pertinent History Female Surgical History Hysterectomy,Mastectomy Musculoskeletal Surgical History No Pertinent History Other Surgical History Ganglion cyst removed from left wrist. Catarct surgery march, COLONOSCOPY Alcohol None Drug Use none Hx Substance Use Treatment No Initialized on 11/25/24 12:32 - END OF NOTE Initialized on 11/25/24 21:13 - END OF NOTE 11/25/24 14:07 Case Management Note by Gloria Bal [facility] CALLED BACK- THEY HAVE ACCEPTED AND WILL START AUTH Initialized on 11/25/24 14:07 - END OF NOTE 11/25/24 13:32 Case Management Note by Gloria Bal PAPERWORK COMPLETE- NO LEVEL II REQUIRED AT THIS TIME- COPY PLACED IN CHART FULL REFERRAL WITH JERAD FAXED TO [facility] S/W [facility]AV[facility] AT [facility]-THEY HAVE RECEIVED REFERRAL AND ARE REVIEWING Initialized on 11/25/24 13:32 - END OF NOTE Assessment/Plan (1) Duodenitis Current Visit: Yes Status: Acute Code(s): K29.80 - DUODENITIS WITHOUT BLEEDING (2) Compression fracture of T11 vertebra Current Visit: Yes Status: Acute Code(s): S22.080A - WEDGE COMPRESSION FRACTURE OF T11-T12 VERTEBRA, INIT (3) Anemia Current Visit: Yes Status: Acute Code(s): D64.9 - ANEMIA, UNSPECIFIED (4) Generalized weakness Current Visit: Yes Status: Acute Code(s): R53.1 - WEAKNESS (5) Hyperbilirubinemia Current Visit: Yes Status: Acute Code(s): E80.6 - OTHER DISORDERS OF BILIRUBIN METABOLISM (6) Impetigo Current Visit: Yes Status: Acute Code(s): L01.00 - IMPETIGO, UNSPECIFIED (7) HTN (hypertension) Current Visit: No Status: Chronic Qualifiers: Hypertension type: primary hypertension Qualified Code(s): I10 - Essential (primary) hypertension Code(s): I10 - ESSENTIAL (PRIMARY) HYPERTENSION (8) UTI (urinary tract infection) Current Visit: No Status: Acute Code(s): N39.0 - URINARY TRACT INFECTION, SITE NOT SPECIFIED (9) Obesity (BMI 30.0-34.9) Current Visit: Yes Status: Chronic Code(s): E66.811 - OBESITY, CLASS 1 (10) Hypokalemia Current Visit: Yes Status: Acute Code(s): E87.6 - HYPOKALEMIA (11) RSV infection Current Visit: Yes Status: Acute Assessment & Plan: (1) Duodenitis Current Visit: Yes Status: Acute Assessment & Plan: - Protonix BID - Antiemetic for related nausea PRN - CT abd pelvis: Impression: 1. New CT features favoring duodenitis. 2. New remote-appearing T11 endplate fracture. 3. Again chronic findings including pulmonary fibrosis/scarring, hiatal hernia, sigmoid diverticulosis, arteriosclerotic disease, chronic bony findings, and old granulomatous disease. - Will need OP GI f/u at D/C 11/26 - GS consult - CBC, CMP reviewed - Hgb 9.0 Code(s): K29.80 - DUODENITIS WITHOUT BLEEDING (2) Compression fracture of T11 vertebra Current Visit: Yes Status: Acute Assessment & Plan: - Will need OP f/u with neurosurgery - New finding seen on CT chest - Tylenol for pain PRN 11/26 - Pt wanting rehab placement Code(s): S22.080A - WEDGE COMPRESSION FRACTURE OF T11-T12 VERTEBRA, INIT (3) Anemia Current Visit: Yes Status: Acute Assessment & Plan: - Hgb dropped to 9.4 from 11.6 yesterday - Trend HGB - Occult stool pending - Eliquis held for now - SCD's 11/26 - Hgb 9.0 - GS consult - occult stool + - eliquis held - NPO Code(s): D64.9 - ANEMIA, UNSPECIFIED (4) Generalized weakness Current Visit: Yes Status: Acute Assessment & Plan: - PT/OT eval - CT head negative for acute concern - CT chest reviewed - CT abd pelvis reviewed - CBC, CMP reviewed Code(s): R53.1 - WEAKNESS (5) Hyperbilirubinemia Current Visit: Yes Status: Acute Assessment & Plan: - Bili 3.80- improved - US abd. pending 11/26 - Bili 4.40 - MRCP ordered - consider tx to higher level of care for GI - US abd negative Code(s): E80.6 - OTHER DISORDERS OF BILIRUBIN METABOLISM (6) Impetigo Current Visit: Yes Status: Acute Assessment & Plan: - Of chin - Discussed good hand washing as not to spread - Mupirocin cream TID Code(s): L01.00 - IMPETIGO, UNSPECIFIED (7) HTN (hypertension) Current Visit: No Status: Chronic Qualifiers: Hypertension type: primary hypertension Qualified Code(s): I10 - Essential (primary) hypertension Assessment & Plan: - BP controlled- continue home meds- trend Code(s): I10 - ESSENTIAL (PRIMARY) HYPERTENSION (8) UTI (urinary tract infection) Current Visit: No Status: Acute Assessment & Plan: - Continue oral antibiotic 11/26 - Repeat UA with C&S Code(s): N39.0 - URINARY TRACT INFECTION, SITE NOT SPECIFIED (9) Obesity (BMI 30.0-34.9) Current Visit: Yes Status: Chronic Assessment & Plan: - Advised diet and exercise control Code(s): E66.811 - OBESITY, CLASS 1 (10) Hypokalemia Current Visit: Yes Status: Acute Assessment & Plan: - K+ 3.2- replaced- trend - Tele 11/26 - K+ 3.9 - resolved Code(s): E87.6 - HYPOKALEMIA (11) RSV infection Current Visit: Yes Status: Acute Assessment & Plan: - supportive care - + test in ER - RA 95% - Supportive care 11/26 - temp 99 today - Proventil Code(s): B33.8 - OTHER SPECIFIED VIRAL DISEASES Code(s): B33.8 - OTHER SPECIFIED VIRAL DISEASES (12) Transaminitis Current Visit: Yes Status: Acute Assessment & Plan: - AST 118, ALT 80 - MRCP Code(s): R74.01 - ELEVATION OF LEVELS OF LIVER TRANSAMINASE LEVELS (13) Elevated alkaline phosphatase level Current Visit: Yes Status: Acute Assessment & Plan: - 272- trend - GS consult - MRCP today Code(s): R74.8 - ABNORMAL LEVELS OF OTHER SERUM ENZYMES (14) Abdominal pain Current Visit: Yes Status: Acute Assessment & Plan: - MRCP - CBC, CMP reviewed - + occult stool - Temp 99 - Abd. distention - Repeat UA - consider BC x2 - Protonix 40 Q12 - Tylenol PRN - GS consult - IVF VTE: SCD's, Eliquis- held for now PPI: Protonix Next of KIN: child- Taylor Oliveira [phone] D/C plan: pending placement Code status: Full Code(s): R10.9 - UNSPECIFIED ABDOMINAL PAIN
[2024-11-26] MEDS: Carafate SUSPENSION 1000 MG/10 ML PO SCH (14:57)
--- NOTE | 2024-11-26 15:11 | XRAY ---
Indication: Pain. Elevated liver enzymes and bilirubin. Cholecystectomy. Conventional MRCP performed. Comparison: None Gallbladder surgically absent. Common bile duct and biliary tree are normal in course and caliber without focal stricture, obstruction, or filling defect. Common bile duct measures 7 mm. Pancreatic duct is slightly prominent throughout up to 2-3 mm. Very tiny fluid seen in gallbladder fossa and right colic gutter. Remaining visualized liver, pancreas, spleen, adrenal glands, kidneys, stomach, bowel loops, and IVC/aorta are unremarkable. No abnormal bone marrow signal. Impression: 1. Cholecystectomy. Otherwise negative MRCP. 2. Incidental tiny fluid in gallbladder fossa and right colic gutter. Query if related to duodenitis reported on recent CT exam.
[2024-11-26 18:07] LABS: 027 TOX PROD PRESUMPTIVE NEGATIVE (NEGATIVE); TOXIGENIC C. DIFF ORG NEGATIVE (NEGATIVE)
[2024-11-27 05:59] LABS: Hematocrit 30.3 % (34.1-44.9); Hemoglobin 9.4 g/dL (11.2-15.7); Mean Cell Volume 75.9 fL (79.4-94.8); Mean Corpuscular Hemoglobin 23.6 pg (25.6-32.2); Mean Platelet Volume 11.3 fL (9.4-12.3); Platelet Count 189 x10^3/uL (182-369); Red Blood Count 3.99 x10^6/uL (3.93-5.22); Red Cell Distribution Width 21.4 % (11.7-14.4); White Blood Count 8.7 x10^3/uL (3.98-10.04)
[2024-11-27 06:50] LABS: Slide Review YES
[2024-11-27 07:04] LABS: ALBUMIN 2.9 g/dL (3.5-5.0); BILIRUBIN,TOTAL 4.4 mg/dL (0.2-1.3); Direct Bilirubin 3.4 mg/dL (0.0-0.4); Total Protein 5.9 g/dL (6.3-8.2)
--- NOTE | 2024-11-27 10:50 | CONS ---
HISTORY OF PRESENT ILLNESS: This is a 73-year-old female who was recently in the hospital and was seen by my partner, Dr. Laz Moore, due to anemia and concern for GI bleed. She had a positive fecal occult blood test at that time. Since then, she had a fall in the shower. She does not have any acute injuries from this fall, but she was noted to be anemic and also positive for RSV. She was admitted and is currently being treated and worked up by the medical doctors, and she also is on antibiotics for a UTI. During her last admission, she was given approximately 4 units of blood. It does not seem like she is having any gross blood, but her fecal occult blood test was positive again. She has had some discomfort in her upper abdomen. I have reviewed her CAT scan report with her and this does show some stranding around the duodenum, which would be consistent with duodenitis, and there is edema in the duodenal wall. She also, incidentally, has some diverticulosis. She also has had a right upper quadrant ultrasound, which I have also reviewed this report with her. Her common bile duct is 6.1 mm, which is normal in size. She has no intrahepatic ductal dilation, and her gallbladder has been removed consistent with her history. She did also have a negative head CT and her CT of her chest showed no acute trauma. She does have some fibrosis. I have reviewed her labs with her as well. Her creatinine is 0.62. Hemoglobin was 11.6 on admission and now is 9. Her white blood cell count is normal at 9.4. Platelets are 183. Alkaline phosphatase is elevated at 272. Her ALT and AST have remained slightly elevated, 80 and 118. Her total bilirubin is concerning, this is high. This is 4.6 and then was 3.8 and then was 4.4. Her direct bilirubin is also elevated at 3.8. Her INR is 1.1. She does also report dark urine. Past medical and surgical history are also reviewed and her medications are also reviewed. MEDICATIONS: She is on Macrobid for the UTI. She is on Protonix IV b.i.d. We have added Carafate to the regimen for the duodenitis. She was on Eliquis and this has been held. She does have a distant history of breast cancer and her daughter reports that breast cancer was when she was in her late 20s and she also had cervical cancer as well. Her last EGD was earlier this month and she also had an attempted colonoscopy at that time but the colonoscopy was incomplete. The EGD report has been reviewed and it looks like her EGD was negative. PHYSICAL EXAMINATION: GENERAL: No acute distress. Alert, oriented. EYES: Jaundice. CARDIOVASCULAR: Regular rate. PULMONARY: Nonlabored respirations. ABDOMEN: Soft, minimally tender in the upper abdomen. No rebound. No guarding. EXTREMITIES: Ambulatory. ASSESSMENT AND PLAN: This is a patient who presents with upper abdominal discomfort, duodenitis on CT scan, recent positive respiratory syncytial virus. She is also being treated by the medical physicians for a UTI and a recent fall. She does not report any other pain or other injuries and has been doing well otherwise. I am concerned that with her elevation of bilirubin that this could be duodenitis or this could be something more significant such as a mass causing obstruction. Her ultrasound does not show dilation of the ducts. However, I would like to get a MRCP to get another image of this area. I have also added labs for tomorrow morning including a hepatic function panel so we can reevaluate her direct bilirubin level and we have added amylase and lipase. For the duodenitis we will also add oral Carafate and I agree with continuing her PPI. She may need another EGD to look at her duodenum further. I have discussed this case with my partner and based on her MRI and her labs, we will decide tomorrow if she does need another EGD and so I have recommended to her to be n.p.o. after midnight in case this is warranted. Patient and family were both at bedside and understand and agree with the plan. Thank you for the consultation. We will continue to follow along with you.
--- NOTE | 2024-11-27 13:24 | PCM.DS ---
Discharge Summary Date of Admission: 11/24/24 19:59 Date of Discharge: 11/27/24 Admitting Physician: RYAN COKER MD Consults: Consults on Case 11/24/24 20:45 Case Management SDOH DC Needs Assessment ROUTINE 11/26/24 07:46 Consult Surgery ROUTINE Primary Care Provider: EMORY,ALLISON Allergies Allergies codeine Allergy (Verified 11/24/24 15:18) corn Allergy (Verified 11/24/24 15:18) erythromycin base Allergy (Verified 11/24/24 15:18) Penicillins Allergy (Verified 11/24/24 15:18) Sulfa (Sulfonamide Antibiotics) Allergy (Verified 11/24/24 15:18) NOVAFED Adverse Reaction (Uncoded 11/24/24 15:18) [facility] Summary - Hospital Course Hospital Course: 11/25/24 is a 73-year-old female who was recently hospitalized and treated for a urinary tract infection (UTI), for which she is nearly completing her antibiotic course. She presented to the ED on 11/24/24 with a complaint of weakness that began earlier that day. The patient reported becoming too weak to insurance biller the shower and had to slide down the shower wall to sit in the tub until assistance arrived. She denies any actual fall or injury from the incident, as well as syncope or loss of consciousness (LOC). She also denied trauma to her back or any other part of her body. In addition to weakness, she reported nausea and midepigastric abdominal pain but denies chest pain, dyspnea, vomiting, rectal bleeding, hematemesis, or dark stools. She experienced chills but reports no fever or cough. Upon evaluation in the ED, the patient was found to have duodenitis, a T11 endplate compression fracture, hyperbilirubinemia, RSV positivity, hypokalemia, and generalized weakness. Today, her bilirubin and liver enzymes are improving, and her potassium level was 3.2, which has been replaced. Protonix therapy for duodenitis will continue. An abdominal ultrasound is pending, but all other radiology results were negative for acute concerns. A physical therapy (PT) and occupational therapy (OT) evaluation will be conducted for weakness, and the patient expresses a desire for rehab placement. She will need follow-up with both GI and neurosurgery in the outpatient setting. Currently, she denies chest pain, shortness of breath, abdominal pain, nausea, or vomiting. She has continued nausea today, but antiemetics have been helping. 11/26/24 Pt resting in bed. She had a temp of 99 this AM. She was made NPO for surgical consult as occult stool positive and HGB dropped from 11.6 to 9.0. Eliquis held. Bili, liver enzymes, and alk phos all elevated, MRCP ordered. Abd distended with epigastric pain. Continue protonix and IVF. Repeat UA with reflex culture ordered. Continue macrobid BID from last visit for now. Pt has some wheezing throughout lung sounds today. incentive spirometer and breathing treatments ordered. Back pain currenlty controlled. She is wanting rehab placement at d/c. They are requiring a peer to peer discussion today. Pt is not ready to d/c today and consider transferring to higher level of care for GI eval and possible ERCP. Pt denies CP, V/D. 11/27/24 Pt resting in the bed She is not feeling well today and jaundiced. Urine is dark brown. Per nursing surgery seen pt yesterday and wanted to further discuss case with other providers in the group. Labs overall worse today. UA pending. Stopped macobid. US and MRCP negative. Discussed pt case with [facility] and pt to be transferred to higher level of care - Vitals & Intake/Output Vital Signs: Vital Signs Temperature 100.4 F 11/27/24 11:20 Pulse Rate 80 11/27/24 11:20 Respiratory Rate 16 11/27/24 11:20 Blood Pressure 139/74 11/27/24 11:20 O2 Sat by Pulse Oximetry 92 L 11/27/24 11:20 Intake & Output: Intake & Output 11/25/24 11/26/24 11/27/24 11/28/24 11:59 11:59 11:59 11:59 Intake Total 960 2982 1180 Output Total 1150 1650 2175 200 Balance -190 1332 -995 -200 Weight 85.1 kg - Lab Result Diagrams: 11/27/24 04:51 11/26/24 04:50 Lab Results-Last 24 Hrs: Lab Results-Last 24 Hours 11/26/24 11/27/24 11/27/24 Range/Units 17:30 04:51 04:51 WBC 8.7 (3.98-10.04) x10^3/uL RBC 3.99 (3.93-5.22) x10^6/uL Hgb 9.4 L (11.2-15.7) g/dL Hct 30.3 L (34.1-44.9) % MCV 75.9 L (79.4-94.8) fL MCH 23.6 L (25.6-32.2) pg MCHC 31.0 L (32.2-35.5) g/dL RDW 21.4 H (11.7-14.4) % Plt Count 189 (182-369) x10^3/uL MPV 11.3 (9.4-12.3) fL Total Bilirubin 4.40 H (0.2-1.3) mg/dL Direct Bilirubin 3.4 H (0.0-0.4) mg/dL AST 138 H (14-36) U/L ALT 91 H (0-35) U/L Alkaline Phosphatase 333 H (38-126) U/L Serum Total Protein 5.9 L (6.3-8.2) g/dL Albumin 2.9 L (3.5-5.0) g/dL Amylase 44 (30-110) U/L Lipase 81 (23-300) U/L C. difficile Screen NEGATIVE (NEGATIVE) C.difficile [id number] PRESUMPTIVE NEGATIVE (NEGATIVE) Slides for Path Review YES - Radiology Exams Ordered Rad Exams-Entire Visit: Radiology Procedures Category Date Time Status ABDOMINAL-LIMITED [US] Routine Exams 11/25/24 13:11 Completed MRI ABD W/O CONTRAST [MRI] Routine Exams 11/26/24 14:16 Completed - Procedures and Test Procedures and Tests throughout Hospitalization: Therapy Orders & Screens 11/24/24 20:51 PT Eval & Treat ( Order) ONCE Reason for Eval:: DEBILITY Diagnosis: weakness OT Eval and Treat ( Order) ONCE Comment: Physician Instructions: Reason For Exam: Diagnosis: weakness 11/26/24 09:43 Incentive Spirometry UD Comment: Diagnosis: weakness 11/26/24 11:40 Respiratory Therapy Assessment DAILY Comment: Diagnosis: weakness Discharge Exam General Appearance: no apparent distress, alert, obese Neurologic Exam: alert, oriented x 3, cooperative, normal mood/affect, nml cerebellar function, sensation nml, No motor deficits Eye Exam: PERRL, EOMI, eyes nml inspection Ears, Nose, Throat Exam: normal ENT inspection, pharynx normal, moist mucous membranes Neck Exam: normal inspection, non-tender, supple, full range of motion Respiratory Exam: normal breath sounds, lungs clear, No respiratory distress Cardiovascular Exam: regular rate/rhythm, normal heart sounds Gastrointestinal/Abdomen Exam: soft, tenderness, distention, No mass Pelvic Exam: deferred Rectal Exam: deferred Back Exam: normal inspection, normal range of motion, No CVA tenderness, No vertebral tenderness Extremity Exam: normal inspection, normal range of motion Skin Exam: warm, dry, jaundice Final Diagnosis/Problem List - Final Discharge Diagnosis/Problem (1) Duodenitis Current Visit: Yes Status: Acute Code(s): K29.80 - DUODENITIS WITHOUT BLEEDING (2) Compression fracture of T11 vertebra Current Visit: Yes Status: Acute Code(s): S22.080A - WEDGE COMPRESSION FRACTURE OF T11-T12 VERTEBRA, INIT (3) Anemia Current Visit: Yes Status: Acute Code(s): D64.9 - ANEMIA, UNSPECIFIED (4) Generalized weakness Current Visit: Yes Status: Acute Code(s): R53.1 - WEAKNESS (5) Hyperbilirubinemia Current Visit: Yes Status: Acute Code(s): E80.6 - OTHER DISORDERS OF BILIRUBIN METABOLISM (6) Impetigo Current Visit: Yes Status: Acute Code(s): L01.00 - IMPETIGO, UNSPECIFIED (7) HTN (hypertension) Current Visit: No Status: Chronic Code(s): I10 - ESSENTIAL (PRIMARY) HYPERTENSION (8) UTI (urinary tract infection) Current Visit: No Status: Acute Code(s): N39.0 - URINARY TRACT INFECTION, SITE NOT SPECIFIED (9) Obesity (BMI 30.0-34.9) Current Visit: Yes Status: Chronic Code(s): E66.811 - OBESITY, CLASS 1 (10) Hypokalemia Current Visit: Yes Status: Acute Code(s): E87.6 - HYPOKALEMIA (11) RSV infection Current Visit: Yes Status: Acute Code(s): B33.8 - OTHER SPECIFIED VIRAL DISEASES (12) Transaminitis Current Visit: Yes Status: Acute Code(s): R74.01 - ELEVATION OF LEVELS OF LIVER TRANSAMINASE LEVELS (13) Elevated alkaline phosphatase level Current Visit: Yes Status: Acute Code(s): R74.8 - ABNORMAL LEVELS OF OTHER SERUM ENZYMES (14) Abdominal pain Current Visit: Yes Status: Acute Assessment & Plan: (1) Duodenitis Current Visit: Yes Status: Acute Assessment & Plan: - Protonix BID - Antiemetic for related nausea PRN - CT abd pelvis: Impression: 1. New CT features favoring duodenitis. 2. New remote-appearing T11 endplate fracture. 3. Again chronic findings including pulmonary fibrosis/scarring, hiatal hernia, sigmoid diverticulosis, arteriosclerotic disease, chronic bony findings, and old granulomatous disease. - Will need OP GI f/u at D/C 11/26 - GS consult - CBC, CMP reviewed - Hgb 9.0 - Carafate added by GS 11/27 - Hgb 9.4 - CBC, CMP reviewed Code(s): K29.80 - DUODENITIS WITHOUT BLEEDING (2) Compression fracture of T11 vertebra Current Visit: Yes Status: Acute Assessment & Plan: - Will need OP f/u with neurosurgery - New finding seen on CT chest - Tylenol for pain PRN 11/26 - Pt wanting rehab placement Code(s): S22.080A - WEDGE COMPRESSION FRACTURE OF T11-T12 VERTEBRA, INIT (3) Anemia Current Visit: Yes Status: Acute Assessment & Plan: - Hgb dropped to 9.4 from 11.6 yesterday - Trend HGB - Occult stool pending - Eliquis held for now - SCD's 11/26 - Hgb 9.0 - GS consult - occult stool + - eliquis held - NPO 11/27 - Hgb 9.4 Code(s): D64.9 - ANEMIA, UNSPECIFIED (4) Generalized weakness Current Visit: Yes Status: Acute Assessment & Plan: - PT/OT eval - CT head negative for acute concern - CT chest reviewed - CT abd pelvis reviewed - CBC, CMP reviewed Code(s): R53.1 - WEAKNESS (5) Hyperbilirubinemia Current Visit: Yes Status: Acute Assessment & Plan: - Bili 3.80- improved - US abd. pending 11/26 - Bili 4.40 - MRCP negative - consider tx to higher level of care for GI - US abd negative 11/27 - Bili 4.40, total bili 3.4 - + jaundice Code(s): E80.6 - OTHER DISORDERS OF BILIRUBIN METABOLISM (6) Impetigo Current Visit: Yes Status: Acute Assessment & Plan: - Of chin - Discussed good hand washing as not to spread - Mupirocin cream TID Code(s): L01.00 - IMPETIGO, UNSPECIFIED (7) HTN (hypertension) Current Visit: No Status: Chronic Qualifiers: Hypertension type: primary hypertension Qualified Code(s): I10 - Essential (primary) hypertension Assessment & Plan: - BP controlled- continue home meds- trend Code(s): I10 - ESSENTIAL (PRIMARY) HYPERTENSION (8) UTI (urinary tract infection) Current Visit: No Status: Acute Assessment & Plan: - Continue oral antibiotic 11/26 - Repeat UA with C&S 11/27 - UA pending - stop macrobid Code(s): N39.0 - URINARY TRACT INFECTION, SITE NOT SPECIFIED (9) Obesity (BMI 30.0-34.9) Current Visit: Yes Status: Chronic Assessment & Plan: - Advised diet and exercise control Code(s): E66.811 - OBESITY, CLASS 1 (10) Hypokalemia Current Visit: Yes Status: Acute Assessment & Plan: - K+ 3.2- replaced- trend - Tele 11/26 - K+ 3.9 - resolved Code(s): E87.6 - HYPOKALEMIA (11) RSV infection Current Visit: Yes Status: Acute Assessment & Plan: - supportive care - + test in ER - RA 95% - Supportive care 11/26 - temp 99 today - Proventil Code(s): B33.8 - OTHER SPECIFIED VIRAL DISEASES (12) Transaminitis Current Visit: Yes Status: Acute Assessment & Plan: - AST 118, ALT 80 - MRCP 11/27 - AST 138, ALT 91, Alk Phos 333 Code(s): R74.01 - ELEVATION OF LEVELS OF LIVER TRANSAMINASE LEVELS (13) Elevated alkaline phosphatase level Current Visit: Yes Status: Acute Assessment & Plan: - 272- trend - GS consult - MRCP negative 11/27 - Alk Phos 333 Code(s): R74.8 - ABNORMAL LEVELS OF OTHER SERUM ENZYMES (14) Abdominal pain Current Visit: Yes Status: Acute Assessment & Plan: - MRCP negative - CBC, CMP reviewed - + occult stool - Temp 99 - Abd. distention - Repeat UA - consider BC x2 - Protonix 40 Q12 - Tylenol PRN - GS consult - IVF Code(s): R10.9 - UNSPECIFIED ABDOMINAL PAIN - Discharge Discharge Date: 11/27/24 ([facility]) Disposition: XFER OTHER Condition: Stable Prescriptions: Continue PARoxetine HCL [Paroxetine HCl] 10 mg PO DAILY Dorzolamide HCl/Timolol Maleat [Dorzolamide-Timolol Eye Drops] 10 ml DROPS BID Apixaban [Eliquis 2.5 mg Tablet] 5 mg PO BID #60 tablet Sotalol HCl 80 mg [Betapace 80 MG] 40 mg PO BID Latanoprost 1 drop OP HS Omeprazole 20 mg PO BID 30 Days #60 cap Discontinued Nitrofurantoin Macro 100 mg [Macrobid 100MG Capsule] 100 mg PO BIDWM 5 Days #10 cap Follow up with: GUS FORTUNE NP [NON-STAFF PHY W/O PRIVILEGES] - 04/08/25 8:30 am (medical office building third floor ) ALLISON CAT MD [Primary Care Provider] - 12/04/24 9:45 am (AT [facility]) ELOY SLATER [NON-STAFF PHY W/O PRIVILEGES] - (need new referral for patient.)
--- NOTE | 2024-11-27 14:24 | PCM.NOTE ---
Date and Time: 11/27/24 1422 Objective Data Vital Signs: Vital Signs - 24 hr Temp Pulse Resp BP Pulse Ox 11/27/24 11:20 100.4 F 80 16 139/74 92 L 11/27/24 07:20 98.0 F 81 16 134/67 92 L 11/27/24 05:23 73 18 92 L 11/27/24 04:00 97.3 F 82 19 131/64 95 11/27/24 00:00 97.8 F 76 18 132/69 95 11/26/24 20:00 97.6 F 83 18 112/71 93 L 11/26/24 19:14 64 18 92 L 11/26/24 16:00 98.5 F 70 16 118/62 95 Pain Assessment - Last Documented Pain Intensity 5 Pain Scale Used 0-10 Pain Scale Intake and Output: Intake & Output 11/25/24 11/26/24 11/27/24 11/28/24 11:59 11:59 11:59 11:59 Intake Total 960 2982 1180 Output Total 1150 1650 2175 200 Balance -190 1332 -995 -200 Weight 85.1 kg Lab Results: Lab Results-Last 24 Hours 11/26/24 11/27/24 11/27/24 Range/Units 17:30 04:51 04:51 WBC 8.7 (3.98-10.04) x10^3/uL RBC 3.99 (3.93-5.22) x10^6/uL Hgb 9.4 L (11.2-15.7) g/dL Hct 30.3 L (34.1-44.9) % MCV 75.9 L (79.4-94.8) fL MCH 23.6 L (25.6-32.2) pg MCHC 31.0 L (32.2-35.5) g/dL RDW 21.4 H (11.7-14.4) % Plt Count 189 (182-369) x10^3/uL MPV 11.3 (9.4-12.3) fL Total Bilirubin 4.40 H (0.2-1.3) mg/dL Direct Bilirubin 3.4 H (0.0-0.4) mg/dL AST 138 H (14-36) U/L ALT 91 H (0-35) U/L Alkaline Phosphatase 333 H (38-126) U/L Serum Total Protein 5.9 L (6.3-8.2) g/dL Albumin 2.9 L (3.5-5.0) g/dL Amylase 44 (30-110) U/L Lipase 81 (23-300) U/L C. difficile Screen NEGATIVE (NEGATIVE) C.difficile [id number] PRESUMPTIVE NEGATIVE (NEGATIVE) Slides for Path Review YES Radiology Exams: Radiology Procedures Category Date Time Status MRI ABD W/O CONTRAST [MRI] Routine Exams 11/26/24 14:16 Completed Multi-Disciplinary Progress Notes: Multi-Disciplinary Progress Notes 11/27/24 10:40 (created 11/27/24 12:32) Case Management Note by Gloria Bal PATIENT TO TRANSFER TO HIGHER LEVEL OF CARE, [facility] UPDATED. S/W DAUGHTER TO TALK WITH SPRAYER HAND AT RECEIVING FACILITY IF PLACEMENT IS STILL NEEDED WHEN READY TO DC - SHE VERIFIED UNDERSTANDING Initialized on 11/27/24 12:32 - END OF NOTE Assessment/Plan (1) Abdominal pain Current Visit: Yes Status: Acute Code(s): R10.9 - UNSPECIFIED ABDOMINAL PAIN (2) Anemia Current Visit: Yes Status: Acute Assessment & Plan: S: no acute issues overnight. no n/v. no adam bleeding. mild abd pain. O nad nonlabored resps nd, soft, nttp a/p: 73yo see prior note. hyperbilirubinemia, MRI with duodenal?thickening suspicious for ampullary process.agree with transfer to [facility] facility. she apparently has been accepted but is waiting on a bed. Code(s): D64.9 - ANEMIA, UNSPECIFIED
[2024-11-27 21:11] LABS: Appearance Clear (Clear); Bacteria None Seen /HPF (None Seen); Bilirubin Moderate (Negative); Blood Negative (Negative); Epithelial Cells None Seen /HPF (None Seen); Glucose, Urine Negative (Negative); Hyaline Casts NONE SEEN /LPF (0-2); Ketones 15 (Negative); Leukocyte Esterase Trace (Negative); Nitrite Negative (Negative); Protein,Urine Dip 30 (Negative); RBC 0-2 /HPF (0-5); Specific Gravity 1.015 (1.005-1.030); WBC 0-2 /HPF (0-5)
[2024-11-27] MEDS ORDERED: Cardizem CD ONE (21:42)
[2024-11-27] MEDS ORDERED: Cardizem 30 MG ONE (21:51)
[2024-11-27] MEDS: Cardizem 30 MG PO ONE (21:58)
[2024-11-28] MEDS: Cardizem CD PO ONE (00:29)
[2024-11-28 05:43] LABS: Hemoglobin 10.2 g/dL (11.2-15.7); Mean Cell Volume 74.5 fL (79.4-94.8); Mean Corpuscular Hgb Concent. 30.9 g/dL (32.2-35.5); Mean Platelet Volume 11.2 fL (9.4-12.3); Platelet Count 194 x10^3/uL (182-369); Red Blood Count 4.43 x10^6/uL (3.93-5.22); Red Cell Distribution Width 21.9 % (11.7-14.4); White Blood Count 7.9 x10^3/uL (3.98-10.04)
[2024-11-28 06:28] LABS: Slide Review YES
[2024-11-28 07:44] LABS: ANION GAP 13.9 MEQ/L (5-15); BILIRUBIN,TOTAL 2.7 mg/dL (0.2-1.3); Calcium 8.3 mg/dL (8.4-10.2); Creatinine 1 0.55 mg/dL (0.52-1.04); EST GLOMERULAR FILTRATION RATE 96.7 ML/MIN; Potassium 3.6 mmol/L (3.5-5.1); Total Protein 6.2 g/dL (6.3-8.2)
[2024-11-28] MEDS: ABREVA TP PRN (09:39)
--- NOTE | 2024-11-28 12:33 | PCM.DS ---
Discharge Summary Date of Admission: 11/24/24 19:59 Date of Discharge: 11/28/24 Admitting Physician: RYAN COKER MD Consults: Consults on Case 11/24/24 20:45 Case Management SDOH DC Needs Assessment ROUTINE 11/26/24 07:46 Consult Surgery ROUTINE Primary Care Provider: EMORY,ALLISON Allergies Allergies codeine Allergy (Verified 11/24/24 15:18) corn Allergy (Verified 11/24/24 15:18) erythromycin base Allergy (Verified 11/24/24 15:18) Penicillins Allergy (Verified 11/24/24 15:18) Sulfa (Sulfonamide Antibiotics) Allergy (Verified 11/24/24 15:18) NOVAFED Adverse Reaction (Uncoded 11/24/24 15:18) [facility] Summary - Hospital Course Hospital Course: 11/25/24 is a 73-year-old female who was recently hospitalized and treated for a urinary tract infection (UTI), for which she is nearly completing her antibiotic course. She presented to the ED on 11/24/24 with a complaint of weakness that began earlier that day. 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 She denies any actual fall or injury from the incident, as well as syncope or loss of consciousness (LOC). She also denied trauma to her back or any other part of her body. In addition to weakness, she reported nausea and midepigastric abdominal pain but denies chest pain, dyspnea, vomiting, rectal bleeding, hematemesis, or dark stools. She experienced chills but reports no fever or cough. Upon evaluation in the ED, the patient was found to have duodenitis, a T11 endplate compression fracture, hyperbilirubinemia, RSV positivity, hypokalemia, and generalized weakness. Today, her bilirubin and liver enzymes are improving, and her potassium level was 3.2, which has been replaced. Protonix therapy for duodenitis will continue. An abdominal ultrasound is pending, but all other radiology results were negative for acute concerns. A physical therapy (PT) and occupational therapy (OT) evaluation will be conducted for weakness, and the patient expresses a desire for rehab placement. She will need follow-up with both GI and neurosurgery in the outpatient setting. Currently, she denies chest pain, shortness of breath, abdominal pain, nausea, or vomiting. She has continued nausea today, but antiemetics have been helping. 11/26/24 Pt resting in bed. She had a temp of 99 this AM. She was made NPO for surgical consult as occult stool positive and HGB dropped from 11.6 to 9.0. Eliquis held. Bili, liver enzymes, and alk phos all elevated, MRCP ordered. Abd distended with epigastric pain. Continue protonix and IVF. Repeat UA with reflex culture ordered. Continue macrobid BID from last visit for now. Pt has some wheezing throughout lung sounds today. incentive spirometer and breathing treatments ordered. Back pain currenlty controlled. She is wanting rehab placement at d/c. They are requiring a peer to peer discussion today. Pt is not ready to d/c today and consider transferring to higher level of care for GI eval and possible ERCP. Pt denies CP, V/D. 11/27/24 Pt resting in the bed She is not feeling well today and jaundiced. Urine is dark brown. Per nursing surgery seen pt yesterday and wanted to further discuss case with other providers in the group. Labs overall worse today. UA pending. Stopped macobid. US and MRCP negative. Discussed pt case with [facility] GI and pt to be transferred to higher level of care 11/28/24 Pt resting in bed. She started to have some CP today and Rhythm is in a-fib. She has a hx of this and on Eliquis. EKG and trops x3 ordered. She is still awaiting tx to higher level of care. Facility called this AM to check on updates of the pt and labs. Labs improving slightly. UC pending. Surgery evalated pt yesterday and agreed with tx to higher level of care. Pt denies SOb, N/V/D. She reports + hemorrhoid pain and has meds for this. - Vitals & Intake/Output Vital Signs: Vital Signs Temperature 97.5 F 11/28/24 12:00 Pulse Rate 94 H 11/28/24 12:00 Respiratory Rate 20 11/28/24 12:00 Blood Pressure 109/66 11/28/24 12:00 O2 Sat by Pulse Oximetry 95 11/28/24 12:00 Intake & Output: Intake & Output 11/26/24 11/27/24 11/28/24 11/29/24 11:59 11:59 11:59 11:59 Intake Total 2982 1180 940 Output Total 9802 9558 1600 Balance 1782 -817 -872 - Lab Result Diagrams: 11/28/24 04:58 11/28/24 04:58 Lab Results-Last 24 Hrs: Lab Results-Last 24 Hours 11/27/24 11/28/24 11/28/24 Range/Units 21:00 04:58 04:58 WBC 7.9 (3.98-10.04) x10^3/uL RBC 4.43 (3.93-5.22) x10^6/uL Hgb 10.2 L (11.2-15.7) g/dL Hct 33.0 L (34.1-44.9) % MCV 74.5 L (79.4-94.8) fL MCH 23.0 L (25.6-32.2) pg MCHC 30.9 L (32.2-35.5) g/dL RDW 21.9 H (11.7-14.4) % Plt Count 194 (182-369) x10^3/uL MPV 11.2 (9.4-12.3) fL Sodium 135 (135-145) mmol/L Potassium 3.6 (3.5-5.1) mmol/L Chloride 99 (98-107) mmol/L Carbon Dioxide 26 (22-30) mmol/L Anion Gap 13.9 (5-15) MEQ/L BUN 14 (7-17) mg/dL Creatinine 0.55 (0.52-1.04) mg/dL Estimated GFR 96.7 ML/MIN Glucose 101 (74-106) mg/dL Calcium 8.3 L (8.4-10.2) mg/dL Total Bilirubin 2.70 H (0.2-1.3) mg/dL AST 110 H (14-36) U/L ALT 96 H (0-35) U/L Alkaline Phosphatase 356 H (38-126) U/L Troponin (0.00-0.03) ng/mL Serum Total Protein 6.2 L (6.3-8.2) g/dL Albumin 3.0 L (3.5-5.0) g/dL Urine Color Dark Yellow A (Yellow) Urine Appearance Clear (Clear) Urine pH 6.0 (4.6-8.0) Ur Specific [place] 1.015 (1.005-1.030) Urine Protein 30 (Negative) Urine Glucose (UA) Negative (Negative) mg/dL Urine Ketones 15 A (Negative) Urine Blood Negative (Negative) Urine Nitrite Negative (Negative) Urine Bilirubin Moderate A (Negative) Urine Urobilinogen 1.0 A (0.2) mg/dL Ur Leukocyte Esterase Trace A (Negative) U Hyaline Cast (Auto) NONE SEEN (0-2) /LPF Urine Microscopic RBC 0-2 (0-5) /HPF Urine Microscopic WBC 0-2 (0-5) /HPF Ur Epithelial Cells None Seen (None Seen) /HPF Urine Bacteria None Seen (None Seen) /HPF Urine Culture Reflexed YES (NO) Slides for Path Review YES 11/28/24 Range/Units 09:41 WBC (3.98-10.04) x10^3/uL RBC (3.93-5.22) x10^6/uL Hgb (11.2-15.7) g/dL Hct (34.1-44.9) % MCV (79.4-94.8) fL MCH (25.6-32.2) pg MCHC (32.2-35.5) g/dL RDW (11.7-14.4) % Plt Count (182-369) x10^3/uL MPV (9.4-12.3) fL Sodium (135-145) mmol/L Potassium (3.5-5.1) mmol/L Chloride (98-107) mmol/L Carbon Dioxide (22-30) mmol/L Anion Gap (5-15) MEQ/L BUN (7-17) mg/dL Creatinine (0.52-1.04) mg/dL Estimated GFR ML/MIN Glucose (74-106) mg/dL Calcium (8.4-10.2) mg/dL Total Bilirubin (0.2-1.3) mg/dL AST (14-36) U/L ALT (0-35) U/L Alkaline Phosphatase (38-126) U/L Troponin 0.01 (0.00-0.03) ng/mL Serum Total Protein (6.3-8.2) g/dL Albumin (3.5-5.0) g/dL Urine Color (Yellow) Urine Appearance (Clear) Urine pH (4.6-8.0) Ur Specific Mentor (1.005-1.030) Urine Protein (Negative) Urine Glucose (UA) (Negative) mg/dL Urine Ketones (Negative) Urine Blood (Negative) Urine Nitrite (Negative) Urine Bilirubin (Negative) Urine Urobilinogen (0.2) mg/dL Ur Leukocyte Esterase (Negative) U Hyaline Cast (Auto) (0-2) /LPF Urine Microscopic RBC (0-5) /HPF Urine Microscopic WBC (0-5) /HPF Ur Epithelial Cells (None Seen) /HPF Urine Bacteria (None Seen) /HPF Urine Culture Reflexed (NO) Slides for Path Review - Radiology Exams Ordered Rad Exams-Entire Visit: Radiology Procedures Category Date Time Status MRI ABD W/O CONTRAST [MRI] Routine Exams 11/26/24 14:16 Completed - Procedures and Test Procedures and Tests throughout Hospitalization: Therapy Orders & Screens 11/24/24 20:51 PT Eval & Treat (MD Order) ONCE Reason for Eval:: DEBILITY Diagnosis: weakness OT Eval and Treat (MD Order) ONCE Comment: Physician Instructions: Reason For Exam: Diagnosis: weakness 11/26/24 09:43 Incentive Spirometry UD Comment: Diagnosis: weakness 11/26/24 11:40 Respiratory Therapy Assessment DAILY Comment: Diagnosis: weakness 11/28/24 09:30 EKG STAT Comment: Diagnosis: weakness Discharge Exam General Appearance: mild distress, alert, obese Neurologic Exam: alert, oriented x 3, cooperative, normal mood/affect, nml cerebellar function, sensation nml, No motor deficits Eye Exam: PERRL, EOMI, eyes nml inspection Ears, Nose, Throat Exam: normal ENT inspection, pharynx normal, moist mucous membranes Neck Exam: normal inspection, non-tender, supple, full range of motion Respiratory Exam: normal breath sounds, lungs clear, No respiratory distress Cardiovascular Exam: normal heart sounds, irregular Gastrointestinal/Abdomen Exam: soft, distention, No tenderness, No mass Pelvic Exam: deferred Rectal Exam: hemorrhoids, tenderness Back Exam: normal inspection, normal range of motion, No CVA tenderness, No vertebral tenderness Extremity Exam: normal inspection, normal range of motion Skin Exam: normal color, warm, dry, jaundice Final Diagnosis/Problem List - Final Discharge Diagnosis/Problem (1) Duodenitis Current Visit: Yes Status: Acute Code(s): K29.80 - DUODENITIS WITHOUT B LEEDING (2) Compression fracture of T11 vertebra Current Visit: Yes Status: Acute Code(s): S22.080A - WEDGE COMPRESSION FRACTURE OF T11-T12 VERTEBRA, INIT (3) Anemia Current Visit: Yes Status: Acute Code(s): D64.9 - ANEMIA, UNSPECIFIED (4) Generalized weakness Current Visit: Yes Status: Acute Code(s): R53.1 - WEAKNESS (5) Hyperbilirubinemia Current Visit: Yes Status: Acute Code(s): E80.6 - OTHER DISORDERS OF BILI GIL METABOLISM (6) Impetigo Current Visit: Yes Status: Acute Code(s): L01.00 - IMPETIGO, UNSPECIFIED (7) HTN (hypertension) Current Visit: No Status: Chronic Code(s): I10 - ESSENTIAL (PRIMARY) HYPERTENSION (8) UTI (urinary tract infection) Current Visit: No Status: Acute Code(s): N39.0 - URINARY TRACT INFECTION, SITE NOT SPECIFIED (9) Obesity (BMI 30.0-34.9) Current Visit: Yes Status: Chronic Code(s): E66.811 - OBESITY, CLASS 1 (10) Hypokalemia Current Visit: Yes Status: Acute Code(s): E87.6 - HYPOKALEMIA (11) RSV infection Current Visit: Yes Status: Acute Code(s): B33.8 - OTHER SPECIFIED VIRAL DISEASES (12) Transaminitis Current Visit: Yes Status: Acute Code(s): R74.01 - ELEVATION OF LEVELS OF LIVER TRANSAMINASE LEVELS (13) Elevated alkaline phosphatase level Current Visit: Yes Status: Acute Code(s): R74.8 - ABNORMAL LEVELS OF OTHER SERUM ENZYMES (14) Abdominal pain Current Visit: Yes Status: Acute Assessment & Plan: (1) Duodenitis Current Visit: Yes Status: Acute Assessment & Plan: - Protonix BID - Antiemetic for related nausea PRN - CT abd pelvis: Impression: 1. New CT features favoring duodenitis. 2. New remote-appearing T11 endplate fracture. 3. Again chronic findings including pulmonary fibrosis/scarring, hiatal hernia, sigmoid diverticulosis, arteriosclerotic disease, chronic bony findings, and old granulomatous disease. - Will need OP GI f/u at D/C 11/26 - GS consult - CBC, CMP reviewed - Hgb 9.0 - Carafate added by GS 11/27 - Hgb 9.4 - CBC, CMP reviewed 11/28 - Hgb 10.2 - CBC, CMP reviewed Code(s): K29.80 - DUODENITIS WITHOUT BLEEDING (2) Compression fracture of T11 vertebra Current Visit: Yes Status: Acute Assessment & Plan: - Will need OP f/u with neurosurgery - New finding seen on CT chest - Tylenol for pain PRN 11/26 - Pt wanting rehab placement 11/28 - tx to higher level of care for eval with neuro- pain controlled Code(s): S22.080A - WEDGE COMPRESSION FRACTURE OF T11-T12 VERTEBRA, INIT (3) Anemia Current Visit: Yes Status: Acute Assessment & Plan: - Hgb dropped to 9.4 from 11.6 yesterday - Trend HGB - Occult stool pending - Eliquis held for now - SCD's 11/26 - Hgb 9.0 - GS consult - occult stool + - eliquis held - NPO 11/27 - Hgb 9.4 11/28 - Hgb 10.2 Code(s): D64.9 - ANEMIA, UNSPECIFIED (4) Generalized weakness Current Visit: Yes Status: Acute Assessment & Plan: - PT/OT eval - CT head negative for acute concern - CT chest reviewed - CT abd pelvis reviewed - CBC, CMP reviewed Code(s): R53.1 - WEAKNESS (5) Hyperbilirubinemia Current Visit: Yes Status: Acute Assessment & Plan: - Bili 3.80- improved - US abd. pending 11/26 - Bili 4.40 - MRCP negative - consider tx to higher level of care for GI - US abd negative 11/27 - Bili 4.40, total bili 3.4 - + jaundice 11/28 - Bili 2.70 - + jaundice Code(s): E80.6 - OTHER DISORDERS OF BILIRUBIN METABOLISM (6) Impetigo Current Visit: Yes Status: Acute Assessment & Plan: - Of chin - Discussed good hand washing as not to spread - Mupirocin cream TID Code(s): L01.00 - IMPETIGO, UNSPECIFIED (7) HTN (hypertension) Current Visit: No Status: Chronic Qualifiers: Hypertension type: primary hypertension Qualified Code(s): I10 - Essential (primary) hypertension Assessment & Plan: - BP controlled- continue home meds- trend Code(s): I10 - ESSENTIAL (PRIMARY) HYPERTENSION (8) UTI (urinary tract infection) Current Visit: No Status: Acute Assessment & Plan: - Continue oral antibiotic 11/26 - Repeat UA with C&S 11/27 - UA pending - stop macrobid 11/28 - UC pending - UA reviewed Code(s): N39.0 - URINARY TRACT INFECTION, SITE NOT SPECIFIED (9) Obesity (BMI 30.0-34.9) Current Visit: Yes Status: Chronic Assessment & Plan: - Advised diet and exercise control Code(s): E66.811 - OBESITY, CLASS 1 (10) Hypokalemia Current Visit: Yes Status: Acute Assessment & Plan: - K+ 3.2- replaced- trend - Tele 11/26 - K+ 3.9 - resolved Code(s): E87.6 - HYPOKALEMIA (11) RSV infection Current Visit: Yes Status: Acute Assessment & Plan: - supportive care - + test in ER - RA 95% - Supportive care 11/26 - temp 99 today - Proventil 11/28 - no overnight temp Code(s): B33.8 - OTHER SPECIFIED VIRAL DISEASES (12) Transaminitis Current Visit: Yes Status: Acute Assessment & Plan: - AST 118, ALT 80 - MRCP 11/27 - AST 138, ALT 91, Alk Phos 333 11/28 - AST 110, ALT 96 Alk phos 356 Code(s): R74.01 - ELEVATION OF LEVELS OF LIVER TRANSAMINASE LEVELS (13) Elevated alkaline phosphatase level Current Visit: Yes Status: Acute Assessment & Plan: - 272- trend - GS consult - MRCP negative 11/27 - Alk Phos 333 11/28 - 356- worse Code(s): R74.8 - ABNORMAL LEVELS OF OTHER SERUM ENZYMES (14) Abdominal pain Current Visit: Yes Status: Acute Assessment & Plan: - MRCP negative - CBC, CMP reviewed - + occult stool - Temp 99 - Abd. distention - Repeat UA - consider BC x2 - Protonix 40 Q12 - Tylenol PRN - GS consult- reviewed note and they agree with tx to higher level of care for further eval - IVF- stopped Code(s): R10.9 - UNSPECIFIED ABDOMINAL PAIN Code(s): R10.9 - UNSPECIFIED ABDOMINAL PAIN - Discharge Discharge Date: 11/28/24 Disposition: XFER OTHER Condition: Stable Prescriptions: Continue PARoxetine HCL [Paroxetine HCl] 10 mg PO DAILY Dorzolamide HCl/Timolol Maleat [Dorzolamide-Timolol Eye Drops] 10 ml DROPS BID Apixaban [Eliquis 2.5 mg Tablet] 5 mg PO BID #60 tablet Sotalol HCl 80 mg [Betapace 80 MG] 40 mg PO BID Latanoprost 1 drop OP HS Omeprazole 20 mg PO BID 30 Days #60 cap Discontinued Nitrofurantoin Macro 100 mg [Macrobid 100MG Capsule] 100 mg PO BIDWM 5 Days #10 cap Follow up with: GUS FORTUNE NP [NON-STAFF PHY W/O PRIVILEGES] - 04/08/25 8:30 am (medical office building third floor ) ALLISON CAT MD [Primary Care Provider] - 12/04/24 9:45 am (AT [facility]) ELOY SLATER [NON-STAFF PHY W/O PRIVILEGES] - (need new referral for patient.)
[2024-11-28] MEDS ORDERED: APRESOLINE 20 MG/ML INJ IV PRN (16:42)
[2024-11-28] MEDS: Merrem 1 GM in Sodium Chloride 100ML MINI-BAG PLUS 100 ML IV SCH (17:31)
[2024-11-28 18:07] VITALS: RESP 16
[2024-11-28 20:15] VITALS: BP 140/91; PULSE 96; TEMP 97.6; O2SAT 95
== END 2024-11-28 22:10 ==
LOC: ED 15:16 → MED SURG 19:59
PROVIDERS: ADMIT Internal Medicine; ATTEND Internal Medicine
DX: K29.80 Duodenitis without bleeding (principal); S22.080A Wedge compression fracture of T11-T12 vertebra, initial encounter for closed fracture; D64.9 Anemia, unspecified; R53.1 Weakness; E80.6 Other disorders of bilirubin metabolism; L01.00 Impetigo, unspecified; I10 Essential (primary) hypertension; N39.0 Urinary tract infection, site not specified; E66.811 Obesity, class 1; E87.6 Hypokalemia; B33.8 Other specified viral diseases; R74.01 Elevation of levels of liver transaminase levels; R74.8 Abnormal levels of other serum enzymes; R10.9 Unspecified abdominal pain; I48.91 Unspecified atrial fibrillation; K64.9 Unspecified hemorrhoids; Z79.01 Long term (current) use of anticoagulants; Z79.899 Other long term (current) drug therapy; K44.9 Diaphragmatic hernia without obstruction or gangrene; K57.92 Diverticulitis of intestine, part unspecified, without perforation or abscess without bleeding; Z86.73 Personal history of transient ischemic attack (TIA), and cerebral infarction without residual deficits; Z85.3 Personal history of malignant neoplasm of breast; Z85.41 Personal history of malignant neoplasm of cervix uteri
CPT/HCPCS: 0241U; 36415; 70450; 71260; 74177; 74181; 76705; 80053; 80076; 81001; 82150; 82728; 83605; 83690; 83735; 84484; 85025; 85027; 85610; 85730; 86308; 86850; 86900; 86901; 87086; 87493; 93005; 93041; 93268; 94760; 97110; 97161; 97165; 97530; 99285; G0328; G0378; Q3014; 82274; J2405; J3480; A9270-GY

== ENCOUNTER 2025-06-18 08:42 | Emergency (ER) | payer MEDICARE ==
[2025-06-18 08:52] VITALS: TEMP 97; O2SAT 98
[2025-06-18 09:04] VITALS: PULSE 52; RESP 9
--- NOTE | 2025-06-18 09:06 | ERPHSYRPT ---
- History of Present Illness Time Seen by Provider: 06/18/25 08:55 Source: patient, EMS Patient Subjective Stated Complaint: pt c/o of dizziness/anxiety Triage Nursing Assessment: Pt brought to the ER by EMS, hypertensive, denies pain, pulses normal, skin n/w/d, denies chest pain, no difficulty breathing, pt gets anxiety due to missing some medications and then taking them later and thinking that she has to keep everything off schedule and then she gets all worked up, EMS stated that the family members reported that she does this often, pt took a hydroxyzine prior to coming and is feeling much better now Physician History: The patient presented by ambulance reporting that she felt dizzyShe states the symptoms started last night when she had been out working in the yard and then suddenly moved her head. She states that she felt lightheaded since this time. She reports that symptoms feel better when she stands. They are worse when she moves her head around while seated. She has had no chest pain or shortness of breath. She had no recent illness. She does state that she slept in yesterday and did not take her medication at the normal time. She reports she had something like this previously in outside hospital including a workup and gave her meclizine. She has not taken meclizine at this time. She reports that she woke this this morning again forgot to take her meds. States that she has no headache. She has no neurologic symptoms. She reports a general lightheadedness. She also states that she felt very anxious this morning had to take her hydroxyzine. After taking the hydroxyzine she reports that symptoms have improved. She denies any active symptoms on ER arrival at this time. She reports she forgot to take her blood pressure medication which is due in a couple hours. Blood pressure slightly elevated on arrival Severity: mild Character of Deficits: none Baseline/Normal Cognition: alert oriented x 3 Allergies/Adverse Reactions: codeine Allergy (Verified 06/18/25 08:53) corn Allergy (Verified 06/18/25 08:53) erythromycin base Allergy (Verified 06/18/25 08:53) Penicillins Allergy (Verified 06/18/25 08:53) Sulfa (Sulfonamide Antibiotics) Allergy (Verified 06/18/25 08:53) NOVAFED Adverse Reaction (Uncoded 06/18/25 08:53) [facility] Medications: PARoxetine HCL [Paroxetine HCl] 10 mg PO DAILY 03/31/21 [History] Dorzolamide HCl/Timolol Maleat [Dorzolamide-Timolol Eye Drops] 10 ml DROPS BID 04/01/21 [History] Latanoprost 1 drop OP HS 11/22/23 [History] Amiodarone HCl 200 mg [Cordarone 200 MG] 200 mg PO DAILY 04/21/25 [History] Ferrous Sulfate 325 mg [Feosol 325 mg] 325 mg PO QAM 04/21/25 [History] PANTOPRAZOLE 40 mg Tablet [Protonix 40MG Tablet] 40 mg PO QAM 04/21/25 [History] Potassium Chloride [Klor-Con 10] 10 meq PO QAM 04/21/25 [History] Hydroxyzine HCl 25 mg [Atarax 25 mg] 25 mg PO BID 06/18/25 [History] Losartan Potassium 50 mg [Cozaar 50 MG] 50 mg PO DAILY 06/18/25 [History] Hx Tetanus, Diphtheria Vaccination/Date Given: Yes Hx Influenza Vaccination/Date Given: Yes Hx Pneumococcal Vaccination/Date Given: Yes Travel Risk - International Travel Have you traveled outside of the country in past 3 weeks: No - Emerging Infectious Disease Are you exhibiting symptoms associated with any current EIDs: No - Review of Systems Constitutional: No Fever, No Chills Eyes: No Symptoms Ears, Nose, & Throat: No Symptoms Respiratory: No Cough, No Dyspnea Cardiac: No Chest Pain, No Edema, No Syncope Abdominal/Gastrointestinal: No Abdominal Pain, No Nausea, No Vomiting, No Diarrhea Genitourinary Symptoms: No Dysuria Musculoskeletal: No Back Pain, No Neck Pain Skin: No Rash Neurological: Dizziness, No Focal Weakness, No Headache, No Parasthesia, No Seizure, No Sensory Changes, No Speech Changes, No Tremors Psychological: No Symptoms Endocrine: No Symptoms All Other Systems: Reviewed and Negative - Past Medical History Pertinent Past Medical History: Yes Neurological History: TIA ENT History: No Pertinent History Cardiac History: Arrhythmia, Coronary Artery Disease, High Cholesterol, Hypertension Respiratory History: Asthma Endocrine Medical History: No Pertinent History Musculoskeletal History: Osteoarthritis GI Medical History: Hernia, Ulcer History: No Pertinent History Psycho-Social History: Anxiety, Panic Disorder Female Reproductive Disorders: Breast Cancer, Fibroids Other Medical History: TIA IN 2019, [employer] Bin Operator: Dr. Rivera. afib - Past Surgical History Past Surgical History: Yes Neuro Surgical History: No Pertinent History Cardiac: No Pertinent History Respiratory: No Pertinent History Gastrointestinal: Cholecystectomy, Other Genitourinary: No Pertinent History Musculoskeletal: No Pertinent History Female Surgical History: Hysterectomy, Mastectomy Other Surgical History: Ganglion cyst removed from left wrist. Catarct surgery march, COLONOSCOPY Significant Family History: no pertinent family hx - Social History Smoking Status: Former smoker Exposure to second hand smoke: No Drug Use: none - Social Determinants of Health Will the patient participate in the screening: Yes Do you worry about a steady place to live?: No Do you have any problems with any of the following?: No known problems In the past 12 months,have you had to go without utilities?: No Transportation Issues: No Has anyone in your support network made you feel unsafe?: No Have you or anyone in your house had to go w/o enough food: No - Nursing Vital Signs Nursing Vital Signs: Initial Vital Signs Temperature 97.0 F 06/18/25 08:46 Pulse Rate 56 L 06/18/25 08:46 Respiratory Rate 14 06/18/25 08:46 Blood Pressure 183/95 06/18/25 08:46 O2 Sat by Pulse Oximetry 98 06/18/25 08:46 Pain Scale Pain Intensity 0 - Physical Exam General Appearance: no apparent distress Eye Exam: bilateral eye: PERRL, EOMI Ears, Nose, Throat Exam: normal ENT inspection, moist mucous membranes Neck Exam: normal inspection Respiratory: normal breath sounds, lungs clear, airway intact, No respiratory distress Cardiovascular: regular rate/rhythm, No edema Gastrointestinal: soft, No tenderness, No distention Back Exam: normal inspection Extremity Exam: normal inspection, No pedal edema Mental Status: alert, oriented x 3, 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 Exam: normal speech, PERRL, tongue midline, No abnormal speech, No facial asymmetry Coordination/Gait: normal finger to nose Motor/Sensory: no motor deficit, no sensory deficit, no pronator drift Skin Exam: normal color SpO2 Interpretation: normal (Patient has nonfocal neuroexam.) SpO2: 98 - Course EKG Interpreted by Me: Other (Sinus rhythm rate of 51 prolonged [place] borderline T wave) Ordered Tests: Active Orders 24 hr Category Date Time Status EKG-ER Only STAT Care 06/18/25 09:00 Active CBC W DIFF Stat Lab 06/18/25 09:17 Completed CMP Stat Lab 06/18/25 09:17 Completed Lab/Rad Data: Laboratory Result Diagrams 06/18/25 09:17 06/18/25 09:17 Laboratory Results 06/18/25 06/18/25 Range/Units 09:17 09:17 WBC 7.6 (3.98-10.04) x10^3/uL RBC 4.68 (3.93-5.22) x10^6/uL Hgb 13.5 (11.2-15.7) g/dL Hct 40.6 (34.1-44.9) % MCV 86.8 (79.4-94.8) fL MCH 28.8 (25.6-32.2) pg MCHC 33.3 (32.2-35.5) g/dL RDW 14.5 H (11.7-14.4) % Plt Count 252 (182-369) x10^3/uL MPV 10.3 (9.4-12.3) fL Gran % 52.1 (34.0-71.1) % Immature Gran % (Auto) 0.3 (0.001-0.429) % Nucleat RBC Rel Count 0.0 (0.00-0.2) % Eos # (Auto) 0.22 (0.04-0.36) x10^3/uL Immature Gran # (Auto) 0.02 (0.001-0.031) x10^3u/L Absolute Lymphs (auto) 2.78 (1.18-3.74) x10^3/uL Absolute Monos (auto) 0.55 (0.24-0.86) x10^3/uL Absolute Nucleated RBC 0.00 (0.00-0.012) x10^3u/L Lymphocytes % 36.7 (19.3-51.7) % Monocytes % 7.3 (4.7-12.5) % Eosinophils % 2.9 (0.7-5.8) % Basophils % 0.7 (0.1-1.2) % Absolute Granulocytes 3.95 (1.56-6.13) x10^3/uL Basophils # 0.05 (0.01-0.08) x10^3/uL Sodium 139 (135-145) mmol/L Potassium 4.0 (3.5-5.1) mmol/L Chloride 103 (98-107) mmol/L Carbon Dioxide 28 (22-30) mmol/L Anion Gap 11.8 (5-15) MEQ/L BUN 20 H (7-17) mg/dL Creatinine 0.79 (0.52-1.04) mg/dL Estimated GFR 78.4 ML/MIN Glucose 108 H (74-106) mg/dL Calcium 9.0 (8.4-10.2) mg/dL Total Bilirubin 0.40 (0.2-1.3) mg/dL AST 29 (14-36) U/L ALT 29 (0-35) U/L Alkaline Phosphatase 68 (38-126) U/L Serum Total Protein 7.8 (6.3-8.2) g/dL Albumin 4.1 (3.5-5.0) g/dL - Progress Progress: improved (Reviewed EKG and labs. No unremarkable findings. Patient feels improved) - Departure Departure Disposition: Home Clinical Impression: Dizziness Condition: Good Critical Care Time: No Referrals: ALLISON CAT MD [Primary Care Provider, INTERNAL MEDICINE] - Follow up/PCP as directed Additional Instructions: Your lab work did not show any concerning findings. Please make sure you are taking your blood pressure medication at home as your blood pressure was elevated on ER arrival. Rest and drink plenty of fluids today. If your dizziness is not completely resolved this week should be rechecked by your doctor. Return for worsening symptoms or concern
[2025-06-18 09:22] LABS: BASOPHIL % 0.7 % (0.1-1.2); Basophil (Absolute #) 0.05 x10^3/uL (0.01-0.08); Eosinophil (Absolute #) 0.22 x10^3/uL (0.04-0.36); Hematocrit 40.6 % (34.1-44.9); Hemoglobin 13.5 g/dL (11.2-15.7); IMMATURE GRAN # 0.02 x10^3u/L (0.001-0.031); IMMATURE GRAN % 0.3 % (0.001-0.429); Lymphocyte (Absolute #) 2.78 x10^3/uL (1.18-3.74); Mean Corpuscular Hemoglobin 28.8 pg (25.6-32.2); Mean Corpuscular Hgb Concent. 33.3 g/dL (32.2-35.5); Monocyte (Absolute #) 0.55 x10^3/uL (0.24-0.86); NUCLEATED RBC # 0.00 x10^3u/L (0.00-0.012); NUCLEATED RBC % 0.0 % (0.00-0.2); Platelet Count 252 x10^3/uL (182-369); Red Blood Count 4.68 x10^6/uL (3.93-5.22); White Blood Count 7.6 x10^3/uL (3.98-10.04)
[2025-06-18 10:04] LABS: Calcium 9.0 mg/dL (8.4-10.2); Carbon Dioxide 28.0 mmol/L (22-30); Creatinine 1 0.79 mg/dL (0.52-1.04); EST GLOMERULAR FILTRATION RATE 78.4 ML/MIN; Glucose 108.0 mg/dL (74-106); Potassium 4.0 mmol/L (3.5-5.1); SGOT/AST 29.0 U/L (14-36); SGPT/ALT 29.0 U/L (0-35); Total Protein 7.8 g/dL (6.3-8.2)
[2025-06-18 10:18] VITALS: BP 154/80
== END 2025-06-18 10:35 | disposition home or self-care (01) ==
LOC: ED 08:42
DX: R42 Dizziness and giddiness (principal); I10 Essential (primary) hypertension; Z79.899 Other long term (current) drug therapy